=== PATIENT | male | born 1960 ===

== ENCOUNTER 2017-07-12 08:58 | Day surgery (SDC) | payer OTHER ==
[2017-07-03 09:20] VITALS: BMI 31.3
[2017-07-12] MEDS ORDERED: Bupivacaine 0.25% Inj(30mL) ONE (09:34)
[2017-07-12] MEDS ORDERED: Lidocaine/Epinephrine 1% 1:100000 10 ML IJ ONE (09:35)
[2017-07-12] MEDS ORDERED: Midazolam 2 MG/2 ML VIAL ONE (10:05)
[2017-07-12] MEDS ORDERED: Propofol 10 mg/ml Inj (20 ML) ONE (10:05)
[2017-07-12] MEDS ORDERED: Neostigmine Methylsulfate 3mg/3ml Syringe IV ONE (10:09)
[2017-07-12] MEDS ORDERED: ceFAZolin IV 1 gm in Dextrose 2 GM/100 ML BAG IVPB ONE (10:58)
--- NOTE | 2017-07-12 12:19 | PCM.SURG1 ---
Surgeon's Initial Post Op Note - Surgeon's Notes Surgeon: Dr. Bautista Duplicating Machine Operator: Dr. Weiss, PGY-3 Type of Anesthesia: General LMA Anesthesia Administered By: Dr. Clifton Pre-Operative Diagnosis: Left shoulder & Left leg/mirza masses Operative Findings: See operative report Post-Operative Diagnosis: Same Operation Performed: 1) Excision of left shoulder mass. 2) Excision of left mirza mass Specimen/Specimens Removed: L shoulder & L leg masses Estimated Blood Loss: EBL {In ML}: 5 Blood Products Given: N/A Drains Used: No Drains Post-Op Condition: Good Date of Surgery/Procedure: 07/12/17 Time of Surgery/Procedure: 12:19
[2017-07-12] MEDS ORDERED: HYDROmorphone 0.5 mg/0.5 ml ISec IVP PRN (12:20)
[2017-07-12] MEDS ORDERED: Lactated Ringer's 1,000 ML IV ONE ×2 (12:54)
[2017-07-12 14:13] VITALS: RESP 16
[2017-07-12 14:15] VITALS: BP 105/61; PULSE 56; TEMP 97.7; O2SAT 97
--- NOTE | 2017-07-13 01:41 | OP ---
PROCEDURE DATE: 07/12/2017. PREOPERATIVE DIAGNOSES: 1. Left shoulder lipoma, possible sebaceous cyst 8 x 6 cm size. 2. Left leg lipoma, possibly 3 x 2 cm size. POSTOPERATIVE DIAGNOSES: 1. Left shoulder sebaceous cyst, 8 x 6 cm size. 2. Left leg lesion, 3 x 2 cm size. PROCEDURES: 1. Excision of the left shoulder sebaceous cyst, 8 x 6 cm size. 2. Layered closure of the wound, 8 x 3 cm size. 3. Excision of the left leg lesion, 3 x 2 cm size. 4. Layered closure of the wound of left leg, 3 x 2 cm size. ANESTHESIA: General anesthesia via LMA. ESTIMATED BLOOD LOSS: Around 30 mL all together. COMPLICATIONS: None. INTRAOPERATIVE FINDINGS: Th patient had a large sebaceous cyst of the left shoulder and the patient had brown color lesion of left leg. Initially, in both places was diagnosed as lipoma preoperatively. PATHOLOGY: The left shoulder sebaceous cyst and left leg lesion was sent to the pathology. SURGEON: Dr. Bautista. DIRECTOR OF STUDENT FINANCIAL SERVICES: Malu Weiss, PGY-2 resident and Anastasiia Wang FRONT LINE SUPERVISOR. DESCRIPTION OF PROCEDURE: On the intraoperative step, this 57-year-old male, who was diagnosed with left shoulder and the left leg lipoma and the patient was considered for excision of the left shoulder and the left leg lipoma, brought to the OR, placed supine on the operating table after induction of the anesthesia. After the induction of the anesthesia, the left shoulder and left leg was prepped and draped in the usual sterile fashion and the elliptical incision was made after incising skin, subcutaneous tissue, and the cyst was identified and now the upper and lower flap dissection was done medial and lateral dissection was done. The cyst was completely excised and it was sent off the table for pathology. The wound was closed in a multiple layer. The underlying fascia of the deltoid muscle was sutured with 0 Vicryl interrupted suture to cover the muscles, then another deep layer of subcutaneous with 2-0 Vicryl, superficial layer of subcutaneous with 2-0 Vicryl, and the skin with 4-0 Monocryl and dry sterile dressing was applied. The patient tolerated the procedure well. Now the left leg incision made after incising skin and subcutaneous tissue. The brown colored lesion was completely excised and it was sent off the table for pathology. Wound was irrigated and wound was closed in multiple layer with deep subcutaneous with 2-0 Vicryl. The superficial subcutaneous with 2-0 Vicryl and the skin with the 4-0 Monocryl and dry sterile dressings was applied. The patient tolerated the procedure well. Count of the instrument and gauze was correct. There was no apparent complication. Frank Bautista MD [facility]
== END 2017-07-12 14:19 | disposition home or self-care (01) ==
LOC: C.SDS 08:58 → MERGE 11:30 → C.SDS 14:19
PROVIDERS: ATTEND Surgery Surgical Critical Care
DX: L72.0 Epidermal cyst (principal); D18.01 Hemangioma of skin and subcutaneous tissue; E11.9 Type 2 diabetes mellitus without complications; I10 Essential (primary) hypertension
CPT/HCPCS: 11406; 12034; 82948; 88305; J0690; J1100; J2250; J2405; J2704; J2710; J2765; J3010; J7120

== ENCOUNTER 2017-08-09 07:16 | Day surgery (SDC) | payer OTHER ==
[2017-08-08 12:49] VITALS: BMI 32.8
[2017-08-09] MEDS ORDERED: Lactated Ringer's 500 ML IV ONE (09:05)
[2017-08-09] MEDS ORDERED: Propofol 10 mg/ml Inj (20 ML) ONE ×2 (09:15→09:17)
[2017-08-09 09:46] VITALS: RESP 16
[2017-08-09 09:52] VITALS: O2SAT 95
[2017-08-09 10:13] VITALS: TEMP 96.8
[2017-08-09 10:27] VITALS: BP 128/70; PULSE 53
== END 2017-08-09 10:50 | disposition home or self-care (01) ==
LOC: C.ENDO 07:16
PROVIDERS: ATTEND Internal Medicine Gastroenterology
DX: Z12.11 Encounter for screening for malignant neoplasm of colon (principal); D12.3 Benign neoplasm of transverse colon; D12.8 Benign neoplasm of rectum; K64.1 Second degree hemorrhoids
CPT/HCPCS: 45380; 82948; 88305; J2001; J2704; J7120

== ENCOUNTER 2017-10-21 17:54 | Inpatient (IN) | payer OTHER ==
[2017-10-21 17:54] VITALS: BMI 32.8
--- NOTE | 2017-10-21 18:52 | C.PDOC ---
History Of Present Illness 57 year old male with PMHx of HTN, HLD, and DM presents to the ED for evaluation of left lower leg erythema he noticed 3 days ago. Patient is taking antibiotics at home for 1 day. Patient has a lipoma recently removed from his left lower leg. Patient denies fever, chills, weakness, numbness. Time Seen by Provider: 10/21/17 18:49 Chief Complaint (Nursing): Abnormal Skin Integrity History Per: Patient History/Exam Limitations: no limitations Onset/Duration Of Symptoms: Days (3) Current Symptoms Are (Timing): Still Present Location Of Injury: Right: Leg Quality Of Symptoms: Painful, Swollen Recent travel outside of the [place]: No Additional History Per: Patient Past Medical History Reviewed: Historical Data, Nursing Documentation, Vital Signs Vital Signs: Last Vital Signs Temp 99.5 F 10/22/17 15:00 Pulse 71 10/22/17 15:00 Resp 20 10/22/17 15:00 BP 143/79 10/22/17 15:00 Pulse Ox 97 10/22/17 15:00 - Medical History PMH: Arthritis, HTN, Hypercholesterolemia Denies: Chronic Kidney Disease Surgical History: No Surg Hx Family History: States: Unknown Family Hx - Social History Hx Alcohol Use: Yes Hx Substance Use: No - Immunization History Hx Tetanus Toxoid Vaccination: No Review Of Systems Except As Marked, All Systems Reviewed And Found Negative. Musculoskeletal: Positive for: Leg Pain Skin: Positive for: Other (erythema) Physical Exam - Physical Exam Appears: Non-toxic, No Acute Distress Skin: Normal Color, Warm, Dry Head: Atraumatic, Normacephalic Eye(s): bilateral: Normal Inspection Oral Mucosa: Moist Neck: Normal ROM, Supple Chest: Symmetrical Cardiovascular: Rhythm Regular Respiratory: Normal Breath Sounds, No Rales, No Rhonchi, No Wheezing Gastrointestinal/Abdominal: Soft, No Tenderness, No Guarding, No Rebound Extremity: Normal ROM, No Tenderness, Capillary Refill (< 2 seconds), Other (4- 5 cm erythema area left lower leg) Pulses: Left Dorsalis Pedis: Normal, Right Dorsalis Pedis: Normal Neurological/Psych: Oriented x3, Normal Speech Gait: Steady ED Course And Treatment - Laboratory Results Result Diagrams: 10/22/17 08:01 10/22/17 08:01 O2 Sat by Pulse Oximetry: 99 (ON RA) Pulse Ox Interpretation: Normal - CT Scan/US Left lower leg Other Rad Studies (CT/US): U/S Performed By Me CT/US Interpretation: Bedside US shows no drainable collection Medical Decision Making Medical Decision Making: Impression: left lower leg erythema Plan: * Labs * Rocephin IVPB * IV fluids * Tylenol 975 mg PO * Vancomycin IVPN * Blood culture Disposition - Disposition Disposition: HOSPITALIZED Disposition Time: 03:00 Condition: STABLE - Clinical Impression Clinical Impression: Cellulitis - Scribe Statement The provider has reviewed the documentation as recorded by the Scribe Bernardo Waldrop All medical record entries made by the Scribe were at my direction and personally dictated by me. I have reviewed the chart and agree that the record accurately reflects my personal performance of the history, physical exam, medical decision making, and the department course for this patient. I have also personally directed, reviewed, and agree with the discharge instructions and disposition. Decision To Admit - Pt Status Changed To: Hospital Disposition Of: Inpatient - Admit Certification Admit to Inpatient:: After my assessment, the patient will require hospitalization for at least two midnights. This is because of the severity of symptoms shown, intensity of services needed, and/or the medical risk in this patient being treated as an outpatient. - InPatient: Physician Admission Certification: I certify that this patient requires 2 or more midnights of care for the following reason:: needs iv antibiotics - . Bed Request Type: Telemetry Admitting Physician: Naga Spear Patient Diagnosis: Cellulitis
[2017-10-21] MEDS ORDERED: Vancomycin 1 GM in Sodium Chloride 0.9% 200 ML IVPB STA (18:58)
[2017-10-21 19:44] LABS: BASO # 0.1 K/uL (0.0-0.2); BASO % 0.3 % (0.0-2.0); EOS % 0.1 % (0.0-4.0); LYMPH # 1.9 K/uL (1.0-4.3); LYMPH % 9.7 % (20.0-40.0); MEAN CELL VOLUME 87.8 fL (80.0-94.0); MEAN CORPUSCULAR HEMOGLOBIN 29.7 pg (27.0-31.0); MEAN CORPUSCULAR HGB CONC 33.8 g/dL (33.0-37.0); MEAN PLATELET VOLUME 8.2 fL (7.2-11.7); MONO # 1.5 K/uL (0.0-0.8); MONO % 7.8 % (0.0-10.0); NEUT % 82.1 % (50.0-75.0); PLATELET COUNT 330 K/uL (130-400); RBC 4.39 Mil/uL (4.40-5.90); RED CELL DISTRIBUTION WIDTH 13.6 % (11.5-14.5)
[2017-10-21 19:55] LABS: WHITE BLOOD COUNT 19.5 K/uL (4.8-10.8)
[2017-10-21 19:56] LABS: INR 1.2; PROTHROMBIN TIME 12.6 SECONDS (9.7-12.2)
[2017-10-21 19:59] LABS: ALB/GLOB RATIO 1.3 (1.0-2.1); ALBUMIN 4.3 g/dL (3.5-5.0); ALT/SGPT 29 U/L (21-72); AST/SGOT 25 U/L (17-59); BLOOD UREA NITROGEN 11 mg/dL (9-20); CALCIUM 8.9 mg/dl (8.6-10.4); GFR AFRICAN-AMERICAN > 60; GFR NON-AFRICAN AMERICAN > 60
[2017-10-21] MEDS ORDERED: Sodium Chloride 0.9% 1,000 ML IV ONE (20:05)
[2017-10-21 20:32] LABS: LARGE PLATELETS PRESENT; LYMPHOCYTE 11 % (20-40); MONOCYTE 8 % (0-10); NEUTROPHIL 81 % (50-75); OVALOCYTES SLIGHT; PLATELET ESTIMATE NORMAL (NORMAL); POIKILOCYTOSIS SLIGHT; TOTAL CELLS COUNTED 100
--- NOTE | 2017-10-21 22:28 | CP.PCM.HP ---
<Yelena Singh P - Last Filed: 10/22/17 02:51> History of Present Illness - History of Present Illness History of Present Illness: Medicine note for Hospitalist Service HPI: Patient is a 57 yo M with a PMHx of DM, HTN, Hypercholesterolemia who presents to ED for worsening L mirza redness, pain, and fevers that began 3 days prior to arrival. Patient states he has not been able to walk due to 9/10 L leg pain. Treatment with ibuprofen was not effective for the pain and helped to reduce fever only temporarily. Associated symptoms include chills, headache, lightheadedness on standing, mild shortness of breath, and nausea. Patient denies chest pain, palpitations, generalized weakness, cough, vomiting, diarrhea , dysuria, hematuria, urinary frequency, recent illness. Patient states he had a lipoma removed from his left mirza at [facility] by Dr. Bautista on 07/12 and notes that the redness is located at the incision site. Patient denies any complications at the time of surgery. Patient saw his PMD, Dr. Tavarez, yesterday who prescribed cephalexin 500 PO QID, and instructed the patient to come to ED if there was no improvement of symptoms. PMHx: DM, HTN, Hypercholesterolemia PSHx: Lipoma excision of L mirza and Left shoulder 07/12/17, Endoscopy 08/09/17, diagnostic catheterization ~2002 Allergies: NKDA Meds: Metformin 100mg BID, Pravastatin 50mg qHS, Glimeperide 4mg BID, Losartan 50mg daily Family Hx: Father: - HTN, DM. Mother: - HTN, DM. Social Hx: Drinks alcohol socially, denies tobacco, denies illicit drug use. PMD: Dr. Tavarez Present on Admission - Present on Admission Any Indicators Present on Admission: No Past Patient History - Past Medical History & Family History Past Medical History?: Yes - Past Social History Smoking Status: Never Smoked - CARDIAC Hx Hypercholesterolemia: Yes Hx Hypertension: Yes - PULMONARY Hx Respiratory Disorders: No - NEUROLOGICAL Hx Neurological Disorder: No - HEENT Hx HEENT Problems: No - RENAL Hx Chronic Kidney Disease: No - ENDOCRINE/METABOLIC Hx Endocrine Disorders: Yes Hx Diabetes Mellitus Type 2: Yes - HEMATOLOGICAL/ONCOLOGICAL Hx Blood Disorders: No - INTEGUMENTARY Hx Dermatological Problems: Yes - MUSCULOSKELETAL/RHEUMATOLOGICAL Hx Arthritis: Yes - GASTROINTESTINAL Hx Gastrointestinal Disorders: No - GENITOURINARY/GYNECOLOGICAL Hx Genitourinary Disorders: No - PSYCHIATRIC Hx Substance Use: No - SURGICAL HISTORY Hx Surgeries: Yes Hx Cardiac Catheterization: Yes - ANESTHESIA Hx Anesthesia: Yes Hx Anesthesia Reactions: No Hx Malignant Hyperthermia: No Meds Allergies/Adverse Reactions: Allergies Allergy/AdvReac Type Severity Reaction Status Date / Time No Known Allergies Allergy Verified 07/03/17 09:19 Physical Exam - Constitutional Appears: No Acute Distress - Head Exam Head Exam: ATRAUMATIC, NORMOCEPHALIC - Eye Exam Eye Exam: EOMI Pupil Exam: PERRL - ENT Exam ENT Exam: Mucous Membranes Moist - Neck Exam Neck exam: Positive for: Full Rom - Respiratory Exam Respiratory Exam: Clear to Auscultation Bilateral. absent: Rales, Rhonchi, Wheezes - Cardiovascular Exam Cardiovascular Exam: REGULAR RHYTHM, +S1, +S2. absent: Systolic Murmur - GI/Abdominal Exam GI & Abdominal Exam: Normal Bowel Sounds, Soft. absent: Tenderness - Extremities Exam Additional comments: L lower extremity: L anterior mirza with 7 cm area of erythema, swelling, and warmth with 1.5cm linear hyperpigmentation at center. Area is not well demarcated. There is no active drainage, no open wound. Area is tender to palpation. Full ROM with pain. R Lower extremity: Full ROM, non-tender to palpation, no edema or erythema. - Neurological Exam Neurological exam: Alert, CN II-XII Intact, Oriented x3 - Psychiatric Exam Psychiatric exam: Normal Affect, Normal Mood - Skin Additional comments: Other than stated above, warm dry and intact. Results - Vital Signs Recent Vital Signs: Last Vital Signs Temp 100.3 F H 10/21/17 22:13 Pulse 87 10/21/17 21:14 Resp 18 10/21/17 21:14 BP 104/66 10/21/17 21:14 Pulse Ox 96 10/21/17 21:14 - Labs Result Diagrams: 10/21/17 19:37 10/21/17 19:37 Labs: Laboratory Results - last 24 hr 10/21/17 10/21/17 10/21/17 19:37 19:37 19:37 WBC 19.5 H D RBC 4.39 L Hgb 13.0 Hct 38.5 MCV 87.8 MCH 29.7 MCHC 33.8 RDW 13.6 Plt Count 330 MPV 8.2 Neut % (Auto) 82.1 H Lymph % (Auto) 9.7 L [place] % (Auto) 7.8 Eos % (Auto) 0.1 Baso % (Auto) 0.3 Neut # (Auto) 16.0 H Lymph # (Auto) 1.9 [place] # (Auto) 1.5 H Eos # (Auto) 0.0 Baso # (Auto) 0.1 Neutrophils % (Manual) 81 H Lymphocytes % (Manual) 11 L Monocytes % (Manual) 8 Platelet Estimate Normal Large Platelets Present Poikilocytosis (manual Slight Ovalocytes Slight PT 12.6 H INR 1.2 APTT 35 H Sodium 136 Potassium 4.5 Chloride 98 Carbon Dioxide 26 Anion Gap 17 BUN 11 Creatinine 0.9 Est GFR ( Amer) > 60 Est GFR (Non-Af Amer) > 60 Random Glucose 260 H Lactic Acid Calcium 8.9 Total Bilirubin 1.0 AST 25 ALT 29 Alkaline Phosphatase 76 Total Protein 7.6 Albumin 4.3 Globulin 3.3 Albumin/Globulin Ratio 1.3 10/21/17 22:12 WBC RBC Hgb Hct MCV MCH MCHC RDW Plt Count MPV Neut % (Auto) Lymph % (Auto) [place] % (Auto) Eos % (Auto) Baso % (Auto) Neut # (Auto) Lymph # (Auto) [place] # (Auto) Eos # (Auto) Baso # (Auto) Neutrophils % (Manual) Lymphocytes % (Manual) Monocytes % (Manual) Platelet Estimate Large Platelets Poikilocytosis (manual Ovalocytes PT INR APTT Sodium Potassium Chloride Carbon Dioxide Anion Gap BUN Creatinine Est GFR ( Amer) Est GFR (Non-Af Amer) Random Glucose Lactic Acid 1.1 Calcium Total Bilirubin AST ALT Alkaline Phosphatase Total Protein Albumin Globulin Albumin/Globulin Ratio Assessment & Plan - Assessment and Plan (Free Text) Plan: 57 yo M with PMHx of DM, HTN, and hypercholesterolemia admitted for L leg cellulitis vs. abscess. 1. Sepsis secondary to Cellulitis vs. Abscess -On admission: WBC 19.5, temp: 103.1, pulse:105 -Lactate: 1.1 -Vancomycin 1g IVBP Q24H -Zosyn 3.375 IVBP Q8H -Tylenol 650mg PO Q6H PRN pain, fever -IVF -L leg US: F/u -CXR: F/u -blood cx: F/u -Procalcitonin F/u -VBG F/u -UA F/u -urine cx: F/u 2. Diabetes Mellitus -Regular ISS -Accucheck ACHS -Hbg A1c 3.HTN -Losartan 50mg PO daily 4. Hypercholesterolemia - 5. Prophylatic Measures -Florastor 250mg PO BID -Pepcid 20mg PO BID -Heparin 5000u SC Q12H -SCD contraindicated - Date & Time Date: 10/21/17 Time: 20:30 Decision To Admit - Pt Status Changed To: Hospital Disposition Of: Inpatient - Admit Certification Admit to Inpatient:: After my assessment, the patient will require hospitalization for at least two midnights. This is because of the severity of symptoms shown, intensity of services needed, and/or the medical risk in this patient being treated as an outpatient. - . Bed Request Type: Regular <Naga Spear - Last Filed: 10/22/17 06:43> Results - Vital Signs Recent Vital Signs: Last Vital Signs Temp 99.1 F 10/22/17 00:00 Pulse 66 10/22/17 01:00 Resp 20 10/22/17 00:00 BP 132/70 10/22/17 00:00 Pulse Ox 96 10/22/17 00:00 - Labs Result Diagrams: 10/21/17 19:37 10/21/17 19:37 Labs: Laboratory Results - last 24 hr 10/21/17 10/21/17 10/21/17 19:37 19:37 19:37 WBC 19.5 H D RBC 4.39 L Hgb 13.0 Hct 38.5 MCV 87.8 MCH 29.7 MCHC 33.8 RDW 13.6 Plt Count 330 MPV 8.2 Neut % (Auto) 82.1 H Lymph % (Auto) 9.7 L [place] % (Auto) 7.8 Eos % (Auto) 0.1 Baso % (Auto) 0.3 Neut # (Auto) 16.0 H Lymph # (Auto) 1.9 [place] # (Auto) 1.5 H Eos # (Auto) 0.0 Baso # (Auto) 0.1 Neutrophils % (Manual) 81 H Lymphocytes % (Manual) 11 L Monocytes % (Manual) 8 Platelet Estimate Normal Large Platelets Present Poikilocytosis (manual Slight Ovalocytes Slight PT 12.6 H INR 1.2 APTT 35 H pO2 VBG pH VBG pCO2 VBG HCO3 VBG Total CO2 VBG O2 Sat (Calc) VBG Base Excess VBG Potassium Glucose Lactate Crit Value Called To Crit Value Called By Crit Value Read Back Blood Gas Notified Time Sodium 136 Potassium 4.5 Chloride 98 Carbon Dioxide 26 Anion Gap 17 BUN 11 Creatinine 0.9 Est GFR ( Amer) > 60 Est GFR (Non-Af Amer) > 60 Random Glucose 260 H Lactic Acid Calcium 8.9 Total Bilirubin 1.0 AST 25 ALT 29 Alkaline Phosphatase 76 Total Protein 7.6 Albumin 4.3 Globulin 3.3 Albumin/Globulin Ratio 1.3 Venous Blood Potassium Urine Color Urine Clarity Urine pH Ur Specific [place] Urine Protein Urine Glucose (UA) Urine Ketones Urine Blood Urine Nitrate Urine Bilirubin Urine Urobilinogen Ur Leukocyte Esterase Urine WBC (Auto) Urine RBC (Auto) Urine Opiates Screen Urine Methadone Screen Ur Barbiturates Screen Ur Phencyclidine Scrn Ur Amphetamines Screen U Benzodiazepines Scrn U Oth Cocaine Metabols U Cannabinoids Screen 10/21/17 10/22/17 10/22/17 22:12 02:04 02:11 WBC RBC Hgb Hct MCV MCH MCHC RDW Plt Count MPV Neut % (Auto) Lymph % (Auto) [place] % (Auto) Eos % (Auto) Baso % (Auto) Neut # (Auto) Lymph # (Auto) [place] # (Auto) Eos # (Auto) Baso # (Auto) Neutrophils % (Manual) Lymphocytes % (Manual) Monocytes % (Manual) Platelet Estimate Large Platelets Poikilocytosis (manual Ovalocytes PT INR APTT pO2 39 VBG pH 7.36 VBG pCO2 46 VBG HCO3 24.3 VBG Total CO2 27.4 VBG O2 Sat (Calc) 77.8 H VBG Base Excess 0.1 VBG Potassium 3.4 L Glucose 202 H Lactate 1.1 Crit Value Called To Zeferino Blancot rn Crit Value Called By Heather trujillo rt Crit Value Read Back Y Blood Gas Notified Time 226 Sodium 139.0 Potassium Chloride 107.0 Carbon Dioxide Anion Gap BUN Creatinine Est GFR ( Amer) Est GFR (Non-Af Amer) Random Glucose Lactic Acid 1.1 Calcium Total Bilirubin AST ALT Alkaline Phosphatase Total Protein Albumin Globulin Albumin/Globulin Ratio Venous Blood Potassium 3.4 L Urine Color Yellow Urine Clarity Clear Urine pH 6.0 Ur Specific [place] 1.006 Urine Protein Negative Urine Glucose (UA) Normal Urine Ketones Negative Urine Blood 2+ H Urine Nitrate Negative Urine Bilirubin Negative Urine Urobilinogen Normal Ur Leukocyte Esterase Neg Urine WBC (Auto) 1 Urine RBC (Auto) < 1 Urine Opiates Screen Urine Methadone Screen Ur Barbiturates Screen Ur Phencyclidine Scrn Ur Amphetamines Screen U Benzodiazepines Scrn U Oth Cocaine Metabols U Cannabinoids Screen 10/22/17 02:11 WBC RBC Hgb Hct MCV MCH MCHC RDW Plt Count MPV Neut % (Auto) Lymph % (Auto) [place] % (Auto) Eos % (Auto) Baso % (Auto) Neut # (Auto) Lymph # (Auto) [place] # (Auto) Eos # (Auto) Baso # (Auto) Neutrophils % (Manual) Lymphocytes % (Manual) Monocytes % (Manual) Platelet Estimate Large Platelets Poikilocytosis (manual Ovalocytes PT INR APTT pO2 VBG pH VBG pCO2 VBG HCO3 VBG Total CO2 VBG O2 Sat (Calc) VBG Base Excess VBG Potassium Glucose Lactate Crit Value Called To Crit Value Called By Crit Value Read Back Blood Gas Notified Time Sodium Potassium Chloride Carbon Dioxide Anion Gap BUN Creatinine Est GFR ( Amer) Est GFR (Non-Af Amer) Random Glucose Lactic Acid Calcium Total Bilirubin AST ALT Alkaline Phosphatase Total Protein Albumin Globulin Albumin/Globulin Ratio Venous Blood Potassium Urine Color Urine Clarity Urine pH Ur Specific [place] Urine Protein Urine Glucose (UA) Urine Ketones Urine Blood Urine Nitrate Urine Bilirubin Urine Urobilinogen Ur Leukocyte Esterase Urine WBC (Auto) Urine RBC (Auto) Urine Opiates Screen Negative Urine Methadone Screen Negative Ur Barbiturates Screen Negative Ur Phencyclidine Scrn Negative Ur Amphetamines Screen Negative U Benzodiazepines Scrn Negative U Oth Cocaine Metabols Negative U Cannabinoids Screen Negative Assessment & Plan - Date & Time Date: 10/22/17 (I have seen and examined the patient. I agree with the findings and plan of care as documented by Dr. Singh. Patient with lower extremity cellulitis. Ultrasound of wound to check for abscess. Consult surgery if necessary. Vanco and Zosyn for now. History of diabetes. NISS and accuchecks. Optimize glucose control to improve wound healing. Monitor for acute changes.) Time: 06:41 Attending/Attestation - Attestation I have personally seen and examined this patient.: Yes I have fully participated in the care of the patient.: Yes I have reviewed all pertinent clinical information: Yes
[2017-10-21] MEDS ORDERED: Glucagon Recombinant 1 mg Inj IM PRN (22:51)
[2017-10-21] MEDS ORDERED: Dextrose 50% SYRINGE Inj (50 ml) IV PRN (22:51)
[2017-10-22] MEDS: Sodium Chloride 0.9% 1,000 ML IV SCH ×3 (00:25→18:49)
[2017-10-22] MEDS: Piperacillin/Tazobact 3.375 GM in Sodium Chloride 100 ML IVPB SCH ×3 (01:00→17:00)
[2017-10-22 02:24] LABS: VENOUS BLOOD GAS BASE EXCESS 0.1 mmol/L (0.0-2.0); VENOUS BLOOD GAS PCO2 46 mmHg (40-60); VENOUS BLOOD GAS PO2 39 mm/Hg (30-55); VENOUS BLOOD PH 7.36 (7.32-7.43)
[2017-10-22 02:32] LABS: BARBITURATES, UR NEGATIVE (NEGATIVE); BENZODIAZEPINES, UR NEGATIVE (NEGATIVE); OPIATES, UR NEGATIVE (NEGATIVE); PHENCYCLIDINE, UR NEGATIVE (NEGATIVE)
[2017-10-22 02:37] LABS: URINE BILIRUBIN NEGATIVE (NEGATIVE); URINE BLOOD 2+ (NEGATIVE); URINE CLARITY Clear (Clear); URINE COLOR Yellow (YELLOW); URINE GLUCOSE (UA) NORMAL (Normal); URINE LEUKOCYTE ESTERASE NEG Leu/uL (Negative); URINE PROTEIN NEGATIVE (NEGATIVE); URINE UROBILINOGEN NORMAL mg/dL (0.2-1.0)
[2017-10-22] MEDS: (Novolog) Insulin Aspart, Recombinant 100 u/ml 10 ml vial SC SCH ×4 (08:06→22:15)
[2017-10-22 08:17] LABS: BASO % 0.3 % (0.0-2.0); EOS % 0.3 % (0.0-4.0); HEMOGLOBIN 11.9 g/dL (12.0-18.0); LYMPH # 1.8 K/uL (1.0-4.3); LYMPH % 12.7 % (20.0-40.0); MEAN CELL VOLUME 87.5 fL (80.0-94.0); MEAN CORPUSCULAR HEMOGLOBIN 30.7 pg (27.0-31.0); MEAN PLATELET VOLUME 7.9 fL (7.2-11.7); MONO # 1.1 K/uL (0.0-0.8); MONO % 7.8 % (0.0-10.0); NEUT # 11.4 K/uL (1.8-7.0); NEUT % 78.9 % (50.0-75.0); RBC 3.89 Mil/uL (4.40-5.90); RED CELL DISTRIBUTION WIDTH 13.4 % (11.5-14.5); WHITE BLOOD COUNT 14.4 K/uL (4.8-10.8)
[2017-10-22 08:33] LABS: ALB/GLOB RATIO 1.3 (1.0-2.1); ALBUMIN 3.9 g/dL (3.5-5.0); ALT/SGPT 27 U/L (21-72); AST/SGOT 22 U/L (17-59); BLOOD UREA NITROGEN 8 mg/dL (9-20); CALCIUM 8.4 mg/dl (8.6-10.4); GFR AFRICAN-AMERICAN > 60; GFR NON-AFRICAN AMERICAN > 60
--- NOTE | 2017-10-22 08:34 | RAD ---
PROCEDURE: CHEST RADIOGRAPH, 1 VIEW HISTORY: leukocytosis COMPARISON: None available. FINDINGS: LUNGS: Clear. PLEURA: No pneumothorax or pleural fluid seen. CARDIOVASCULAR: Normal. OSSEOUS STRUCTURES: No significant abnormalities. VISUALIZED UPPER ABDOMEN: Normal. OTHER FINDINGS: None. IMPRESSION: No active disease.
[2017-10-22] MEDS: Saccharomyces Boulardi 250 mg Cap PO SCH ×2 (09:30→18:14)
--- NOTE | 2017-10-22 11:07 | CP.PCM.PN ---
<Sybil Du V - Last Filed: 10/22/17 14:23> Objective - Vital Signs/Intake and Output Vital Signs (last 24 hours): Temp Pulse Resp BP Pulse Ox 100.9 F H 80 20 137/78 96 10/22/17 08:00 10/22/17 08:00 10/22/17 08:00 10/22/17 08:00 10/22/17 08:00 Intake and Output: 10/22/17 10/22/17 06:59 18:59 Intake Total 800 Output Total 1200 Balance -400 - Medications Medications: Current Medications Acetaminophen (Tylenol 325mg Tab) 650 mg PO Q6 PRN PRN Reason: Fever >100.4 F Last Admin: 10/22/17 11:22 Dose: 650 mg Dextrose (Dextrose 50% Inj) 0 ml IV STAT PRN; Protocol PRN Reason: Hypoglycemia Protocol Dextrose (Glutose 15) 0 gm PO ONCE PRN; Protocol PRN Reason: Hypoglycemia Protocol Famotidine (Pepcid) 20 mg PO BID [facility] Last Admin: 10/22/17 09:30 Dose: 20 mg Glimepiride (Amaryl) 4 mg PO DAILY [facility] Glucagon (Glucagen Diagnostic Kit) 0 mg IM STAT PRN; Protocol PRN Reason: Hypoglycemia Protocol Heparin Sodium (Porcine) (Heparin) 5,000 units SC Q12 [facility] Last Admin: 10/22/17 11:23 Dose: 5,000 units Home Med (Pravastatin Sodium [Pravachol]) 1 tab PO HS [facility] Dextrose (Dextrose 5% In Water 1000 Ml) 1,000 mls @ 0 mls/hr IV .Q0M PRN; Protocol; Per Protocol PRN Reason: Hypoglycemia Protocol Piperacillin Sod/Tazobactam (Sod 3.375 gm/ Sodium Chloride) 100 mls @ 200 mls/ hr IVPB Q8H [facility] PRN Reason: Protocol Last Admin: 10/22/17 07:59 Dose: 200 mls/hr Sodium Chloride (Sodium Chloride 0.9%) 1,000 mls @ 100 mls/hr IV .Q10H [facility] Last Admin: 10/22/17 12:16 Dose: 100 mls/hr Vancomycin HCl 1 gm/ Sodium (Chloride) 200 mls @ 166.7 mls/hr IVPB Q24H [facility] PRN Reason: Protocol Insulin Aspart (Novolog) 0 unit SC ACHS [facility] PRN Reason: Protocol Last Admin: 10/22/17 12:13 Dose: 3 u Losartan Potassium (Cozaar) 50 mg PO DAILY [facility] Last Admin: 10/22/17 09:30 Dose: 50 mg Rosuvastatin Calcium (Crestor) 5 mg PO HS [facility] Saccharomyces Boulardii (Florastor) 250 mg PO BID [facility] Last Admin: 10/22/17 09:30 Dose: 250 mg - Labs Labs: 10/22/17 08:01 10/22/17 08:01 PT 12.6 SECONDS (9.7-12.2) H 10/21/17 19:37 INR 1.2 10/21/17 19:37 APTT 35 SECONDS (21-34) H 10/21/17 19:37 Attending/Attestation - Attestation I have personally seen and examined this patient.: Yes I have fully participated in the care of the patient.: Yes I have reviewed all pertinent clinical information, including history, physical exam and plan: Yes Notes (Text): Patient seen, examined, case discussed with medical billing assistant. Patient seen this morning accompanied by his at bedside. Patient has completed non-ultrasound earlier today. Patient had a fever this morning of 100.9 Fahrenheit discussed with his nurse. White count downtrending from 19-14. Patient has seeks cellulitis over the left lower ankle with some small pus draining. On my physical exam there is some fluctuance and does feel that it can easily open up. We will consult general surgery for consideration of abscess. Patient's surgeon , Dr. Bautista in the past for removal of lipoma. Adjusted IV antibiotics; f/u cultures Wound culture for fluid draining from wound. Patient's wound outlined by myself over the lower posterior mirza. 1. Sepsis secondary to Cellulitis vs. Abscess Assessment/plan * On admission: WBC 19.5, temp: 103.1, pulse:105 * Lactate: 1.1-->code sepsis not called since lactate <2.0 * General surgery (Dr. Bautista) on consult-->help appreciated * Antibiotics: * Vancomycin 1g IVBP Q24H-->changed to vancomycin 1 g IV IVPB every 12hours ( active since 10/22/17) * Vancomycin trough to be drawn at 1:30PM on MondayOctober 23 * Continue Zosyn 3.375 IVBP Q6H (active since 10/21/17) * Continue Tylenol 650mg PO Q6H PRN pain, fever * Follow-up extremity ultrasound * Procalcitonin elevated: 1.80 * blood cultures from 10/21/2017: follow-up * Urine culture from 10/21/2017: follow-up * Florastor 250mg PO BID * NS 100cc/hr * Chest xray (10/21/17): no active disease 2. Diabetes Mellitus, uncontrolled Assessment/plan * A1c 9.3 * Lipid Panel in AM * Held metformin/kombiglyze on admisison * Restart Amaryl 4mg PO daily * Start Lantus 10 units subqHS * Regular insulin sliding scale subq * Accucheck ACHS 3. Hypertension Assessment/plan * Losartan 50mg PO daily 4. Hypercholesterolemia Assessment/plan * Pravastatin not available in hospital formulary switched to Crestor 5mg POqHS 5. Prophylactic Measure * Florastor 250mg PO BID * Pepcid 20mg PO BID * Heparin 5000u SC Q12H * SCD contraindicated <Julia Bhatia - Last Filed: 10/22/17 23:07> Subjective - Date & Time of Evaluation Date of Evaluation: 10/22/17 Time of Evaluation: 11:07 - Subjective Subjective: Progress note for Hospitalist service Patient seen and examined at bedside. He states that his left mirza began to drain this morning. States that it was initially yellow, then became clear. States his pain has improved. States he was febrile this morning. Denies headache, dizziness, chest pain, shortness of breath, abdominal pain, nausea, vomiting. Objective - Vital Signs/Intake and Output Vital Signs (last 24 hours): Temp Pulse Resp BP Pulse Ox 100.9 F H 80 20 137/78 96 10/22/17 08:00 10/22/17 08:00 10/22/17 08:00 10/22/17 08:00 10/22/17 08:00 Intake and Output: 10/22/17 10/22/17 06:59 18:59 Intake Total 800 Output Total 1200 Balance -400 - Medications Medications: Current Medications Acetaminophen (Tylenol 325mg Tab) 650 mg PO Q6 PRN PRN Reason: Fever >100.4 F Dextrose (Dextrose 50% Inj) 0 ml IV STAT PRN; Protocol PRN Reason: Hypoglycemia Protocol Dextrose (Glutose 15) 0 gm PO ONCE PRN; Protocol PRN Reason: Hypoglycemia Protocol Famotidine (Pepcid) 20 mg PO BID [facility] Last Admin: 10/22/17 09:30 Dose: 20 mg Glucagon (Glucagen Diagnostic Kit) 0 mg IM STAT PRN; Protocol PRN Reason: Hypoglycemia Protocol Heparin Sodium (Porcine) (Heparin) 5,000 units SC Q12 [facility] Dextrose (Dextrose 5% In Water 1000 Ml) 1,000 mls @ 0 mls/hr IV .Q0M PRN; Protocol; Per Protocol PRN Reason: Hypoglycemia Protocol Piperacillin Sod/Tazobactam (Sod 3.375 gm/ Sodium Chloride) 100 mls @ 200 mls/ hr IVPB Q8H [facility] PRN Reason: Protocol Last Admin: 10/22/17 07:59 Dose: 200 mls/hr Sodium Chloride (Sodium Chloride 0.9%) 1,000 mls @ 100 mls/hr IV .Q10H [facility] Last Admin: 10/22/17 00:25 Dose: 100 mls/hr Vancomycin HCl 1 gm/ Sodium (Chloride) 200 mls @ 166.7 mls/hr IVPB Q24H [facility] PRN Reason: Protocol Insulin Aspart (Novolog) 0 unit SC ACHS [facility] PRN Reason: Protocol Last Admin: 10/22/17 08:06 Dose: 2 u Losartan Potassium (Cozaar) 50 mg PO DAILY [facility] Last Admin: 10/22/17 09:30 Dose: 50 mg Rosuvastatin Calcium (Crestor) 5 mg PO [facility] Saccharomyces Boulardii (Florastor) 250 mg PO BID [facility] Last Admin: 10/22/17 09:30 Dose: 250 mg - Labs Labs: 10/22/17 08:01 10/22/17 08:01 PT 12.6 SECONDS (9.7-12.2) H 10/21/17 19:37 INR 1.2 10/21/17 19:37 APTT 35 SECONDS (21-34) H 10/21/17 19:37 - Constitutional Appears: Well, No Acute Distress - Head Exam Head Exam: ATRAUMATIC, NORMOCEPHALIC - Eye Exam Eye Exam: EOMI - ENT Exam ENT Exam: Mucous Membranes Moist - Neck Exam Neck Exam: Full ROM - Respiratory Exam Respiratory Exam: Clear to Ausculation Bilateral, NORMAL BREATHING PATTERN. absent: Rales, Rhonchi, Wheezes - Cardiovascular Exam Cardiovascular Exam: REGULAR RHYTHM, +S1, +S2 - GI/Abdominal Exam GI & Abdominal Exam: Soft, Normal Bowel Sounds. absent: Tenderness - Extremities Exam Extremities Exam: Tenderness. absent: Pedal Edema Additional comments: left lower extremity: L anterior mirza with erythema, swelling and tenderness with active serous drainage from center. good distal pulses. Right lower extremity WNL - Neurological Exam Neurological Exam: Alert, Awake, Oriented x3 - Skin Skin Exam: Dry, Intact, Warm Assessment and Plan - Assessment and Plan (Free Text) Assessment: 57 year old male with hx of DM, HTN, HLD who was admitted for evaluation of cellulitis vs. abscess of left lower mirza s/p lipoma removal Plan: Assessment/plan 1. Sepsis secondary to Cellulitis vs. Abscess -On admission: WBC 19.5, temp: 103.1, pulse:105 -Lactate: 1.1 -Vancomycin 1g IVBP Q24H -Zosyn 3.375 IVBP Q8H -Tylenol 650mg PO Q6H PRN pain, fever -IVF @ 100cc/hr -L leg US: Subcutaneous mass anterior aspect left lower extremity. This is likely an acute infectious/ inflammatory phlegmonous process. No discrete drainable collection identified. -CXR: NAD -blood cx: F/u -Procalcitonin 1.80 -VBG pH 7.36 pCO2 46 HCO3 24.3 pO2 39 -UA 2+ blood no nitrates, or leuk esterase - UDS negative -urine cx: F/u Surgery consulted, help appreciated. - f/u Vanc trough 2. Diabetes Mellitus -Regular ISS -Accucheck ACHS -Hbg A1c 9.3 -Lipid panel f/u -Amaryl 4mg PO daily 3.HTN -Losartan 50mg PO daily 4. Hypercholesterolemia - Crestor 5mg QHS 5. Prophylatic Measures -Florastor 250mg PO BID -Pepcid 20mg PO BID -Heparin 5000u SC Q12H -SCD contraindicated Julia Bhatia, PGY! Case discussed with Dr. Du
[2017-10-22] MEDS ORDERED: Bisacodyl 5mg EC Tab PO ONE (11:13)
[2017-10-22] MEDS: Vancomycin 1 GM in Sodium Chloride 0.9% 200 ML IVPB SCH (14:22)
--- NOTE | 2017-10-22 16:01 | US ---
PROCEDURE: Extremity nonvascular ultrasound. HISTORY: Left lower extremity abscess suspected COMPARISON: None TECHNIQUE: Standard protocol for this study/examination. FINDINGS: Subcutaneous mass corresponding to the area of interest anterior aspect left lower extremity. Cutaneous and subcutaneous edema identified. The periphery of the mass is hypervascular, the central areas avascular. Mass is moderately well-circumscribed with central areas of necrosis measuring 1.3 x 5.3 x 6.2 cm. IMPRESSION: Subcutaneous mass anterior aspect left lower extremity. This is likely an acute infectious/ inflammatory phlegmonous process. No discrete drainable collection identified.
--- NOTE | 2017-10-22 16:30 | CP.PCM.CON ---
<Andrea Gutierrez - Last Filed: 10/22/17 17:36> History of Present Illness - History of Present Illness History of Present Illness: Surgery: Dr. Bautista CC: LLE abscess/cellulitis HPI: 57M w. PMH of HTN, hypercholesterolemia, and DM, underwent removal of lipoma on L mirza back in June 2017. Pt states that starting this past monday he began to experience pain and redness at the surgical site. He states that the pain is constant with no alleviating/aggravating factors, starting yesterday the site began to drain clear serous fluid. The pt states that he has had F/C. He reports nausea, but no vomiting/diarrhea. PMH: See above PSH: lipoma removal Meds: MAR reviewed NKDA Social: No ETOH/tobacco/drugs Fhx: Non-contributory Review of Systems - Review of Systems All systems: reviewed and no additional remarkable complaints except (HPI) Past Patient History - Past Medical History & Family History Past Medical History?: Yes - Past Social History Smoking Status: Never Smoked - CARDIAC Hx Hypercholesterolemia: Yes Hx Hypertension: Yes - PULMONARY Hx Respiratory Disorders: No - NEUROLOGICAL Hx Neurological Disorder: No - HEENT Hx HEENT Problems: No - RENAL Hx Chronic Kidney Disease: No - ENDOCRINE/METABOLIC Hx Endocrine Disorders: Yes Hx Diabetes Mellitus Type 2: Yes - HEMATOLOGICAL/ONCOLOGICAL Hx Blood Disorders: No - INTEGUMENTARY Hx Dermatological Problems: Yes - MUSCULOSKELETAL/RHEUMATOLOGICAL Hx Arthritis: Yes - GASTROINTESTINAL Hx Gastrointestinal Disorders: No - GENITOURINARY/GYNECOLOGICAL Hx Genitourinary Disorders: No - PSYCHIATRIC Hx Substance Use: No - SURGICAL HISTORY Hx Surgeries: Yes Hx Cardiac Catheterization: Yes - ANESTHESIA Hx Anesthesia: Yes Hx Anesthesia Reactions: No Hx Malignant Hyperthermia: No Meds Allergies/Adverse Reactions: Allergies Allergy/AdvReac Type Severity Reaction Status Date / Time No Known Allergies Allergy Verified 07/03/17 09:19 - Medications Medications: Current Medications Acetaminophen (Tylenol 325mg Tab) 650 mg PO Q6 PRN PRN Reason: Fever >100.4 F Last Admin: 10/22/17 11:22 Dose: 650 mg Dextrose (Dextrose 50% Inj) 0 ml IV STAT PRN; Protocol PRN Reason: Hypoglycemia Protocol Dextrose (Glutose 15) 0 gm PO ONCE PRN; Protocol PRN Reason: Hypoglycemia Protocol Famotidine (Pepcid) 20 mg PO BID [facility] Last Admin: 10/22/17 09:30 Dose: 20 mg Glimepiride (Amaryl) 4 mg PO DAILY [facility] Glucagon (Glucagen Diagnostic Kit) 0 mg IM STAT PRN; Protocol PRN Reason: Hypoglycemia Protocol Heparin Sodium (Porcine) (Heparin) 5,000 units SC Q12 [facility] Last Admin: 10/22/17 11:23 Dose: 5,000 units Dextrose (Dextrose 5% In Water 1000 Ml) 1,000 mls @ 0 mls/hr IV .Q0M PRN; Protocol; Per Protocol PRN Reason: Hypoglycemia Protocol Piperacillin Sod/Tazobactam (Sod 3.375 gm/ Sodium Chloride) 100 mls @ 200 mls/ hr IVPB Q8H [facility] PRN Reason: Protocol Last Admin: 10/22/17 07:59 Dose: 200 mls/hr Sodium Chloride (Sodium Chloride 0.9%) 1,000 mls @ 100 mls/hr IV .Q10H [facility] Last Admin: 10/22/17 12:16 Dose: 100 mls/hr Vancomycin HCl 1 gm/ Sodium (Chloride) 200 mls @ 133.333 mls/hr IVPB Q12H [facility] PRN Reason: Protocol Last Admin: 10/22/17 14:22 Dose: 133.333 mls/hr Insulin Aspart (Novolog) 0 unit SC ACHS [facility] PRN Reason: Protocol Last Admin: 10/22/17 12:13 Dose: 3 u Losartan Potassium (Cozaar) 50 mg PO DAILY [facility] Last Admin: 10/22/17 09:30 Dose: 50 mg Rosuvastatin Calcium (Crestor) 5 mg PO [facility] Saccharomyces Boulardii (Florastor) 250 mg PO BID [facility] Last Admin: 10/22/17 09:30 Dose: 250 mg Physical Exam - Constitutional Appears: Non-toxic, No Acute Distress - Head Exam Head Exam: ATRAUMATIC, NORMOCEPHALIC - Eye Exam Eye Exam: EOMI - ENT Exam ENT Exam: Mucous Membranes Moist - Respiratory Exam Respiratory Exam: NORMAL BREATHING PATTERN. absent: Accessory Muscle Use, Respiratory Distress - GI/Abdominal Exam GI & Abdominal Exam: Soft. absent: Distended, Firm, Guarding, Rigid, Tenderness - Extremities Exam Additional comments: L anterior leg, +erythema, warm to touch, tender, serous drainage expressed on palpation, no odor, no crepitus, +induration, questionable fluctuance, sensation and motor fxn intact - Neurological Exam Neurological exam: Alert, Oriented x3 Results - Vital Signs Recent Vital Signs: Last Vital Signs Temp 99.5 F 10/22/17 15:00 Pulse 71 10/22/17 15:00 Resp 20 10/22/17 15:00 BP 143/79 10/22/17 15:00 Pulse Ox 97 10/22/17 15:00 - Labs Result Diagrams: 10/22/17 08:01 10/22/17 08:01 Labs: Laboratory Results - last 24 hr 10/21/17 10/21/17 10/21/17 19:37 19:37 19:37 WBC 19.5 H D RBC 4.39 L Hgb 13.0 Hct 38.5 MCV 87.8 MCH 29.7 MCHC 33.8 RDW 13.6 Plt Count 330 MPV 8.2 Neut % (Auto) 82.1 H Lymph % (Auto) 9.7 L [place] % (Auto) 7.8 Eos % (Auto) 0.1 Baso % (Auto) 0.3 Neut # (Auto) 16.0 H Lymph # (Auto) 1.9 [place] # (Auto) 1.5 H Eos # (Auto) 0.0 Baso # (Auto) 0.1 Neutrophils % (Manual) 81 H Lymphocytes % (Manual) 11 L Monocytes % (Manual) 8 Platelet Estimate Normal Large Platelets Present Poikilocytosis (manual Slight Ovalocytes Slight PT 12.6 H INR 1.2 APTT 35 H pO2 VBG pH VBG pCO2 VBG HCO3 VBG Total CO2 VBG O2 Sat (Calc) VBG Base Excess VBG Potassium Glucose Lactate Crit Value Called To Crit Value Called By Crit Value Read Back Blood Gas Notified Time Sodium 136 Potassium 4.5 Chloride 98 Carbon Dioxide 26 Anion Gap 17 BUN 11 Creatinine 0.9 Est GFR ( Amer) > 60 Est GFR (Non-Af Amer) > 60 POC Glucose (mg/dL) Random Glucose 260 H Hemoglobin A1c Lactic Acid Calcium 8.9 Phosphorus Magnesium Total Bilirubin 1.0 AST 25 ALT 29 Alkaline Phosphatase 76 Total Protein 7.6 Albumin 4.3 Globulin 3.3 Albumin/Globulin Ratio 1.3 Procalcitonin Venous Blood Potassium Urine Color Urine Clarity Urine pH Ur Specific [place] Urine Protein Urine Glucose (UA) Urine Ketones Urine Blood Urine Nitrate Urine Bilirubin Urine Urobilinogen Ur Leukocyte Esterase Urine WBC (Auto) Urine RBC (Auto) Urine Opiates Screen Urine Methadone Screen Ur Barbiturates Screen Ur Phencyclidine Scrn Ur Amphetamines Screen U Benzodiazepines Scrn U Oth Cocaine Metabols U Cannabinoids Screen 10/21/17 10/22/17 10/22/17 22:12 02:04 02:11 WBC RBC Hgb Hct MCV MCH MCHC RDW Plt Count MPV Neut % (Auto) Lymph % (Auto) [place] % (Auto) Eos % (Auto) Baso % (Auto) Neut # (Auto) Lymph # (Auto) [place] # (Auto) Eos # (Auto) Baso # (Auto) Neutrophils % (Manual) Lymphocytes % (Manual) Monocytes % (Manual) Platelet Estimate Large Platelets Poikilocytosis (manual Ovalocytes PT INR APTT pO2 39 VBG pH 7.36 VBG pCO2 46 VBG HCO3 24.3 VBG Total CO2 27.4 VBG O2 Sat (Calc) 77.8 H VBG Base Excess 0.1 VBG Potassium 3.4 L Glucose 202 H Lactate 1.1 Crit Value Called To Zeferino aranda 6t rn Crit Value Called By Heather trujillo rt Crit Value Read Back Y Blood Gas Notified Time 226 Sodium 139.0 Potassium Chloride 107.0 Carbon Dioxide Anion Gap BUN Creatinine Est GFR ( Amer) Est GFR (Non-Af Amer) POC Glucose (mg/dL) Random Glucose Hemoglobin A1c Lactic Acid 1.1 Calcium Phosphorus Magnesium Total Bilirubin AST ALT Alkaline Phosphatase Total Protein Albumin Globulin Albumin/Globulin Ratio Procalcitonin 1.80 H Venous Blood Potassium 3.4 L Urine Color Urine Clarity Urine pH Ur Specific [place] Urine Protein Urine Glucose (UA) Urine Ketones Urine Blood Urine Nitrate Urine Bilirubin Urine Urobilinogen Ur Leukocyte Esterase Urine WBC (Auto) Urine RBC (Auto) Urine Opiates Screen Urine Methadone Screen Ur Barbiturates Screen Ur Phencyclidine Scrn Ur Amphetamines Screen U Benzodiazepines Scrn U Oth Cocaine Metabols U Cannabinoids Screen 10/22/17 10/22/17 10/22/17 02:11 02:11 02:11 WBC RBC Hgb Hct MCV MCH MCHC RDW Plt Count MPV Neut % (Auto) Lymph % (Auto) [place] % (Auto) Eos % (Auto) Baso % (Auto) Neut # (Auto) Lymph # (Auto) [place] # (Auto) Eos # (Auto) Baso # (Auto) Neutrophils % (Manual) Lymphocytes % (Manual) Monocytes % (Manual) Platelet Estimate Large Platelets Poikilocytosis (manual Ovalocytes PT INR APTT pO2 VBG pH VBG pCO2 VBG HCO3 VBG Total CO2 VBG O2 Sat (Calc) VBG Base Excess VBG Potassium Glucose Lactate Crit Value Called To Crit Value Called By Crit Value Read Back Blood Gas Notified Time Sodium Potassium Chloride Carbon Dioxide Anion Gap BUN Creatinine Est GFR ( Amer) Est GFR (Non-Af Amer) POC Glucose (mg/dL) Random Glucose Hemoglobin A1c 9.3 H Lactic Acid Calcium Phosphorus Magnesium Total Bilirubin AST ALT Alkaline Phosphatase Total Protein Albumin Globulin Albumin/Globulin Ratio Procalcitonin Venous Blood Potassium Urine Color Yellow Urine Clarity Clear Urine pH 6.0 Ur Specific [place] 1.006 Urine Protein Negative Urine Glucose (UA) Normal Urine Ketones Negative Urine Blood 2+ H Urine Nitrate Negative Urine Bilirubin Negative Urine Urobilinogen Normal Ur Leukocyte Esterase Neg Urine WBC (Auto) 1 Urine RBC (Auto) < 1 Urine Opiates Screen Negative Urine Methadone Screen Negative Ur Barbiturates Screen Negative Ur Phencyclidine Scrn Negative Ur Amphetamines Screen Negative U Benzodiazepines Scrn Negative U Oth Cocaine Metabols Negative U Cannabinoids Screen Negative 10/22/17 10/22/17 10/22/17 06:47 08:01 08:01 WBC 14.4 H RBC 3.89 L Hgb 11.9 L Hct 34.0 L MCV 87.5 MCH 30.7 MCHC 35.0 RDW 13.4 Plt Count 300 MPV 7.9 Neut % (Auto) 78.9 H Lymph % (Auto) 12.7 L [place] % (Auto) 7.8 Eos % (Auto) 0.3 Baso % (Auto) 0.3 Neut # (Auto) 11.4 H Lymph # (Auto) 1.8 [place] # (Auto) 1.1 H Eos # (Auto) 0.0 Baso # (Auto) 0.0 Neutrophils % (Manual) Lymphocytes % (Manual) Monocytes % (Manual) Platelet Estimate Large Platelets Poikilocytosis (manual Ovalocytes PT INR APTT pO2 VBG pH VBG pCO2 VBG HCO3 VBG Total CO2 VBG O2 Sat (Calc) VBG Base Excess VBG Potassium Glucose Lactate Crit Value Called To Crit Value Called By Crit Value Read Back Blood Gas Notified Time Sodium 140 Potassium 3.9 Chloride 105 Carbon Dioxide 25 Anion Gap 14 BUN 8 L Creatinine 0.7 L Est GFR ( Amer) > 60 Est GFR (Non-Af Amer) > 60 POC Glucose (mg/dL) 198 H Random Glucose 203 H Hemoglobin A1c Lactic Acid Calcium 8.4 L Phosphorus 2.0 L Magnesium 2.0 Total Bilirubin 1.2 AST 22 ALT 27 Alkaline Phosphatase 74 Total Protein 6.9 Albumin 3.9 Globulin 3.0 Albumin/Globulin Ratio 1.3 Procalcitonin Venous Blood Potassium Urine Color Urine Clarity Urine pH Ur Specific [place] Urine Protein Urine Glucose (UA) Urine Ketones Urine Blood Urine Nitrate Urine Bilirubin Urine Urobilinogen Ur Leukocyte Esterase Urine WBC (Auto) Urine RBC (Auto) Urine Opiates Screen Urine Methadone Screen Ur Barbiturates Screen Ur Phencyclidine Scrn Ur Amphetamines Screen U Benzodiazepines Scrn U Oth Cocaine Metabols U Cannabinoids Screen 10/22/17 11:53 WBC RBC Hgb Hct MCV MCH MCHC RDW Plt Count MPV Neut % (Auto) Lymph % (Auto) [place] % (Auto) Eos % (Auto) Baso % (Auto) Neut # (Auto) Lymph # (Auto) [place] # (Auto) Eos # (Auto) Baso # (Auto) Neutrophils % (Manual) Lymphocytes % (Manual) Monocytes % (Manual) Platelet Estimate Large Platelets Poikilocytosis (manual Ovalocytes PT INR APTT pO2 VBG pH VBG pCO2 VBG HCO3 VBG Total CO2 VBG O2 Sat (Calc) VBG Base Excess VBG Potassium Glucose Lactate Crit Value Called To Crit Value Called By Crit Value Read Back Blood Gas Notified Time Sodium Potassium Chloride Carbon Dioxide Anion Gap BUN Creatinine Est GFR ( Amer) Est GFR (Non-Af Amer) POC Glucose (mg/dL) 223 H Random Glucose Hemoglobin A1c Lactic Acid Calcium Phosphorus Magnesium Total Bilirubin AST ALT Alkaline Phosphatase Total Protein Albumin Globulin Albumin/Globulin Ratio Procalcitonin Venous Blood Potassium Urine Color Urine Clarity Urine pH Ur Specific [place] Urine Protein Urine Glucose (UA) Urine Ketones Urine Blood Urine Nitrate Urine Bilirubin Urine Urobilinogen Ur Leukocyte Esterase Urine WBC (Auto) Urine RBC (Auto) Urine Opiates Screen Urine Methadone Screen Ur Barbiturates Screen Ur Phencyclidine Scrn Ur Amphetamines Screen U Benzodiazepines Scrn U Oth Cocaine Metabols U Cannabinoids Screen Assessment & Plan - Assessment and Plan (Free Text) Assessment: 57M w. LLE abscess/cellulitis -Abx -pain meds -warm compress 20min TID to affected area -will follow closely, may need I&D in upcoming days -d/w attending Nicoleitis PGY3 <Frank Bautista - Last Filed: 10/28/17 22:12> Meds - Medications Medications: Current Medications Acetaminophen (Tylenol 325mg Tab) 650 mg PO Q6H PRN PRN Reason: Pain, Mild (1-3) Last Admin: 10/23/17 02:02 Dose: 650 mg Dextrose (Dextrose 50% Inj) 0 ml IV STAT PRN; Protocol PRN Reason: Hypoglycemia Protocol Dextrose (Glutose 15) 0 gm PO ONCE PRN; Protocol PRN Reason: Hypoglycemia Protocol Famotidine (Pepcid) 20 mg PO BID [facility] Last Admin: 10/28/17 17:29 Dose: 20 mg Glucagon (Glucagen Diagnostic Kit) 0 mg IM STAT PRN; Protocol PRN Reason: Hypoglycemia Protocol Heparin Sodium (Porcine) (Heparin) 5,000 units SC Q8 [facility] Last Admin: 10/28/17 21:16 Dose: 5,000 units Vancomycin HCl 1,500 mg/ (Sodium Chloride) 500 mls @ 100 mls/hr IVPB Q8H [facility] PRN Reason: Protocol Last Admin: 10/28/17 20:33 Dose: 100 mls/hr Insulin Aspart (Novolog) 0 unit SC ACHS [facility] PRN Reason: Protocol Last Admin: 10/28/17 21:20 Dose: Not Given Insulin Glargine (Lantus) 22 unit SC HS [facility] Last Admin: 10/28/17 21:15 Dose: Not Given Insulin Human Regular (Novolin R) 4 unit SC AC [facility] Last Admin: 10/28/17 17:30 Dose: 4 unit Losartan Potassium (Cozaar) 50 mg PO DAILY [facility] Last Admin: 10/28/17 09:58 Dose: 50 mg Oxycodone/Acetaminophen (Percocet 5/325 Mg Tab) 1 tab PO Q6H PRN PRN Reason: Pain, moderate (4-7) Stop: 10/30/17 14:49 Last Admin: 10/27/17 18:36 Dose: 1 tab Rosuvastatin Calcium (Crestor) 5 mg PO HS [facility] Last Admin: 10/28/17 21:16 Dose: 5 mg Saccharomyces Boulardii (Florastor) 250 mg PO BID [facility] Last Admin: 10/28/17 17:29 Dose: 250 mg Results - Vital Signs Recent Vital Signs: Last Vital Signs Temp 99.0 F 10/28/17 15:00 Pulse 72 10/28/17 15:00 Resp 20 10/28/17 15:00 BP 132/76 10/28/17 15:00 Pulse Ox 96 10/28/17 15:00 - Labs Result Diagrams: 10/28/17 06:14 10/28/17 06:14 Labs: Laboratory Results - last 24 hr 10/28/17 10/28/17 10/28/17 04:04 06:03 06:14 WBC 8.8 RBC 3.74 L Hgb 11.3 L Hct 32.6 L MCV 87.0 MCH 30.3 MCHC 34.8 RDW 13.3 Plt Count 650 H MPV 7.5 Neut % (Auto) 56.3 Lymph % (Auto) 31.2 [place] % (Auto) 9.3 Eos % (Auto) 2.5 Baso % (Auto) 0.7 Neut # (Auto) 5.0 Lymph # (Auto) 2.8 [place] # (Auto) 0.8 Eos # (Auto) 0.2 Baso # (Auto) 0.1 Sodium Potassium Chloride Carbon Dioxide Anion Gap BUN Creatinine Est GFR ( Amer) Est GFR (Non-Af Amer) POC Glucose (mg/dL) 185 H Random Glucose Calcium Phosphorus Magnesium Total Bilirubin AST ALT Alkaline Phosphatase Total Protein Albumin Globulin Albumin/Globulin Ratio Vancomycin Trough 12.8 H 10/28/17 10/28/17 10/28/17 06:14 11:38 16:02 WBC RBC Hgb Hct MCV MCH MCHC RDW Plt Count MPV Neut % (Auto) Lymph % (Auto) [place] % (Auto) Eos % (Auto) Baso % (Auto) Neut # (Auto) Lymph # (Auto) [place] # (Auto) Eos # (Auto) Baso # (Auto) Sodium 140 Potassium 4.1 Chloride 101 Carbon Dioxide 28 Anion Gap 14 BUN 9 Creatinine 0.8 Est GFR ( Amer) > 60 Est GFR (Non-Af Amer) > 60 POC Glucose (mg/dL) 203 H 165 H Random Glucose 188 H Calcium 8.8 Phosphorus 4.2 Magnesium 2.2 Total Bilirubin 0.4 AST 22 ALT 31 Alkaline Phosphatase 76 Total Protein 7.2 Albumin 3.7 Globulin 3.5 Albumin/Globulin Ratio 1.0 Vancomycin Trough 10/28/17 20:51 WBC RBC Hgb Hct MCV MCH MCHC RDW Plt Count MPV Neut % (Auto) Lymph % (Auto) [place] % (Auto) Eos % (Auto) Baso % (Auto) Neut # (Auto) Lymph # (Auto) [place] # (Auto) Eos # (Auto) Baso # (Auto) Sodium Potassium Chloride Carbon Dioxide Anion Gap BUN Creatinine Est GFR ( Amer) Est GFR (Non-Af Amer) POC Glucose (mg/dL) 131 H Random Glucose Calcium Phosphorus Magnesium Total Bilirubin AST ALT Alkaline Phosphatase Total Protein Albumin Globulin Albumin/Globulin Ratio Vancomycin Trough Attending/Attestation - Attestation I have personally seen and examined this patient.: Yes I have fully participated in the care of the patient.: Yes I have reviewed all pertinent clinical information: Yes Notes (Text): Pt was seen and examined at bedside Agree with above note and assessment Pt with left leg cellulitis and abscess Labs and radiology reviewed I & D at bedside Consent IV antibiotics ID consult Plan d.w pt in detail. Risk and benefit explained in detail.
[2017-10-22] MEDS ORDERED: Vancomycin 1 GM in Sodium Chloride 0.9% 200 ML IVPB SCH (19:00)
[2017-10-22] MEDS ORDERED: Lidocaine 1% Inj (20ml) INFIL ONE (20:50)
--- NOTE | 2017-10-22 21:42 | PCM.SURG1 ---
Surgeon's Initial Post Op Note - Surgeon's Notes Surgeon: Michele Freight Forwarder: Matt PGY4 Type of Anesthesia: Local Pre-Operative Diagnosis: LLE abscess Operative Findings: ~5cc of pus and 0.5x0.5cm phlegmon expressed Post-Operative Diagnosis: same Operation Performed: I&D Specimen/Specimens Removed: n/a Estimated Blood Loss: EBL {In ML}: 5 Blood Products Given: N/A Drains Used: No Drains Post-Op Condition: Good Date of Surgery/Procedure: 10/22/17 Time of Surgery/Procedure: 21:41
[2017-10-22] MEDS ORDERED: PRAVASTATIN SODIUM PO SCH (22:00)
[2017-10-23] MEDS: Piperacillin/Tazobact 3.375 GM in Sodium Chloride 100 ML IVPB SCH ×3 (00:24→16:10)
[2017-10-23] MEDS: Vancomycin 1 GM in Sodium Chloride 0.9% 200 ML IVPB SCH ×2 (01:11→14:38)
[2017-10-23] MEDS: Sodium Chloride 0.9% 1,000 ML IV SCH ×3 (05:00→21:06)
[2017-10-23 07:31] LABS: BASO # 0.1 K/uL (0.0-0.2); BASO % 0.6 % (0.0-2.0); EOS # 0.1 K/uL (0.0-0.7); EOS % 0.5 % (0.0-4.0); HEMOGLOBIN 11.2 g/dL (12.0-18.0); LYMPH # 2.8 K/uL (1.0-4.3); LYMPH % 21.8 % (20.0-40.0); MEAN CELL VOLUME 87.5 fL (80.0-94.0); MEAN CORPUSCULAR HEMOGLOBIN 30.4 pg (27.0-31.0); MEAN CORPUSCULAR HGB CONC 34.7 g/dL (33.0-37.0); MEAN PLATELET VOLUME 8.1 fL (7.2-11.7); MONO # 1.2 K/uL (0.0-0.8); MONO % 9.1 % (0.0-10.0); NEUT # 8.8 K/uL (1.8-7.0); RBC 3.7 Mil/uL (4.40-5.90); RED CELL DISTRIBUTION WIDTH 13.7 % (11.5-14.5); WHITE BLOOD COUNT 12.9 K/uL (4.8-10.8)
[2017-10-23 07:44] LABS: LDL CHOLESTEROL 75 mg/dL (0-129)
[2017-10-23] MEDS: (Novolog) Insulin Aspart, Recombinant 100 u/ml 10 ml vial SC SCH ×4 (08:02→22:00)
[2017-10-23 08:17] LABS: ALB/GLOB RATIO 1.3 (1.0-2.1); ALBUMIN 3.8 g/dL (3.5-5.0); ALT/SGPT 31 U/L (21-72); AST/SGOT 18 U/L (17-59); BLOOD UREA NITROGEN 6 mg/dL (9-20); CALCIUM 8.3 mg/dl (8.6-10.4); GFR AFRICAN-AMERICAN > 60; GFR NON-AFRICAN AMERICAN > 60; HDL CHOLESTEROL 27 mg/dL (30-70)
--- NOTE | 2017-10-23 09:25 | CP.PCM.PN ---
Subjective - Date & Time of Evaluation Date of Evaluation: 10/23/17 Time of Evaluation: 13:00 - Subjective Subjective: PGY1 Resident Note for Dr. Jaden Clifton. Pt seen and examined at bedside. Pt lying in bed, no acute distress. Pt states he has discharge from left leg absces. Pt denies chest pain, difficulty breathing, trouble voiding, constipation, diarrhea. Objective - Vital Signs/Intake and Output Vital Signs (last 24 hours): Temp Pulse Resp BP Pulse Ox 98.9 F 67 20 121/67 96 10/23/17 04:35 10/23/17 04:35 10/23/17 04:35 10/23/17 04:35 10/23/17 04:35 Intake and Output: 10/23/17 10/23/17 06:59 18:59 Intake Total 1780 Balance 1780 - Medications Medications: Current Medications Acetaminophen (Tylenol 325mg Tab) 650 mg PO Q6H PRN PRN Reason: Pain, Mild (1-3) Last Admin: 10/23/17 02:02 Dose: 650 mg Dextrose (Dextrose 50% Inj) 0 ml IV STAT PRN; Protocol PRN Reason: Hypoglycemia Protocol Dextrose (Glutose 15) 0 gm PO ONCE PRN; Protocol PRN Reason: Hypoglycemia Protocol Famotidine (Pepcid) 20 mg PO BID [facility] Last Admin: 10/22/17 18:19 Dose: 20 mg Glimepiride (Amaryl) 4 mg PO DAILY [facility] Glucagon (Glucagen Diagnostic Kit) 0 mg IM STAT PRN; Protocol PRN Reason: Hypoglycemia Protocol Heparin Sodium (Porcine) (Heparin) 5,000 units SC Q12 [facility] Last Admin: 10/22/17 22:17 Dose: 5,000 units Dextrose (Dextrose 5% In Water 1000 Ml) 1,000 mls @ 0 mls/hr IV .Q0M PRN; Protocol; Per Protocol PRN Reason: Hypoglycemia Protocol Piperacillin Sod/Tazobactam (Sod 3.375 gm/ Sodium Chloride) 100 mls @ 200 mls/ hr IVPB Q8H [facility] PRN Reason: Protocol Last Admin: 10/23/17 08:02 Dose: 200 mls/hr Sodium Chloride (Sodium Chloride 0.9%) 1,000 mls @ 100 mls/hr IV .Q10H [facility] Last Admin: 10/23/17 05:00 Dose: 100 mls/hr Vancomycin HCl 1 gm/ Sodium (Chloride) 200 mls @ 133.333 mls/hr IVPB Q12H [facility] PRN Reason: Protocol Last Admin: 10/23/17 01:11 Dose: 133.333 mls/hr Insulin Aspart (Novolog) 0 unit SC ACHS [facility] PRN Reason: Protocol Last Admin: 10/23/17 08:02 Dose: 3 u Losartan Potassium (Cozaar) 50 mg PO DAILY [facility] Last Admin: 10/22/17 09:30 Dose: 50 mg Rosuvastatin Calcium (Crestor) 5 mg PO HS [facility] Last Admin: 10/22/17 22:17 Dose: 5 mg Saccharomyces Boulardii (Florastor) 250 mg PO BID [facility] Last Admin: 10/22/17 18:14 Dose: 250 mg - Labs Labs: 10/23/17 07:00 10/23/17 07:00 PT 12.6 SECONDS (9.7-12.2) H 10/21/17 19:37 INR 1.2 10/21/17 19:37 APTT 35 SECONDS (21-34) H 10/21/17 19:37 - Constitutional Appears: Well, Non-toxic, No Acute Distress - Head Exam Head Exam: NORMAL INSPECTION - Eye Exam Eye Exam: EOMI, Normal appearance - ENT Exam ENT Exam: Mucous Membranes Moist - Respiratory Exam Respiratory Exam: Clear to Ausculation Bilateral, NORMAL BREATHING PATTERN. absent: Rales, Rhonchi, Wheezes - Cardiovascular Exam Cardiovascular Exam: +S1 - GI/Abdominal Exam GI & Abdominal Exam: Soft, Normal Bowel Sounds. absent: Guarding, Tenderness - Extremities Exam Additional comments: Pt has abscess on LLE that is covered in dressing that has perlent discharge. Pt tibial surface around discharge site has erythema and is painful on palpation. - Neurological Exam Neurological Exam: Alert, Awake, Oriented x3 - Psychiatric Exam Psychiatric exam: Normal Affect, Normal Mood - Skin Skin Exam: Dry, Normal Color, Warm Assessment and Plan - Assessment and Plan (Free Text) Assessment: 57 year old male with hx of DM, HTN, HLD who was admitted for evaluation of cellulitis vs. abscess of left lower mirza s/p lipoma removal, post op LLE abscess drainage: Plan: Assessment/plan 1. Sepsis secondary to Cellulitis vs. Abscess 10/23: - Febrile, Tmax 101.5 @ 2AM on 10/23 - WBC downtrending 19.5 -> 14.4 -> 12.9, continue to monitor - Continue flagyl 3.375gm Q8 & vanco 1gm Q12 - F/u troph 10/25 - give tylenol 650 mg Q6 PRN for fevers - Blood cultures X 48 hrs neg, Urine cultures X 24 hrs neg, Abscess culture X 24 hrs gram positive cocci - closed gap, 14, pt saturating @ 96 on RA - f/u ID recs - F/u surgery recs On admission: WBC 19.5, temp: 103.1, pulse:105 -Lactate: 1.1 -Vancomycin 1g IVBP Q24H -Zosyn 3.375 IVBP Q8H -Tylenol 650mg PO Q6H PRN pain, fever -IVF @ 100cc/hr -L leg US: Subcutaneous mass anterior aspect left lower extremity. This is likely an acute infectious/ inflammatory phlegmonous process. No discrete drainable collection identified. -CXR: NAD -blood cx: F/u -Procalcitonin 1.80 -VBG pH 7.36 pCO2 46 HCO3 24.3 pO2 39 -UA 2+ blood no nitrates, or leuk esterase - UDS negative -urine cx: F/u Surgery consulted, help appreciated. - f/u Vanc trough 2. Diabetes Mellitus -Regular ISS -Accucheck ACHS -Hbg A1c 9.3 -Lipid panel TG 215, LDL 75, HDL 27 -Amaryl 4mg PO daily 3.HTN -Losartan 50mg PO daily 4. Hypercholesterolemia - Crestor 5mg QHS 5. Prophylatic Measures -Florastor 250mg PO BID -Pepcid 20mg PO BID -Heparin 5000u SC Q12H -SCD contraindicated
[2017-10-23] MEDS: Saccharomyces Boulardi 250 mg Cap PO SCH ×2 (10:52→17:30)
--- NOTE | 2017-10-23 12:51 | CP.PCM.PN ---
<Davy Lopez - Last Filed: 10/23/17 12:55> Subjective - Date & Time of Evaluation Date of Evaluation: 10/23/17 Time of Evaluation: 06:15 - Subjective Subjective: Patient see and examined. Tmax of 101.5F. Reports left lower extremity is feeling better s/p drainage. Denies chest pain, SOB, n/v/d. Packing removed this AM. base of wound is clean and dry. Sterile gauze and kerlix applied. Objective - Vital Signs/Intake and Output Vital Signs (last 24 hours): Temp Pulse Resp BP Pulse Ox 99.5 F 68 20 140/70 98 10/23/17 07:25 10/23/17 07:25 10/23/17 07:25 10/23/17 07:25 10/23/17 07:25 Intake and Output: 10/23/17 10/23/17 06:59 18:59 Intake Total 1780 Balance 1780 - Medications Medications: Current Medications Acetaminophen (Tylenol 325mg Tab) 650 mg PO Q6H PRN PRN Reason: Pain, Mild (1-3) Last Admin: 10/23/17 02:02 Dose: 650 mg Dextrose (Dextrose 50% Inj) 0 ml IV STAT PRN; Protocol PRN Reason: Hypoglycemia Protocol Dextrose (Glutose 15) 0 gm PO ONCE PRN; Protocol PRN Reason: Hypoglycemia Protocol Famotidine (Pepcid) 20 mg PO BID [facility] Last Admin: 10/23/17 10:52 Dose: 20 mg Glimepiride (Amaryl) 4 mg PO DAILY [facility] Last Admin: 10/23/17 10:52 Dose: 4 mg Glucagon (Glucagen Diagnostic Kit) 0 mg IM STAT PRN; Protocol PRN Reason: Hypoglycemia Protocol Heparin Sodium (Porcine) (Heparin) 5,000 units SC Q12 [facility] Last Admin: 10/23/17 10:53 Dose: 5,000 units Dextrose (Dextrose 5% In Water 1000 Ml) 1,000 mls @ 0 mls/hr IV .Q0M PRN; Protocol; Per Protocol PRN Reason: Hypoglycemia Protocol Piperacillin Sod/Tazobactam (Sod 3.375 gm/ Sodium Chloride) 100 mls @ 200 mls/ hr IVPB Q8H [facility] PRN Reason: Protocol Last Admin: 10/23/17 08:02 Dose: 200 mls/hr Sodium Chloride (Sodium Chloride 0.9%) 1,000 mls @ 100 mls/hr IV .Q10H [facility] Last Admin: 10/23/17 05:00 Dose: 100 mls/hr Vancomycin HCl 1 gm/ Sodium (Chloride) 200 mls @ 133.333 mls/hr IVPB Q12H [facility] PRN Reason: Protocol Last Admin: 10/23/17 01:11 Dose: 133.333 mls/hr Insulin Aspart (Novolog) 0 unit SC ACHS [facility] PRN Reason: Protocol Last Admin: 10/23/17 12:21 Dose: 4 u Losartan Potassium (Cozaar) 50 mg PO DAILY [facility] Last Admin: 10/23/17 10:53 Dose: 50 mg Rosuvastatin Calcium (Crestor) 5 mg PO HS [facility] Last Admin: 10/22/17 22:17 Dose: 5 mg Saccharomyces Boulardii (Florastor) 250 mg PO BID [facility] Last Admin: 10/23/17 10:52 Dose: 250 mg - Labs Labs: 10/23/17 07:00 10/23/17 07:00 PT 12.6 SECONDS (9.7-12.2) H 10/21/17 19:37 INR 1.2 10/21/17 19:37 APTT 35 SECONDS (21-34) H 10/21/17 19:37 - Constitutional Appears: No Acute Distress - Head Exam Head Exam: NORMOCEPHALIC - Eye Exam Eye Exam: EOMI, Normal appearance - Respiratory Exam Respiratory Exam: NORMAL BREATHING PATTERN - Cardiovascular Exam Cardiovascular Exam: +S1, +S2 - GI/Abdominal Exam GI & Abdominal Exam: Soft - Extremities Exam Extremities Exam: absent: Calf Tenderness Additional comments: +cellulitis in LLE anteriorly - Psychiatric Exam Psychiatric exam: Normal Mood - Skin Skin Exam: Dry, Erythema, Warm Assessment and Plan - Assessment and Plan (Free Text) Assessment: 57M w. LLE abscess/cellulitis Plan: -C/w IV ABx -Packing removed -analgesics prn -F/u AM labs D/w Dr. Michele Sears PGY3 <Frank Bautista - Last Filed: 10/28/17 22:15> Objective - Vital Signs/Intake and Output Vital Signs (last 24 hours): Temp Pulse Resp BP Pulse Ox 99.0 F 72 20 132/76 96 10/28/17 15:00 10/28/17 15:00 10/28/17 15:00 10/28/17 15:00 10/28/17 15:00 Intake and Output: 10/28/17 10/29/17 18:59 06:59 Intake Total 900 Output Total 500 Balance 900 -500 - Medications Medications: Current Medications Acetaminophen (Tylenol 325mg Tab) 650 mg PO Q6H PRN PRN Reason: Pain, Mild (1-3) Last Admin: 10/23/17 02:02 Dose: 650 mg Dextrose (Dextrose 50% Inj) 0 ml IV STAT PRN; Protocol PRN Reason: Hypoglycemia Protocol Dextrose (Glutose 15) 0 gm PO ONCE PRN; Protocol PRN Reason: Hypoglycemia Protocol Famotidine (Pepcid) 20 mg PO BID [facility] Last Admin: 10/28/17 17:29 Dose: 20 mg Glucagon (Glucagen Diagnostic Kit) 0 mg IM STAT PRN; Protocol PRN Reason: Hypoglycemia Protocol Heparin Sodium (Porcine) (Heparin) 5,000 units SC Q8 [facility] Last Admin: 10/28/17 21:16 Dose: 5,000 units Vancomycin HCl 1,500 mg/ (Sodium Chloride) 500 mls @ 100 mls/hr IVPB Q8H [facility] PRN Reason: Protocol Last Admin: 10/28/17 20:33 Dose: 100 mls/hr Insulin Aspart (Novolog) 0 unit SC ACHS [facility] PRN Reason: Protocol Last Admin: 10/28/17 21:20 Dose: Not Given Insulin Glargine (Lantus) 22 unit SC HS [facility] Last Admin: 10/28/17 21:15 Dose: Not Given Insulin Human Regular (Novolin R) 4 unit SC AC [facility] Last Admin: 10/28/17 17:30 Dose: 4 unit Losartan Potassium (Cozaar) 50 mg PO DAILY [facility] Last Admin: 10/28/17 09:58 Dose: 50 mg Oxycodone/Acetaminophen (Percocet 5/325 Mg Tab) 1 tab PO Q6H PRN PRN Reason: Pain, moderate (4-7) Stop: 10/30/17 14:49 Last Admin: 10/27/17 18:36 Dose: 1 tab Rosuvastatin Calcium (Crestor) 5 mg PO HS [facility] Last Admin: 10/28/17 21:16 Dose: 5 mg Saccharomyces Boulardii (Florastor) 250 mg PO BID [facility] Last Admin: 10/28/17 17:29 Dose: 250 mg - Labs Labs: 10/28/17 06:14 10/28/17 06:14 PT 12.0 SECONDS (9.7-12.2) 10/27/17 07:50 INR 1.1 10/27/17 07:50 APTT 30 SECONDS (21-34) 10/27/17 07:50 Attending/Attestation - Attestation I have personally seen and examined this patient.: Yes I have fully participated in the care of the patient.: Yes I have reviewed all pertinent clinical information, including history, physical exam and plan: Yes Notes (Text): Pt was seen and examined at bedside Agree with above note and assessment Pt is doing wel IV antibiotics C.w current mx Leg elevation ID consult Plan d.w pt in detail. Risk and benefit explained in detail.
[2017-10-24] MEDS: Piperacillin/Tazobact 3.375 GM in Sodium Chloride 100 ML IVPB SCH ×3 (00:32→16:45)
[2017-10-24] MEDS: Vancomycin 1 GM in Sodium Chloride 0.9% 200 ML IVPB SCH ×2 (02:15→13:36)
--- NOTE | 2017-10-24 06:09 | CP.PCM.PN ---
Subjective - Date & Time of Evaluation Date of Evaluation: 10/24/17 Time of Evaluation: 09:35 - Subjective Subjective: PGY1 Resident note for Dr. Jaden Clifton Pt seen and examined at bedside. No acute events overnight. Pt sitting in chair comfortably. Pt denies chest pain, difficulty breathing, abdominal pain, trouble voiding. Objective - Vital Signs/Intake and Output Vital Signs (last 24 hours): Temp Pulse Resp BP Pulse Ox 98 F 67 20 143/78 97 10/24/17 04:50 10/24/17 04:50 10/24/17 04:50 10/24/17 04:50 10/24/17 04:50 Intake and Output: 10/23/17 10/24/17 18:59 06:59 Intake Total 1600 Output Total 400 Balance 1200 - Medications Medications: Current Medications Acetaminophen (Tylenol 325mg Tab) 650 mg PO Q6H PRN PRN Reason: Pain, Mild (1-3) Last Admin: 10/23/17 02:02 Dose: 650 mg Dextrose (Dextrose 50% Inj) 0 ml IV STAT PRN; Protocol PRN Reason: Hypoglycemia Protocol Dextrose (Glutose 15) 0 gm PO ONCE PRN; Protocol PRN Reason: Hypoglycemia Protocol Famotidine (Pepcid) 20 mg PO BID [facility] Last Admin: 10/23/17 17:31 Dose: 20 mg Glimepiride (Amaryl) 4 mg PO DAILY [facility] Last Admin: 10/23/17 10:52 Dose: 4 mg Glucagon (Glucagen Diagnostic Kit) 0 mg IM STAT PRN; Protocol PRN Reason: Hypoglycemia Protocol Heparin Sodium (Porcine) (Heparin) 5,000 units SC Q12 [facility] Last Admin: 10/23/17 22:21 Dose: 5,000 units Dextrose (Dextrose 5% In Water 1000 Ml) 1,000 mls @ 0 mls/hr IV .Q0M PRN; Protocol; Per Protocol PRN Reason: Hypoglycemia Protocol Piperacillin Sod/Tazobactam (Sod 3.375 gm/ Sodium Chloride) 100 mls @ 200 mls/ hr IVPB Q8H [facility] PRN Reason: Protocol Last Admin: 10/24/17 00:32 Dose: 200 mls/hr Sodium Chloride (Sodium Chloride 0.9%) 1,000 mls @ 100 mls/hr IV .Q10H [facility] Last Admin: 10/23/17 21:06 Dose: 100 mls/hr Vancomycin HCl 1 gm/ Sodium (Chloride) 200 mls @ 133.333 mls/hr IVPB Q12H [facility] PRN Reason: Protocol Last Admin: 10/24/17 02:15 Dose: 133.333 mls/hr Insulin Aspart (Novolog) 0 unit SC ACHS [facility] PRN Reason: Protocol Last Admin: 10/23/17 22:00 Dose: Not Given Losartan Potassium (Cozaar) 50 mg PO DAILY [facility] Last Admin: 10/23/17 10:53 Dose: 50 mg Rosuvastatin Calcium (Crestor) 5 mg PO HS [facility] Last Admin: 10/23/17 22:20 Dose: 5 mg Saccharomyces Boulardii (Florastor) 250 mg PO BID [facility] Last Admin: 10/23/17 17:30 Dose: 250 mg - Labs Labs: 10/23/17 07:00 10/23/17 07:00 PT 12.6 SECONDS (9.7-12.2) H 10/21/17 19:37 INR 1.2 10/21/17 19:37 APTT 35 SECONDS (21-34) H 10/21/17 19:37 - Constitutional Appears: Well, Non-toxic, No Acute Distress - Head Exam Head Exam: ATRAUMATIC, NORMAL INSPECTION - Eye Exam Eye Exam: Normal appearance - ENT Exam ENT Exam: Mucous Membranes Moist - Respiratory Exam Respiratory Exam: Clear to Ausculation Bilateral, NORMAL BREATHING PATTERN. absent: Rales, Rhonchi, Wheezes - Cardiovascular Exam Cardiovascular Exam: +S1, +S2. absent: Irregular Rhythm, Murmur - GI/Abdominal Exam GI & Abdominal Exam: Soft, Normal Bowel Sounds. absent: Firm, Guarding, Rigid - Extremities Exam Extremities Exam: Full ROM. absent: Calf Tenderness Additional comments: LLE has erythema at site of infection. Pt states it is painful on palpation. Site is covered in dressing w/ serous fluid dried on dressing. Erythema increasing in size. Roughly 8 inches by 4 inches - Neurological Exam Neurological Exam: Alert, Awake, Oriented x3 - Psychiatric Exam Psychiatric exam: Normal Affect, Normal Mood - Skin Skin Exam: Dry, Intact, Normal Color, Warm. absent: Abrasion, Cyanosis, Diaphoretic Assessment and Plan - Assessment and Plan (Free Text) Assessment: 57 year old male with hx of DM, HTN, HLD who was admitted for evaluation of cellulitis vs. abscess of left lower mirza s/p lipoma removal, post op LLE abscess drainage: Plan: Assessment/plan 1 Cellulitis vs. Abscess 10/24: - afebrile for 24 hrs - WBC downtrending 19.5 -> 14.4 -> 12.9 -> 11.6, continue to monitor - Continue flagyl 3.375gm Q8 & vanco 1gm Q12 - F/u troph 10/25 - give tylenol 650 mg Q6 PRN for fevers - Blood cultures X 72 hrs neg, Urine cultures X 48 hrs neg, Abscess culture X 24 hrs gram positive cocci - methicillin resistant S. aureus - contact precuations placed - Ice pack Q4 hours on L left - F/u echo to R/o vegetations - f/u ID recs ( Dr. Esquivel - thanks) - F/u surgery recs - D/C tele, pt stable, no longer needed On admission: WBC 19.5, temp: 103.1, pulse:105 -Lactate: 1.1 -Vancomycin 1g IVBP Q24H -Zosyn 3.375 IVBP Q8H -Tylenol 650mg PO Q6H PRN pain, fever -IVF @ 100cc/hr -L leg US: Subcutaneous mass anterior aspect left lower extremity. This is likely an acute infectious/ inflammatory phlegmonous process. No discrete drainable collection identified. -CXR: NAD -blood cx: F/u -Procalcitonin 1.80 -VBG pH 7.36 pCO2 46 HCO3 24.3 pO2 39 -UA 2+ blood no nitrates, or leuk esterase - UDS negative -urine cx: F/u Surgery consulted, help appreciated. - f/u Vanc trough 2. Diabetes Mellitus -Regular ISS -Accucheck ACHS -Hbg A1c 9.3 -Lipid panel TG 215, LDL 75, HDL 27 -Amaryl 4mg PO daily 3.HTN -Losartan 50mg PO daily 4. Hypercholesterolemia - Crestor 5mg QHS 5. Prophylatic Measures -Florastor 250mg PO BID -Pepcid 20mg PO BID -Heparin 5000u SC Q12H -SCD contraindicated
[2017-10-24 07:39] LABS: BASO # 0.1 K/uL (0.0-0.2); BASO % 0.6 % (0.0-2.0); EOS # 0.1 K/uL (0.0-0.7); EOS % 0.8 % (0.0-4.0); HEMOGLOBIN 11.6 g/dL (12.0-18.0); LYMPH % 28.8 % (20.0-40.0); MEAN CELL VOLUME 87.8 fL (80.0-94.0); MEAN CORPUSCULAR HEMOGLOBIN 31.1 pg (27.0-31.0); MEAN CORPUSCULAR HGB CONC 35.4 g/dL (33.0-37.0); MONO # 1.2 K/uL (0.0-0.8); MONO % 11.5 % (0.0-10.0); NEUT % 58.3 % (50.0-75.0); RBC 3.72 Mil/uL (4.40-5.90); RED CELL DISTRIBUTION WIDTH 13.6 % (11.5-14.5); WHITE BLOOD COUNT 10.4 K/uL (4.8-10.8)
[2017-10-24 07:48] LABS: ALB/GLOB RATIO 1.2 (1.0-2.1); ALBUMIN 3.9 g/dL (3.5-5.0); ALT/SGPT 19 U/L (21-72); AST/SGOT 22 U/L (17-59); BLOOD UREA NITROGEN 6 mg/dL (9-20); CALCIUM 8.7 mg/dl (8.6-10.4); GFR AFRICAN-AMERICAN > 60; GFR NON-AFRICAN AMERICAN > 60
[2017-10-24] MEDS: (Novolog) Insulin Aspart, Recombinant 100 u/ml 10 ml vial SC SCH ×4 (08:16→22:14)
[2017-10-24] MEDS: Saccharomyces Boulardi 250 mg Cap PO SCH ×2 (09:26→17:45)
--- NOTE | 2017-10-24 10:24 | CP.PCM.PN ---
<JosephaustenAndrea muñiz - Last Filed: 10/24/17 10:21> Subjective - Date & Time of Evaluation Date of Evaluation: 10/24/17 Time of Evaluation: 10:21 - Subjective Subjective: Surgery: Dr. Bautista Pt seen and examined. No acute events overnight. Pain controlled. No F/C. Objective - Vital Signs/Intake and Output Vital Signs (last 24 hours): Temp Pulse Resp BP Pulse Ox 99.2 F 68 20 132/77 97 10/24/17 07:15 10/24/17 07:15 10/24/17 07:15 10/24/17 07:15 10/24/17 07:15 Intake and Output: 10/24/17 10/24/17 06:59 18:59 Intake Total 2100 Output Total 403 Balance 1697 - Medications Medications: Current Medications Acetaminophen (Tylenol 325mg Tab) 650 mg PO Q6H PRN PRN Reason: Pain, Mild (1-3) Last Admin: 10/23/17 02:02 Dose: 650 mg Dextrose (Dextrose 50% Inj) 0 ml IV STAT PRN; Protocol PRN Reason: Hypoglycemia Protocol Dextrose (Glutose 15) 0 gm PO ONCE PRN; Protocol PRN Reason: Hypoglycemia Protocol Famotidine (Pepcid) 20 mg PO BID [facility] Last Admin: 10/24/17 09:27 Dose: 20 mg Glimepiride (Amaryl) 4 mg PO DAILY [facility] Last Admin: 10/24/17 09:26 Dose: 4 mg Glucagon (Glucagen Diagnostic Kit) 0 mg IM STAT PRN; Protocol PRN Reason: Hypoglycemia Protocol Heparin Sodium (Porcine) (Heparin) 5,000 units SC Q12 [facility] Last Admin: 10/24/17 09:26 Dose: 5,000 units Dextrose (Dextrose 5% In Water 1000 Ml) 1,000 mls @ 0 mls/hr IV .Q0M PRN; Protocol; Per Protocol PRN Reason: Hypoglycemia Protocol Piperacillin Sod/Tazobactam (Sod 3.375 gm/ Sodium Chloride) 100 mls @ 200 mls/ hr IVPB Q8H [facility] PRN Reason: Protocol Last Admin: 10/24/17 08:16 Dose: 200 mls/hr Sodium Chloride (Sodium Chloride 0.9%) 1,000 mls @ 100 mls/hr IV .Q10H [facility] Last Admin: 10/23/17 21:06 Dose: 100 mls/hr Vancomycin HCl 1 gm/ Sodium (Chloride) 200 mls @ 133.333 mls/hr IVPB Q12H [facility] PRN Reason: Protocol Last Admin: 10/24/17 02:15 Dose: 133.333 mls/hr Insulin Aspart (Novolog) 0 unit SC ACHS [facility] PRN Reason: Protocol Last Admin: 10/24/17 08:16 Dose: 2 u Losartan Potassium (Cozaar) 50 mg PO DAILY [facility] Last Admin: 10/24/17 09:26 Dose: 50 mg Rosuvastatin Calcium (Crestor) 5 mg PO HS [facility] Last Admin: 10/23/17 22:20 Dose: 5 mg Saccharomyces Boulardii (Florastor) 250 mg PO BID [facility] Last Admin: 10/24/17 09:26 Dose: 250 mg - Labs Labs: 10/24/17 07:10 10/24/17 07:10 PT 12.6 SECONDS (9.7-12.2) H 10/21/17 19:37 INR 1.2 10/21/17 19:37 APTT 35 SECONDS (21-34) H 10/21/17 19:37 - Constitutional Appears: Non-toxic, No Acute Distress - Head Exam Head Exam: ATRAUMATIC, NORMOCEPHALIC - Eye Exam Eye Exam: EOMI - ENT Exam ENT Exam: Mucous Membranes Moist - Neck Exam Neck Exam: Full ROM - Respiratory Exam Respiratory Exam: NORMAL BREATHING PATTERN. absent: Accessory Muscle Use, Respiratory Distress - Cardiovascular Exam Cardiovascular Exam: REGULAR RHYTHM - GI/Abdominal Exam GI & Abdominal Exam: Soft. absent: Tenderness - Extremities Exam Additional comments: LLE, s/p I&D, scant serous drainage expressed on palpation, no odor, + induration of surrounding tissue, mild erythema - Neurological Exam Neurological Exam: Alert, Awake, Oriented x3 - Psychiatric Exam Psychiatric exam: Normal Affect, Normal Mood - Skin Skin Exam: Normal Color, Warm Assessment and Plan - Assessment and Plan (Free Text) Assessment: 57M w. LLE abscess/cellulitis, s/p I&D, POD#2 -Wound Cx: +MRSA -c/w abx -local wound care -d/w attending Matt PGY4 <Frank Bautista - Last Filed: 10/28/17 22:25> Objective - Vital Signs/Intake and Output Vital Signs (last 24 hours): Temp Pulse Resp BP Pulse Ox 99.0 F 72 20 132/76 96 10/28/17 15:00 10/28/17 15:00 10/28/17 15:00 10/28/17 15:00 10/28/17 15:00 Intake and Output: 10/28/17 10/29/17 18:59 06:59 Intake Total 900 950 Output Total 500 Balance 900 450 - Medications Medications: Current Medications Acetaminophen (Tylenol 325mg Tab) 650 mg PO Q6H PRN PRN Reason: Pain, Mild (1-3) Last Admin: 10/23/17 02:02 Dose: 650 mg Dextrose (Dextrose 50% Inj) 0 ml IV STAT PRN; Protocol PRN Reason: Hypoglycemia Protocol Dextrose (Glutose 15) 0 gm PO ONCE PRN; Protocol PRN Reason: Hypoglycemia Protocol Famotidine (Pepcid) 20 mg PO BID [facility] Last Admin: 10/28/17 17:29 Dose: 20 mg Glucagon (Glucagen Diagnostic Kit) 0 mg IM STAT PRN; Protocol PRN Reason: Hypoglycemia Protocol Heparin Sodium (Porcine) (Heparin) 5,000 units SC Q8 [facility] Last Admin: 10/28/17 21:16 Dose: 5,000 units Vancomycin HCl 1,500 mg/ (Sodium Chloride) 500 mls @ 100 mls/hr IVPB Q8H [facility] PRN Reason: Protocol Last Admin: 10/28/17 20:33 Dose: 100 mls/hr Insulin Aspart (Novolog) 0 unit SC ACHS [facility] PRN Reason: Protocol Last Admin: 10/28/17 21:20 Dose: Not Given Insulin Glargine (Lantus) 22 unit SC HS [facility] Last Admin: 10/28/17 21:15 Dose: Not Given Insulin Human Regular (Novolin R) 4 unit SC AC [facility] Last Admin: 10/28/17 17:30 Dose: 4 unit Losartan Potassium (Cozaar) 50 mg PO DAILY [facility] Last Admin: 10/28/17 09:58 Dose: 50 mg Oxycodone/Acetaminophen (Percocet 5/325 Mg Tab) 1 tab PO Q6H PRN PRN Reason: Pain, moderate (4-7) Stop: 10/30/17 14:49 Last Admin: 10/27/17 18:36 Dose: 1 tab Rosuvastatin Calcium (Crestor) 5 mg PO HS [facility] Last Admin: 10/28/17 21:16 Dose: 5 mg Saccharomyces Boulardii (Florastor) 250 mg PO BID [facility] Last Admin: 10/28/17 17:29 Dose: 250 mg - Labs Labs: 10/28/17 06:14 10/28/17 06:14 PT 12.0 SECONDS (9.7-12.2) 10/27/17 07:50 INR 1.1 10/27/17 07:50 APTT 30 SECONDS (21-34) 10/27/17 07:50 Attending/Attestation - Attestation I have personally seen and examined this patient.: Yes I have fully participated in the care of the patient.: Yes I have reviewed all pertinent clinical information, including history, physical exam and plan: Yes Notes (Text): Pt was seen and examined at bedside Agree with above note and assessment Pt has some improvement Cellulitis is improving Minimal Pus discharge Leg elevation. Plan d.w pt in detail.
[2017-10-25] MEDS: Piperacillin/Tazobact 3.375 GM in Sodium Chloride 100 ML IVPB SCH ×2 (00:25→10:08)
[2017-10-25] MEDS: Sodium Chloride 0.9% 1,000 ML IV SCH (01:38)
[2017-10-25] MEDS: Vancomycin 1 GM in Sodium Chloride 0.9% 200 ML IVPB SCH ×2 (01:38→15:00)
--- NOTE | 2017-10-25 06:51 | CP.PCM.PN ---
Subjective - Date & Time of Evaluation Date of Evaluation: 10/25/17 Time of Evaluation: 20:00 - Subjective Subjective: PGY1 Resident note for Dr. Jaden Clifton. Pt seen and examined at bedside. Pt is currently on contact precautions 2/2 wound culture indicated positive for MRSA. Pt lying comfortably sleeping in bed , no acute distress. No overnight events. Pt states he is feeling okay, only 3/ 10 pain on absces/ cellulitic area. Pt denies chest pain, difficulty breathing, back pain, headaches, trouble voiding, and constipation. Objective - Vital Signs/Intake and Output Vital Signs (last 24 hours): Temp Pulse Resp BP Pulse Ox 99.8 F H 64 20 147/76 97 10/24/17 23:20 10/24/17 23:20 10/24/17 23:20 10/24/17 23:20 10/24/17 23:20 - Medications Medications: Current Medications Acetaminophen (Tylenol 325mg Tab) 650 mg PO Q6H PRN PRN Reason: Pain, Mild (1-3) Last Admin: 10/23/17 02:02 Dose: 650 mg Dextrose (Dextrose 50% Inj) 0 ml IV STAT PRN; Protocol PRN Reason: Hypoglycemia Protocol Dextrose (Glutose 15) 0 gm PO ONCE PRN; Protocol PRN Reason: Hypoglycemia Protocol Famotidine (Pepcid) 20 mg PO BID [facility] Last Admin: 10/24/17 17:45 Dose: 20 mg Glimepiride (Amaryl) 4 mg PO DAILY [facility] Last Admin: 10/24/17 09:26 Dose: 4 mg Glucagon (Glucagen Diagnostic Kit) 0 mg IM STAT PRN; Protocol PRN Reason: Hypoglycemia Protocol Heparin Sodium (Porcine) (Heparin) 5,000 units SC Q12 [facility] Last Admin: 10/24/17 21:41 Dose: 5,000 units Piperacillin Sod/Tazobactam (Sod 3.375 gm/ Sodium Chloride) 100 mls @ 200 mls/ hr IVPB Q8H [facility] PRN Reason: Protocol Last Admin: 10/25/17 00:25 Dose: 200 mls/hr Vancomycin HCl 1 gm/ Sodium (Chloride) 200 mls @ 133.333 mls/hr IVPB Q12H [facility] PRN Reason: Protocol Last Admin: 10/25/17 01:38 Dose: 133.333 mls/hr Insulin Aspart (Novolog) 0 unit SC ACHS [facility] PRN Reason: Protocol Last Admin: 10/24/17 22:14 Dose: Not Given Losartan Potassium (Cozaar) 50 mg PO DAILY [facility] Last Admin: 10/24/17 09:26 Dose: 50 mg Rosuvastatin Calcium (Crestor) 5 mg PO HS [facility] Last Admin: 10/24/17 21:41 Dose: 5 mg Saccharomyces Boulardii (Florastor) 250 mg PO BID [facility] Last Admin: 10/24/17 17:45 Dose: 250 mg - Labs Labs: 10/24/17 07:10 10/24/17 07:10 PT 12.6 SECONDS (9.7-12.2) H 10/21/17 19:37 INR 1.2 10/21/17 19:37 APTT 35 SECONDS (21-34) H 10/21/17 19:37 - Constitutional Appears: Well, No Acute Distress - Head Exam Head Exam: ATRAUMATIC, NORMAL INSPECTION - Eye Exam Eye Exam: EOMI, Normal appearance - ENT Exam ENT Exam: Mucous Membranes Moist - Respiratory Exam Respiratory Exam: Clear to Ausculation Bilateral, NORMAL BREATHING PATTERN. absent: Rales, Rhonchi, Wheezes - Cardiovascular Exam Cardiovascular Exam: +S1, +S2. absent: Irregular Rhythm, Murmur - GI/Abdominal Exam GI & Abdominal Exam: Soft, Normal Bowel Sounds. absent: Firm, Guarding, Rigid - Extremities Exam Additional comments: Pt has dressing on left leg. Erythema present w/ pain of 3 on palpation. Erythema margins slight improvement from 10/25; however, still increased from admission. Pt denies calf tenderness B/L & has + pulses on B/L LE - Neurological Exam Neurological Exam: Alert, Awake, Oriented x3 - Psychiatric Exam Psychiatric exam: Normal Affect, Normal Mood - Skin Skin Exam: Dry, Intact, Normal Color, Warm. absent: Pallor, Pallor Assessment and Plan - Assessment and Plan (Free Text) Assessment: 57 year old male with hx of DM, HTN, HLD who was admitted for evaluation of cellulitis vs. abscess of left lower mirza s/p lipoma removal, post op LLE abscess drainage: Plan: Assessment/plan 1 Cellulitis vs. Abscess 10/25: - afebrile for 48 hours - WBC downtrending 19.5 -> 14.4 -> 12.9 -> 11.6 - > 10.9, continue to monitor - Continue flagyl 3.375gm Q8 - vanc troph < 5, vanco increased to 1gm Q8 - F/u troph 10/26 2:30 pm - spoke w/ surgery resident, dressing changed daily, today purulent drainage expressed - continue contact precautions - F/u MRI to R/O OM 10/24: - afebrile for 24 hrs - WBC downtrending 19.5 -> 14.4 -> 12.9 -> 11.6, continue to monitor - Continue flagyl 3.375gm Q8 & vanco 1gm Q12 - F/u troph 10/25 - give tylenol 650 mg Q6 PRN for fevers - Blood cultures X 72 hrs neg, Urine cultures X 48 hrs neg, Abscess culture X 24 hrs gram positive cocci - methicillin resistant S. aureus - contact precuations placed - Ice pack Q4 hours on L left - F/u echo to R/o vegetations - f/u ID recs ( Dr. Esquivel - thanks) - F/u surgery recs - D/C tele, pt stable, no longer needed On admission: WBC 19.5, temp: 103.1, pulse:105 -Lactate: 1.1 -Vancomycin 1g IVBP Q24H -Zosyn 3.375 IVBP Q8H -Tylenol 650mg PO Q6H PRN pain, fever -IVF @ 100cc/hr -L leg US: Subcutaneous mass anterior aspect left lower extremity. This is likely an acute infectious/ inflammatory phlegmonous process. No discrete drainable collection identified. -CXR: NAD -blood cx: F/u -Procalcitonin 1.80 -VBG pH 7.36 pCO2 46 HCO3 24.3 pO2 39 -UA 2+ blood no nitrates, or leuk esterase - UDS negative -urine cx: F/u Surgery consulted, help appreciated. - f/u Vanc trough 2. Diabetes Mellitus 10/25: - Regular ISS change to lantus 10 units HS - will monitor glucose -Accucheck ACHS -Hbg A1c 9.3 -Lipid panel TG 215, LDL 75, HDL 27 3.HTN -Losartan 50mg PO daily 4. Hypercholesterolemia - Crestor 5mg QHS 5. Prophylatic Measures -Florastor 250mg PO BID -Pepcid 20mg PO BID -Heparin 5000u SC Q12H -SCD contraindicated
[2017-10-25 08:53] LABS: BASO # 0.1 K/uL (0.0-0.2); BASO % 0.8 % (0.0-2.0); EOS # 0.2 K/uL (0.0-0.7); EOS % 1.5 % (0.0-4.0); HEMOGLOBIN 12.3 g/dL (12.0-18.0); LYMPH # 3.5 K/uL (1.0-4.3); LYMPH % 31.7 % (20.0-40.0); MEAN CELL VOLUME 87.4 fL (80.0-94.0); MEAN CORPUSCULAR HEMOGLOBIN 30.9 pg (27.0-31.0); MEAN CORPUSCULAR HGB CONC 35.3 g/dL (33.0-37.0); MEAN PLATELET VOLUME 7.9 fL (7.2-11.7); MONO # 1.1 K/uL (0.0-0.8); MONO % 10.3 % (0.0-10.0); NEUT # 6.1 K/uL (1.8-7.0); NEUT % 55.7 % (50.0-75.0); NRBC % 0.1 % (0.0-2.0); RBC 3.99 Mil/uL (4.40-5.90); RED CELL DISTRIBUTION WIDTH 13.6 % (11.5-14.5); WHITE BLOOD COUNT 10.9 K/uL (4.8-10.8)
[2017-10-25 09:23] LABS: ALB/GLOB RATIO 1.1 (1.0-2.1); ALT/SGPT 39 U/L (21-72); AST/SGOT 29 U/L (17-59); BLOOD UREA NITROGEN 8 mg/dL (9-20); CALCIUM 8.7 mg/dl (8.6-10.4); GFR AFRICAN-AMERICAN > 60; GFR NON-AFRICAN AMERICAN > 60
[2017-10-25] MEDS: Saccharomyces Boulardi 250 mg Cap PO SCH ×2 (10:09→18:47)
[2017-10-25] MEDS: (Novolog) Insulin Aspart, Recombinant 100 u/ml 10 ml vial SC SCH ×4 (10:24→21:38)
--- NOTE | 2017-10-25 11:39 | CP.PCM.PN ---
<Inocente Wyatt - Last Filed: 10/25/17 11:41> Subjective - Date & Time of Evaluation Date of Evaluation: 10/25/17 Time of Evaluation: 11:38 - Subjective Subjective: General Surgery Progress Note for Dr. Bautista This 57M was seen and examined this AM at bedside. No a cute events overnight per Pt and per nursing. Cellulitic area not showing improvemnt this AM. Dressing was changed and particulates and pus were expressed from the wound. No new complaints at this time. PT is tolerating diet, passing gas, denies chest pain and sob. Objective - Vital Signs/Intake and Output Vital Signs (last 24 hours): Temp Pulse Resp BP Pulse Ox 98.6 F 63 20 151/93 H 96 10/25/17 07:00 10/25/17 07:00 10/25/17 07:00 10/25/17 07:00 10/25/17 07:00 Intake and Output: 10/25/17 10/25/17 06:59 18:59 Intake Total 970 Output Total 650 Balance 320 - Medications Medications: Current Medications Acetaminophen (Tylenol 325mg Tab) 650 mg PO Q6H PRN PRN Reason: Pain, Mild (1-3) Last Admin: 10/23/17 02:02 Dose: 650 mg Dextrose (Dextrose 50% Inj) 0 ml IV STAT PRN; Protocol PRN Reason: Hypoglycemia Protocol Dextrose (Glutose 15) 0 gm PO ONCE PRN; Protocol PRN Reason: Hypoglycemia Protocol Famotidine (Pepcid) 20 mg PO BID [facility] Last Admin: 10/25/17 10:09 Dose: 20 mg Glimepiride (Amaryl) 4 mg PO DAILY [facility] Last Admin: 10/25/17 10:09 Dose: 4 mg Glucagon (Glucagen Diagnostic Kit) 0 mg IM STAT PRN; Protocol PRN Reason: Hypoglycemia Protocol Piperacillin Sod/Tazobactam (Sod 3.375 gm/ Sodium Chloride) 100 mls @ 200 mls/ hr IVPB Q8H [facility] PRN Reason: Protocol Last Admin: 10/25/17 10:08 Dose: 200 mls/hr Vancomycin HCl 1 gm/ Sodium (Chloride) 200 mls @ 133.333 mls/hr IVPB Q12H [facility] PRN Reason: Protocol Last Admin: 10/25/17 01:38 Dose: 133.333 mls/hr Insulin Aspart (Novolog) 0 unit SC ACHS [facility] PRN Reason: Protocol Last Admin: 10/25/17 10:24 Dose: 3 u Losartan Potassium (Cozaar) 50 mg PO DAILY [facility] Last Admin: 10/25/17 10:09 Dose: 50 mg Rosuvastatin Calcium (Crestor) 5 mg PO HS [facility] Last Admin: 10/24/17 21:41 Dose: 5 mg Saccharomyces Boulardii (Florastor) 250 mg PO BID [facility] Last Admin: 10/25/17 10:09 Dose: 250 mg - Labs Labs: 10/25/17 08:35 10/25/17 08:35 PT 12.6 SECONDS (9.7-12.2) H 10/21/17 19:37 INR 1.2 10/21/17 19:37 APTT 35 SECONDS (21-34) H 10/21/17 19:37 - Constitutional Appears: Non-toxic, No Acute Distress - Head Exam Head Exam: ATRAUMATIC, NORMOCEPHALIC - Eye Exam Eye Exam: EOMI, Normal appearance - ENT Exam ENT Exam: Mucous Membranes Moist - Respiratory Exam Respiratory Exam: NORMAL BREATHING PATTERN - Cardiovascular Exam Cardiovascular Exam: REGULAR RHYTHM - GI/Abdominal Exam GI & Abdominal Exam: Soft. absent: Firm, Guarding, Rigid, Tenderness - Neurological Exam Neurological Exam: Alert, Awake - Psychiatric Exam Psychiatric exam: Normal Affect, Normal Mood - Skin Skin Exam: Dry, Intact Assessment and Plan - Assessment and Plan (Free Text) Assessment: 57M w. LLE abscess/cellulitis, s/p I&D, POD#3 Wound Cx: +MRSA Vital signs stable WBC 10.9 Plan: Continue antibiotic Continue local wound care will follow up on echo Further recs per Dr. Michele Wyatt PGY3 <Frank Bautista - Last Filed: 10/28/17 22:41> Objective - Vital Signs/Intake and Output Vital Signs (last 24 hours): Temp Pulse Resp BP Pulse Ox 99.0 F 72 20 132/76 96 10/28/17 15:00 10/28/17 15:00 10/28/17 15:00 10/28/17 15:00 10/28/17 15:00 Intake and Output: 10/28/17 10/29/17 18:59 06:59 Intake Total 900 950 Output Total 500 Balance 900 450 - Medications Medications: Current Medications Acetaminophen (Tylenol 325mg Tab) 650 mg PO Q6H PRN PRN Reason: Pain, Mild (1-3) Last Admin: 10/23/17 02:02 Dose: 650 mg Dextrose (Dextrose 50% Inj) 0 ml IV STAT PRN; Protocol PRN Reason: Hypoglycemia Protocol Dextrose (Glutose 15) 0 gm PO ONCE PRN; Protocol PRN Reason: Hypoglycemia Protocol Famotidine (Pepcid) 20 mg PO BID [facility] Last Admin: 10/28/17 17:29 Dose: 20 mg Glucagon (Glucagen Diagnostic Kit) 0 mg IM STAT PRN; Protocol PRN Reason: Hypoglycemia Protocol Heparin Sodium (Porcine) (Heparin) 5,000 units SC Q8 [facility] Last Admin: 10/28/17 21:16 Dose: 5,000 units Vancomycin HCl 1,500 mg/ (Sodium Chloride) 500 mls @ 100 mls/hr IVPB Q8H [facility] PRN Reason: Protocol Last Admin: 10/28/17 20:33 Dose: 100 mls/hr Insulin Aspart (Novolog) 0 unit SC ACHS [facility] PRN Reason: Protocol Last Admin: 10/28/17 21:20 Dose: Not Given Insulin Glargine (Lantus) 22 unit SC HS [facility] Last Admin: 10/28/17 21:15 Dose: Not Given Insulin Human Regular (Novolin R) 4 unit SC AC [facility] Last Admin: 10/28/17 17:30 Dose: 4 unit Losartan Potassium (Cozaar) 50 mg PO DAILY [facility] Last Admin: 10/28/17 09:58 Dose: 50 mg Oxycodone/Acetaminophen (Percocet 5/325 Mg Tab) 1 tab PO Q6H PRN PRN Reason: Pain, moderate (4-7) Stop: 10/30/17 14:49 Last Admin: 10/27/17 18:36 Dose: 1 tab Rosuvastatin Calcium (Crestor) 5 mg PO [facility] Last Admin: 10/28/17 21:16 Dose: 5 mg Saccharomyces Boulardii (Florastor) 250 mg PO BID [facility] Last Admin: 10/28/17 17:29 Dose: 250 mg - Labs Labs: 10/28/17 06:14 10/28/17 06:14 PT 12.0 SECONDS (9.7-12.2) 10/27/17 07:50 INR 1.1 10/27/17 07:50 APTT 30 SECONDS (21-34) 10/27/17 07:50 Attending/Attestation - Attestation I have personally seen and examined this patient.: Yes I have fully participated in the care of the patient.: Yes I have reviewed all pertinent clinical information, including history, physical exam and plan: Yes Notes (Text): Pt was seen and examined at bedside Agree with above note and assessment Cellulitis is increasing ID consult appreciated If no improvement, Pt would need re debridement C/w IV antibiotics Plan d.w pt in detail. Risk and benefit explained in detail.
--- NOTE | 2017-10-25 12:51 | CP.PCM.CON ---
Past Patient History - Past Medical History & Family History Past Medical History?: Yes - Past Social History Smoking Status: Never Smoked - CARDIAC Hx Hypercholesterolemia: Yes Hx Hypertension: Yes - PULMONARY Hx Respiratory Disorders: No - NEUROLOGICAL Hx Neurological Disorder: No - HEENT Hx HEENT Problems: No - RENAL Hx Chronic Kidney Disease: No - ENDOCRINE/METABOLIC Hx Endocrine Disorders: Yes Hx Diabetes Mellitus Type 2: Yes - HEMATOLOGICAL/ONCOLOGICAL Hx Blood Disorders: No - INTEGUMENTARY Hx Dermatological Problems: Yes - MUSCULOSKELETAL/RHEUMATOLOGICAL Hx Arthritis: Yes - GASTROINTESTINAL Hx Gastrointestinal Disorders: No - GENITOURINARY/GYNECOLOGICAL Hx Genitourinary Disorders: No - PSYCHIATRIC Hx Substance Use: No - SURGICAL HISTORY Hx Surgeries: Yes Hx Cardiac Catheterization: Yes - ANESTHESIA Hx Anesthesia: Yes Hx Anesthesia Reactions: No Hx Malignant Hyperthermia: No Meds Allergies/Adverse Reactions: Allergies Allergy/AdvReac Type Severity Reaction Status Date / Time No Known Allergies Allergy Verified 07/03/17 09:19 - Medications Medications: Current Medications Acetaminophen (Tylenol 325mg Tab) 650 mg PO Q6H PRN PRN Reason: Pain, Mild (1-3) Last Admin: 10/23/17 02:02 Dose: 650 mg Dextrose (Dextrose 50% Inj) 0 ml IV STAT PRN; Protocol PRN Reason: Hypoglycemia Protocol Dextrose (Glutose 15) 0 gm PO ONCE PRN; Protocol PRN Reason: Hypoglycemia Protocol Famotidine (Pepcid) 20 mg PO BID [facility] Last Admin: 10/25/17 10:09 Dose: 20 mg Glucagon (Glucagen Diagnostic Kit) 0 mg IM STAT PRN; Protocol PRN Reason: Hypoglycemia Protocol Piperacillin Sod/Tazobactam (Sod 3.375 gm/ Sodium Chloride) 100 mls @ 200 mls/ hr IVPB Q8H [facility] PRN Reason: Protocol Last Admin: 10/25/17 10:08 Dose: 200 mls/hr Vancomycin HCl 1 gm/ Sodium (Chloride) 200 mls @ 133.333 mls/hr IVPB Q12H [facility] PRN Reason: Protocol Last Admin: 10/25/17 01:38 Dose: 133.333 mls/hr Insulin Aspart (Novolog) 0 unit SC ACHS [facility] PRN Reason: Protocol Last Admin: 10/25/17 10:24 Dose: 3 u Insulin Glargine (Lantus) 10 unit SC HS [facility] Losartan Potassium (Cozaar) 50 mg PO DAILY [facility] Last Admin: 10/25/17 10:09 Dose: 50 mg Rosuvastatin Calcium (Crestor) 5 mg PO HS [facility] Last Admin: 10/24/17 21:41 Dose: 5 mg Saccharomyces Boulardii (Florastor) 250 mg PO BID [facility] Last Admin: 10/25/17 10:09 Dose: 250 mg Results - Vital Signs Recent Vital Signs: Last Vital Signs Temp 98.6 F 10/25/17 07:00 Pulse 63 10/25/17 07:00 Resp 20 10/25/17 07:00 BP 151/93 H 10/25/17 07:00 Pulse Ox 96 10/25/17 07:00 - Labs Result Diagrams: 10/25/17 08:35 10/25/17 08:35 Labs: Laboratory Results - last 24 hr 10/24/17 10/24/17 10/25/17 17:18 21:58 06:24 WBC RBC Hgb Hct MCV MCH MCHC RDW Plt Count MPV Neut % (Auto) Lymph % (Auto) [place] % (Auto) Eos % (Auto) Baso % (Auto) Neut # (Auto) Lymph # (Auto) [place] # (Auto) Eos # (Auto) Baso # (Auto) Sodium Potassium Chloride Carbon Dioxide Anion Gap BUN Creatinine Est GFR ( Amer) Est GFR (Non-Af Amer) POC Glucose (mg/dL) 174 H 223 H 234 H Random Glucose Calcium Total Bilirubin AST ALT Alkaline Phosphatase Total Protein Albumin Globulin Albumin/Globulin Ratio 10/25/17 10/25/17 10/25/17 08:35 08:35 12:09 WBC 10.9 H RBC 3.99 L Hgb 12.3 Hct 34.8 L MCV 87.4 MCH 30.9 MCHC 35.3 RDW 13.6 Plt Count 503 H D MPV 7.9 Neut % (Auto) 55.7 Lymph % (Auto) 31.7 [place] % (Auto) 10.3 H Eos % (Auto) 1.5 Baso % (Auto) 0.8 Neut # (Auto) 6.1 Lymph # (Auto) 3.5 [place] # (Auto) 1.1 H Eos # (Auto) 0.2 Baso # (Auto) 0.1 Sodium 140 Potassium 4.2 Chloride 101 Carbon Dioxide 27 Anion Gap 16 BUN 8 L Creatinine 0.7 L Est GFR ( Amer) > 60 Est GFR (Non-Af Amer) > 60 POC Glucose (mg/dL) 208 H Random Glucose 223 H Calcium 8.7 Total Bilirubin 0.7 AST 29 ALT 39 Alkaline Phosphatase 100 Total Protein 7.8 Albumin 4.0 Globulin 3.7 Albumin/Globulin Ratio 1.1
--- NOTE | 2017-10-25 14:18 | CARD ---
APPROVED REPORT Date of service: 10/25/2017 EXAM: Two-dimensional and M-mode echocardiogram with Doppler and color Doppler. INDICATION R/O Vegetations RISK FACTORS Hypertension Hyperlipidemia Diabetes 2D DIMENSIONS IVSd0.9 (0.7-1.1cm)LVDd5.7 (3.9-5.9cm) PWd1.1 (0.7-1.1cm)LVDs3.7 (2.5-4.0cm) FS (%) 34.2 %LVEF (%)62.6 (>50%) M-Mode DIMENSIONS RVDd1.88 (2.1-3.2cm)Left Atrium (MM)4.92 (2.5-4.0cm) IVSd1.16 (0.7-1.1cm)Aortic Root3.39 (2.2-3.7cm) LVDd6.48 (4.0-5.6cm)Aortic Cusp Exc.2.37 (1.5-2.0cm) PWd1.08 (0.7-1.1cm)FS (%) 34 % LVDs4.27 (2.0-3.8cm)LVEF (%)62 (>50%) Mitral Valve MV E Lgkbvcif93.6cm/sMV A Smyhoasz70.8cm/sE/A ratio1.2 TDI E/Lateral E'0.0E/Medial E'0.0 LEFT VENTRICLE The left ventricle is normal size. There is normal left ventricular wall thickness. The left ventricular function is normal. The left ventricular ejection fraction is within the normal range. No regional wall motion abnormalities noted. The left ventricular diastolic function is normal. No left ventricle thrombus noted on this study. There is no ventricular septal defect visualized. There is no left ventricular aneurysm. There is no mass noted in the left ventricle. RIGHT VENTRICLE The right ventricle is normal size. There is normal right ventricular wall thickness. The right ventricular systolic function is normal. ATRIA The left atrium size is normal. The right atrium size is normal. The interatrial septum is intact with no evidence for an atrial septal defect. AORTIC VALVE The aortic valve is normal in structure and function. No aortic regurgitation is present. There is no aortic valvular stenosis. There is no aortic valvular vegetation. MITRAL VALVE The mitral valve is normal in structure and function. There is no evidence of mitral valve prolapse. There is no mitral valve stenosis. There is no mitral valve regurgitation noted. TRICUSPID VALVE The tricuspid valve is normal in structure and function. There is no tricuspid valve regurgitation noted. There is no tricuspid valve prolapse or vegetation. There is no tricuspid valve stenosis. PULMONIC VALVE The pulmonary valve is normal in structure and function. There is no pulmonic valvular regurgitation. There is no pulmonic valvular stenosis. GREAT VESSELS The aortic root is normal in size. The ascending aorta is normal in size. The pulmonary artery is normal. The IVC is normal in size and collapses >50% with inspiration. PERICARDIAL EFFUSION The pericardium appears normal. There is no pleural effusion.
--- NOTE | 2017-10-25 15:27 | CP.PCM.CON ---
History of Present Illness - History of Present Illness History of Present Illness: 57 yo M presents to ED for worsening L mirza redness, pain, and fevers that began 3 days prior to arrival. Patient states he has not been able to walk due to leg pain. Associated symptoms include chills, headache, lightheadedness on standing, Patient states he had a lipoma removed from his left mirza at [facility] [place] by Dr. Bautista on 07/12/17 and notes that the redness is located at the incision site. Patient denies any complications at the time of surgery. Patient saw his PMD, Dr. Tavarez, yesterday who prescribed cephalexin 500 PO QID, and instructed the patient to come to ED if there was no improvement of symptoms. PATIENT IS S/P I AND D LEFT LEG IN OR STILL C/O PAIN PMHx: DM, HTN, Hypercholesterolemia PSHx: Lipoma excision of L mirza and Left shoulder 07/12/17, Endoscopy 08/09/17, diagnostic catheterization ~2002 Allergies: NKDA Meds: Metformin 100mg BID, Pravastatin 50mg qHS, Glimeperide 4mg BID, Losartan 50mg daily Family Hx: Father: - HTN, DM. Mother: - HTN, DM. Social Hx: Drinks alcohol socially, denies tobacco, denies illicit drug use. PMD: Dr. Tavarez Review of Systems - Review of Systems All systems: reviewed and no additional remarkable complaints except - Constitutional Constitutional: As Per HPI - EENT Eyes: absent: As Per HPI, Blind Spots, Blurred Vision, Change in Vision, Decreased Night Vision, Diplopia, Discharge, Dry Eye, Exophthalmos, Floaters, Irritation, Itchy Eyes, Loss of Peripheral Vision, Pain, Photophobia, Requires Corrective Lenses, Sees Flashes, Spots in Vision, Tunnel Vision, Other Visual Disturbances, Loss of Vision, Other Ears: absent: As Per HPI, Decreased Hearing, Ear Discharge, Ear Pain, Tinnitus, Abnormal Hearing, Disequilibrium, Dizziness, Other Nose/Mouth/Throat: absent: As Per HPI, Epistaxis, Nasal Congestion, Nasal Discharge, Nasal Obstruction, Nasal Trauma, Nose Pain, Post Nasal Drip, Sinus Pain, Sinus Pressure, Bleeding Gums, Change in Voice, Dental Pain, Dry Mouth, Dysphagia, Halitosis, Hoarsness, Lip Swelling, Mouth Lesions, Mouth Pain, Odynophagia, Sore Throat, Throat Swelling, Tongue Swelling, Facial Pain, Neck Pain, Neck Mass, Other - Cardiovascular Cardiovascular: absent: As Per HPI, Acrocyanosis, Chest Pain, Chest Pain at Rest , Chest Pain with Activity, Claudication, Diaphoresis, Dyspnea, Dyspnea on Exertion, Edema, Irregular Heart Rhythm, Pain Radiating to Arm/Neck/Jaw, Leg Edema, Leg Ulcers, Lightheadedness, Orthopnea, Palpitations, Paroxysmal Nocturnal Dyspnea, Pedal Edema, Radiating Pain, Rapid Heart Rate, Slow Heart Rate, Syncope, Other - Respiratory Respiratory: absent: As Per HPI, Cough, Dyspnea, Hemoptysis, Dyspnea on Exertion , Wheezing, Snoring, Stridor, Pain on Inspiration, Chest Congestion, Excessive Mucous Production, Change in Mucous Color, Pain with Coughing, Other - Gastrointestinal Gastrointestinal: absent: As Per HPI, Abdominal Pain, Belching, Bloating, Change in Bowel Habits, Change in Stool Character, Coffee Ground Emesis, Constipation, Cramping, Diarrhea, Dyspepsia, Dysphagia, Early Satiety, Excessive Flatus, Fecal Incontinence, Heartburn, Hematemesis, Hematochezia, Loose Stools, Melena, Nausea, Odynophagia, Temesmus, Vomiting, Other - Genitourinary Genitourinary: absent: As Per HPI, Change in Urinary Stream, Difficulty Urinating, Dysuria, Flank Pain, Hematuria, Pyuria, Nocturia, Urinary Incontinence, Urinary Frequency, Urinary Hesitance, Urinary Urgency, Voiding Freq/Small Amts, Freq UTI, Hx Renal/Bladder Calculi, Hx /Renal Surgery, Bladder Distension, Other - Musculoskeletal Musculoskeletal: As Per HPI - Integumentary Integumentary: As Per HPI - Neurological Neurological: absent: As Per HPI, Abnormal Gait, Abnormal Hearing, Abnormal Movements, Abnormal Speech, Behavioral Changes, Burning Sensations, Confusion, Convulsions, Disequilibrium, Dizziness, Numbness, Focal Weakness, Frequent Falls , Headaches, Lack of Coordination, Loss of Vision, Memory Loss, Paresthesias, Radicular Pain, Restless Legs, Sensory Deficit, Syncope, Tingling, Tremor, Vertigo, Weakness, Other Visual Disturbances, Other - Psychiatric Psychiatric: absent: As Per HPI, Abnormal Sleep Pattern, Anhedonia, Anxiety, Auditory Hallucinations, Behavioral Changes, Change in Appetite, Change in Libido, Confusion, Depression, Difficulty Concentrating, Hallucinations, Homicidal Ideation, Hopelessness, Irritability, Memory Loss, Mood Swings, Panic Attacks, Paranoia, Suicidal Ideation, Visual Hallucinations, Tactile Hallucinations, Other - Endocrine Endocrine: absent: As Per HPI, Change in Body Appearance, Change in Libido, Cold Intolorance, Deepening of Voice, Excessive Sweating, Fatigue, Flushing, Heat Intolorance, Increase in Ring/Shoe/Hat Size, Palpitations, Polydipsia, Polyphagia, Polyuria, Other - Hematologic/Lymphatic Hematologic: absent: As Per HPI, Easy Bleeding, Easy Bruising, Lymphadenopathy, Other Past Patient History - Past Medical History & Family History Past Medical History?: Yes - Past Social History Smoking Status: Never Smoked - CARDIAC Hx Hypercholesterolemia: Yes Hx Hypertension: Yes - PULMONARY Hx Respiratory Disorders: No - NEUROLOGICAL Hx Neurological Disorder: No - HEENT Hx HEENT Problems: No - RENAL Hx Chronic Kidney Disease: No - ENDOCRINE/METABOLIC Hx Endocrine Disorders: Yes Hx Diabetes Mellitus Type 2: Yes - HEMATOLOGICAL/ONCOLOGICAL Hx Blood Disorders: No - INTEGUMENTARY Hx Dermatological Problems: Yes - MUSCULOSKELETAL/RHEUMATOLOGICAL Hx Arthritis: Yes - GASTROINTESTINAL Hx Gastrointestinal Disorders: No - GENITOURINARY/GYNECOLOGICAL Hx Genitourinary Disorders: No - PSYCHIATRIC Hx Substance Use: No - SURGICAL HISTORY Hx Surgeries: Yes Hx Cardiac Catheterization: Yes - ANESTHESIA Hx Anesthesia: Yes Hx Anesthesia Reactions: No Hx Malignant Hyperthermia: No Meds Allergies/Adverse Reactions: Allergies Allergy/AdvReac Type Severity Reaction Status Date / Time No Known Allergies Allergy Verified 07/03/17 09:19 - Medications Medications: Current Medications Acetaminophen (Tylenol 325mg Tab) 650 mg PO Q6H PRN PRN Reason: Pain, Mild (1-3) Last Admin: 10/23/17 02:02 Dose: 650 mg Dextrose (Dextrose 50% Inj) 0 ml IV STAT PRN; Protocol PRN Reason: Hypoglycemia Protocol Dextrose (Glutose 15) 0 gm PO ONCE PRN; Protocol PRN Reason: Hypoglycemia Protocol Famotidine (Pepcid) 20 mg PO BID [facility] Last Admin: 10/25/17 10:09 Dose: 20 mg Glucagon (Glucagen Diagnostic Kit) 0 mg IM STAT PRN; Protocol PRN Reason: Hypoglycemia Protocol Piperacillin Sod/Tazobactam (Sod 3.375 gm/ Sodium Chloride) 100 mls @ 200 mls/ hr IVPB Q8H [facility] PRN Reason: Protocol Last Admin: 10/25/17 10:08 Dose: 200 mls/hr Vancomycin HCl 1 gm/ Sodium (Chloride) 200 mls @ 133.333 mls/hr IVPB Q12H [facility] PRN Reason: Protocol Last Admin: 10/25/17 15:00 Dose: 133.333 mls/hr Insulin Aspart (Novolog) 0 unit SC ACHS [facility] PRN Reason: Protocol Last Admin: 10/25/17 13:04 Dose: 3 u Insulin Glargine (Lantus) 10 unit SC [facility] Losartan Potassium (Cozaar) 50 mg PO DAILY [facility] Last Admin: 10/25/17 10:09 Dose: 50 mg Rosuvastatin Calcium (Crestor) 5 mg PO HS [facility] Last Admin: 10/24/17 21:41 Dose: 5 mg Saccharomyces Boulardii (Florastor) 250 mg PO BID [facility] Last Admin: 10/25/17 10:09 Dose: 250 mg Physical Exam - Constitutional Appears: Non-toxic, Chronically Ill - Head Exam Head Exam: NORMOCEPHALIC - Eye Exam Eye Exam: absent: Scleral icterus Pupil Exam: NORMAL ACCOMODATION - ENT Exam ENT Exam: Mucous Membranes Dry, Normal External Ear Exam - Neck Exam Neck exam: Negative for: Lymphadenopathy, Thyromegaly - Respiratory Exam Respiratory Exam: Decreased Breath Sounds, Clear to Auscultation Bilateral - Cardiovascular Exam Cardiovascular Exam: REGULAR RHYTHM, +S1, +S2 - GI/Abdominal Exam GI & Abdominal Exam: Diminished Bowel Sounds, Soft. absent: Tenderness - Rectal Exam Rectal Exam: Deferred - Exam Exam: NORMAL INSPECTION - Extremities Exam Extremities exam: Positive for: tenderness. Negative for: calf tenderness, pedal edema, pedal pulses present Additional comments: SWELLING LEFT LEG WITH REDNESS AROUND SITE OF RECENT I AND D NO MAURICE PUS - Back Exam Back exam: absent: CVA tenderness (L), CVA tenderness (R) - Neurological Exam Neurological exam: Alert, CN II-XII Intact, Oriented x3, Reflexes Normal - Psychiatric Exam Psychiatric exam: Normal Mood - Skin Skin Exam: Dry, Erythema Results - Vital Signs Recent Vital Signs: Last Vital Signs Temp 98.6 F 10/25/17 07:00 Pulse 63 10/25/17 07:00 Resp 20 10/25/17 07:00 BP 151/93 H 10/25/17 07:00 Pulse Ox 96 10/25/17 07:00 - Labs Result Diagrams: 10/25/17 08:35 10/25/17 08:35 Labs: Laboratory Results - last 24 hr 10/24/17 10/24/17 10/25/17 17:18 21:58 06:24 WBC RBC Hgb Hct MCV MCH MCHC RDW Plt Count MPV Neut % (Auto) Lymph % (Auto) [place] % (Auto) Eos % (Auto) Baso % (Auto) Neut # (Auto) Lymph # (Auto) [place] # (Auto) Eos # (Auto) Baso # (Auto) Sodium Potassium Chloride Carbon Dioxide Anion Gap BUN Creatinine Est GFR ( Amer) Est GFR (Non-Af Amer) POC Glucose (mg/dL) 174 H 223 H 234 H Random Glucose Calcium Total Bilirubin AST ALT Alkaline Phosphatase Total Protein Albumin Globulin Albumin/Globulin Ratio Vancomycin Trough 10/25/17 10/25/17 10/25/17 08:35 08:35 12:09 WBC 10.9 H RBC 3.99 L Hgb 12.3 Hct 34.8 L MCV 87.4 MCH 30.9 MCHC 35.3 RDW 13.6 Plt Count 503 H D MPV 7.9 Neut % (Auto) 55.7 Lymph % (Auto) 31.7 [place] % (Auto) 10.3 H Eos % (Auto) 1.5 Baso % (Auto) 0.8 Neut # (Auto) 6.1 Lymph # (Auto) 3.5 [place] # (Auto) 1.1 H Eos # (Auto) 0.2 Baso # (Auto) 0.1 Sodium 140 Potassium 4.2 Chloride 101 Carbon Dioxide 27 Anion Gap 16 BUN 8 L Creatinine 0.7 L Est GFR ( Amer) > 60 Est GFR (Non-Af Amer) > 60 POC Glucose (mg/dL) 208 H Random Glucose 223 H Calcium 8.7 Total Bilirubin 0.7 AST 29 ALT 39 Alkaline Phosphatase 100 Total Protein 7.8 Albumin 4.0 Globulin 3.7 Albumin/Globulin Ratio 1.1 Vancomycin Trough 10/25/17 13:54 WBC RBC Hgb Hct MCV MCH MCHC RDW Plt Count MPV Neut % (Auto) Lymph % (Auto) [place] % (Auto) Eos % (Auto) Baso % (Auto) Neut # (Auto) Lymph # (Auto) [place] # (Auto) Eos # (Auto) Baso # (Auto) Sodium Potassium Chloride Carbon Dioxide Anion Gap BUN Creatinine Est GFR ( Amer) Est GFR (Non-Af Amer) POC Glucose (mg/dL) Random Glucose Calcium Total Bilirubin AST ALT Alkaline Phosphatase Total Protein Albumin Globulin Albumin/Globulin Ratio Vancomycin Trough < 5.0 L Assessment & Plan (1) Cellulitis Status: Acute - Assessment and Plan (Free Text) Assessment: SEVERE CELLULITIS DOUBT OM CONSIDER MRI LEFT LEG AWAIT CULTURES CONT IV ANTIBIOTICS WITH PO OPTION WHEN CULTURES KNOWN AND IMPROVEMENT OCCURS
[2017-10-25] MEDS ORDERED: Gadodiamide 287 mg/ml 20 ml IV ONE (18:07)
[2017-10-25] MEDS: Vancomycin 1 gm/NS 200 ml 1 GM/200 ML BAG IVPB SCH (18:48)
[2017-10-25] MEDS: (Lantus) Insulin Glargine, Recombinant SC SCH (21:32)
[2017-10-26] MEDS: Vancomycin 1 gm/NS 200 ml 1 GM/200 ML BAG IVPB SCH ×3 (00:43→18:11)
--- NOTE | 2017-10-26 06:17 | CP.PCM.PN ---
<Ulices Perez M - Last Filed: 10/26/17 17:52> Subjective - Date & Time of Evaluation Date of Evaluation: 10/26/17 Time of Evaluation: 07:30 - Subjective Subjective: PGY1 Resident Note for Dr. Jaden Clifton. Pt seen and examined at bedside. Pt had no overnight events. Pt lying comfortably in no acute distress. Pt currently on contact precautions due to wound cultures indicating MRSA +, Vancomycin sensitive. Pt had MRI yesterday that had no evidence of gross Osteomylitis. Pt additonally had nares swap that was negative for MRSA as well. Pt lying in bed, no acute distress. Pt denies chest pain, difficulty breathing, abdominal pain, trouble voiding, constipation. Objective - Vital Signs/Intake and Output Vital Signs (last 24 hours): Temp Pulse Resp BP Pulse Ox 68 F L 68 20 134/79 95 10/25/17 23:30 10/25/17 23:30 10/25/17 23:30 10/25/17 23:30 10/25/17 23:30 Intake and Output: 10/25/17 10/26/17 18:59 06:59 Intake Total 350 Balance 350 - Medications Medications: Current Medications Acetaminophen (Tylenol 325mg Tab) 650 mg PO Q6H PRN PRN Reason: Pain, Mild (1-3) Last Admin: 10/23/17 02:02 Dose: 650 mg Dextrose (Dextrose 50% Inj) 0 ml IV STAT PRN; Protocol PRN Reason: Hypoglycemia Protocol Dextrose (Glutose 15) 0 gm PO ONCE PRN; Protocol PRN Reason: Hypoglycemia Protocol Famotidine (Pepcid) 20 mg PO BID [facility] Last Admin: 10/25/17 18:47 Dose: 20 mg Glucagon (Glucagen Diagnostic Kit) 0 mg IM STAT PRN; Protocol PRN Reason: Hypoglycemia Protocol Vancomycin/Sodium Chloride (Vancomycin 1 Gm/Ns 200 Ml) 1 gm in 200 mls @ 133.333 mls/hr IVPB Q8H [facility] PRN Reason: Protocol Stop: 10/30/17 16:01 Last Admin: 10/26/17 00:43 Dose: 133.333 mls/hr Insulin Aspart (Novolog) 0 unit SC ACHS [facility] PRN Reason: Protocol Last Admin: 10/25/17 21:38 Dose: Not Given Insulin Glargine (Lantus) 10 unit SC HS [facility] Last Admin: 10/25/17 21:32 Dose: 10 units Losartan Potassium (Cozaar) 50 mg PO DAILY [facility] Last Admin: 10/25/17 10:09 Dose: 50 mg Rosuvastatin Calcium (Crestor) 5 mg PO HS [facility] Last Admin: 10/25/17 21:32 Dose: 5 mg Saccharomyces Boulardii (Florastor) 250 mg PO BID [facility] Last Admin: 10/25/17 18:47 Dose: 250 mg - Labs Labs: 10/25/17 08:35 10/25/17 08:35 PT 12.6 SECONDS (9.7-12.2) H 10/21/17 19:37 INR 1.2 10/21/17 19:37 APTT 35 SECONDS (21-34) H 10/21/17 19:37 - Constitutional Appears: Well, Non-toxic, No Acute Distress - Head Exam Head Exam: ATRAUMATIC, NORMAL INSPECTION - Eye Exam Eye Exam: EOMI, Normal appearance Pupil Exam: NORMAL ACCOMODATION - ENT Exam ENT Exam: Mucous Membranes Moist - Neck Exam Neck Exam: Normal Inspection - Respiratory Exam Respiratory Exam: Clear to Ausculation Bilateral, NORMAL BREATHING PATTERN. absent: Rales, Rhonchi, Wheezes - Cardiovascular Exam Cardiovascular Exam: RRR, +S1, +S2. absent: Irregular Rhythm - GI/Abdominal Exam GI & Abdominal Exam: Soft, Normal Bowel Sounds. absent: Distended, Firm, Guarding - Extremities Exam Additional comments: Pt LLE has infected area currently in dressing. Margins of erythema are improved from 10/26. Pt has pulses B/L LE intact and denies calf tenderness. - Neurological Exam Neurological Exam: Alert, Awake, Oriented x3 - Psychiatric Exam Psychiatric exam: Normal Affect, Normal Mood - Skin Skin Exam: Dry, Intact, Normal Color, Warm Assessment and Plan - Assessment and Plan (Free Text) Assessment: 57 year old male with hx of DM, HTN, HLD who was admitted for evaluation of cellulitis vs. abscess of left lower mirza s/p lipoma removal, post op LLE abscess drainage: Plan: Assessment/plan 1 Cellulitis vs. Abscess 10/26: - pt continues to be afebrile X 3 days - normal WBC 10/26 - 10/25 vanc troph <6, ID increased vanco 1gm Q8 - D/C flagyl 3.375gm Q8 - MRI indicates no gross Osteomylitis - Echo normal, no vegetations 10/25: - afebrile for 48 hours - WBC downtrending 19.5 -> 14.4 -> 12.9 -> 11.6 - > 10.9, continue to monitor - Continue flagyl 3.375gm Q8 - vanc troph < 5, vanco increased to 1gm Q8 - F/u troph 10/26 2:30 pm - spoke w/ surgery resident, dressing changed daily, today purulent drainage expressed - continue contact precautions - F/u MRI to R/O OM 10/24: - afebrile for 24 hrs - WBC downtrending 19.5 -> 14.4 -> 12.9 -> 11.6, continue to monitor - Continue flagyl 3.375gm Q8 & vanco 1gm Q12 - F/u troph 10/25 - give tylenol 650 mg Q6 PRN for fevers - Blood cultures X 72 hrs neg, Urine cultures X 48 hrs neg, Abscess culture X 24 hrs gram positive cocci - methicillin resistant S. aureus - contact precuations placed - Ice pack Q4 hours on L left - F/u echo to R/o vegetations - f/u ID recs ( Dr. Esquivel - thanks) - F/u surgery recs - D/C tele, pt stable, no longer needed On admission: WBC 19.5, temp: 103.1, pulse:105 -Lactate: 1.1 -Vancomycin 1g IVBP Q24H -Zosyn 3.375 IVBP Q8H -Tylenol 650mg PO Q6H PRN pain, fever -IVF @ 100cc/hr -L leg US: Subcutaneous mass anterior aspect left lower extremity. This is likely an acute infectious/ inflammatory phlegmonous process. No discrete drainable collection identified. -CXR: NAD -blood cx: F/u -Procalcitonin 1.80 -VBG pH 7.36 pCO2 46 HCO3 24.3 pO2 39 -UA 2+ blood no nitrates, or leuk esterase - UDS negative -urine cx: F/u Surgery consulted, help appreciated. - f/u Vanc trough 2. Diabetes Mellitus 10/25: - Regular ISS change to lantus 10 units HS - will monitor glucose -Accucheck ACHS -Hbg A1c 9.3 -Lipid panel TG 215, LDL 75, HDL 27 3.HTN -Losartan 50mg PO daily 4. Hypercholesterolemia - Crestor 5mg QHS 5. Prophylatic Measures -Florastor 250mg PO BID -Pepcid 20mg PO BID -Heparin 5000u SC Q12H -SCD contraindicated <Jaden Clifton - Last Filed: 10/26/17 20:20> Objective - Vital Signs/Intake and Output Vital Signs (last 24 hours): Temp Pulse Resp BP Pulse Ox 68.5 F L 61 20 130/81 98 10/26/17 15:00 10/26/17 15:00 10/26/17 15:00 10/26/17 15:00 10/26/17 15:00 Intake and Output: 10/26/17 10/27/17 18:59 06:59 Intake Total 600 Balance 600 - Medications Medications: Current Medications Acetaminophen (Tylenol 325mg Tab) 650 mg PO Q6H PRN PRN Reason: Pain, Mild (1-3) Last Admin: 10/23/17 02:02 Dose: 650 mg Dextrose (Dextrose 50% Inj) 0 ml IV STAT PRN; Protocol PRN Reason: Hypoglycemia Protocol Dextrose (Glutose 15) 0 gm PO ONCE PRN; Protocol PRN Reason: Hypoglycemia Protocol Famotidine (Pepcid) 20 mg PO BID [facility] Last Admin: 10/26/17 18:10 Dose: 20 mg Glucagon (Glucagen Diagnostic Kit) 0 mg IM STAT PRN; Protocol PRN Reason: Hypoglycemia Protocol Vancomycin HCl 1.25 gm/ Sodium (Chloride) 250 mls @ 166.7 mls/hr IVPB Q8H [facility] PRN Reason: Protocol Insulin Aspart (Novolog) 0 unit SC [facility] PRN Reason: Protocol Last Admin: 10/26/17 18:10 Dose: 4 units Insulin Glargine (Lantus) 10 unit SC [facility] Last Admin: 10/25/17 21:32 Dose: 10 units Losartan Potassium (Cozaar) 50 mg PO DAILY [facility] Last Admin: 10/26/17 09:39 Dose: 50 mg Rosuvastatin Calcium (Crestor) 5 mg PO HS [facility] Last Admin: 10/25/17 21:32 Dose: 5 mg Saccharomyces Boulardii (Florastor) 250 mg PO BID [facility] Last Admin: 10/26/17 18:10 Dose: 250 mg - Labs Labs: 10/26/17 08:32 10/26/17 08:32 PT 12.6 SECONDS (9.7-12.2) H 10/21/17 19:37 INR 1.2 10/21/17 19:37 APTT 35 SECONDS (21-34) H 10/21/17 19:37 Attending/Attestation - Attestation I have personally seen and examined this patient.: Yes I have fully participated in the care of the patient.: Yes I have reviewed all pertinent clinical information, including history, physical exam and plan: Yes Notes (Text): 10/26/17 20:06 Patient was seen and examined at 1:30 PM Exam, assessment and plan were gone over with the resident. Upon FULL ROS there were NO complaints Also on Exam: Left Leg erythema has reduced from the area of demarcation with black ink with lest edema and tenderness to palpation Echochardiogram was normal Blood culture is negative to date Intraoperative Wound culture MRSA being treated with Vancomycin 1.25 gm IV Q8H ( this was increased by ID Dr. Esquivel as Vanco Trough currently not at the desired level of 15 to 20). Continue to monitor Vanco Trough with next due on Monday10/28/17 at 4:30 PM. HTN: controlled on Cozaar HLD: Crestor DM 2: Lantus 10 units was started night of 10/25/17. However it appears that the blood glucose is still not under control today. Therefore will adjust the Lantus and will add premeal insulin after morning accucheck 10/27/17. Jaden Clifton D.O.
[2017-10-26] MEDS: (Novolog) Insulin Aspart, Recombinant 100 u/ml 10 ml vial SC SCH ×4 (08:44→21:39)
[2017-10-26 08:55] LABS: BASO # 0.1 K/uL (0.0-0.2); BASO % 0.7 % (0.0-2.0); EOS # 0.2 K/uL (0.0-0.7); EOS % 2.1 % (0.0-4.0); HEMOGLOBIN 12.2 g/dL (12.0-18.0); LYMPH # 2.7 K/uL (1.0-4.3); LYMPH % 27.6 % (20.0-40.0); MEAN CELL VOLUME 87.1 fL (80.0-94.0); MEAN CORPUSCULAR HEMOGLOBIN 30.5 pg (27.0-31.0); MEAN PLATELET VOLUME 7.8 fL (7.2-11.7); MONO # 1.2 K/uL (0.0-0.8); MONO % 12.5 % (0.0-10.0); NEUT # 5.6 K/uL (1.8-7.0); NEUT % 57.1 % (50.0-75.0); NRBC % 0.1 % (0.0-2.0); RBC 3.99 Mil/uL (4.40-5.90); RED CELL DISTRIBUTION WIDTH 13.1 % (11.5-14.5); WHITE BLOOD COUNT 9.7 K/uL (4.8-10.8)
[2017-10-26 09:08] LABS: ALB/GLOB RATIO 1.1 (1.0-2.1); ALBUMIN 3.9 g/dL (3.5-5.0); ALT/SGPT 41 U/L (21-72); AST/SGOT 31 U/L (17-59); BLOOD UREA NITROGEN 9 mg/dL (9-20); GFR AFRICAN-AMERICAN > 60; GFR NON-AFRICAN AMERICAN > 60
[2017-10-26] MEDS: Saccharomyces Boulardi 250 mg Cap PO SCH ×2 (09:39→18:10)
--- NOTE | 2017-10-26 12:33 | MRI ---
MRI left tibia and fibula History: Ulceration. Evaluate for osteomyelitis. Comparison: None available. Technique: Multi-echo multiplanar sequences were performed through the left tibia and fibula without and with the use of intravenous contrast. Findings: Open skin defect in the anterior mid mirza containing a small amount of fluid. No evidence of signal abnormality within the visualized osseous structures to suggest an acute osteomyelitis. Reticulation and edema within the circumferential subcutaneous soft tissues suggestive for a cellulitis. Impression: No evidence of gross osteomyelitis. Open skin defect in the anterior mid mirza containing a small amount fluid. These findings were preliminarily reported at 7:09 p.m. on 10/25/[address] Simona Garcia from [facility].
--- NOTE | 2017-10-26 14:47 | CP.PCM.PN ---
<JosephAndrea gandhi - Last Filed: 10/26/17 14:53> Subjective - Date & Time of Evaluation Date of Evaluation: 10/26/17 Time of Evaluation: 14:44 - Subjective Subjective: Surgery: Dr. Bautista Pt seen and examined. Resting comfortably in bed. Pain improved. However cellulitis appears to be worsening. Objective - Vital Signs/Intake and Output Vital Signs (last 24 hours): Temp Pulse Resp BP Pulse Ox 98.5 F 63 18 131/73 98 10/26/17 07:30 10/26/17 07:30 10/26/17 07:30 10/26/17 07:30 10/26/17 07:30 Intake and Output: 10/26/17 10/26/17 06:59 18:59 Intake Total 350 600 Balance 350 600 - Medications Medications: Current Medications Acetaminophen (Tylenol 325mg Tab) 650 mg PO Q6H PRN PRN Reason: Pain, Mild (1-3) Last Admin: 10/23/17 02:02 Dose: 650 mg Dextrose (Dextrose 50% Inj) 0 ml IV STAT PRN; Protocol PRN Reason: Hypoglycemia Protocol Dextrose (Glutose 15) 0 gm PO ONCE PRN; Protocol PRN Reason: Hypoglycemia Protocol Famotidine (Pepcid) 20 mg PO BID [facility] Last Admin: 10/26/17 09:40 Dose: 20 mg Glucagon (Glucagen Diagnostic Kit) 0 mg IM STAT PRN; Protocol PRN Reason: Hypoglycemia Protocol Vancomycin/Sodium Chloride (Vancomycin 1 Gm/Ns 200 Ml) 1 gm in 200 mls @ 133.333 mls/hr IVPB Q8H [facility] PRN Reason: Protocol Stop: 10/30/17 16:01 Last Admin: 10/26/17 08:44 Dose: 133.333 mls/hr Insulin Aspart (Novolog) 0 unit SC ACHS [facility] PRN Reason: Protocol Last Admin: 10/26/17 12:54 Dose: 6 units Insulin Glargine (Lantus) 10 unit SC HS [facility] Last Admin: 10/25/17 21:32 Dose: 10 units Losartan Potassium (Cozaar) 50 mg PO DAILY [facility] Last Admin: 10/26/17 09:39 Dose: 50 mg Rosuvastatin Calcium (Crestor) 5 mg PO HS [facility] Last Admin: 10/25/17 21:32 Dose: 5 mg Saccharomyces Boulardii (Florastor) 250 mg PO BID [facility] Last Admin: 10/26/17 09:39 Dose: 250 mg - Labs Labs: 10/26/17 08:32 10/26/17 08:32 PT 12.6 SECONDS (9.7-12.2) H 10/21/17 19:37 INR 1.2 10/21/17 19:37 APTT 35 SECONDS (21-34) H 10/21/17 19:37 - Constitutional Appears: Non-toxic, No Acute Distress - Head Exam Head Exam: ATRAUMATIC, NORMOCEPHALIC - Eye Exam Eye Exam: EOMI - ENT Exam ENT Exam: Mucous Membranes Moist - Neck Exam Neck Exam: Full ROM - Respiratory Exam Respiratory Exam: NORMAL BREATHING PATTERN. absent: Accessory Muscle Use, Respiratory Distress - GI/Abdominal Exam GI & Abdominal Exam: Normal Bowel Sounds. absent: Soft, Tenderness - Extremities Exam Additional comments: LLE worsening cellulitis extending from distal knee to ankle, warm to touch, indurated, no expressable pus - Neurological Exam Neurological Exam: Alert, Awake Assessment and Plan - Assessment and Plan (Free Text) Assessment: 57M w. LLE abscess/cellulitis s/p I&D POD#4 -MRI: no osteomyelitis -recommend broadening abx -continue w. daily dressing changes -will follow closely -d/w attending Nicoleitis PGY4 <Frank Bautista - Last Filed: 10/28/17 22:56> Objective - Vital Signs/Intake and Output Vital Signs (last 24 hours): Temp Pulse Resp BP Pulse Ox 99.0 F 72 20 132/76 96 10/28/17 15:00 10/28/17 15:00 10/28/17 15:00 10/28/17 15:00 10/28/17 15:00 Intake and Output: 10/28/17 10/29/17 18:59 06:59 Intake Total 900 950 Output Total 500 Balance 900 450 - Medications Medications: Current Medications Acetaminophen (Tylenol 325mg Tab) 650 mg PO Q6H PRN PRN Reason: Pain, Mild (1-3) Last Admin: 10/23/17 02:02 Dose: 650 mg Dextrose (Dextrose 50% Inj) 0 ml IV STAT PRN; Protocol PRN Reason: Hypoglycemia Protocol Dextrose (Glutose 15) 0 gm PO ONCE PRN; Protocol PRN Reason: Hypoglycemia Protocol Famotidine (Pepcid) 20 mg PO BID [facility] Last Admin: 10/28/17 17:29 Dose: 20 mg Glucagon (Glucagen Diagnostic Kit) 0 mg IM STAT PRN; Protocol PRN Reason: Hypoglycemia Protocol Heparin Sodium (Porcine) (Heparin) 5,000 units SC Q8 [facility] Last Admin: 10/28/17 21:16 Dose: 5,000 units Vancomycin HCl 1,500 mg/ (Sodium Chloride) 500 mls @ 100 mls/hr IVPB Q8H [facility] PRN Reason: Protocol Last Admin: 10/28/17 20:33 Dose: 100 mls/hr Insulin Aspart (Novolog) 0 unit SC ACHS [facility] PRN Reason: Protocol Last Admin: 10/28/17 21:20 Dose: Not Given Insulin Glargine (Lantus) 22 unit SC HS [facility] Last Admin: 10/28/17 21:15 Dose: Not Given Insulin Human Regular (Novolin R) 4 unit SC AC [facility] Last Admin: 10/28/17 17:30 Dose: 4 unit Losartan Potassium (Cozaar) 50 mg PO DAILY [facility] Last Admin: 10/28/17 09:58 Dose: 50 mg Oxycodone/Acetaminophen (Percocet 5/325 Mg Tab) 1 tab PO Q6H PRN PRN Reason: Pain, moderate (4-7) Stop: 10/30/17 14:49 Last Admin: 10/27/17 18:36 Dose: 1 tab Rosuvastatin Calcium (Crestor) 5 mg PO [facility] Last Admin: 10/28/17 21:16 Dose: 5 mg Saccharomyces Boulardii (Florastor) 250 mg PO BID [facility] Last Admin: 10/28/17 17:29 Dose: 250 mg - Labs Labs: 10/28/17 06:14 10/28/17 06:14 PT 12.0 SECONDS (9.7-12.2) 10/27/17 07:50 INR 1.1 10/27/17 07:50 APTT 30 SECONDS (21-34) 10/27/17 07:50 Attending/Attestation - Attestation I have personally seen and examined this patient.: Yes I have fully participated in the care of the patient.: Yes I have reviewed all pertinent clinical information, including history, physical exam and plan: Yes Notes (Text): Pt was seen and examined at bedside Agree with above note and assessment Pt is not improving. Cellulitis is getting worse OR tomorrow for Redebridement and Drainage Consent EKG, CXR NPO, IVF IV Antibiotics Plan d.w pt in detail. Risk and benefit explained in detail.
--- NOTE | 2017-10-26 14:49 | CP.PCM.PN ---
Subjective - Date & Time of Evaluation Date of Evaluation: 10/26/17 Time of Evaluation: 14:43 - Subjective Subjective: Progres note for Dr. lala's Service Objective - Vital Signs/Intake and Output Vital Signs (last 24 hours): Temp Pulse Resp BP Pulse Ox 98.5 F 63 18 131/73 98 10/26/17 07:30 10/26/17 07:30 10/26/17 07:30 10/26/17 07:30 10/26/17 07:30 Intake and Output: 10/26/17 10/26/17 06:59 18:59 Intake Total 350 600 Balance 350 600 - Medications Medications: Current Medications Acetaminophen (Tylenol 325mg Tab) 650 mg PO Q6H PRN PRN Reason: Pain, Mild (1-3) Last Admin: 10/23/17 02:02 Dose: 650 mg Dextrose (Dextrose 50% Inj) 0 ml IV STAT PRN; Protocol PRN Reason: Hypoglycemia Protocol Dextrose (Glutose 15) 0 gm PO ONCE PRN; Protocol PRN Reason: Hypoglycemia Protocol Famotidine (Pepcid) 20 mg PO BID [facility] Last Admin: 10/26/17 09:40 Dose: 20 mg Glucagon (Glucagen Diagnostic Kit) 0 mg IM STAT PRN; Protocol PRN Reason: Hypoglycemia Protocol Vancomycin/Sodium Chloride (Vancomycin 1 Gm/Ns 200 Ml) 1 gm in 200 mls @ 133.333 mls/hr IVPB Q8H [facility] PRN Reason: Protocol Stop: 10/30/17 16:01 Last Admin: 10/26/17 08:44 Dose: 133.333 mls/hr Insulin Aspart (Novolog) 0 unit SC ACHS [facility] PRN Reason: Protocol Last Admin: 10/26/17 12:54 Dose: 6 units Insulin Glargine (Lantus) 10 unit SC HS [facility] Last Admin: 10/25/17 21:32 Dose: 10 units Losartan Potassium (Cozaar) 50 mg PO DAILY [facility] Last Admin: 10/26/17 09:39 Dose: 50 mg Rosuvastatin Calcium (Crestor) 5 mg PO HS [facility] Last Admin: 10/25/17 21:32 Dose: 5 mg Saccharomyces Boulardii (Florastor) 250 mg PO BID [facility] Last Admin: 10/26/17 09:39 Dose: 250 mg - Labs Labs: 07/12/18 08:32 10/26/17 08:32 PT 12.6 SECONDS (9.7-12.2) H 10/21/17 19:37 INR 1.2 10/21/17 19:37 APTT 35 SECONDS (21-34) H 10/21/17 19:37 - Constitutional Appears: No Acute Distress - Eye Exam Eye Exam: absent: EOMI, Normal appearance, PERRL Pupil Exam: NORMAL ACCOMODATION
--- NOTE | 2017-10-26 14:52 | CP.PCM.HP ---
Present on Admission - Present on Admission Any Indicators Present on Admission: No Review of Systems - Constitutional Constitutional: Weight Loss - EENT Eyes: Loss of Peripheral Vision Nose/Mouth/Throat: Nasal Congestion. absent: Nose Pain, Bleeding Gums, Mouth Pain Past Patient History - Infectious Disease Hx of Infectious Diseases: None - Past Medical History & Family History Past Medical History?: Yes - Past Social History Smoking Status: Never Smoked - CARDIAC Hx Hypercholesterolemia: Yes Hx Hypertension: Yes - PULMONARY Hx Respiratory Disorders: No - NEUROLOGICAL Hx Neurological Disorder: No - HEENT Hx HEENT Problems: No - RENAL Hx Chronic Kidney Disease: No - ENDOCRINE/METABOLIC Hx Endocrine Disorders: Yes Hx Diabetes Mellitus Type 2: Yes - HEMATOLOGICAL/ONCOLOGICAL Hx Blood Disorders: No - INTEGUMENTARY Hx Dermatological Problems: Yes - MUSCULOSKELETAL/RHEUMATOLOGICAL Hx Arthritis: Yes - GASTROINTESTINAL Hx Gastrointestinal Disorders: No - GENITOURINARY/GYNECOLOGICAL Hx Genitourinary Disorders: No - PSYCHIATRIC Hx Substance Use: No - SURGICAL HISTORY Hx Surgeries: Yes Hx Cardiac Catheterization: Yes - ANESTHESIA Hx Anesthesia: Yes Hx Anesthesia Reactions: No Hx Malignant Hyperthermia: No Meds Allergies/Adverse Reactions: Allergies Allergy/AdvReac Type Severity Reaction Status Date / Time No Known Allergies Allergy Verified 07/03/17 09:19 Physical Exam - Head Exam Head Exam: ATRAUMATIC - Eye Exam Eye Exam: EOMI. absent: Nystagmus - ENT Exam ENT Exam: Mucous Membranes Moist (blood in oral) Results - Vital Signs Recent Vital Signs: Last Vital Signs Temp 98.5 F 10/26/17 07:30 Pulse 63 10/26/17 07:30 Resp 18 10/26/17 07:30 BP 131/73 10/26/17 07:30 Pulse Ox 98 10/26/17 07:30 - Labs Result Diagrams: 10/26/17 08:32 10/26/17 08:32 Labs: Laboratory Results - last 24 hr 10/25/17 10/25/17 10/26/17 18:36 21:30 00:56 WBC RBC Hgb Hct MCV MCH MCHC RDW Plt Count MPV Neut % (Auto) Lymph % (Auto) [place] % (Auto) Eos % (Auto) Baso % (Auto) Neut # (Auto) Lymph # (Auto) [place] # (Auto) Eos # (Auto) Baso # (Auto) Sodium Potassium Chloride Carbon Dioxide Anion Gap BUN Creatinine Est GFR ( Amer) Est GFR (Non-Af Amer) POC Glucose (mg/dL) 196 H 227 H Random Glucose Calcium Total Bilirubin AST ALT Alkaline Phosphatase Total Protein Albumin Globulin Albumin/Globulin Ratio Vancomycin Trough 7.9 10/26/17 10/26/17 10/26/17 06:12 08:32 08:32 WBC 9.7 RBC 3.99 L Hgb 12.2 Hct 34.8 L MCV 87.1 MCH 30.5 MCHC 35.0 RDW 13.1 Plt Count 566 H MPV 7.8 Neut % (Auto) 57.1 Lymph % (Auto) 27.6 [place] % (Auto) 12.5 H Eos % (Auto) 2.1 Baso % (Auto) 0.7 Neut # (Auto) 5.6 Lymph # (Auto) 2.7 [place] # (Auto) 1.2 H Eos # (Auto) 0.2 Baso # (Auto) 0.1 Sodium 138 Potassium 4.4 Chloride 100 Carbon Dioxide 27 Anion Gap 16 BUN 9 Creatinine 0.8 Est GFR ( Amer) > 60 Est GFR (Non-Af Amer) > 60 POC Glucose (mg/dL) 233 H Random Glucose 222 H Calcium 9.0 Total Bilirubin 0.6 AST 31 ALT 41 Alkaline Phosphatase 94 Total Protein 7.4 Albumin 3.9 Globulin 3.6 Albumin/Globulin Ratio 1.1 Vancomycin Trough 10/26/17 11:18 WBC RBC Hgb Hct MCV MCH MCHC RDW Plt Count MPV Neut % (Auto) Lymph % (Auto) [place] % (Auto) Eos % (Auto) Baso % (Auto) Neut # (Auto) Lymph # (Auto) [place] # (Auto) Eos # (Auto) Baso # (Auto) Sodium Potassium Chloride Carbon Dioxide Anion Gap BUN Creatinine Est GFR ( Amer) Est GFR (Non-Af Amer) POC Glucose (mg/dL) 330 H Random Glucose Calcium Total Bilirubin AST ALT Alkaline Phosphatase Total Protein Albumin Globulin Albumin/Globulin Ratio Vancomycin Trough Assessment & Plan - Assessment and Plan (Free Text) Assessment: [email or web address]
--- NOTE | 2017-10-26 17:59 | CP.PCM.PN ---
Subjective - Date & Time of Evaluation Date of Evaluation: 10/26/17 Time of Evaluation: 08:00 - Subjective Subjective: less leg swelling no fever Objective - Vital Signs/Intake and Output Vital Signs (last 24 hours): Temp Pulse Resp BP Pulse Ox 68.5 F L 61 20 130/81 98 10/26/17 15:00 10/26/17 15:00 10/26/17 15:00 10/26/17 15:00 10/26/17 15:00 Intake and Output: 10/26/17 10/26/17 06:59 18:59 Intake Total 350 600 Balance 350 600 - Medications Medications: Current Medications Acetaminophen (Tylenol 325mg Tab) 650 mg PO Q6H PRN PRN Reason: Pain, Mild (1-3) Last Admin: 10/23/17 02:02 Dose: 650 mg Dextrose (Dextrose 50% Inj) 0 ml IV STAT PRN; Protocol PRN Reason: Hypoglycemia Protocol Dextrose (Glutose 15) 0 gm PO ONCE PRN; Protocol PRN Reason: Hypoglycemia Protocol Famotidine (Pepcid) 20 mg PO BID [facility] Last Admin: 10/26/17 09:40 Dose: 20 mg Glucagon (Glucagen Diagnostic Kit) 0 mg IM STAT PRN; Protocol PRN Reason: Hypoglycemia Protocol Insulin Aspart (Novolog) 0 unit SC [facility] PRN Reason: Protocol Last Admin: 10/26/17 12:54 Dose: 6 units Insulin Glargine (Lantus) 10 unit SC [facility] Last Admin: 10/25/17 21:32 Dose: 10 units Losartan Potassium (Cozaar) 50 mg PO DAILY [facility] Last Admin: 10/26/17 09:39 Dose: 50 mg Rosuvastatin Calcium (Crestor) 5 mg PO [facility] Last Admin: 10/25/17 21:32 Dose: 5 mg Saccharomyces Boulardii (Florastor) 250 mg PO BID [facility] Last Admin: 10/26/17 09:39 Dose: 250 mg - Labs Labs: 10/26/17 08:32 10/26/17 08:32 PT 12.6 SECONDS (9.7-12.2) H 10/21/17 19:37 INR 1.2 10/21/17 19:37 APTT 35 SECONDS (21-34) H 10/21/17 19:37 - Constitutional Appears: Non-toxic, Chronically Ill - Head Exam Head Exam: NORMOCEPHALIC - Eye Exam Eye Exam: absent: Scleral icterus - ENT Exam ENT Exam: Normal External Ear Exam - Neck Exam Neck Exam: absent: Lymphadenopathy - Respiratory Exam Respiratory Exam: Decreased Breath Sounds - Cardiovascular Exam Cardiovascular Exam: REGULAR RHYTHM - GI/Abdominal Exam GI & Abdominal Exam: Distended - Rectal Exam Rectal Exam: Deferred - Exam Exam: NORMAL INSPECTION - Extremities Exam Extremities Exam: Calf Tenderness, Tenderness. absent: Pedal Edema Additional comments: cellulitis + abscess with less induration and less drainage - Back Exam Back Exam: absent: CVA tenderness (L), CVA tenderness (R) - Neurological Exam Neurological Exam: Alert, Awake, Oriented x3 - Psychiatric Exam Psychiatric exam: Normal Mood Assessment and Plan (1) MRSA (methicillin resistant staph aureus) culture positive Status: Acute (2) MRSA (methicillin resistant Staphylococcus aureus) infection Status: Acute (3) Cellulitis Status: Acute - Assessment and Plan (Free Text) Assessment: cont iv rx for now possible po conversion to clinda upon discharge will increase vanco to 1.25 g iv q8h
[2017-10-26] MEDS: (Lantus) Insulin Glargine, Recombinant SC SCH (21:01)
--- NOTE | 2017-10-27 06:17 | CP.PCM.PN ---
<Ulices Perez M - Last Filed: 10/27/17 06:17> Objective - Vital Signs/Intake and Output Vital Signs (last 24 hours): Temp Pulse Resp BP Pulse Ox 99.1 F 65 20 118/72 97 10/27/17 04:00 10/27/17 04:00 10/27/17 04:00 10/27/17 04:00 10/27/17 04:00 Intake and Output: 10/26/17 10/27/17 18:59 06:59 Intake Total 600 750 Balance 600 750 - Medications Medications: Current Medications Acetaminophen (Tylenol 325mg Tab) 650 mg PO Q6H PRN PRN Reason: Pain, Mild (1-3) Last Admin: 10/23/17 02:02 Dose: 650 mg Dextrose (Dextrose 50% Inj) 0 ml IV STAT PRN; Protocol PRN Reason: Hypoglycemia Protocol Dextrose (Glutose 15) 0 gm PO ONCE PRN; Protocol PRN Reason: Hypoglycemia Protocol Famotidine (Pepcid) 20 mg PO BID [facility] Last Admin: 10/26/17 18:10 Dose: 20 mg Glucagon (Glucagen Diagnostic Kit) 0 mg IM STAT PRN; Protocol PRN Reason: Hypoglycemia Protocol Vancomycin HCl 1.25 gm/ Sodium (Chloride) 250 mls @ 166.7 mls/hr IVPB Q8H [facility] PRN Reason: Protocol Last Admin: 10/27/17 04:27 Dose: 166.7 mls/hr Insulin Aspart (Novolog) 0 unit SC ACHS [facility] PRN Reason: Protocol Last Admin: 10/26/17 21:39 Dose: Not Given Insulin Glargine (Lantus) 10 unit SC HS [facility] Last Admin: 10/26/17 21:01 Dose: 10 units Losartan Potassium (Cozaar) 50 mg PO DAILY [facility] Last Admin: 10/26/17 09:39 Dose: 50 mg Rosuvastatin Calcium (Crestor) 5 mg PO HS [facility] Last Admin: 10/26/17 21:01 Dose: 5 mg Saccharomyces Boulardii (Florastor) 250 mg PO BID [facility] Last Admin: 10/26/17 18:10 Dose: 250 mg - Labs Labs: 10/26/17 08:32 10/26/17 08:32 PT 12.6 SECONDS (9.7-12.2) H 10/21/17 19:37 INR 1.2 10/21/17 19:37 APTT 35 SECONDS (21-34) H 10/21/17 19:37 <Jaden Clifton - Last Filed: 10/27/17 11:54> Subjective - Date & Time of Evaluation Date of Evaluation: 10/27/17 Time of Evaluation: 11:30 - Subjective Subjective: Hospitalist Progress Note Patient was seen and examined at 11:30 AM 655 Currently upon FULL ROS: NO chest pain NO SOB/Cough NO abdominal pain NO n/v/d/c: normal bowel movement this morning NO burning pain with urination NO dysphagia/odynophagia NO lightheadedenss/dizziness NO paresthesias NO new changes in visioin NO new changes in hearing NO headache Exam: General: AAOX3, NAD HEENT: NCA, EOMI, PERRLA, NO cervical/supraclavicular/submandibular lymphadenopathy, NO pharyngeal erythema/exudate, Nasal Turbinates are nonerythematous/nonedematous, Oral Mucosa is moist Cardio: NS1 and NS2, NO M/R?G Resp: CTA B/L, NO R/R/W GI: BSx4, Soft, NT, NO HSM, NO guarding/rebound tenderness Ext: Pulses are strong and equal in bilateral UE and LE, NO edema noted, capillary refills is 2 seconds on all toes, erythema and warmth that was demarcated with black ink on the left lower leg has receded significantly from the black ink and there is less tenderness to palpation, there is a roughly 1 cm irregularly shaped ulceration 1/3 up from the left ankle on the anterior surface of the left lower leg and there is some yellow green material at the center (the wound edge has some blood) Neuro: CN II through XII are grossly intact Assessments: 1). Left Leg Cellulitis/Abscess S/P I&D on 10/22/17 Wound Culture10/22/17 shows MRSA and patient is on contact precautions Echocardiogram was normal (please see full report) Vancomycin currently at 1.25 gm IV Q8H at 4:30 AM, 12:30 PM, and 8:30 PM Vancomycin trough 10/26/17 is 7.9 and goal is 15 to 20. Follow up next Vancomycin Trough at 4 AM 10/28/17 (30 minutes before next 4th dose) Spoke with Nurse Charge Rn and patient is planned for I&D again later today and this was explained to patient 2). DM 2 Patient is on Glimepiride but this was held and placed on insulin to get the blood glucose under control to help treat the Left Leg Cellulitis Lantus increased to 22 units SC HS starting 10/27/17 22:00 Regular Insulin 4 units SC AC Meals to start mornin 10/28/17 Next adjustment of Lantus and Regular Insulin, if needed, should be done on morning 10/29/17 He is on a Statin and ARB 3). HTN Cozaar 50 mg PO 1x/day 4). HLD Crestor 5 mg PO HS 5). Prophylaxis Pepcid 20 mg PO BID Tylenol 650 mg PO Q6H PRN Pain Florastor 250 mg PO BID HOLD Heparin for planned I&D today and restart afterwards Jaden Clifton D.O. Objective - Vital Signs/Intake and Output Vital Signs (last 24 hours): Temp Pulse Resp BP Pulse Ox 98.5 F 60 18 139/80 99 10/27/17 07:00 10/27/17 07:00 10/27/17 07:00 10/27/17 07:00 10/27/17 07:00 Intake and Output: 10/27/17 10/27/17 06:59 18:59 Intake Total 750 Balance 750 - Medications Medications: Current Medications Acetaminophen (Tylenol 325mg Tab) 650 mg PO Q6H PRN PRN Reason: Pain, Mild (1-3) Last Admin: 10/23/17 02:02 Dose: 650 mg Dextrose (Dextrose 50% Inj) 0 ml IV STAT PRN; Protocol PRN Reason: Hypoglycemia Protocol Dextrose (Glutose 15) 0 gm PO ONCE PRN; Protocol PRN Reason: Hypoglycemia Protocol Famotidine (Pepcid) 20 mg PO BID [facility] Last Admin: 10/27/17 09:34 Dose: 20 mg Glucagon (Glucagen Diagnostic Kit) 0 mg IM STAT PRN; Protocol PRN Reason: Hypoglycemia Protocol Vancomycin HCl 1.25 gm/ Sodium (Chloride) 250 mls @ 166.7 mls/hr IVPB Q8H [facility] PRN Reason: Protocol Last Admin: 10/27/17 04:27 Dose: 166.7 mls/hr Insulin Aspart (Novolog) 0 unit SC ACHS [facility] PRN Reason: Protocol Last Admin: 10/27/17 08:19 Dose: Not Given Insulin Glargine (Lantus) 22 unit SC [facility] Losartan Potassium (Cozaar) 50 mg PO DAILY [facility] Last Admin: 10/27/17 09:34 Dose: 50 mg Rosuvastatin Calcium (Crestor) 5 mg PO HS [facility] Last Admin: 10/26/17 21:01 Dose: 5 mg Saccharomyces Boulardii (Florastor) 250 mg PO BID [facility] Last Admin: 10/27/17 09:34 Dose: 250 mg - Labs Labs: 10/27/17 11:05 10/27/17 11:05 PT 12.0 SECONDS (9.7-12.2) 10/27/17 07:50 INR 1.1 10/27/17 07:50 APTT 30 SECONDS (21-34) 10/27/17 07:50
[2017-10-27 08:04] LABS: INR 1.1
[2017-10-27] MEDS: (Novolog) Insulin Aspart, Recombinant 100 u/ml 10 ml vial SC SCH ×4 (08:19→22:25)
[2017-10-27] MEDS: Saccharomyces Boulardi 250 mg Cap PO SCH ×2 (09:34→18:33)
[2017-10-27 11:12] LABS: BASO # 0.1 K/uL (0.0-0.2); BASO % 0.5 % (0.0-2.0); EOS # 0.2 K/uL (0.0-0.7); EOS % 1.6 % (0.0-4.0); HEMOGLOBIN 12.4 g/dL (12.0-18.0); LYMPH # 2.6 K/uL (1.0-4.3); LYMPH % 25.3 % (20.0-40.0); MEAN CELL VOLUME 87.2 fL (80.0-94.0); MEAN CORPUSCULAR HEMOGLOBIN 30.7 pg (27.0-31.0); MEAN CORPUSCULAR HGB CONC 35.2 g/dL (33.0-37.0); MEAN PLATELET VOLUME 7.5 fL (7.2-11.7); MONO % 9.5 % (0.0-10.0); NEUT # 6.5 K/uL (1.8-7.0); NEUT % 63.1 % (50.0-75.0); RBC 4.03 Mil/uL (4.40-5.90); RED CELL DISTRIBUTION WIDTH 13.4 % (11.5-14.5); WHITE BLOOD COUNT 10.3 K/uL (4.8-10.8)
[2017-10-27 11:32] LABS: ALB/GLOB RATIO 1.1 (1.0-2.1); ALT/SGPT 44 U/L (21-72); AST/SGOT 24 U/L (17-59); BLOOD UREA NITROGEN 11 mg/dL (9-20); GFR AFRICAN-AMERICAN > 60; GFR NON-AFRICAN AMERICAN > 60
[2017-10-27] MEDS ORDERED: HYDROmorphone 0.5 mg/0.5 ml ISec IVP PRN (13:41)
[2017-10-27] MEDS ORDERED: Propofol 10 mg/ml Inj (20 ML) ONE ×2 (13:46→14:30)
[2017-10-27] MEDS ORDERED: Midazolam 2 MG/2 ML VIAL ONE ×2 (13:49→14:18)
[2017-10-27] MEDS ORDERED: Bupivacaine 0.25% 20 ML INJ IJ ONE (14:26)
[2017-10-27] MEDS ORDERED: Lidocaine/Epinephrine 1% 1:100000 10 ML IJ ONE (14:26)
--- NOTE | 2017-10-27 14:46 | PCM.SURG1 ---
Surgeon's Initial Post Op Note - Surgeon's Notes Surgeon: Dr. Bautista Dog Breeder: Stef Lazo PGY1 Type of Anesthesia: IV Sedation, Local Pre-Operative Diagnosis: LLE cellulitis Operative Findings: see dictation note Post-Operative Diagnosis: same Operation Performed: surgical debridement of left lower extremity Specimen/Specimens Removed: debrided tissue Estimated Blood Loss: EBL {In ML}: 10 Blood Products Given: N/A Drains Used: No Drains Post-Op Condition: Good Date of Surgery/Procedure: 10/27/17 Time of Surgery/Procedure: 14:46
[2017-10-27] MEDS ORDERED: Oxycodone/Acetaminophen 5/325 mg Tab PO PRN (14:48)
--- NOTE | 2017-10-27 16:04 | CP.PCM.PN ---
Subjective - Date & Time of Evaluation Date of Evaluation: 10/27/17 Time of Evaluation: 08:00 - Subjective Subjective: s/p debridement MRSA + IV rx in progress Objective - Vital Signs/Intake and Output Vital Signs (last 24 hours): Temp Pulse Resp BP Pulse Ox 98.5 F 60 18 139/80 99 10/27/17 07:00 10/27/17 07:00 10/27/17 07:00 10/27/17 07:00 10/27/17 07:00 Intake and Output: 10/27/17 10/27/17 06:59 18:59 Intake Total 750 300 Balance 750 300 - Medications Medications: Current Medications Acetaminophen (Tylenol 325mg Tab) 650 mg PO Q6H PRN PRN Reason: Pain, Mild (1-3) Last Admin: 10/23/17 02:02 Dose: 650 mg Dextrose (Dextrose 50% Inj) 0 ml IV STAT PRN; Protocol PRN Reason: Hypoglycemia Protocol Dextrose (Glutose 15) 0 gm PO ONCE PRN; Protocol PRN Reason: Hypoglycemia Protocol Famotidine (Pepcid) 20 mg PO BID [facility] Last Admin: 10/27/17 09:34 Dose: 20 mg Glucagon (Glucagen Diagnostic Kit) 0 mg IM STAT PRN; Protocol PRN Reason: Hypoglycemia Protocol Vancomycin HCl 1.25 gm/ Sodium (Chloride) 250 mls @ 166.7 mls/hr IVPB Q8H [facility] PRN Reason: Protocol Last Admin: 10/27/17 12:39 Dose: 166.7 mls/hr Insulin Aspart (Novolog) 0 unit SC ACHS [facility] PRN Reason: Protocol Last Admin: 10/27/17 11:58 Dose: Not Given Insulin Glargine (Lantus) 22 unit SC HS [facility] Insulin Human Regular (Novolin R) 4 unit SC AC [facility] Losartan Potassium (Cozaar) 50 mg PO DAILY [facility] Last Admin: 10/27/17 09:34 Dose: 50 mg Oxycodone/Acetaminophen (Percocet 5/325 Mg Tab) 1 tab PO Q6H PRN PRN Reason: Pain, moderate (4-7) Stop: 10/30/17 14:49 Rosuvastatin Calcium (Crestor) 5 mg PO HS [facility] Last Admin: 10/26/17 21:01 Dose: 5 mg Saccharomyces Boulardii (Florastor) 250 mg PO BID [facility] Last Admin: 10/27/17 09:34 Dose: 250 mg - Labs Labs: 10/27/17 11:05 10/27/17 11:05 PT 12.0 SECONDS (9.7-12.2) 10/27/17 07:50 INR 1.1 10/27/17 07:50 APTT 30 SECONDS (21-34) 10/27/17 07:50 - Constitutional Appears: Non-toxic - Head Exam Head Exam: NORMOCEPHALIC - Eye Exam Eye Exam: PERRL - ENT Exam ENT Exam: Mucous Membranes Dry - Neck Exam Neck Exam: absent: Lymphadenopathy - Respiratory Exam Respiratory Exam: Decreased Breath Sounds - Cardiovascular Exam Cardiovascular Exam: REGULAR RHYTHM - GI/Abdominal Exam GI & Abdominal Exam: Distended Assessment and Plan (1) MRSA (methicillin resistant staph aureus) culture positive Status: Acute (2) MRSA (methicillin resistant Staphylococcus aureus) infection Status: Acute (3) Cellulitis Status: Acute
[2017-10-27] MEDS: (Lantus) Insulin Glargine, Recombinant SC SCH (22:20)
[2017-10-28 06:31] LABS: BASO # 0.1 K/uL (0.0-0.2); BASO % 0.7 % (0.0-2.0); EOS # 0.2 K/uL (0.0-0.7); EOS % 2.5 % (0.0-4.0); HEMOGLOBIN 11.3 g/dL (12.0-18.0); LYMPH # 2.8 K/uL (1.0-4.3); LYMPH % 31.2 % (20.0-40.0); MEAN CORPUSCULAR HEMOGLOBIN 30.3 pg (27.0-31.0); MEAN CORPUSCULAR HGB CONC 34.8 g/dL (33.0-37.0); MEAN PLATELET VOLUME 7.5 fL (7.2-11.7); MONO # 0.8 K/uL (0.0-0.8); MONO % 9.3 % (0.0-10.0); NEUT % 56.3 % (50.0-75.0); NRBC % 0.1 % (0.0-2.0); RBC 3.74 Mil/uL (4.40-5.90); RED CELL DISTRIBUTION WIDTH 13.3 % (11.5-14.5); WHITE BLOOD COUNT 8.8 K/uL (4.8-10.8)
[2017-10-28 06:45] LABS: ALBUMIN 3.7 g/dL (3.5-5.0); ALT/SGPT 31 U/L (21-72); AST/SGOT 22 U/L (17-59); BLOOD UREA NITROGEN 9 mg/dL (9-20); CALCIUM 8.8 mg/dl (8.6-10.4); GFR AFRICAN-AMERICAN > 60; GFR NON-AFRICAN AMERICAN > 60
--- NOTE | 2017-10-28 07:35 | CP.PCM.PN ---
<Inocente Wyatt - Last Filed: 10/28/17 07:32> Subjective - Date & Time of Evaluation Date of Evaluation: 10/28/17 Time of Evaluation: 07:32 - Subjective Subjective: General Surgery progress Note for Dr. Bautista This 57M was seen and evaluated this Am at bedside he reports that his lower extremity pain is improved. He is ambulating tolerating diet and passing gas. He has no new complaints at this time. He denies any chest pain or SOB. His dressing is intact with erythema receding. Objective - Vital Signs/Intake and Output Vital Signs (last 24 hours): Temp Pulse Resp BP Pulse Ox 99 F 62 20 120/70 95 10/28/17 04:10 10/28/17 04:10 10/28/17 04:10 10/28/17 04:10 10/28/17 04:10 Intake and Output: 10/28/17 10/28/17 06:59 18:59 Output Total 500 Balance -500 - Medications Medications: Current Medications Acetaminophen (Tylenol 325mg Tab) 650 mg PO Q6H PRN PRN Reason: Pain, Mild (1-3) Last Admin: 10/23/17 02:02 Dose: 650 mg Dextrose (Dextrose 50% Inj) 0 ml IV STAT PRN; Protocol PRN Reason: Hypoglycemia Protocol Dextrose (Glutose 15) 0 gm PO ONCE PRN; Protocol PRN Reason: Hypoglycemia Protocol Famotidine (Pepcid) 20 mg PO BID [facility] Last Admin: 10/27/17 18:33 Dose: 20 mg Glucagon (Glucagen Diagnostic Kit) 0 mg IM STAT PRN; Protocol PRN Reason: Hypoglycemia Protocol Vancomycin HCl 1.25 gm/ Sodium (Chloride) 250 mls @ 166.7 mls/hr IVPB Q8H [facility] PRN Reason: Protocol Last Admin: 10/28/17 04:34 Dose: 166.7 mls/hr Insulin Aspart (Novolog) 0 unit SC ACHS [facility] PRN Reason: Protocol Last Admin: 10/27/17 22:25 Dose: Not Given Insulin Glargine (Lantus) 22 unit SC HS [facility] Last Admin: 10/27/17 22:20 Dose: 22 units Insulin Human Regular (Novolin R) 4 unit SC AC [facility] Losartan Potassium (Cozaar) 50 mg PO DAILY [facility] Last Admin: 07/13/18 09:34 Dose: 50 mg Oxycodone/Acetaminophen (Percocet 5/325 Mg Tab) 1 tab PO Q6H PRN PRN Reason: Pain, moderate (4-7) Stop: 10/30/17 14:49 Last Admin: 10/27/17 18:36 Dose: 1 tab Rosuvastatin Calcium (Crestor) 5 mg PO HS [facility] Last Admin: 10/27/17 22:20 Dose: 5 mg Saccharomyces Boulardii (Florastor) 250 mg PO BID [facility] Last Admin: 10/27/17 18:33 Dose: 250 mg - Labs Labs: 10/28/17 06:14 10/28/17 06:14 PT 12.0 SECONDS (9.7-12.2) 10/27/17 07:50 INR 1.1 10/27/17 07:50 APTT 30 SECONDS (21-34) 10/27/17 07:50 - Constitutional Appears: Non-toxic, No Acute Distress - Head Exam Head Exam: ATRAUMATIC, NORMOCEPHALIC - Eye Exam Eye Exam: EOMI, Normal appearance - ENT Exam ENT Exam: Mucous Membranes Moist - Respiratory Exam Respiratory Exam: NORMAL BREATHING PATTERN - Cardiovascular Exam Cardiovascular Exam: +S1, +S2 - GI/Abdominal Exam GI & Abdominal Exam: Soft. absent: Distended, Firm, Guarding, Rigid, Tenderness - Neurological Exam Neurological Exam: Alert, Awake - Psychiatric Exam Psychiatric exam: Normal Affect, Normal Mood - Skin Skin Exam: Dry, Intact Assessment and Plan - Assessment and Plan (Free Text) Assessment: 57M w. LLE abscess/cellulitis s/p I&D POD#6 at bedside POD#1 s/p OR debridment Plan: Local wound care continue antibiotics regular diet ambulate elevate extremity further recs per Dr. Michele Wyatt PGY3 <Frank Bautista - Last Filed: 10/28/17 23:12> Objective - Vital Signs/Intake and Output Vital Signs (last 24 hours): Temp Pulse Resp BP Pulse Ox 99.0 F 72 20 132/76 96 10/28/17 15:00 10/28/17 15:00 10/28/17 15:00 10/28/17 15:00 10/28/17 15:00 Intake and Output: 10/28/17 10/29/17 18:59 06:59 Intake Total 900 950 Output Total 500 Balance 900 450 - Medications Medications: Current Medications Acetaminophen (Tylenol 325mg Tab) 650 mg PO Q6H PRN PRN Reason: Pain, Mild (1-3) Last Admin: 10/23/17 02:02 Dose: 650 mg Dextrose (Dextrose 50% Inj) 0 ml IV STAT PRN; Protocol PRN Reason: Hypoglycemia Protocol Dextrose (Glutose 15) 0 gm PO ONCE PRN; Protocol PRN Reason: Hypoglycemia Protocol Famotidine (Pepcid) 20 mg PO BID [facility] Last Admin: 10/28/17 17:29 Dose: 20 mg Glucagon (Glucagen Diagnostic Kit) 0 mg IM STAT PRN; Protocol PRN Reason: Hypoglycemia Protocol Heparin Sodium (Porcine) (Heparin) 5,000 units SC Q8 [facility] Last Admin: 10/28/17 21:16 Dose: 5,000 units Vancomycin HCl 1,500 mg/ (Sodium Chloride) 500 mls @ 100 mls/hr IVPB Q8H [facility] PRN Reason: Protocol Last Admin: 10/28/17 20:33 Dose: 100 mls/hr Insulin Aspart (Novolog) 0 unit SC ACHS [facility] PRN Reason: Protocol Last Admin: 10/28/17 21:20 Dose: Not Given Insulin Glargine (Lantus) 22 unit SC HS [facility] Last Admin: 10/28/17 21:15 Dose: Not Given Insulin Human Regular (Novolin R) 4 unit SC AC [facility] Last Admin: 10/28/17 17:30 Dose: 4 unit Losartan Potassium (Cozaar) 50 mg PO DAILY [facility] Last Admin: 10/28/17 09:58 Dose: 50 mg Oxycodone/Acetaminophen (Percocet 5/325 Mg Tab) 1 tab PO Q6H PRN PRN Reason: Pain, moderate (4-7) Stop: 10/30/17 14:49 Last Admin: 10/27/17 18:36 Dose: 1 tab Rosuvastatin Calcium (Crestor) 5 mg PO [facility] Last Admin: 10/28/17 21:16 Dose: 5 mg Saccharomyces Boulardii (Florastor) 250 mg PO BID [facility] Last Admin: 10/28/17 17:29 Dose: 250 mg - Labs Labs: 10/28/17 06:14 10/28/17 06:14 PT 12.0 SECONDS (9.7-12.2) 10/27/17 07:50 INR 1.1 10/27/17 07:50 APTT 30 SECONDS (21-34) 10/27/17 07:50 Attending/Attestation - Attestation I have personally seen and examined this patient.: Yes I have fully participated in the care of the patient.: Yes I have reviewed all pertinent clinical information, including history, physical exam and plan: Yes Notes (Text): Pt was seen and examined at bedside Agree with above note and assessment Cellulitis is improved significantly after re debridement Leg elevation IV Antibiotics Plan d.w pt in detail.
[2017-10-28] MEDS: (Novolin R) Insulin Human Regular 100 units/ml vial SC SCH ×3 (07:37→17:30)
[2017-10-28] MEDS: (Novolog) Insulin Aspart, Recombinant 100 u/ml 10 ml vial SC SCH ×4 (07:37→21:20)
--- NOTE | 2017-10-28 08:37 | CP.PCM.PN ---
<Ulices Perez M - Last Filed: 10/28/17 08:37> Objective - Vital Signs/Intake and Output Vital Signs (last 24 hours): Temp Pulse Resp BP Pulse Ox 99 F 62 20 120/70 95 10/28/17 04:10 10/28/17 04:10 10/28/17 04:10 10/28/17 04:10 10/28/17 04:10 Intake and Output: 10/28/17 10/28/17 06:59 18:59 Output Total 900 Balance -900 - Medications Medications: Current Medications Acetaminophen (Tylenol 325mg Tab) 650 mg PO Q6H PRN PRN Reason: Pain, Mild (1-3) Last Admin: 10/23/17 02:02 Dose: 650 mg Dextrose (Dextrose 50% Inj) 0 ml IV STAT PRN; Protocol PRN Reason: Hypoglycemia Protocol Dextrose (Glutose 15) 0 gm PO ONCE PRN; Protocol PRN Reason: Hypoglycemia Protocol Famotidine (Pepcid) 20 mg PO BID [facility] Last Admin: 10/27/17 18:33 Dose: 20 mg Glucagon (Glucagen Diagnostic Kit) 0 mg IM STAT PRN; Protocol PRN Reason: Hypoglycemia Protocol Vancomycin HCl 1.25 gm/ Sodium (Chloride) 250 mls @ 166.7 mls/hr IVPB Q8H [facility] PRN Reason: Protocol Last Admin: 10/28/17 04:34 Dose: 166.7 mls/hr Insulin Aspart (Novolog) 0 unit SC ACHS [facility] PRN Reason: Protocol Last Admin: 10/28/17 07:37 Dose: 2 units Insulin Glargine (Lantus) 22 unit SC HS [facility] Last Admin: 10/27/17 22:20 Dose: 22 units Insulin Human Regular (Novolin R) 4 unit SC AC [facility] Last Admin: 10/28/17 07:37 Dose: 4 unit Losartan Potassium (Cozaar) 50 mg PO DAILY [facility] Last Admin: 10/27/17 09:34 Dose: 50 mg Oxycodone/Acetaminophen (Percocet 5/325 Mg Tab) 1 tab PO Q6H PRN PRN Reason: Pain, moderate (4-7) Stop: 10/30/17 14:49 Last Admin: 10/27/17 18:36 Dose: 1 tab Rosuvastatin Calcium (Crestor) 5 mg PO HS [facility] Last Admin: 10/27/17 22:20 Dose: 5 mg Saccharomyces Boulardii (Florastor) 250 mg PO BID [facility] Last Admin: 10/27/17 18:33 Dose: 250 mg - Labs Labs: 10/28/17 06:14 10/28/17 06:14 PT 12.0 SECONDS (9.7-12.2) 10/27/17 07:50 INR 1.1 10/27/17 07:50 APTT 30 SECONDS (21-34) 10/27/17 07:50 <Jaden Clifton - Last Filed: 10/28/17 09:04> Subjective - Date & Time of Evaluation Date of Evaluation: 10/28/17 Time of Evaluation: 08:30 - Subjective Subjective: Hospitalist Progress Note Patient was seen and examined at 8:30 AM 655 Currently upon FULL ROS: NO chest pain NO SOB/Cough NO abdominal pain NO n/v/d/c: normal bowel movement this morning NO burning pain with urination NO dysphagia/odynophagia NO lightheadedenss/dizziness NO paresthesias NO new changes in visioin NO new changes in hearing NO headache Exam: General: AAOX3, NAD HEENT: NCA, EOMI, PERRLA, NO cervical/supraclavicular/submandibular lymphadenopathy, NO pharyngeal erythema/exudate, Nasal Turbinates are nonerythematous/nonedematous, Oral Mucosa is moist Cardio: NS1 and NS2, (+) Systolic Ejection Murmur Bilateral 2nd Intercostal Space Resp: CTA B/L, NO R/R/W GI: BSx4, Soft, NT, NO HSM, NO guarding/rebound tenderness Ext: Pulses are strong and equal in bilateral UE and LE, NO edema noted, capillary refills is 2 seconds on all toes, erythema and warmth that was demarcated with black ink on the left lower leg has receded significantly from the black ink and there is less tenderness to palpation, there is a roughly 1 cm irregularly shaped ulceration 1/3 up from the left ankle on the anterior surface of the left lower leg and there is some yellow green material at the center with Neuro: CN II through XII are grossly intact Assessments: 1). Left Leg Cellulitis/Abscess S/P I&D on 10/22/17 and then again on 10/27/17 Wound Culture 10/22/17 shows MRSA and patient is on contact precautions Echocardiogram was normal (please see full report) Vancomycin adjusted to 1.5 gm IV Q8H at starting at 12:30 PM today because of Vanco Trough at 12.8 (goal is 15 to 20): doses to be given at 12:30 PM, 8:30 PM and 4:30 AM Vancomycin trough 10/29/17 is sceduled for 12 PM (30 minutes before next 4th dose) 2). DM 2 Patient is on Glimepiride but this was held and placed on insulin to get the blood glucose under control to help treat the Left Leg Cellulitis Lantus increased to 22 units SC HS starting 10/27/17 22:00 Regular Insulin 4 units SC AC Meals to start morning 10/28/17 Next adjustment of Lantus and Regular Insulin, if needed, should be done on morning 10/29/17 He is on a Statin and ARB 3). HTN Cozaar 50 mg PO 1x/day 4). HLD Crestor 5 mg PO HS 5). Prophylaxis Pepcid 20 mg PO BID Tylenol 650 mg PO Q6H PRN Pain Percocet 5/325 mg PO Q6H PRN Severe Pain Florastor 250 mg PO BID Heparin 5,000 Units SC Q8H Jaden Clifton D.O. Objective - Vital Signs/Intake and Output Vital Signs (last 24 hours): Temp Pulse Resp BP Pulse Ox 99 F 62 20 120/70 95 10/28/17 04:10 10/28/17 04:10 10/28/17 04:10 10/28/17 04:10 10/28/17 04:10 Intake and Output: 10/28/17 10/28/17 06:59 18:59 Output Total 900 Balance -900 - Medications Medications: Current Medications Acetaminophen (Tylenol 325mg Tab) 650 mg PO Q6H PRN PRN Reason: Pain, Mild (1-3) Last Admin: 10/23/17 02:02 Dose: 650 mg Dextrose (Dextrose 50% Inj) 0 ml IV STAT PRN; Protocol PRN Reason: Hypoglycemia Protocol Dextrose (Glutose 15) 0 gm PO ONCE PRN; Protocol PRN Reason: Hypoglycemia Protocol Famotidine (Pepcid) 20 mg PO BID [facility] Last Admin: 10/27/17 18:33 Dose: 20 mg Glucagon (Glucagen Diagnostic Kit) 0 mg IM STAT PRN; Protocol PRN Reason: Hypoglycemia Protocol Vancomycin HCl 1.25 gm/ Sodium (Chloride) 250 mls @ 166.7 mls/hr IVPB Q8H [facility] PRN Reason: Protocol Last Admin: 10/28/17 04:34 Dose: 166.7 mls/hr Insulin Aspart (Novolog) 0 unit SC ACHS [facility] PRN Reason: Protocol Last Admin: 10/28/17 07:37 Dose: 2 units Insulin Glargine (Lantus) 22 unit SC HS [facility] Last Admin: 10/27/17 22:20 Dose: 22 units Insulin Human Regular (Novolin R) 4 unit SC AC [facility] Last Admin: 10/28/17 07:37 Dose: 4 unit Losartan Potassium (Cozaar) 50 mg PO DAILY [facility] Last Admin: 10/27/17 09:34 Dose: 50 mg Oxycodone/Acetaminophen (Percocet 5/325 Mg Tab) 1 tab PO Q6H PRN PRN Reason: Pain, moderate (4-7) Stop: 10/30/17 14:49 Last Admin: 10/27/17 18:36 Dose: 1 tab Rosuvastatin Calcium (Crestor) 5 mg PO HS [facility] Last Admin: 10/27/17 22:20 Dose: 5 mg Saccharomyces Boulardii (Florastor) 250 mg PO BID [facility] Last Admin: 10/27/17 18:33 Dose: 250 mg - Labs Labs: 10/28/17 06:14 10/28/17 06:14 PT 12.0 SECONDS (9.7-12.2) 10/27/17 07:50 INR 1.1 10/27/17 07:50 APTT 30 SECONDS (21-34) 10/27/17 07:50
[2017-10-28] MEDS: Saccharomyces Boulardi 250 mg Cap PO SCH ×2 (09:58→17:29)
[2017-10-28] MEDS: (Lantus) Insulin Glargine, Recombinant SC SCH (21:15)
--- NOTE | 2017-10-28 23:43 | OP ---
PROCEDURE DATE: 10/27/2017 PREOPERATIVE DIAGNOSIS: Left lower leg cellulitis and abscess, status post initial drainage at the bedside. POSTOPERATIVE DIAGNOSIS: Left lower leg cellulitis and abscess, status post initial drainage at the bedside. PROCEDURES DONE: 1. Incision and drainage of remaining left lower extremity abscess. 2. Excisional debridement of left lower extremity wound. It was approximately 4 x 2 x 2 cm size. TYPE OF ANESTHESIA: Local anesthesia plus sedation. ESTIMATED BLOOD LOSS: Around 10 mL. DRAINS: None. PATHOLOGY: 1. The pus was sent for the culture and sensitivity. 2. Debrided tissue was also sent for the permanent pathology. COMPLICATIONS: None. INTRAOPERATIVE FINDINGS: The patient had a left lower extremity wound that was not healing after initial I and D at the bedside, and the patient had the remaining cellulitis. DESCRIPTION OF PROCEDURE: The patient was consented for the incision and drainage as well as debridement of the left lower extremity cellulitis and abscess, brought to the OR, placed supine on the operating table. After induction of the sedation, the left lower leg was prepped and draped. Local anesthesia was injected. The left leg abscess cavity was entered and pus was sent for culture and sensitivity. The abscess cavity was drained. Now the abscess cavity wall was debrided. The surrounding infected skin was also excised. Approximately wound size was 4 x 2 x 2 cm size, and the scissors was used as well as the blunt dissection was done for the debridement; and the wound was irrigated, packed with iodoform packing and dry sterile dressing was applied. The patient tolerated the procedure well. Count of the instrument and gauze was correct. There was no apparent complication. The patient was sent to the postanesthesia care unit in stable condition. Frank Bautista MD [facility]
[2017-10-29 07:25] LABS: BASO # 0.1 K/uL (0.0-0.2); BASO % 0.7 % (0.0-2.0); EOS # 0.2 K/uL (0.0-0.7); EOS % 2.1 % (0.0-4.0); HEMOGLOBIN 11.5 g/dL (12.0-18.0); LYMPH # 2.9 K/uL (1.0-4.3); LYMPH % 30.7 % (20.0-40.0); MEAN CELL VOLUME 86.5 fL (80.0-94.0); MEAN CORPUSCULAR HEMOGLOBIN 30.4 pg (27.0-31.0); MEAN CORPUSCULAR HGB CONC 35.1 g/dL (33.0-37.0); MEAN PLATELET VOLUME 7.4 fL (7.2-11.7); MONO # 0.9 K/uL (0.0-0.8); MONO % 9.2 % (0.0-10.0); NEUT # 5.3 K/uL (1.8-7.0); NEUT % 57.3 % (50.0-75.0); RBC 3.78 Mil/uL (4.40-5.90); RED CELL DISTRIBUTION WIDTH 13.2 % (11.5-14.5); WHITE BLOOD COUNT 9.3 K/uL (4.8-10.8)
--- NOTE | 2017-10-29 07:38 | CP.PCM.PN ---
Objective - Vital Signs/Intake and Output Vital Signs (last 24 hours): Temp Pulse Resp BP Pulse Ox 99.0 F 63 20 114/67 96 10/29/17 04:44 10/29/17 04:44 10/29/17 04:44 10/29/17 04:44 10/29/17 04:44 Intake and Output: 10/29/17 10/29/17 06:59 18:59 Intake Total 1450 Output Total 1000 Balance 450 - Medications Medications: Current Medications Acetaminophen (Tylenol 325mg Tab) 650 mg PO Q6H PRN PRN Reason: Pain, Mild (1-3) Last Admin: 10/23/17 02:02 Dose: 650 mg Dextrose (Dextrose 50% Inj) 0 ml IV STAT PRN; Protocol PRN Reason: Hypoglycemia Protocol Dextrose (Glutose 15) 0 gm PO ONCE PRN; Protocol PRN Reason: Hypoglycemia Protocol Famotidine (Pepcid) 20 mg PO BID [facility] Last Admin: 10/28/17 17:29 Dose: 20 mg Glucagon (Glucagen Diagnostic Kit) 0 mg IM STAT PRN; Protocol PRN Reason: Hypoglycemia Protocol Heparin Sodium (Porcine) (Heparin) 5,000 units SC Q8 [facility] Last Admin: 10/29/17 05:37 Dose: 5,000 units Vancomycin HCl 1,500 mg/ (Sodium Chloride) 500 mls @ 100 mls/hr IVPB Q8H [facility] PRN Reason: Protocol Last Admin: 10/29/17 03:30 Dose: 100 mls/hr Insulin Aspart (Novolog) 0 unit SC ACHS [facility] PRN Reason: Protocol Last Admin: 10/28/17 21:20 Dose: Not Given Insulin Glargine (Lantus) 22 unit SC HS [facility] Last Admin: 10/28/17 21:15 Dose: Not Given Insulin Human Regular (Novolin R) 4 unit SC AC [facility] Last Admin: 10/28/17 17:30 Dose: 4 unit Losartan Potassium (Cozaar) 50 mg PO DAILY [facility] Last Admin: 10/28/17 09:58 Dose: 50 mg Oxycodone/Acetaminophen (Percocet 5/325 Mg Tab) 1 tab PO Q6H PRN PRN Reason: Pain, moderate (4-7) Stop: 10/30/17 14:49 Last Admin: 10/27/17 18:36 Dose: 1 tab Rosuvastatin Calcium (Crestor) 5 mg PO HS [facility] Last Admin: 10/28/17 21:16 Dose: 5 mg Saccharomyces Boulardii (Florastor) 250 mg PO BID [facility] Last Admin: 10/28/17 17:29 Dose: 250 mg - Labs Labs: 10/29/17 07:15 10/28/17 06:14 PT 12.0 SECONDS (9.7-12.2) 10/27/17 07:50 INR 1.1 10/27/17 07:50 APTT 30 SECONDS (21-34) 10/27/17 07:50
[2017-10-29] MEDS: (Novolin R) Insulin Human Regular 100 units/ml vial SC SCH ×3 (07:53→17:30)
[2017-10-29] MEDS: (Novolog) Insulin Aspart, Recombinant 100 u/ml 10 ml vial SC SCH ×4 (07:53→21:43)
[2017-10-29 07:54] LABS: ALB/GLOB RATIO 1.1 (1.0-2.1); ALBUMIN 3.8 g/dL (3.5-5.0); ALT/SGPT 33 U/L (21-72); AST/SGOT 24 U/L (17-59); BLOOD UREA NITROGEN 10 mg/dL (9-20); CALCIUM 8.7 mg/dl (8.6-10.4); GFR AFRICAN-AMERICAN > 60; GFR NON-AFRICAN AMERICAN > 60
--- NOTE | 2017-10-29 09:35 | CP.PCM.PN ---
Subjective - Date & Time of Evaluation Date of Evaluation: 10/29/17 Time of Evaluation: 09:32 - Subjective Subjective: General Surgery progress Note for Dr. Bautista 57M was seen and evaluated this Am at bedside. He reports that his lower extremity pain is improved. He is ambulating, tolerating diet, having BM, and passing gas. No acute events overnight. He denies any chest pain or SOB. His dressing is intact with erythema receding. Objective - Vital Signs/Intake and Output Vital Signs (last 24 hours): Temp Pulse Resp BP Pulse Ox 98.1 F 57 L 20 124/65 96 10/29/17 07:45 10/29/17 07:45 10/29/17 07:45 10/29/17 07:45 10/29/17 07:45 Intake and Output: 10/29/17 10/29/17 06:59 18:59 Intake Total 1450 Output Total 1000 Balance 450 - Medications Medications: Current Medications Acetaminophen (Tylenol 325mg Tab) 650 mg PO Q6H PRN PRN Reason: Pain, Mild (1-3) Last Admin: 10/23/17 02:02 Dose: 650 mg Dextrose (Dextrose 50% Inj) 0 ml IV STAT PRN; Protocol PRN Reason: Hypoglycemia Protocol Dextrose (Glutose 15) 0 gm PO ONCE PRN; Protocol PRN Reason: Hypoglycemia Protocol Famotidine (Pepcid) 20 mg PO BID [facility] Last Admin: 10/28/17 17:29 Dose: 20 mg Glucagon (Glucagen Diagnostic Kit) 0 mg IM STAT PRN; Protocol PRN Reason: Hypoglycemia Protocol Heparin Sodium (Porcine) (Heparin) 5,000 units SC Q8 [facility] Last Admin: 10/29/17 05:37 Dose: 5,000 units Vancomycin HCl 1,500 mg/ (Sodium Chloride) 500 mls @ 100 mls/hr IVPB Q8H [facility] PRN Reason: Protocol Last Admin: 10/29/17 03:30 Dose: 100 mls/hr Insulin Aspart (Novolog) 0 unit SC ACHS [facility] PRN Reason: Protocol Last Admin: 10/29/17 07:53 Dose: 3 units Insulin Glargine (Lantus) 22 unit SC HS [facility] Last Admin: 10/28/17 21:15 Dose: Not Given Insulin Human Regular (Novolin R) 4 unit SC AC [facility] Last Admin: 10/29/17 07:53 Dose: 4 unit Losartan Potassium (Cozaar) 50 mg PO DAILY [facility] Last Admin: 10/28/17 09:58 Dose: 50 mg Oxycodone/Acetaminophen (Percocet 5/325 Mg Tab) 1 tab PO Q6H PRN PRN Reason: Pain, moderate (4-7) Stop: 10/30/17 14:49 Last Admin: 10/27/17 18:36 Dose: 1 tab Rosuvastatin Calcium (Crestor) 5 mg PO HS [facility] Last Admin: 10/28/17 21:16 Dose: 5 mg Saccharomyces Boulardii (Florastor) 250 mg PO BID [facility] Last Admin: 10/28/17 17:29 Dose: 250 mg - Labs Labs: 10/29/17 07:15 10/29/17 07:15 PT 12.0 SECONDS (9.7-12.2) 10/27/17 07:50 INR 1.1 10/27/17 07:50 APTT 30 SECONDS (21-34) 10/27/17 07:50 - Constitutional Appears: Well, Non-toxic, No Acute Distress - Head Exam Head Exam: ATRAUMATIC, NORMAL INSPECTION, NORMOCEPHALIC - Eye Exam Eye Exam: EOMI, Normal appearance - Respiratory Exam Respiratory Exam: Clear to Ausculation Bilateral, NORMAL BREATHING PATTERN - Cardiovascular Exam Cardiovascular Exam: REGULAR RHYTHM, +S1, +S2. absent: Murmur - GI/Abdominal Exam GI & Abdominal Exam: Soft, Normal Bowel Sounds. absent: Tenderness - Neurological Exam Neurological Exam: Alert, Awake, Oriented x3 - Psychiatric Exam Psychiatric exam: Normal Affect, Normal Mood - Skin Skin Exam: Dry, Erythema, Intact, Warm Additional comments: dressings changed and c/d/i Erythema receding Assessment and Plan - Assessment and Plan (Free Text) Assessment: 57M w/ LLE cellulitis s/p debridement POD2 Plan: c/w IV Abx continue with leg elevation continue to monitor wound dressings changed today further recs per Dr. Michele Lazo PGY1
--- NOTE | 2017-10-29 09:37 | CARD ---
APPROVED REPORT Date of service: 10/21/2017 EKG Measurement Heart [id number] <Conclusion> Normal sinus rhythm Normal ECG
--- NOTE | 2017-10-29 09:42 | CP.PCM.PN ---
Subjective - Date & Time of Evaluation Date of Evaluation: 10/29/17 Time of Evaluation: 09:30 - Subjective Subjective: Hospitalist Progress Note Patient was seen and examined at 9:30 AM 655 Currently upon FULL ROS: NO chest pain NO SOB/Cough NO abdominal pain NO n/v/d/c: normal bowel movement this morning NO burning pain with urination NO dysphagia/odynophagia NO lightheadedenss/dizziness NO paresthesias NO new changes in visioin NO new changes in hearing NO headache Exam: General: AAOX3, NAD HEENT: NCA, EOMI, PERRLA, NO cervical/supraclavicular/submandibular lymphadenopathy, NO pharyngeal erythema/exudate, Nasal Turbinates are nonerythematous/nonedematous, Oral Mucosa is moist Cardio: NS1 and NS2, (+) Systolic Ejection Murmur Bilateral 2nd Intercostal Space Resp: CTA B/L, NO R/R/W GI: BSx4, Soft, NT, NO HSM, NO guarding/rebound tenderness Ext: Pulses are strong and equal in bilateral UE and LE, NO edema noted, capillary refills is 2 seconds on all toes, erythema and warmth that was demarcated with black ink on the left lower leg has receded significantly from the black ink and there is less tenderness to palpation, there is a roughly 3 x 1 cm elliptical shaped surgical incision 1/3 up from the left ankle on the anterior surface of the left lower leg and there is some yellow green material at the center Neuro: CN II through XII are grossly intact Assessments: 1). Left Leg Cellulitis/Abscess S/P I&D on 10/22/17 and then again on 10/27/17 Wound Culture 10/22/17 shows MRSA and patient is on contact precautions Wound Culture 10/27/17 preliminary report is negative for growth Echocardiogram was normal (please see full report) Vancomycin adjusted to 1.5 gm IV Q8H at starting at 12:30 PM 10/28/17 because of Vanco Trough at 12.8 (goal is 15 to 20): doses to be given at 12:30 PM, 8:30 PM and 4:30 AM Vancomycin trough 10/29/17 is scheduled for 12 PM (30 minutes before next 4th dose) 2). DM 2 Patient is on Glimepiride but this was held and placed on insulin to get the blood glucose under control to help treat the Left Leg Cellulitis Lantus increased to 28 units SC HS starting 10/29/17 22:00 Regular Insulin 6 units SC AC Meals to start with lunch time 10/29/17 Next adjustment of Lantus and Regular Insulin, if needed, should be done on morning 10/31/17 He is on a Statin and ARB 3). HTN Cozaar 50 mg PO 1x/day 4). HLD Crestor 5 mg PO HS 5). Prophylaxis Pepcid 20 mg PO BID Tylenol 650 mg PO Q6H PRN Pain Percocet 5/325 mg PO Q6H PRN Severe Pain Florastor 250 mg PO BID Heparin 5,000 Units SC Q8H Jaden Clifton D.O. Objective - Vital Signs/Intake and Output Vital Signs (last 24 hours): Temp Pulse Resp BP Pulse Ox 98.1 F 57 L 20 124/65 96 10/29/17 07:45 10/29/17 07:45 10/29/17 07:45 10/29/17 07:45 10/29/17 07:45 Intake and Output: 10/29/17 10/29/17 06:59 18:59 Intake Total 1450 Output Total 1000 Balance 450 - Medications Medications: Current Medications Acetaminophen (Tylenol 325mg Tab) 650 mg PO Q6H PRN PRN Reason: Pain, Mild (1-3) Last Admin: 10/23/17 02:02 Dose: 650 mg Dextrose (Dextrose 50% Inj) 0 ml IV STAT PRN; Protocol PRN Reason: Hypoglycemia Protocol Dextrose (Glutose 15) 0 gm PO ONCE PRN; Protocol PRN Reason: Hypoglycemia Protocol Famotidine (Pepcid) 20 mg PO BID [facility] Last Admin: 10/28/17 17:29 Dose: 20 mg Glucagon (Glucagen Diagnostic Kit) 0 mg IM STAT PRN; Protocol PRN Reason: Hypoglycemia Protocol Heparin Sodium (Porcine) (Heparin) 5,000 units SC Q8 [facility] Last Admin: 10/29/17 05:37 Dose: 5,000 units Vancomycin HCl 1,500 mg/ (Sodium Chloride) 500 mls @ 100 mls/hr IVPB Q8H [facility] PRN Reason: Protocol Last Admin: 10/29/17 03:30 Dose: 100 mls/hr Insulin Aspart (Novolog) 0 unit SC ACHS [facility] PRN Reason: Protocol Last Admin: 10/29/17 07:53 Dose: 3 units Insulin Glargine (Lantus) 22 unit SC HS [facility] Last Admin: 10/28/17 21:15 Dose: Not Given Insulin Human Regular (Novolin R) 4 unit SC AC [facility] Last Admin: 10/29/17 07:53 Dose: 4 unit Losartan Potassium (Cozaar) 50 mg PO DAILY [facility] Last Admin: 10/28/17 09:58 Dose: 50 mg Oxycodone/Acetaminophen (Percocet 5/325 Mg Tab) 1 tab PO Q6H PRN PRN Reason: Pain, moderate (4-7) Stop: 10/30/17 14:49 Last Admin: 10/27/17 18:36 Dose: 1 tab Rosuvastatin Calcium (Crestor) 5 mg PO [facility] Last Admin: 10/28/17 21:16 Dose: 5 mg Saccharomyces Boulardii (Florastor) 250 mg PO BID [facility] Last Admin: 10/28/17 17:29 Dose: 250 mg - Labs Labs: 10/29/17 07:15 10/29/17 07:15 PT 12.0 SECONDS (9.7-12.2) 10/27/17 07:50 INR 1.1 10/27/17 07:50 APTT 30 SECONDS (21-34) 10/27/17 07:50
[2017-10-29] MEDS: Saccharomyces Boulardi 250 mg Cap PO SCH ×2 (10:00→18:34)
--- NOTE | 2017-10-29 14:56 | CP.PCM.PN ---
Subjective - Date & Time of Evaluation Date of Evaluation: 10/29/17 Time of Evaluation: 09:00 - Subjective Subjective: patient denies fever chest pain or SOB left leg pain is less but redness persists currently on Vancomycin- tolerating well Objective - Vital Signs/Intake and Output Vital Signs (last 24 hours): Temp Pulse Resp BP Pulse Ox 98.1 F 57 L 20 124/65 96 10/29/17 07:45 10/29/17 07:45 10/29/17 07:45 10/29/17 07:45 10/29/17 07:45 Intake and Output: 10/29/17 10/29/17 06:59 18:59 Intake Total 1450 Output Total 1000 Balance 450 - Medications Medications: Current Medications Acetaminophen (Tylenol 325mg Tab) 650 mg PO Q6H PRN PRN Reason: Pain, Mild (1-3) Last Admin: 10/23/17 02:02 Dose: 650 mg Dextrose (Dextrose 50% Inj) 0 ml IV STAT PRN; Protocol PRN Reason: Hypoglycemia Protocol Dextrose (Glutose 15) 0 gm PO ONCE PRN; Protocol PRN Reason: Hypoglycemia Protocol Famotidine (Pepcid) 20 mg PO BID [facility] Last Admin: 10/29/17 10:00 Dose: 20 mg Glucagon (Glucagen Diagnostic Kit) 0 mg IM STAT PRN; Protocol PRN Reason: Hypoglycemia Protocol Heparin Sodium (Porcine) (Heparin) 5,000 units SC Q8 [facility] Last Admin: 10/29/17 05:37 Dose: 5,000 units Vancomycin HCl 1,500 mg/ (Sodium Chloride) 500 mls @ 100 mls/hr IVPB Q8H [facility] PRN Reason: Protocol Last Admin: 10/29/17 11:30 Dose: 100 mls/hr Insulin Aspart (Novolog) 0 unit SC ACHS [facility] PRN Reason: Protocol Last Admin: 10/29/17 12:00 Dose: 4 units Insulin Glargine (Lantus) 28 unit SC HS [facility] Insulin Human Regular (Novolin R) 6 unit SC AC [facility] Last Admin: 10/29/17 12:00 Dose: 6 units Losartan Potassium (Cozaar) 50 mg PO DAILY [facility] Last Admin: 10/29/17 10:00 Dose: 50 mg Oxycodone/Acetaminophen (Percocet 5/325 Mg Tab) 1 tab PO Q6H PRN PRN Reason: Pain, moderate (4-7) Stop: 10/30/17 14:49 Last Admin: 10/27/17 18:36 Dose: 1 tab Rosuvastatin Calcium (Crestor) 5 mg PO HS [facility] Last Admin: 10/28/17 21:16 Dose: 5 mg Saccharomyces Boulardii (Florastor) 250 mg PO BID [facility] Last Admin: 10/29/17 10:00 Dose: 250 mg - Labs Labs: 10/29/17 07:15 10/29/17 07:15 PT 12.0 SECONDS (9.7-12.2) 10/27/17 07:50 INR 1.1 10/27/17 07:50 APTT 30 SECONDS (21-34) 10/27/17 07:50 - Constitutional Appears: Non-toxic, Chronically Ill - Head Exam Head Exam: NORMOCEPHALIC - Eye Exam Eye Exam: PERRL - ENT Exam ENT Exam: Mucous Membranes Dry - Neck Exam Neck Exam: absent: Lymphadenopathy - Respiratory Exam Respiratory Exam: Decreased Breath Sounds - Cardiovascular Exam Cardiovascular Exam: REGULAR RHYTHM - GI/Abdominal Exam GI & Abdominal Exam: Distended - Rectal Exam Rectal Exam: Deferred - Exam Exam: NORMAL INSPECTION - Extremities Exam Extremities Exam: Pedal Edema. absent: Calf Tenderness, Tenderness Additional comments: left leg cellulitis ++ s/p I and D abscess x2 still some drainage present - Back Exam Back Exam: absent: CVA tenderness (L), CVA tenderness (R) - Neurological Exam Neurological Exam: Alert, Awake, Oriented x3 Neuro motor strength exam: Left Upper Extremity: 3, Right Upper Extremity: 3, Left Lower Extremity: 3, Right Lower Extremity: 3 - Psychiatric Exam Psychiatric exam: Normal Mood - Skin Skin Exam: Dry Assessment and Plan (1) MRSA (methicillin resistant staph aureus) culture positive Status: Acute (2) MRSA (methicillin resistant Staphylococcus aureus) infection Status: Acute (3) Cellulitis Status: Acute - Assessment and Plan (Free Text) Assessment: severe cellulits left leg cultures so far only show MRSA on IV Vanco with modest improvement - may need to consider switch and or addition of additional agents
[2017-10-29] MEDS: Piperacillin/Tazobact 3.375 GM in Sodium Chloride 100 ML IVPB SCH ×2 (17:00→21:38)
[2017-10-29] MEDS: (Lantus) Insulin Glargine, Recombinant SC SCH ×2 (21:42→21:58)
[2017-10-30] MEDS: Piperacillin/Tazobact 3.375 GM in Sodium Chloride 100 ML IVPB SCH ×4 (03:31→20:00)
[2017-10-30 06:58] LABS: BASO # 0.1 K/uL (0.0-0.2); BASO % 0.8 % (0.0-2.0); EOS # 0.2 K/uL (0.0-0.7); EOS % 2.1 % (0.0-4.0); HEMOGLOBIN 12.2 g/dL (12.0-18.0); LYMPH # 2.9 K/uL (1.0-4.3); LYMPH % 35.3 % (20.0-40.0); MEAN CELL VOLUME 87.1 fL (80.0-94.0); MEAN CORPUSCULAR HEMOGLOBIN 29.9 pg (27.0-31.0); MEAN CORPUSCULAR HGB CONC 34.3 g/dL (33.0-37.0); MEAN PLATELET VOLUME 7.2 fL (7.2-11.7); MONO # 0.7 K/uL (0.0-0.8); MONO % 8.8 % (0.0-10.0); NEUT # 4.4 K/uL (1.8-7.0); NRBC % 0.1 % (0.0-2.0); RBC 4.08 Mil/uL (4.40-5.90); RED CELL DISTRIBUTION WIDTH 13.5 % (11.5-14.5); WHITE BLOOD COUNT 8.2 K/uL (4.8-10.8)
--- NOTE | 2017-10-30 07:34 | CP.PCM.PN ---
<Sybil Du V - Last Filed: 10/30/17 15:04> Objective - Vital Signs/Intake and Output Vital Signs (last 24 hours): Temp Pulse Resp BP Pulse Ox 98.3 F 65 20 153/74 H 96 10/30/17 07:40 10/30/17 09:19 10/30/17 07:40 10/30/17 09:19 10/30/17 07:40 Intake and Output: 10/30/17 10/30/17 06:59 18:59 Intake Total 200 Output Total 800 Balance -600 - Medications Medications: Current Medications Acetaminophen (Tylenol 325mg Tab) 650 mg PO Q6H PRN PRN Reason: Pain, Mild (1-3) Last Admin: 10/23/17 02:02 Dose: 650 mg Dextrose (Dextrose 50% Inj) 0 ml IV STAT PRN; Protocol PRN Reason: Hypoglycemia Protocol Dextrose (Glutose 15) 0 gm PO ONCE PRN; Protocol PRN Reason: Hypoglycemia Protocol Famotidine (Pepcid) 20 mg PO BID [facility] Last Admin: 10/30/17 09:20 Dose: 20 mg Glucagon (Glucagen Diagnostic Kit) 0 mg IM STAT PRN; Protocol PRN Reason: Hypoglycemia Protocol Heparin Sodium (Porcine) (Heparin) 5,000 units SC Q8 [facility] Last Admin: 10/30/17 14:23 Dose: 5,000 units Vancomycin HCl 1,500 mg/ (Sodium Chloride) 500 mls @ 100 mls/hr IVPB Q8H [facility] PRN Reason: Protocol Last Admin: 10/30/17 11:38 Dose: 100 mls/hr Piperacillin Sod/Tazobactam (Sod 3.375 gm/ Sodium Chloride) 100 mls @ 200 mls/ hr IVPB Q6H [facility] PRN Reason: Protocol Last Admin: 10/30/17 09:21 Dose: 200 mls/hr Insulin Aspart (Novolog) 0 unit SC ACHS [facility] PRN Reason: Protocol Last Admin: 10/30/17 12:24 Dose: 3 units Insulin Glargine (Lantus) 28 unit SC HS [facility] Last Admin: 10/29/17 21:58 Dose: 28 units Insulin Human Regular (Novolin R) 6 unit SC AC [facility] Last Admin: 10/30/17 12:25 Dose: 6 units Losartan Potassium (Cozaar) 50 mg PO DAILY [facility] Last Admin: 10/30/17 09:20 Dose: 50 mg Rosuvastatin Calcium (Crestor) 5 mg PO HS [facility] Last Admin: 10/29/17 21:39 Dose: 5 mg Saccharomyces Boulardii (Florastor) 250 mg PO BID [facility] Last Admin: 10/30/17 09:21 Dose: 250 mg - Labs Labs: 10/30/17 06:43 10/30/17 06:43 PT 12.0 SECONDS (9.7-12.2) 10/27/17 07:50 INR 1.1 10/27/17 07:50 APTT 30 SECONDS (21-34) 10/27/17 07:50 Attending/Attestation - Attestation I have personally seen and examined this patient.: Yes I have fully participated in the care of the patient.: Yes I have reviewed all pertinent clinical information, including history, physical exam and plan: Yes Notes (Text): Patient seen, examined, and case discussed with back office medical assistant. Patient seen during afternoon around about 1:45 PM. Patient is accompanied by his brother at bedside. Patient finished used using the bathroom prior to her exam. Patient reports he is doing much better. Denies fever, denies chills, denies chest pain, denies abdominal pain, denies nausea, denies vomiting and reports the wound over his leg is improving. Patient last seen by surgeon yesterday awaiting surgical rounds. Patient was seen by infectious disease recommended for either Zyvox or clindamycin upon discharge. Our resident will check with his insurance to see with Zyvox is covered. Patient is afebrile, normalized white count, and sugars are moderately controlled. 1). Left Leg Cellulitis/Abscess Assessment/plan * General surgery on board help appreciated * Infectious disease on board help appreciated * S/P I&D on 10/22/17 and then again on 10/27/17 * Wound Culture 10/22/17 shows MRSA and patient is on contact precautions * Wound Culture 10/27/17 final report is negative for growth * Echocardiogram was normal (please see full report) * Vancomycin adjusted to 1.5 gm IV Q8H at starting at 12:30 PM 10/28/17 because of Vanco Trough at 12.8 (goal is 15 to 20): doses to be given at 12:30 PM, 8:30 PM and 4:30 AM * Vancomycin trough 7/16/18 is scheduled for 8 PM (30 minutes before next 4th dose) * Per, ID d/c on zyvox or clinda for 5-7 days with follow up * Florastor 250mg by mouth bid 2). DM 2 Assessment/plan * Patient is on Glimepiride but this was held and placed on insulin to get the blood glucose under control to help treat the Left Leg Cellulitis * Lantus increased to 28 units SC HS starting 10/29/17 22:00 * Regular Insulin 6 units SC AC Meals to start with lunch time 10/29/17 * NovoLog sliding scale * Next adjustment of Lantus and Regular Insulin, if needed, should be done on morning 10/31/17 * Crestor 5 mg by mouth daily at bedtime * Cozaar 50 by mouth once a day * hypoglycemic protocol 3). Hypertension Assessment/plan * Cozaar 50 mg PO 1x/day 4). Lipid Disorder Assessment/plan * Crestor 5 mg PO HS 5). Prophylaxis * Pepcid 20 mg PO BID * Tylenol 650 mg PO Q6H PRN Pain * Florastor 250 mg PO BID * Heparin 5,000 Units SC Q8H disposition: we will need to follow-up with surgery for discharge planning. Infectious disease has made recommendations for either Zyvox or clindamycin upon discharge <Yelena Singh P - Last Filed: 10/30/17 17:44> Subjective - Date & Time of Evaluation Date of Evaluation: 10/30/17 Time of Evaluation: 07:34 - Subjective Subjective: PGY-[address] Du. Patient seen and evaluated at bedside. Patient POD #3. Sitting in chair with leg elevated, in no acute distress. States he feels much better. L leg pain has resolved. Denies fever, chills, abdominal pain, nausea, vomiting, change in vision, chest pain and shortness of breath. Objective - Vital Signs/Intake and Output Vital Signs (last 24 hours): Temp Pulse Resp BP Pulse Ox 98.4 F 60 20 139/72 97 10/29/17 23:20 10/29/17 23:20 10/29/17 23:20 10/29/17 23:20 10/29/17 23:20 Intake and Output: 10/30/17 10/30/17 06:59 18:59 Intake Total 200 Output Total 800 Balance -600 - Medications Medications: Current Medications Acetaminophen (Tylenol 325mg Tab) 650 mg PO Q6H PRN PRN Reason: Pain, Mild (1-3) Last Admin: 10/23/17 02:02 Dose: 650 mg Dextrose (Dextrose 50% Inj) 0 ml IV STAT PRN; Protocol PRN Reason: Hypoglycemia Protocol Dextrose (Glutose 15) 0 gm PO ONCE PRN; Protocol PRN Reason: Hypoglycemia Protocol Famotidine (Pepcid) 20 mg PO BID [facility] Last Admin: 10/29/17 18:34 Dose: 20 mg Glucagon (Glucagen Diagnostic Kit) 0 mg IM STAT PRN; Protocol PRN Reason: Hypoglycemia Protocol Heparin Sodium (Porcine) (Heparin) 5,000 units SC Q8 [facility] Last Admin: 10/30/17 05:55 Dose: 5,000 units Vancomycin HCl 1,500 mg/ (Sodium Chloride) 500 mls @ 100 mls/hr IVPB Q8H [facility] PRN Reason: Protocol Last Admin: 10/30/17 03:31 Dose: 100 mls/hr Piperacillin Sod/Tazobactam (Sod 3.375 gm/ Sodium Chloride) 100 mls @ 200 mls/ hr IVPB Q6H [facility] PRN Reason: Protocol Last Admin: 10/30/17 03:31 Dose: 200 mls/hr Insulin Aspart (Novolog) 0 unit SC ACHS [facility] PRN Reason: Protocol Last Admin: 10/29/17 21:43 Dose: Not Given Insulin Glargine (Lantus) 28 unit SC HS [facility] Last Admin: 10/29/17 21:58 Dose: 28 units Insulin Human Regular (Novolin R) 6 unit SC AC [facility] Last Admin: 10/29/17 17:30 Dose: 6 units Losartan Potassium (Cozaar) 50 mg PO DAILY [facility] Last Admin: 10/29/17 10:00 Dose: 50 mg Oxycodone/Acetaminophen (Percocet 5/325 Mg Tab) 1 tab PO Q6H PRN PRN Reason: Pain, moderate (4-7) Stop: 10/30/17 14:49 Last Admin: 10/27/17 18:36 Dose: 1 tab Rosuvastatin Calcium (Crestor) 5 mg PO HS [facility] Last Admin: 10/29/17 21:39 Dose: 5 mg Saccharomyces Boulardii (Florastor) 250 mg PO BID [facility] Last Admin: 10/29/17 18:34 Dose: 250 mg - Labs Labs: 10/30/17 06:43 10/29/17 07:15 PT 12.0 SECONDS (9.7-12.2) 10/27/17 07:50 INR 1.1 10/27/17 07:50 APTT 30 SECONDS (21-34) 10/27/17 07:50 - Constitutional Appears: Non-toxic, No Acute Distress - Head Exam Head Exam: ATRAUMATIC, NORMOCEPHALIC - Eye Exam Eye Exam: EOMI, Normal appearance - ENT Exam ENT Exam: Mucous Membranes Moist - Respiratory Exam Respiratory Exam: Clear to Ausculation Bilateral. absent: Rales, Rhonchi, Wheezes - Cardiovascular Exam Cardiovascular Exam: REGULAR RHYTHM, +S1, +S2 - GI/Abdominal Exam GI & Abdominal Exam: Soft, Normal Bowel Sounds. absent: Tenderness - Extremities Exam Extremities Exam: absent: Tenderness - Back Exam Additional comments: L lower extremity erythema decreased from previously demarcated line. Minimal warmth to area. No tenderness. Trace non-pitting edema to L lateral ankle. Eliptical shaped surgical scar to anterior L lower leg, packed with medihoney and with intact dressing. - Neurological Exam Neurological Exam: Alert, Awake, Oriented x3 - Psychiatric Exam Psychiatric exam: Normal Mood - Skin Skin Exam: Dry, Intact, Normal Color Additional comments: Other than listed in Extremities exam, normal. Assessment and Plan - Assessment and Plan (Free Text) Plan: 57 year old male admitted for L leg cellulitis and abscess. Left Leg Cellulitis/Abscess S/P I&D on 10/22/17 and then again on 10/27/17 Wound Culture 10/22/17 shows MRSA and patient is on contact precautions Echocardiogram was normal (please see full report) Vancomycin trough 10/29/17 =15.7 Next Vancomycin Trough at 8 PM 10/30/17 As per surgery, possible dc 10/31/17 Dr. Esquivel, ID, consulted. Help appreciated. -As per Dr. Esquivel, pt may be dc'ed on zyvox or clindamycin PO. Wound Culture 10/27/17 Final report is negative for growth DM 2 Patient is on Glimepiride but this was held and placed on insulin to get the blood glucose under control to help treat the Left Leg Cellulitis Lantus increased to 28 units SC HS starting 10/29/17 22:00 Regular Insulin 6 units SC AC Meals to start with lunch time 10/29/17 Next adjustment of Lantus and Regular Insulin, if needed, should be done on morning 10/31/17 He is on a Statin and ARB HTN Cozaar 50 mg PO 1x/day HLD Crestor 5 mg PO HS Prophylaxis Pepcid 20 mg PO BID Tylenol 650 mg PO Q6H PRN Pain Percocet 5/325 mg PO Q6H PRN Severe Pain Florastor 250 mg PO BID Heparin 5,000 Units SC Q8H Dispo: Possible DC 10/31/17- follow up with surgery recs. As per ID, pt may be dc 'ed on zyvox or clindamycin PO.
[2017-10-30 07:39] LABS: ALB/GLOB RATIO 1.1 (1.0-2.1); ALBUMIN 3.9 g/dL (3.5-5.0); ALT/SGPT 29 U/L (21-72); AST/SGOT 31 U/L (17-59); BLOOD UREA NITROGEN 10 mg/dL (9-20); CALCIUM 8.8 mg/dl (8.6-10.4); GFR AFRICAN-AMERICAN > 60; GFR NON-AFRICAN AMERICAN > 60
--- NOTE | 2017-10-30 07:51 | CP.PCM.PN ---
Subjective - Date & Time of Evaluation Date of Evaluation: 10/30/17 Time of Evaluation: 06:10 - Subjective Subjective: General Surgery Note for Dr. Bautista Patient seen and examined at bedside. No acute event overnight. He is s/p debridement of LLE abscess POD#3. He reports that his pain is controlled. He is ambulating. Patient also tolerating diet, having BM, and passing flatus. He has no complaints today. Objective - Vital Signs/Intake and Output Vital Signs (last 24 hours): Temp Pulse Resp BP Pulse Ox 98.4 F 60 20 139/72 97 10/29/17 23:20 10/29/17 23:20 10/29/17 23:20 10/29/17 23:20 10/29/17 23:20 Intake and Output: 10/30/17 10/30/17 06:59 18:59 Intake Total 200 Output Total 800 Balance -600 - Medications Medications: Current Medications Acetaminophen (Tylenol 325mg Tab) 650 mg PO Q6H PRN PRN Reason: Pain, Mild (1-3) Last Admin: 10/23/17 02:02 Dose: 650 mg Dextrose (Dextrose 50% Inj) 0 ml IV STAT PRN; Protocol PRN Reason: Hypoglycemia Protocol Dextrose (Glutose 15) 0 gm PO ONCE PRN; Protocol PRN Reason: Hypoglycemia Protocol Famotidine (Pepcid) 20 mg PO BID [facility] Last Admin: 10/29/17 18:34 Dose: 20 mg Glucagon (Glucagen Diagnostic Kit) 0 mg IM STAT PRN; Protocol PRN Reason: Hypoglycemia Protocol Heparin Sodium (Porcine) (Heparin) 5,000 units SC Q8 [facility] Last Admin: 10/30/17 05:55 Dose: 5,000 units Vancomycin HCl 1,500 mg/ (Sodium Chloride) 500 mls @ 100 mls/hr IVPB Q8H [facility] PRN Reason: Protocol Last Admin: 10/30/17 03:31 Dose: 100 mls/hr Piperacillin Sod/Tazobactam (Sod 3.375 gm/ Sodium Chloride) 100 mls @ 200 mls/ hr IVPB Q6H [facility] PRN Reason: Protocol Last Admin: 10/30/17 03:31 Dose: 200 mls/hr Insulin Aspart (Novolog) 0 unit SC ACHS [facility] PRN Reason: Protocol Last Admin: 10/29/17 21:43 Dose: Not Given Insulin Glargine (Lantus) 28 unit SC [facility] Last Admin: 10/29/17 21:58 Dose: 28 units Insulin Human Regular (Novolin R) 6 unit SC AC [facility] Last Admin: 10/29/17 17:30 Dose: 6 units Losartan Potassium (Cozaar) 50 mg PO DAILY [facility] Last Admin: 10/29/17 10:00 Dose: 50 mg Oxycodone/Acetaminophen (Percocet 5/325 Mg Tab) 1 tab PO Q6H PRN PRN Reason: Pain, moderate (4-7) Stop: 10/30/17 14:49 Last Admin: 10/27/17 18:36 Dose: 1 tab Rosuvastatin Calcium (Crestor) 5 mg PO [facility] Last Admin: 10/29/17 21:39 Dose: 5 mg Saccharomyces Boulardii (Florastor) 250 mg PO BID [facility] Last Admin: 10/29/17 18:34 Dose: 250 mg - Labs Labs: 10/30/17 06:43 10/30/17 06:43 PT 12.0 SECONDS (9.7-12.2) 10/27/17 07:50 INR 1.1 10/27/17 07:50 APTT 30 SECONDS (21-34) 10/27/17 07:50 - Additional Findings Additional findings: - Constitutional Appears: Well, Non-toxic, No Acute Distress - Head Exam Head Exam: ATRAUMATIC, NORMAL INSPECTION, NORMOCEPHALIC - Eye Exam Eye Exam: EOMI, Normal appearance - Respiratory Exam Respiratory Exam: Clear to Ausculation Bilateral, NORMAL BREATHING PATTERN - Cardiovascular Exam Cardiovascular Exam: REGULAR RHYTHM, +S1, +S2. absent: Murmur - GI/Abdominal Exam GI & Abdominal Exam: Soft, Normal Bowel Sounds. absent: Tenderness - Neurological Exam Neurological Exam: Alert, Awake, Oriented x3 - Psychiatric Exam Psychiatric exam: Normal Affect, Normal Mood - Skin Skin Exam: Dry, Erythema, Warm Additional comments: Dressing clean, dry and intact erythema is improving on LLE Assessment and Plan - Assessment and Plan (Free Text) Assessment: 57M with LLE abscess & cellulitis s/p debridement POD#3 Plan: Continue IV Abx Elevate lower extremity Medihoney for wound dressings changes daily discharge planning - possible DC 10/31 further recommendations as per Dr. Michele Sewell PGY2
[2017-10-30] MEDS: (Novolog) Insulin Aspart, Recombinant 100 u/ml 10 ml vial SC SCH ×4 (08:02→22:17)
[2017-10-30] MEDS: (Novolin R) Insulin Human Regular 100 units/ml vial SC SCH ×3 (08:03→17:00)
[2017-10-30] MEDS: Saccharomyces Boulardi 250 mg Cap PO SCH ×2 (09:21→17:46)
--- NOTE | 2017-10-30 12:08 | CP.PCM.PN ---
Subjective - Date & Time of Evaluation Date of Evaluation: 10/30/17 Time of Evaluation: 08:00 - Subjective Subjective: redness much less pain is gone swelling less large eliptical incision with min serosang drainage improving cellultis MRSA left leg d/c on zyvox or clinda for 5-7 days with follow up Objective - Vital Signs/Intake and Output Vital Signs (last 24 hours): Temp Pulse Resp BP Pulse Ox 98.3 F 65 20 153/74 H 96 10/30/17 07:40 10/30/17 09:19 10/30/17 07:40 10/30/17 09:19 10/30/17 07:40 Intake and Output: 10/30/17 10/30/17 06:59 18:59 Intake Total 200 Output Total 800 Balance -600 - Medications Medications: Current Medications Acetaminophen (Tylenol 325mg Tab) 650 mg PO Q6H PRN PRN Reason: Pain, Mild (1-3) Last Admin: 10/23/17 02:02 Dose: 650 mg Dextrose (Dextrose 50% Inj) 0 ml IV STAT PRN; Protocol PRN Reason: Hypoglycemia Protocol Dextrose (Glutose 15) 0 gm PO ONCE PRN; Protocol PRN Reason: Hypoglycemia Protocol Famotidine (Pepcid) 20 mg PO BID [facility] Last Admin: 10/30/17 09:20 Dose: 20 mg Glucagon (Glucagen Diagnostic Kit) 0 mg IM STAT PRN; Protocol PRN Reason: Hypoglycemia Protocol Heparin Sodium (Porcine) (Heparin) 5,000 units SC Q8 [facility] Last Admin: 10/30/17 05:55 Dose: 5,000 units Vancomycin HCl 1,500 mg/ (Sodium Chloride) 500 mls @ 100 mls/hr IVPB Q8H [facility] PRN Reason: Protocol Last Admin: 10/30/17 11:38 Dose: 100 mls/hr Piperacillin Sod/Tazobactam (Sod 3.375 gm/ Sodium Chloride) 100 mls @ 200 mls/ hr IVPB Q6H [facility] PRN Reason: Protocol Last Admin: 10/30/17 09:21 Dose: 200 mls/hr Insulin Aspart (Novolog) 0 unit SC ACHS [facility] PRN Reason: Protocol Last Admin: 10/30/17 08:02 Dose: 2 units Insulin Glargine (Lantus) 28 unit SC HS [facility] Last Admin: 10/29/17 21:58 Dose: 28 units Insulin Human Regular (Novolin R) 6 unit SC AC [facility] Last Admin: 10/30/17 08:03 Dose: 6 units Losartan Potassium (Cozaar) 50 mg PO DAILY [facility] Last Admin: 10/30/17 09:20 Dose: 50 mg Oxycodone/Acetaminophen (Percocet 5/325 Mg Tab) 1 tab PO Q6H PRN PRN Reason: Pain, moderate (4-7) Stop: 10/30/17 14:49 Last Admin: 10/27/17 18:36 Dose: 1 tab Rosuvastatin Calcium (Crestor) 5 mg PO HS [facility] Last Admin: 10/29/17 21:39 Dose: 5 mg Saccharomyces Boulardii (Florastor) 250 mg PO BID [facility] Last Admin: 10/30/17 09:21 Dose: 250 mg - Labs Labs: 10/30/17 06:43 10/30/17 06:43 PT 12.0 SECONDS (9.7-12.2) 10/27/17 07:50 INR 1.1 10/27/17 07:50 APTT 30 SECONDS (21-34) 10/27/17 07:50 - Constitutional Appears: Non-toxic, Chronically Ill - Head Exam Head Exam: NORMOCEPHALIC - Eye Exam Eye Exam: PERRL - ENT Exam ENT Exam: Mucous Membranes Dry - Neck Exam Neck Exam: absent: Lymphadenopathy - Respiratory Exam Respiratory Exam: Decreased Breath Sounds - Cardiovascular Exam Cardiovascular Exam: REGULAR RHYTHM - GI/Abdominal Exam GI & Abdominal Exam: Distended Assessment and Plan (1) MRSA (methicillin resistant staph aureus) culture positive Status: Acute (2) MRSA (methicillin resistant Staphylococcus aureus) infection Status: Acute (3) Cellulitis Status: Acute - Assessment and Plan (Free Text) Assessment: redness much less pain is gone swelling less large eliptical incision with min serosang drainage improving cellultis MRSA left leg d/c on zyvox or clinda for 5-7 days with follow up
[2017-10-30] MEDS: (Lantus) Insulin Glargine, Recombinant SC SCH (22:26)
[2017-10-31] MEDS: Piperacillin/Tazobact 3.375 GM in Sodium Chloride 100 ML IVPB SCH ×2 (03:45→09:24)
--- NOTE | 2017-10-31 06:53 | CP.PCM.PN ---
Objective - Vital Signs/Intake and Output Vital Signs (last 24 hours): Temp Pulse Resp BP Pulse Ox 98.0 F 59 L 20 143/72 95 10/30/17 23:25 10/30/17 23:25 10/30/17 23:25 10/30/17 23:25 10/30/17 23:25 Intake and Output: 10/30/17 10/31/17 18:59 06:59 Intake Total 900 1500 Output Total 375 Balance 900 1125 - Medications Medications: Current Medications Acetaminophen (Tylenol 325mg Tab) 650 mg PO Q6H PRN PRN Reason: Pain, Mild (1-3) Last Admin: 10/23/17 02:02 Dose: 650 mg Dextrose (Dextrose 50% Inj) 0 ml IV STAT PRN; Protocol PRN Reason: Hypoglycemia Protocol Dextrose (Glutose 15) 0 gm PO ONCE PRN; Protocol PRN Reason: Hypoglycemia Protocol Famotidine (Pepcid) 20 mg PO BID [facility] Last Admin: 10/30/17 17:46 Dose: 20 mg Glucagon (Glucagen Diagnostic Kit) 0 mg IM STAT PRN; Protocol PRN Reason: Hypoglycemia Protocol Heparin Sodium (Porcine) (Heparin) 5,000 units SC Q8 [facility] Last Admin: 10/31/17 05:29 Dose: 5,000 units Piperacillin Sod/Tazobactam (Sod 3.375 gm/ Sodium Chloride) 100 mls @ 200 mls/ hr IVPB Q6H [facility] PRN Reason: Protocol Last Admin: 10/31/17 03:45 Dose: 200 mls/hr Vancomycin HCl 1,500 mg/ (Sodium Chloride) 500 mls @ 100 mls/hr IVPB Q12H [facility] PRN Reason: Protocol Last Admin: 10/30/17 22:53 Dose: Not Given Insulin Aspart (Novolog) 0 unit SC ACHS [facility] PRN Reason: Protocol Last Admin: 10/30/17 22:17 Dose: Not Given Insulin Glargine (Lantus) 28 unit SC HS [facility] Last Admin: 10/30/17 22:26 Dose: 28 units Insulin Human Regular (Novolin R) 6 unit SC AC [facility] Last Admin: 10/30/17 17:00 Dose: 6 units Losartan Potassium (Cozaar) 50 mg PO DAILY [facility] Last Admin: 10/30/17 09:20 Dose: 50 mg Rosuvastatin Calcium (Crestor) 5 mg PO HS [facility] Last Admin: 10/30/17 21:09 Dose: 5 mg Saccharomyces Boulardii (Florastor) 250 mg PO BID [facility] Last Admin: 10/30/17 17:46 Dose: 250 mg - Labs Labs: 10/30/17 06:43 10/30/17 06:43 PT 12.0 SECONDS (9.7-12.2) 10/27/17 07:50 INR 1.1 10/27/17 07:50 APTT 30 SECONDS (21-34) 10/27/17 07:50
--- NOTE | 2017-10-31 07:03 | CP.PCM.PN ---
Subjective - Date & Time of Evaluation Date of Evaluation: 10/31/17 Time of Evaluation: 07:01 - Subjective Subjective: Surgery: Dr. Bautista Pt seen and examined. Resting comfortably in bed. Pain improved. No complaints. Objective - Vital Signs/Intake and Output Vital Signs (last 24 hours): Temp Pulse Resp BP Pulse Ox 98.0 F 59 L 20 143/72 95 10/30/17 23:25 10/30/17 23:25 10/30/17 23:25 10/30/17 23:25 10/30/17 23:25 Intake and Output: 10/31/17 10/31/17 06:59 18:59 Intake Total 1500 Output Total 375 Balance 1125 - Medications Medications: Current Medications Acetaminophen (Tylenol 325mg Tab) 650 mg PO Q6H PRN PRN Reason: Pain, Mild (1-3) Last Admin: 10/23/17 02:02 Dose: 650 mg Dextrose (Dextrose 50% Inj) 0 ml IV STAT PRN; Protocol PRN Reason: Hypoglycemia Protocol Dextrose (Glutose 15) 0 gm PO ONCE PRN; Protocol PRN Reason: Hypoglycemia Protocol Famotidine (Pepcid) 20 mg PO BID [facility] Last Admin: 10/30/17 17:46 Dose: 20 mg Glucagon (Glucagen Diagnostic Kit) 0 mg IM STAT PRN; Protocol PRN Reason: Hypoglycemia Protocol Heparin Sodium (Porcine) (Heparin) 5,000 units SC Q8 [facility] Last Admin: 10/31/17 05:29 Dose: 5,000 units Piperacillin Sod/Tazobactam (Sod 3.375 gm/ Sodium Chloride) 100 mls @ 200 mls/ hr IVPB Q6H [facility] PRN Reason: Protocol Last Admin: 10/31/17 03:45 Dose: 200 mls/hr Vancomycin HCl 1,500 mg/ (Sodium Chloride) 500 mls @ 100 mls/hr IVPB Q12H [facility] PRN Reason: Protocol Last Admin: 10/30/17 22:53 Dose: Not Given Insulin Aspart (Novolog) 0 unit SC ACHS [facility] PRN Reason: Protocol Last Admin: 10/30/17 22:17 Dose: Not Given Insulin Glargine (Lantus) 28 unit SC HS [facility] Last Admin: 10/30/17 22:26 Dose: 28 units Insulin Human Regular (Novolin R) 6 unit SC AC [facility] Last Admin: 10/30/17 17:00 Dose: 6 units Losartan Potassium (Cozaar) 50 mg PO DAILY [facility] Last Admin: 10/30/17 09:20 Dose: 50 mg Rosuvastatin Calcium (Crestor) 5 mg PO HS [facility] Last Admin: 10/30/17 21:09 Dose: 5 mg Saccharomyces Boulardii (Florastor) 250 mg PO BID [facility] Last Admin: 10/30/17 17:46 Dose: 250 mg - Labs Labs: 10/30/17 06:43 10/30/17 06:43 PT 12.0 SECONDS (9.7-12.2) 10/27/17 07:50 INR 1.1 10/27/17 07:50 APTT 30 SECONDS (21-34) 10/27/17 07:50 - Constitutional Appears: Non-toxic, No Acute Distress - Head Exam Head Exam: ATRAUMATIC, NORMOCEPHALIC - Eye Exam Eye Exam: Normal appearance - ENT Exam ENT Exam: Mucous Membranes Moist - Neck Exam Neck Exam: Full ROM, Normal Inspection - GI/Abdominal Exam GI & Abdominal Exam: Soft. absent: Tenderness - Extremities Exam Additional comments: LLE, improved cellulitis, s/p I&D, no pus, mildly tender - Neurological Exam Neurological Exam: Alert, Awake Assessment and Plan - Assessment and Plan (Free Text) Assessment: 57M w. LLE abscess/cellulitis, s/p I&D -clear for D/C from surgical stand point -abx per ID -Local wound care, medihopoint baker daily -f/u in office 1-2 weeks -d/w attending Zeaustenitis PGY4
[2017-10-31 07:47] LABS: BASO # 0.1 K/uL (0.0-0.2); BASO % 0.7 % (0.0-2.0); EOS # 0.2 K/uL (0.0-0.7); EOS % 2.3 % (0.0-4.0); HEMOGLOBIN 11.8 g/dL (12.0-18.0); LYMPH % 37.7 % (20.0-40.0); MEAN CELL VOLUME 86.7 fL (80.0-94.0); MEAN CORPUSCULAR HEMOGLOBIN 30.8 pg (27.0-31.0); MEAN CORPUSCULAR HGB CONC 35.6 g/dL (33.0-37.0); MEAN PLATELET VOLUME 7.4 fL (7.2-11.7); MONO # 0.7 K/uL (0.0-0.8); MONO % 8.6 % (0.0-10.0); NEUT % 50.7 % (50.0-75.0); NRBC % 0.1 % (0.0-2.0); RBC 3.82 Mil/uL (4.40-5.90); RED CELL DISTRIBUTION WIDTH 13.2 % (11.5-14.5); WHITE BLOOD COUNT 7.9 K/uL (4.8-10.8)
[2017-10-31] MEDS: (Novolin R) Insulin Human Regular 100 units/ml vial SC SCH ×2 (07:48→12:13)
[2017-10-31] MEDS: (Novolog) Insulin Aspart, Recombinant 100 u/ml 10 ml vial SC SCH ×2 (07:48→12:13)
[2017-10-31 08:43] VITALS: RESP 18; TEMP 98.3; O2SAT 96
[2017-10-31 08:53] LABS: ALBUMIN 3.8 g/dL (3.5-5.0); ALT/SGPT 27 U/L (21-72); AST/SGOT 22 U/L (17-59); BLOOD UREA NITROGEN 10 mg/dL (9-20); CALCIUM 9.2 mg/dl (8.6-10.4); GFR AFRICAN-AMERICAN > 60; GFR NON-AFRICAN AMERICAN > 60
[2017-10-31 09:23] VITALS: BP 120/76; PULSE 64
[2017-10-31] MEDS: Saccharomyces Boulardi 250 mg Cap PO SCH (09:23)
--- NOTE | 2017-10-31 11:39 | CP.PCM.DIS ---
<ChrisKyleighs M - Last Filed: 10/31/17 19:11> Provider - Provider Date of Admission: 10/21/17 20:17 Attending physician: Sybil Du DO Primary care physician: Dr. Tavarez Consults: Dr. Bautista, Dr. Esquivel, Time Spent in preparation of Discharge (in minutes): 40 Diagnosis - Discharge Diagnosis (1) MRSA (methicillin resistant Staphylococcus aureus) infection Status: Acute Comment: Cellulits, s/p I&D, Abx inpation treatment and outpatient treatment. (2) Diabetes mellitus Status: Acute Comment: Chronic, managed via insulin during inpatient stay, converted back to PO medications per home meds. (3) Hypertension Status: Acute Comment: Chronic, maintained inpatient with cozaar 50mg PO QD (4) Lipid disorder Status: Acute Comment: Chronic, managed with crestor 5mg PO HS. Hospital Course - Lab Results Lab Results: Micro Results 10/27/17 Unknown Abscess - Leg-Left Gram Stain - Final 10/27/17 Unknown Abscess - Leg-Left Wound Culture - Final No growth. 10/21/17 20:00 Blood Blood Culture - Final NO GROWTH AFTER 5 DAYS 10/21/17 20:00 Blood Gram Stain - Final TEST NOT PERFORMED 10/21/17 19:30 Blood Blood Culture - Final NO GROWTH AFTER 5 DAYS 10/21/17 19:30 Blood Gram Stain - Final TEST NOT PERFORMED 10/24/17 22:23 Naris MRSA Culture (Admit) - Final MRSA NOT DETECTED 10/22/17 18:33 Abscess - Leg-Left Gram Stain - Final 10/22/17 18:33 Abscess - Leg-Left Wound Culture - Final Methicillin Resistant S Aureus 10/22/17 06:00 Urine Urine Culture - Final No Growth (<1,000 CFU/ML) Most Recent Lab Values WBC 7.9 K/uL (4.8-10.8) 10/31/17 07:33 RBC 3.82 Mil/uL (4.40-5.90) L 10/31/17 07:33 Hgb 11.8 g/dL (12.0-18.0) L 10/31/17 07:33 Hct 33.1 % (35.0-51.0) L 10/31/17 07:33 MCV 86.7 fL (80.0-94.0) 10/31/17 07:33 MCH 30.8 pg (27.0-31.0) 10/31/17 07:33 MCHC 35.6 g/dL (33.0-37.0) 10/31/17 07:33 RDW 13.2 % (11.5-14.5) 10/31/17 07:33 Plt Count 738 K/uL (130-400) H 10/31/17 07:33 MPV 7.4 fL (7.2-11.7) 10/31/17 07:33 Neut % (Auto) 50.7 % (50.0-75.0) 10/31/17 07:33 Lymph % (Auto) 37.7 % (20.0-40.0) 10/31/17 07:33 [place] % (Auto) 8.6 % (0.0-10.0) 10/31/17 07:33 Eos % (Auto) 2.3 % (0.0-4.0) 10/31/17 07:33 Baso % (Auto) 0.7 % (0.0-2.0) 10/31/17 07:33 Neut # (Auto) 4.0 K/uL (1.8-7.0) 10/31/17 07:33 Lymph # (Auto) 3.0 K/uL (1.0-4.3) 10/31/17 07:33 [place] # (Auto) 0.7 K/uL (0.0-0.8) 10/31/17 07:33 Eos # (Auto) 0.2 K/uL (0.0-0.7) 10/31/17 07:33 Baso # (Auto) 0.1 K/uL (0.0-0.2) 10/31/17 07:33 Neutrophils % (Manual) 81 % (50-75) H 10/21/17 19:37 Lymphocytes % (Manual) 11 % (20-40) L 10/21/17 19:37 Monocytes % (Manual) 8 % (0-10) 10/21/17 19:37 Platelet Estimate Normal (NORMAL) 10/21/17 19:37 Large Platelets Present 10/21/17 19:37 Poikilocytosis (manual Slight 10/21/17 19:37 Ovalocytes Slight 10/21/17 19:37 PT 12.0 SECONDS (9.7-12.2) 10/27/17 07:50 INR 1.1 10/27/17 07:50 APTT 30 SECONDS (21-34) 10/27/17 07:50 pO2 39 mm/Hg (30-55) 10/22/17 02:04 VBG pH 7.36 (7.32-7.43) 10/22/17 02:04 VBG pCO2 46 mmHg (40-60) 10/22/17 02:04 VBG HCO3 24.3 mmol/L 10/22/17 02:04 VBG Total CO2 27.4 mmol/L (22-28) 10/22/17 02:04 VBG O2 Sat (Calc) 77.8 % (40-65) H 10/22/17 02:04 VBG Base Excess 0.1 mmol/L (0.0-2.0) 10/22/17 02:04 VBG Potassium 3.4 mmol/L (3.6-5.2) L 10/22/17 02:04 Sodium 139.0 mmol/l (132-148) 10/22/17 02:04 Chloride 107.0 mmol/L (98-107) 10/22/17 02:04 Glucose 202 mg/dl (75-110) H 10/22/17 02:04 Lactate 1.1 mmol/L (0.7-2.1) 10/22/17 02:04 Crit Value Called To Zeferino sauer rn 10/22/17 02:04 Crit Value Called By Heather trujillo rt 10/22/17 02:04 Crit Value Read Back Y 10/22/17 02:04 Blood Gas Notified Time 226 10/22/17 02:04 Sodium 140 mmol/L (132-148) 10/31/17 07:33 Potassium 4.2 mmol/L (3.6-5.2) 10/31/17 07:33 Chloride 102 mmol/L (98-107) 10/31/17 07:33 Carbon Dioxide 26 mmol/L (22-30) 10/31/17 07:33 Anion Gap 16 (10-20) 10/31/17 07:33 BUN 10 mg/dL (9-20) 10/31/17 07:33 Creatinine 0.9 mg/dL (0.8-1.5) 10/31/17 07:33 Est GFR ( Amer) > 60 10/31/17 07:33 Est GFR (Non-Af Amer) > 60 10/31/17 07:33 POC Glucose (mg/dL) 184 mg/dL (65-110) H 10/31/17 06:17 Random Glucose 182 mg/dL (75-110) H 10/31/17 07:33 Hemoglobin A1c 9.3 % (4.2-6.5) H 10/23/17 07:00 Lactic Acid 1.1 mmol/L (0.7-2.1) 10/21/17 22:12 Calcium 9.2 mg/dl (8.6-10.4) 10/31/17 07:33 Phosphorus 5.0 mg/dL (2.5-4.5) H 10/31/17 07:33 Magnesium 2.1 mg/dL (1.6-2.3) 10/31/17 07:33 Total Bilirubin 0.4 mg/dL (0.2-1.3) 10/31/17 07:33 AST 22 U/L (17-59) 10/31/17 07:33 ALT 27 U/L (21-72) 10/31/17 07:33 Alkaline Phosphatase 79 U/L (38-126) 10/31/17 07:33 Total Protein 7.5 g/dL (6.3-8.3) 10/31/17 07:33 Albumin 3.8 g/dL (3.5-5.0) 10/31/17 07:33 Globulin 3.7 gm/dL (2.2-3.9) 10/31/17 07:33 Albumin/Globulin Ratio 1.0 (1.0-2.1) 10/31/17 07:33 Triglycerides 215 mg/dL (0-149) H 10/23/17 07:00 Cholesterol 162 mg/dL (0-199) 10/23/17 07:00 LDL Cholesterol Direct 75 mg/dL (0-129) 10/23/17 07:00 HDL Cholesterol 27 mg/dL (30-70) L 10/23/17 07:00 Procalcitonin 1.80 NG/ML (0.19-0.49) H 10/22/17 02:11 Venous Blood Potassium 3.4 mmol/L (3.6-5.2) L 10/22/17 02:04 Urine Color Yellow (YELLOW) 10/22/17 02:11 Urine Clarity Clear (Clear) 10/22/17 02:11 Urine pH 6.0 (5.0-8.0) 10/22/17 02:11 Ur Specific [place] 1.006 (1.003-1.030) 10/22/17 02:11 Urine Protein Negative mg/dL (NEGATIVE) 10/22/17 02:11 Urine Glucose (UA) Normal mg/dL (Normal) 10/22/17 02:11 Urine Ketones Negative mg/dL (NEGATIVE) 10/22/17 02:11 Urine Blood 2+ (NEGATIVE) H 10/22/17 02:11 Urine Nitrate Negative (NEGATIVE) 10/22/17 02:11 Urine Bilirubin Negative (NEGATIVE) 10/22/17 02:11 Urine Urobilinogen Normal mg/dL (0.2-1.0) 10/22/17 02:11 Ur Leukocyte Esterase Neg Yu/uL (Negative) 10/22/17 02:11 Urine WBC (Auto) 1 /hpf (0-5) 10/22/17 02:11 Urine RBC (Auto) < 1 /hpf (0-3) 10/22/17 02:11 Vancomycin Trough 17.8 ug/mL (5.0-10.0) H 10/30/17 19:48 Urine Opiates Screen Negative (NEGATIVE) 10/22/17 02:11 Urine Methadone Screen Negative (NEGATIVE) 10/22/17 02:11 Ur Barbiturates Screen Negative (NEGATIVE) 10/22/17 02:11 Ur Phencyclidine Scrn Negative (NEGATIVE) 10/22/17 02:11 Ur Amphetamines Screen Negative (NEGATIVE) 10/22/17 02:11 U Benzodiazepines Scrn Negative (NEGATIVE) 10/22/17 02:11 U Oth Cocaine Metabols Negative (NEGATIVE) 10/22/17 02:11 U Cannabinoids Screen Negative (NEGATIVE) 10/22/17 02:11 - Hospital Course Hospital Course: HPI: Patient is a 57 yo M with a PMHx of DM, HTN, Hypercholesterolemia who presents to ED for worsening L mirza redness, pain, and fevers that began 3 days prior to arrival. Patient states he has not been able to walk due to 9/10 L leg pain. Treatment with ibuprofen was not effective for the pain and helped to reduce fever only temporarily. Associated symptoms include chills, headache, lightheadedness on standing, mild shortness of breath, and nausea. Patient denies chest pain, palpitations, generalized weakness, cough, vomiting, diarrhea , dysuria, hematuria, urinary frequency, recent illness. Patient states he had a lipoma removed from his left mirza at [facility] by Dr. Bautista on 07/12 and notes that the redness is located at the incision site. Patient denies any complications at the time of surgery. Patient saw his PMD, Dr. Tavarez, yesterday who prescribed cephalexin 500 PO QID, and instructed the patient to come to ED if there was no improvement of symptoms. During course of stay, patient had two incision and drainage for abscess vs cellulites (10/22 & 10/27). Initial I &D produced MRSA + bacteria and placed on contact precautions and was continued on vancomyocin 1g Q12, with vanc troph goal of 15-20. Patient required several dosing changes to achieve goal of van troph. Patient second culture revealed no growth. Patient additionally had an echocardiogram did not reveal any vegetations suggestive of endocarditis. ( please see full reports for detailed report). During course, patient had daily dressing changes performed by the surgery team. Patient also had infectious disease following for optimization of medications. Venous duplex & MRI were performed suggesting no DVT and no osteomyelitis. WBC trended down and patient was on insulin inpatient for optimization of patient diabetes. This is only a summary of patient stay at the hospital, for further details please refer to full EMR documentation. Please see below for discharge instructions provided to the patient. Patient is stable for Discharge home, per Dr. Du on 10/31/17. Patient should resume his home medications: Glimepiride 4mg (Amaryl once daily, 8:00 AM) Losartan 50 mg once daily at night Pravastain Sodium (Pravachol 40mg once daily at bedtime) Saxagliptin HCL/ Metformin HCl (Kimbidglyze Xr 5- 500mg once a day) Additionally, the patient should start the following medication: Zyvox 400 mg, twice a day for seven (7) days Florastor 250mg twice a day for thirty (30) days Patient given prescription for all of the above medications upon discharge. If patient cannot afford florastor, patient can take probiotic yogurt twice a day in between taking the antibiotic (zyvox). Patient should follow up with his primary doctor, Dr. Tavarez within one (1) month. Additionally patient should follow up with General Surgeon, Dr. Nascimento in one (1) to two (2) weeks. Patient should follow up with infectious disease Dr. Eleazar Esquivel in three (3) days. Patient provided a prescription for a quad cane for stability while walking per physical therapy recommendations. Additionally, patient should keep the lower extremity elevated and should continue to use medihoney for wound care and change dressing daily. If patient has any symptoms that arise again or worsen that arrive, please return to the nearest emergency medical facility. Thank you and take care! Discharge Exam - Head Exam Head Exam: ATRAUMATIC, NORMAL INSPECTION, NORMOCEPHALIC - Eye Exam Eye Exam: EOMI, Normal appearance, PERRL Pupil Exam: NORMAL ACCOMODATION - ENT Exam ENT Exam: Mucous Membranes Moist - Neck Exam Neck exam: Full Rom - Respiratory Exam Respiratory Exam: Clear to PA & Lateral, NORMAL BREATHING PATTERN. absent: Rales, Rhonchi, Wheezes, Respiratory Distress - Cardiovascular Exam Cardiovascular Exam: REGULAR RHYTHM, +S1, +S2. absent: Systolic Murmur - GI/Abdominal Exam GI & Abdominal Exam: Normal Bowel Sounds, Soft, Unremarkable. absent: Distended , Firm, Guarding, Tenderness - Extremities Exam Additional comments: Left lower extremity, 2/3 distal tibal surface has approximately 1 cm X 3 cm oval incision s/p I/D that is no longer producing serosanguineous fluid. Dressing clean, dry, intact. No calf tenderness, no pedal edema, peripheral pulses in all extremities present - Back Exam Back exam: NORMAL INSPECTION. absent: CVA tenderness (L), CVA tenderness (R) - Neurological Exam Neurological exam: Alert, CN II-XII Intact, Oriented x3 - Psychiatric Exam Psychiatric exam: Normal Affect, Normal Mood - Skin Skin Exam: Dry, Intact, Normal Color, Warm Discharge Plan - Discharge Medications Prescriptions: Glimepiride [amaRYL] 4 mg PO DAILY #30 tab Linezolid [Zyvox] 600 mg PO BID 7 Days #14 tab Pravastatin Sodium [Pravachol] 1 tab PO HS #30 tab Saccharomyces Boulardi [Florastor] 250 mg PO BID #30 cap Saxagliptin HCl/Metformin HCl [Kombiglyze Xr 5-500 mg Tablet] 1 tab PO ACD #30 tbmp.24hr - Follow Up Plan Condition: STABLE Disposition: HOME/ ROUTINE Instructions: Heart Healthy Diet, Carbohydrate Counting Diet, Diabetes Diet , Sepsis, Adult (DC), Cellulitis (Skin Infection), Adult (DC), MRSA (Methicillin Resistant Staphylococcus Aureus) (GEN), Cellulitis (GEN) Additional Instructions: Patient is stable for Discharge home, per Dr. Du. Patient should resume his home medications: Glimepiride 4mg (Amaryl once daily, 8:00 AM) Losartan 50 mg once daily at night Pravastain Sodium (Pravachol 40mg once daily at bedtime) Saxagliptin HCL/ Metformin HCl (Kimbidglyze Xr 5- 500mg once a day) Additionally, the patient should start the following medication: Zyvox 400 mg, twice a day for seven (7) days Florastor 250mg twice a day for thirty (30) days Patient given prescription for all of the above medications upon discharge. If patient cannot afford florastor, patient can take probiotic yogurt twice a day in between taking the antibiotic (zyvox). Patient should follow up with his primary doctor, Dr. Tavarez within one (1) month. Additionally patient should follow up with General Surgeon, Dr. Nascimento in one (1) to two (2) weeks. Patient should follow up with infectious disease Dr. Eleazar Esquivel in three (3) days. Patient provided a prescription for a quad cane for stability while walking per physical therapy recommendations. Additionally, patient should keep the lower extremity elevated and should continue to use medihoney for wound care and change dressing daily. If patient has any symptoms that arise again or worsen that arrive, please return to the nearest emergency medical facility. Thank you and take care! Referrals: Eleazar Esquivel MD [Staff Provider] - Frank Bautista MD [Staff Provider] - <Sybil Du V - Last Filed: 11/01/17 05:13> Provider - Provider Date of Admission: 10/21/17 20:17 Attending physician: Sybil Du, Hospital Course - Lab Results Lab Results: Micro Results 10/27/17 Unknown Abscess - Leg-Left Gram Stain - Final 10/27/17 Unknown Abscess - Leg-Left Wound Culture - Final No growth. 10/21/17 20:00 Blood Blood Culture - Final NO GROWTH AFTER 5 DAYS 10/21/17 20:00 Blood Gram Stain - Final TEST NOT PERFORMED 10/21/17 19:30 Blood Blood Culture - Final NO GROWTH AFTER 5 DAYS 10/21/17 19:30 Blood Gram Stain - Final TEST NOT PERFORMED 10/24/17 22:23 Naris MRSA Culture (Admit) - Final MRSA NOT DETECTED 10/22/17 18:33 Abscess - Leg-Left Gram Stain - Final 10/22/17 18:33 Abscess - Leg-Left Wound Culture - Final Methicillin Resistant S Aureus 10/22/17 06:00 Urine Urine Culture - Final No Growth (<1,000 CFU/ML) Most Recent Lab Values WBC 7.9 K/uL (4.8-10.8) 10/31/17 07:33 RBC 3.82 Mil/uL (4.40-5.90) L 10/31/17 07:33 Hgb 11.8 g/dL (12.0-18.0) L 10/31/17 07:33 Hct 33.1 % (35.0-51.0) L 10/31/17 07:33 MCV 86.7 fL (80.0-94.0) 10/31/17 07:33 MCH 30.8 pg (27.0-31.0) 10/31/17 07:33 MCHC 35.6 g/dL (33.0-37.0) 10/31/17 07:33 RDW 13.2 % (11.5-14.5) 10/31/17 07:33 Plt Count 738 K/uL (130-400) H 10/31/17 07:33 MPV 7.4 fL (7.2-11.7) 10/31/17 07:33 Neut % (Auto) 50.7 % (50.0-75.0) 10/31/17 07:33 Lymph % (Auto) 37.7 % (20.0-40.0) 10/31/17 07:33 [place] % (Auto) 8.6 % (0.0-10.0) 10/31/17 07:33 Eos % (Auto) 2.3 % (0.0-4.0) 10/31/17 07:33 Baso % (Auto) 0.7 % (0.0-2.0) 10/31/17 07:33 Neut # (Auto) 4.0 K/uL (1.8-7.0) 10/31/17 07:33 Lymph # (Auto) 3.0 K/uL (1.0-4.3) 10/31/17 07:33 [place] # (Auto) 0.7 K/uL (0.0-0.8) 10/31/17 07:33 Eos # (Auto) 0.2 K/uL (0.0-0.7) 10/31/17 07:33 Baso # (Auto) 0.1 K/uL (0.0-0.2) 10/31/17 07:33 Neutrophils % (Manual) 81 % (50-75) H 10/21/17 19:37 Lymphocytes % (Manual) 11 % (20-40) L 10/21/17 19:37 Monocytes % (Manual) 8 % (0-10) 10/21/17 19:37 Platelet Estimate Normal (NORMAL) 10/21/17 19:37 Large Platelets Present 10/21/17 19:37 Poikilocytosis (manual Slight 10/21/17 19:37 Ovalocytes Slight 10/21/17 19:37 PT 12.0 SECONDS (9.7-12.2) 10/27/17 07:50 INR 1.1 10/27/17 07:50 APTT 30 SECONDS (21-34) 10/27/17 07:50 pO2 39 mm/Hg (30-55) 10/22/17 02:04 VBG pH 7.36 (7.32-7.43) 10/22/17 02:04 VBG pCO2 46 mmHg (40-60) 10/22/17 02:04 VBG HCO3 24.3 mmol/L 10/22/17 02:04 VBG Total CO2 27.4 mmol/L (22-28) 10/22/17 02:04 VBG O2 Sat (Calc) 77.8 % (40-65) H 10/22/17 02:04 VBG Base Excess 0.1 mmol/L (0.0-2.0) 10/22/17 02:04 VBG Potassium 3.4 mmol/L (3.6-5.2) L 10/22/17 02:04 Sodium 139.0 mmol/l (132-148) 10/22/17 02:04 Chloride 107.0 mmol/L (98-107) 10/22/17 02:04 Glucose 202 mg/dl (75-110) H 10/22/17 02:04 Lactate 1.1 mmol/L (0.7-2.1) 10/22/17 02:04 Crit Value Called To Zeferino sauer rn 10/22/17 02:04 Crit Value Called By Heather trujillo rt 10/22/17 02:04 Crit Value Read Back Y 10/22/17 02:04 Blood Gas Notified Time 226 10/22/17 02:04 Sodium 140 mmol/L (132-148) 10/31/17 07:33 Potassium 4.2 mmol/L (3.6-5.2) 10/31/17 07:33 Chloride 102 mmol/L (98-107) 10/31/17 07:33 Carbon Dioxide 26 mmol/L (22-30) 10/31/17 07:33 Anion Gap 16 (10-20) 10/31/17 07:33 BUN 10 mg/dL (9-20) 10/31/17 07:33 Creatinine 0.9 mg/dL (0.8-1.5) 10/31/17 07:33 Est GFR ( Amer) > 60 10/31/17 07:33 Est GFR (Non-Af Amer) > 60 10/31/17 07:33 POC Glucose (mg/dL) 326 mg/dL (65-110) H 10/31/17 11:36 Random Glucose 182 mg/dL (75-110) H 10/31/17 07:33 Hemoglobin A1c 9.3 % (4.2-6.5) H 10/23/17 07:00 Lactic Acid 1.1 mmol/L (0.7-2.1) 10/21/17 22:12 Calcium 9.2 mg/dl (8.6-10.4) 10/31/17 07:33 Phosphorus 5.0 mg/dL (2.5-4.5) H 10/31/17 07:33 Magnesium 2.1 mg/dL (1.6-2.3) 10/31/17 07:33 Total Bilirubin 0.4 mg/dL (0.2-1.3) 10/31/17 07:33 AST 22 U/L (17-59) 10/31/17 07:33 ALT 27 U/L (21-72) 10/31/17 07:33 Alkaline Phosphatase 79 U/L (38-126) 10/31/17 07:33 Total Protein 7.5 g/dL (6.3-8.3) 10/31/17 07:33 Albumin 3.8 g/dL (3.5-5.0) 10/31/17 07:33 Globulin 3.7 gm/dL (2.2-3.9) 10/31/17 07:33 Albumin/Globulin Ratio 1.0 (1.0-2.1) 10/31/17 07:33 Triglycerides 215 mg/dL (0-149) H 10/23/17 07:00 Cholesterol 162 mg/dL (0-199) 10/23/17 07:00 LDL Cholesterol Direct 75 mg/dL (0-129) 10/23/17 07:00 HDL Cholesterol 27 mg/dL (30-70) L 10/23/17 07:00 Procalcitonin 1.80 NG/ML (0.19-0.49) H 10/22/17 02:11 Venous Blood Potassium 3.4 mmol/L (3.6-5.2) L 10/22/17 02:04 Urine Color Yellow (YELLOW) 10/22/17 02:11 Urine Clarity Clear (Clear) 10/22/17 02:11 Urine pH 6.0 (5.0-8.0) 10/22/17 02:11 Ur Specific [place] 1.006 (1.003-1.030) 10/22/17 02:11 Urine Protein Negative mg/dL (NEGATIVE) 10/22/17 02:11 Urine Glucose (UA) Normal mg/dL (Normal) 10/22/17 02:11 Urine Ketones Negative mg/dL (NEGATIVE) 10/22/17 02:11 Urine Blood 2+ (NEGATIVE) H 10/22/17 02:11 Urine Nitrate Negative (NEGATIVE) 10/22/17 02:11 Urine Bilirubin Negative (NEGATIVE) 10/22/17 02:11 Urine Urobilinogen Normal mg/dL (0.2-1.0) 10/22/17 02:11 Ur Leukocyte Esterase Neg Yu/uL (Negative) 10/22/17 02:11 Urine WBC (Auto) 1 /hpf (0-5) 10/22/17 02:11 Urine RBC (Auto) < 1 /hpf (0-3) 10/22/17 02:11 Vancomycin Trough 17.8 ug/mL (5.0-10.0) H 10/30/17 19:48 Urine Opiates Screen Negative (NEGATIVE) 10/22/17 02:11 Urine Methadone Screen Negative (NEGATIVE) 10/22/17 02:11 Ur Barbiturates Screen Negative (NEGATIVE) 10/22/17 02:11 Ur Phencyclidine Scrn Negative (NEGATIVE) 10/22/17 02:11 Ur Amphetamines Screen Negative (NEGATIVE) 10/22/17 02:11 U Benzodiazepines Scrn Negative (NEGATIVE) 10/22/17 02:11 U Oth Cocaine Metabols Negative (NEGATIVE) 10/22/17 02:11 U Cannabinoids Screen Negative (NEGATIVE) 10/22/17 02:11 Attending/Attestation - Attestation I have personally seen and examined this patient.: Yes I have fully participated in the care of the patient.: Yes I have reviewed all pertinent clinical information, including history, physical exam and plan: Yes Notes (Text): This is late computer entry for 10/31/17. Patient seen, examined, and case discussed with medical office representative. Patient seen this morning. Denies fever, denies chills, denies chest pain, denies abdominal pain, denies nausea, denies vomiting and reports the wound over his leg is improving. Patient was seen by surgery team and deemed stable for discharge. Recommended for local wound care and f/u in the office in 1-2 weeks. Resident has checked with insurance who covers Zyvox 600mg PO BID (not 400mg; which I had clarified with ID). Patient to follow-up with surgeon in 1-2 weeks. Patient to follow-up with ID in 3 days. Patient to f/u with PMD after following up with specialists. Patient to resume home regiment for diabetes, hypertension. New prescriptions upon discharge: 1) Zyvox 600mg PO BID (10 days) 2) Florastor 250mg PO BID (60 tabs) 3) Quad cane per physical therapy recommendation This is a summary of patient's hospitalization. Please see EMR for further detail of record. Discharge Diagnoses: 1). Left Leg Cellulitis/Abscess-->Stable Assessment/plan * General surgery on board help appreciated * Infectious disease on board help appreciated * S/P I&D on 10/22/17 and then again on 10/27/17 * Wound Culture 10/22/17 shows MRSA and patient is on contact precautions * Wound Culture 10/27/17 final report is negative for growth * Echocardiogram was normal (please see full report) * Florastor 250mg by mouth bid * Upon discharge, * 1) Zyvox 600mg PO BID (10 days) * 2) Florastor 250mg PO BID (60 tabs) * Patient to follow-up with surgeon in 1-2 weeks. Patient to follow-up with ID in 3 days. 2). DM 2-->Chronic Assessment/plan * Patient is on Glimepiride but this was held and placed on insulin to get the blood glucose under control to help treat the Left Leg Cellulitis * Lantus increased to 28 units SC HS starting 10/29/17 22:00 * Regular Insulin 6 units SC AC Meals to start with lunch time 10/29/17 * NovoLog sliding scale * Next adjustment of Lantus and Regular Insulin, if needed, should be done on morning 10/31/17 * Crestor 5 mg by mouth daily at bedtime * Cozaar 50 by mouth once a day * hypoglycemic protocol * Patient to resume home regimen on discharge. 3). Hypertension-->Chronic Assessment/plan * Cozaar 50 mg PO 1x/day * Patient to resume home regimen on discharge. 4). Lipid Disorder-->Chronic Assessment/plan * Crestor 5 mg PO HS * Patient to resume home regimen on discharge. 5). Prophylaxis * Pepcid 20 mg PO BID * Tylenol 650 mg PO Q6H PRN Pain * Florastor 250 mg PO BID * Heparin 5,000 Units SC Q8H
--- NOTE | 2017-10-31 12:41 | CP.PCM.PN ---
Subjective - Date & Time of Evaluation Date of Evaluation: 10/31/17 Time of Evaluation: 10:00 - Subjective Subjective: no new + cultures s/p I and D x 2 for d/c on pO rx follow up in 3 days Objective - Vital Signs/Intake and Output Vital Signs (last 24 hours): Temp Pulse Resp BP Pulse Ox 98.3 F 64 18 120/76 96 10/31/17 07:30 10/31/17 09:22 10/31/17 07:30 10/31/17 09:22 10/31/17 07:30 Intake and Output: 10/31/17 10/31/17 06:59 18:59 Intake Total 1500 Output Total 375 Balance 1125 - Medications Medications: Current Medications Acetaminophen (Tylenol 325mg Tab) 650 mg PO Q6H PRN PRN Reason: Pain, Mild (1-3) Last Admin: 10/23/17 02:02 Dose: 650 mg Dextrose (Dextrose 50% Inj) 0 ml IV STAT PRN; Protocol PRN Reason: Hypoglycemia Protocol Dextrose (Glutose 15) 0 gm PO ONCE PRN; Protocol PRN Reason: Hypoglycemia Protocol Famotidine (Pepcid) 20 mg PO BID [facility] Last Admin: 10/31/17 09:23 Dose: 20 mg Glucagon (Glucagen Diagnostic Kit) 0 mg IM STAT PRN; Protocol PRN Reason: Hypoglycemia Protocol Heparin Sodium (Porcine) (Heparin) 5,000 units SC Q8 [facility] Last Admin: 10/31/17 05:29 Dose: 5,000 units Piperacillin Sod/Tazobactam (Sod 3.375 gm/ Sodium Chloride) 100 mls @ 200 mls/ hr IVPB Q6H [facility] PRN Reason: Protocol Last Admin: 10/31/17 09:24 Dose: 200 mls/hr Vancomycin HCl 1,500 mg/ (Sodium Chloride) 500 mls @ 100 mls/hr IVPB Q12H [facility] PRN Reason: Protocol Last Admin: 10/31/17 10:57 Dose: 100 mls/hr Insulin Aspart (Novolog) 0 unit SC ACHS [facility] PRN Reason: Protocol Last Admin: 10/31/17 12:13 Dose: 6 units Insulin Glargine (Lantus) 28 unit SC HS [facility] Last Admin: 10/30/17 22:26 Dose: 28 units Insulin Human Regular (Novolin R) 6 unit SC AC [facility] Last Admin: 10/31/17 12:13 Dose: 6 units Losartan Potassium (Cozaar) 50 mg PO DAILY [facility] Last Admin: 10/31/17 09:24 Dose: 50 mg Rosuvastatin Calcium (Crestor) 5 mg PO HS [facility] Last Admin: 10/30/17 21:09 Dose: 5 mg Saccharomyces Boulardii (Florastor) 250 mg PO BID [facility] Last Admin: 10/31/17 09:23 Dose: 250 mg - Labs Labs: 10/31/17 07:33 10/31/17 07:33 PT 12.0 SECONDS (9.7-12.2) 10/27/17 07:50 INR 1.1 10/27/17 07:50 APTT 30 SECONDS (21-34) 10/27/17 07:50 - Constitutional Appears: Non-toxic, Chronically Ill - Head Exam Head Exam: NORMOCEPHALIC - Eye Exam Eye Exam: PERRL - ENT Exam ENT Exam: Mucous Membranes Dry - Neck Exam Neck Exam: absent: Lymphadenopathy - Respiratory Exam Respiratory Exam: Decreased Breath Sounds - Cardiovascular Exam Cardiovascular Exam: REGULAR RHYTHM - GI/Abdominal Exam GI & Abdominal Exam: Distended, Soft - Rectal Exam Rectal Exam: Deferred - Exam Exam: NORMAL INSPECTION - Extremities Exam Extremities Exam: absent: Calf Tenderness, Pedal Edema, Tenderness Additional comments: decreased swelling / redness wound healing - Back Exam Back Exam: absent: CVA tenderness (L), CVA tenderness (R) Assessment and Plan (1) MRSA (methicillin resistant staph aureus) culture positive Status: Acute (2) MRSA (methicillin resistant Staphylococcus aureus) infection Status: Acute (3) Cellulitis Status: Acute
== END 2017-10-31 15:31 | disposition home or self-care (01) | DRG 603 ==
LOC: C.ER 17:54 → C.9E 20:17 → C.6T 21:15
PROVIDERS: ADMIT Hospitalist; ATTEND Hospitalist
PROC: 0H9LXZX Drainage of Left Lower Leg Skin, External Approach, Diagnostic (ICD-10-PCS; 2017-10-22)
PROC: 0H9LXZX Drainage of Left Lower Leg Skin, External Approach, Diagnostic (ICD-10-PCS; 2017-10-27)
PROC: 0HBLXZZ Excision of Left Lower Leg Skin, External Approach (ICD-10-PCS; principal; 2017-10-27 14:30)
DX: L03.116 Cellulitis of left lower limb (principal); E11.65 Type 2 diabetes mellitus with hyperglycemia; E78.00 Pure hypercholesterolemia, unspecified; I10 Essential (primary) hypertension; Z79.4 Long term (current) use of insulin; B95.62 Methicillin resistant Staphylococcus aureus infection as the cause of diseases classified elsewhere

== ENCOUNTER 2017-11-28 11:51 | Inpatient (IN) | payer OTHER ==
[2017-11-28] MEDS ORDERED: Sodium Chloride 0.9% 3,000 ML IV ONE (12:54)
--- NOTE | 2017-11-28 12:57 | C.PDOC ---
History Of Present Illness 57 year old male presents to the ED with new onset of near syncope episode [employer]. As per patient, he woke up feeling normal and drove to another location without any symptoms. Patient felt lightheaded after climbing stairs. Denies any fall or trauma. No associated headache, chest pain, nausea, vomiting, or any other symptoms. Patient was discharged on 10/21/17 for cellulitis and abscess. He reports he was doing well until today. Time Seen by Provider: 11/28/17 12:45 Chief Complaint (Nursing): Syncope History Per: Patient History/Exam Limitations: no limitations Onset/Duration Of Symptoms: Hrs Current Symptoms Are (Timing): Still Present Past Medical History Reviewed: Historical Data, Nursing Documentation, Vital Signs Vital Signs: Last Vital Signs Temp 97.5 F L 11/28/17 12:08 Pulse 94 H 11/28/17 15:51 Resp 16 11/28/17 15:51 BP 133/81 11/28/17 15:51 Pulse Ox 95 11/28/17 16:03 - Medical History PMH: Arthritis, HTN, Hypercholesterolemia Denies: Chronic Kidney Disease Other Surgeries: Hx of surgeries - [employer] Procedures DRAINAGE OF LEFT LOWER LEG SKIN, EXTERNAL APPROACH, DIAGN (10/21/17) EXCISION OF LEFT LOWER LEG SKIN, EXTERNAL APPROACH (10/21/17) Family History: States: No Known Family Hx - Social History Hx Alcohol Use: Yes Hx Substance Use: No - Immunization History Hx Tetanus Toxoid Vaccination: No Review Of Systems Except As Marked, All Systems Reviewed And Found Negative. Cardiovascular: Negative for: Chest Pain Gastrointestinal: Negative for: Nausea, Vomiting Neurological: Positive for: Other (Near syncope episode ). Negative for: Headache Physical Exam - Physical Exam Appears: Other (Mild toxic) Skin: Diaphoretic, Pale, Other (Cool, clammy ) Head: Normacephalic Eye(s): bilateral: Normal Inspection Nose: Normal Oral Mucosa: Moist Neck: Supple Chest: Symmetrical Cardiovascular: No Edema, Other (90 systolic on exam ) Gastrointestinal/Abdominal: Soft, No Tenderness Neurological/Psych: Oriented x3, Normal Speech ED Course And Treatment - Laboratory Results Result Diagrams: 11/28/17 13:11 11/28/17 13:11 ECG: Interpreted By Me, Viewed By Me ECG Rhythm: Sinus Rhythm ECG Interpretation: No Changes From Prior Rate From EC O2 Sat by Pulse Oximetry: 95 (RA) Pulse Ox Interpretation: Normal Progress - Re-Evaluation Re-evaluation Note: 11/28/17 15:16 HYPOTENSION, STILL CO MILD NEAR SYNCOPE. CO NEW ONSET EPIG PAIN X 1 HR, PAIN NOT PRESENT DURING INITIAL EVAL. EXAM +EPIG TEND SOFT NO R/G NONDIST 11/28/17 15:[address], +PE PER [employer]. PS HAD TRANSIENT EPIG PAIN SEV DAYS AGO BUT SPONT RESOLVED. DENIES PRIOR SOB/MORRISON , LEG PAIN/SWELLING, CP. S/P 3L, 130/70. PENDING ICU EVAL 11/28/17 16:30 DR AGUAYO ACCEPTS FOR ICU. TPA 100 MG IV OVER 2 HRS. HOLD LOVENOX - Data Reviewed Data Reviewed: Lab, Diagnostic imaging, EKG, Old records - Critical Care Citical Care: Excluding Proc Time Critical Care Time: 120 minutes - Continuity of Care Discussed patient case with:: Patient, Family-HIPPA compliant Medical Decision Making Medical Decision Making: Old records reviewed. Echocardiogram from 10/24. Disposition Counseled Patient/Family Regarding: Studies Performed, Diagnosis - Disposition Disposition: HOSPITALIZED Disposition Time: 16:00 Condition: SERIOUS Forms: [facility] (Belarusian) - POA Present On Arrival: Poor Glycemic Control - Clinical Impression Clinical Impression: Syncope, Pulmonary emboli - Scribe Statement The provider has reviewed the documentation as recorded by the Scribe Juliane Nina All medical record entries made by the Scribe were at my direction and personally dictated by me. I have reviewed the chart and agree that the record accurately reflects my personal performance of the history, physical exam, medical decision making, and the department course for this patient. I have also personally directed, reviewed, and agree with the discharge instructions and disposition. Decision To Admit - Pt Status Changed To: Hospital Disposition Of: Inpatient - Admit Certification Admit to Inpatient:: After my assessment, the patient will require hospitalization for at least two midnights. This is because of the severity of symptoms shown, intensity of services needed, and/or the medical risk in this patient being treated as an outpatient. - InPatient: Physician Admission Certification: I certify that this patient requires 2 or more midnights of care for the following reason:: SEE NOTE - . Bed Request Type: ICU Admitting Physician: Sybil Du Patient Diagnosis: Syncope, Pulmonary emboli
[2017-11-28 13:12] LABS: VENOUS BLOOD GAS BASE EXCESS -4.2 mmol/L (0.0-2.0); VENOUS BLOOD GAS PCO2 47 mmHg (40-60); VENOUS BLOOD GAS PO2 32 mm/Hg (30-55); VENOUS BLOOD PH 7.29 (7.32-7.43)
[2017-11-28] MEDS ORDERED: Sodium Chloride 0.9% 1,000 ML ONE ×2 (13:13→14:43)
[2017-11-28 13:14] LABS: BASO % 0.4 % (0.0-2.0); EOS # 0.1 K/uL (0.0-0.7); LYMPH # 4.5 K/uL (1.0-4.3); LYMPH % 36.9 % (20.0-40.0); MEAN CELL VOLUME 88.5 fL (80.0-94.0); MEAN CORPUSCULAR HEMOGLOBIN 29.1 pg (27.0-31.0); MEAN CORPUSCULAR HGB CONC 32.9 g/dL (33.0-37.0); MEAN PLATELET VOLUME 7.8 fL (7.2-11.7); MONO # 0.7 K/uL (0.0-0.8); MONO % 5.9 % (0.0-10.0); NEUT # 6.9 K/uL (1.8-7.0); NEUT % 55.8 % (50.0-75.0); NRBC % 0.3 % (0.0-2.0); RBC 4.78 Mil/uL (4.40-5.90); RED CELL DISTRIBUTION WIDTH 13.2 % (11.5-14.5)
[2017-11-28 13:18] LABS: HEMOGLOBIN 13.9 g/dL (12.0-18.0); WHITE BLOOD COUNT 12.3 K/uL (4.8-10.8)
[2017-11-28 13:28] LABS: ALB/GLOB RATIO 1.1 (1.0-2.1); ALBUMIN 4.5 g/dL (3.5-5.0); ALT/SGPT 35 U/L (21-72); AST/SGOT 30 U/L (17-59); BLOOD UREA NITROGEN 8 mg/dL (9-20); CALCIUM 9.6 mg/dl (8.6-10.4); GFR AFRICAN-AMERICAN > 60; GFR NON-AFRICAN AMERICAN > 60; PROTHROMBIN TIME 10.9 SECONDS (9.7-12.2)
--- NOTE | 2017-11-28 14:01 | RAD ---
Date of service: 11/28/2017 HISTORY: Sepsis Patient COMPARISON: No prior. FINDINGS: LUNGS: No active pulmonary disease. PLEURA: No significant pleural effusion identified, no pneumothorax apparent. CARDIOVASCULAR: No radiographic findings to suggest acute or significant cardiovascular disease. OSSEOUS STRUCTURES: No significant abnormalities. VISUALIZED UPPER ABDOMEN: Normal. OTHER FINDINGS: None. IMPRESSION: No active disease. Concordant results with the preliminary interpretation rendered by the emergency department physician
[2017-11-28 14:40] LABS: SQUAMOUS EPITHIAL < 1 /hpf (0-5); URINE BILIRUBIN NEGATIVE (NEGATIVE); URINE BLOOD NEGATIVE (NEGATIVE); URINE CLARITY Hazy (Clear); URINE COLOR Yellow (YELLOW); URINE GLUCOSE (UA) 3+ mg/dL (Normal); URINE LEUKOCYTE ESTERASE NEG Leu/uL (Negative); URINE PROTEIN 3+ mg/dL (NEGATIVE); URINE UROBILINOGEN NORMAL mg/dL (0.2-1.0)
[2017-11-28] MEDS ORDERED: Sodium Chloride 0.9% 2,000 ML ONE (15:13)
[2017-11-28] MEDS ORDERED: Sodium Chloride 0.9% 1,000 ML IV ONE ×2 (15:25→15:26)
[2017-11-28] MEDS ORDERED: Iohexol 350mg/ml 100 ML ONE (15:29)
[2017-11-28] MEDS ORDERED: Enoxaparin 80 mg Syringe SC STA (16:00)
--- NOTE | 2017-11-28 16:01 | CT ---
Date of service: 11/28/2017 PROCEDURE: HISTORY: ABD PAIN, HYPOTENSION COMPARISON: None TECHNIQUE: 100 mL Omnipaque [address] exam was performed using one or more of the following dose reduction techniques: Automated exposure control, adjustment of the mA and/or kV according to patient size, and/or use of iterative reconstruction technique. FINDINGS: A large central saddle pulmonary arterial embolus 8.0 x 0.9 cm in size at the bifurcation of the pulmonary artery is present. Sensitive emboli extend into the right and left segmental and subsegmental pulmonary arterial branches. No thoracic aortic aneurysm or dissection appreciated. No suspect mediastinal or hilar lymphadenopathy. No pneumothorax or significant appearing pleural effusion. A significant appearing consolidation. Mild cardiomegaly. No pericardial fusion. A renal hypodense masses more numerous on the left kidney possibly renal cysts. Recommend elective follow-up ultrasound IMPRESSION: Large extensive saddle type pulmonary embolism main pulmonary artery at bifurcation with extensive embolus extensions as detailed above. Prior to this dictation these findings were directly discussed with the ER physician Dr. Squires
--- NOTE | 2017-11-28 16:06 | CT ---
Date of service: 11/28/2017 PROCEDURE: CT HEAD WITHOUT CONTRAST. HISTORY: DIZZY COMPARISON: None available. TECHNIQUE: Axial computed tomography images were obtained through the head/brain without intravenous contrast. Radiation dose: Total exam DLP = 875.77 mGy-cm. This CT exam was performed using one or more of the following dose reduction techniques: Automated exposure control, adjustment of the mA and/or kV according to patient size, and/or use of iterative reconstruction technique. FINDINGS: HEMORRHAGE: No intracranial hemorrhage. BRAIN: No mass effect or edema. No atrophy or chronic microvascular ischemic changes. VENTRICLES: Unremarkable. No hydrocephalus. CALVARIUM: Unremarkable. PARANASAL SINUSES: Unremarkable as visualized. No significant inflammatory changes. MASTOID AIR CELLS: Unremarkable as visualized. No inflammatory changes. OTHER FINDINGS: None. IMPRESSION: No evidence of acute intracranial hemorrhage intracranial collection mass effect or midline shift.
[2017-11-28] MEDS ORDERED: Enoxaparin 100 mg Syringe ONE (16:26)
[2017-11-28 16:39] VITALS: BMI 34.2
[2017-11-28 16:43] LABS: VENOUS BLOOD GAS BASE EXCESS -8.6 mmol/L (0.0-2.0); VENOUS BLOOD GAS PCO2 54 mmHg (40-60); VENOUS BLOOD GAS PO2 21 mm/Hg (30-55); VENOUS BLOOD PH 7.18 (7.32-7.43)
--- NOTE | 2017-11-28 17:46 | CP.PCM.HP ---
<Sybil Du V - Last Filed: 11/28/17 17:55> Meds Allergies/Adverse Reactions: Allergies Allergy/AdvReac Type Severity Reaction Status Date / Time No Known Allergies Allergy Verified 07/03/17 09:19 Results - Vital Signs Recent Vital Signs: Last Vital Signs Temp 97.5 F L 11/28/17 12:08 Pulse 94 H 11/28/17 17:23 Resp 24 11/28/17 17:23 BP 115/82 11/28/17 17:23 Pulse Ox 98 11/28/17 17:23 - Labs Result Diagrams: 11/28/17 13:11 11/28/17 13:11 Labs: Laboratory Results - last 24 hr 11/28/17 11/28/17 11/28/17 12:02 13:08 13:11 WBC 12.3 H D RBC 4.78 Hgb 13.9 D Hct 42.3 MCV 88.5 MCH 29.1 MCHC 32.9 L RDW 13.2 Plt Count 386 D MPV 7.8 Neut % (Auto) 55.8 Lymph % (Auto) 36.9 [place] % (Auto) 5.9 Eos % (Auto) 1.0 Baso % (Auto) 0.4 Neut # (Auto) 6.9 Lymph # (Auto) 4.5 H [place] # (Auto) 0.7 Eos # (Auto) 0.1 Baso # (Auto) 0.0 PT INR APTT pO2 32 VBG pH 7.29 L VBG pCO2 47 VBG HCO3 20.4 VBG Total CO2 24.0 VBG O2 Sat (Calc) 61.3 VBG Base Excess -4.2 L VBG Potassium 3.9 Sodium 141.0 Chloride 102.0 Glucose 315 H Lactate 3.7 H Crit Value Called To Crit Value Called By Crit Value Read Back Blood Gas Notified Time Potassium Carbon Dioxide Anion Gap BUN Creatinine Est GFR ( Amer) Est GFR (Non-Af Amer) POC Glucose (mg/dL) 330 H Random Glucose Calcium Phosphorus Magnesium Total Bilirubin AST ALT Alkaline Phosphatase Troponin I Total Protein Albumin Globulin Albumin/Globulin Ratio Venous Blood Potassium 3.9 Urine Color Urine Clarity Urine pH Ur Specific [place] Urine Protein Urine Glucose (UA) Urine Ketones Urine Blood Urine Nitrate Urine Bilirubin Urine Urobilinogen Ur Leukocyte Esterase Urine WBC (Auto) Urine RBC (Auto) Ur Squamous Epith Cells Salicylates Blood Type 11/28/17 11/28/17 11/28/17 13:11 13:11 14:25 WBC RBC Hgb Hct MCV MCH MCHC RDW Plt Count MPV Neut % (Auto) Lymph % (Auto) [place] % (Auto) Eos % (Auto) Baso % (Auto) Neut # (Auto) Lymph # (Auto) [place] # (Auto) Eos # (Auto) Baso # (Auto) PT 10.9 INR 1.0 APTT 28 pO2 VBG pH VBG pCO2 VBG HCO3 VBG Total CO2 VBG O2 Sat (Calc) VBG Base Excess VBG Potassium Sodium 141 Chloride 102 Glucose Lactate Crit Value Called To Crit Value Called By Crit Value Read Back Blood Gas Notified Time Potassium 4.0 Carbon Dioxide 20 L Anion Gap 24 H BUN 8 L Creatinine 0.8 Est GFR ( Amer) > 60 Est GFR (Non-Af Amer) > 60 POC Glucose (mg/dL) Random Glucose 306 H Calcium 9.6 Phosphorus 5.2 H Magnesium 1.9 Total Bilirubin 0.5 AST 30 ALT 35 Alkaline Phosphatase 94 Troponin I 0.0640 Total Protein 8.7 H Albumin 4.5 Globulin 4.2 H Albumin/Globulin Ratio 1.1 Venous Blood Potassium Urine Color Urine Clarity Urine pH Ur Specific [place] Urine Protein Urine Glucose (UA) Urine Ketones Urine Blood Urine Nitrate Urine Bilirubin Urine Urobilinogen Ur Leukocyte Esterase Urine WBC (Auto) Urine RBC (Auto) Ur Squamous Epith Cells Salicylates < 1.0 Blood Type 11/28/17 11/28/17 11/28/17 14:28 16:22 16:40 WBC RBC Hgb Hct MCV MCH MCHC RDW Plt Count MPV Neut % (Auto) Lymph % (Auto) [place] % (Auto) Eos % (Auto) Baso % (Auto) Neut # (Auto) Lymph # (Auto) [place] # (Auto) Eos # (Auto) Baso # (Auto) PT INR APTT pO2 21 L VBG pH 7.18 L* VBG pCO2 54 VBG HCO3 16.2 VBG Total CO2 21.9 L VBG O2 Sat (Calc) 31.8 L VBG Base Excess -8.6 L VBG Potassium 4.5 Sodium 138.0 Chloride 104.0 Glucose 300 H Lactate 5.0 H* Crit Value Called To Dr ryder Crit Value Called By Armando bullock Crit Value Read Back Y Blood Gas Notified Time 1643 Potassium Carbon Dioxide Anion Gap BUN Creatinine Est GFR ( Amer) Est GFR (Non-Af Amer) POC Glucose (mg/dL) Random Glucose Calcium Phosphorus Magnesium Total Bilirubin AST ALT Alkaline Phosphatase Troponin I Total Protein Albumin Globulin Albumin/Globulin Ratio Venous Blood Potassium 4.5 Urine Color Yellow Urine Clarity Hazy Urine pH 5.0 Ur Specific [place] 1.027 Urine Protein 3+ H Urine Glucose (UA) 3+ H Urine Ketones Trace Urine Blood Negative Urine Nitrate Negative Urine Bilirubin Negative Urine Urobilinogen Normal Ur Leukocyte Esterase Neg Urine WBC (Auto) 4 Urine RBC (Auto) 2 Ur Squamous Epith Cells < 1 Salicylates Blood Type A POSITIVE Assessment & Plan (1) Saddle pulmonary embolus Status: Acute (2) Prophylactic measure Status: Acute (3) Cellulitis Status: Acute (4) Diabetes mellitus Status: Acute (5) Hypertension Status: Acute (6) Lipid disorder Status: Acute Attending/Attestation - Attestation I have personally seen and examined this patient.: Yes I have fully participated in the care of the patient.: Yes I have reviewed all pertinent clinical information: Yes Notes (Text): patient seen, examined, and case discussed with ICU. Patient seen at bedside with his sister, son, and partner of multiple years. Patient had a witnessed syncopal episode today by his sister while walking up about 50 steps from the ground floor to the second floor. Per patient's sister, patient appeared very exhausted, lethargic, and he passed out, she caught him, patient did lose consciousness and took few minutes before regain consciousness. Per patient for the past week and half, he has been feeling exhausted and tired. patient at baseline, walks with cane, normally very ambulatory. Patient does not smoke, there is no recent travel, no recent long airplane rides, no bus rides etc. Since last hospitalization, patient completed Zyvox and his abscess over the left lower extremity has improved significant. patient has small dressing over it. Patient noted to have saddle embolus. I did discuss risk of bleeding with family with assistance of his bilingual son at bedside, since he is recommending for thrombolytic, and understands there is a significant bleeding risk and allows for thrombolytic therapy. patient has had prior endoscopy in 2017 no ulcers noted no gi complaints. He does not have bleeding problems he is aware of. Patient is awake, alert, no acute distress, pale, lethargic, but also notes he is FULL CODE and defers to his common law partner to make medical decision. patient is officially from son's mother. ROS: denies headache, reports lethargic, denies blurry vision, denies cough, reports shortness of breathe, reports cough, reports abdominal pain X1, denies nausea, denies vomitting, denies urinary, denies change in bowel movements. patient reports last medications was yesterday and he only took aspirin this morning. Assessment/Plan 1) Saddle Pulmonary Embolus Syncopal episode secondary to PE Assessment/Plan * admitted to ICU * CT head (11/28/17): negative for acute findings official report available * CT dissection (11/28/17): large extensive saddle type pulmonary embolism main pulmonary artery at bifurcation with extensive embolus extensions as detail above * Eligible for thrombolytic therapy * Order for hypercoaguable workup * venous dupler lower extremity r/o dvt * Prior echo (10/24/17): normal; will repeat in light of acute PE to check for right heart strain * initial troponin: negative, ANAMARIA X2, 6 hours ordered 2) Renal Masses Assessment/Plan * Noted on CT dissection study: a renal hyodense masses more numerous on the left kidney possibly renal cysts. * Will order renal US to further characterize * UA and urine * Patient may need further urologic evaluation when more stable 3). DM 2-->Chronic Assessment/plan * Patient is on Glimepiride and metformin; last took medications yesterday evening. * During hospitalization, Crestor 5 mg by mouth daily at bedtime * Cozaar 50 by mouth once a day * hypoglycemic protocol * Hgba1c: 9.3 4). Hypertension-->Chronic Assessment/plan * Cozaar 50 mg PO 1x/day-->last took yesterday * Monitor vital signs 5). Lipid Disorder-->Chronic Assessment/plan * Crestor 5 mg PO HS * Check lipid panel in AM 5). Prophylaxis * Patient is eligible for thrombolytic therapy. * patient is FULL code * Will hold SCDS until DVT is ruled out. <Abe Kendall - Last Filed: 11/28/17 19:38> History of Present Illness - History of Present Illness History of Present Illness: Abe Kendall DO PGY-1, H&P for Dr. Du Pt chart and record was reviewed prior to evaluation. This is a 57 yo M with a PMHx of DM, HTN, Hypercholesterolemia who was BIBA to the ED with complaints of worsening fatigue, sob, and recent syncopal episode. Patient seen at bedside with his sister, son, and partner of multiple years. Patient had a witnessed syncopal episode today by his sister while walking up about 50 steps from the ground floor to the second floor. Pt regained consciousness after 1-2 minutes. Per patient's sister, patient appeared very exhausted, lethargic, and he passed out, she caught him, patient did lose consciousness and took few minutes before regain consciousness. Per patient for the past week and half, he has been feeling exhausted and tired. Patient at baseline, walks with cane for the past 2 weeks, normally very ambulatory. Patient does not smoke, there is no recent travel, no recent long airplane rides , no bus rides etc. Since last hospitalization, patient completed Zyvox and his abscess over the left lower extremity has improved significant. Patient has small dressing over it. Pt had a Chest CTA in the ED which showed saddle embolus, without thoracic aortic aneurysm or dissection. Head CT shows no evidence of intracranial hemorrhage. BP on presentation was 90/56. We discussed the risks of bleeding with family with assistance of his bilingual son at bedside, as pt will need thrombolytic treatment for pulmonary embolus. Pt understands there is a significant bleeding risk and allows for thrombolytic therapy. Patient has had prior endoscopy in 07/2017 no ulcers noted no GI complaints. He does not have bleeding problems that he is aware of. Pt has no absolute contraindications to tPA treatment. Patient is awake, alert, no acute distress, somewhat pale, lethargic, but also notes he is FULL CODE and defers to his common law partner to make medical decision. patient is officially from son's mother. Pt denies headache, reports lethargic, denies blurry vision, denies cough, reports shortness of breathe, reports cough, reports abdominal pain in the epigastrium for the past 1 day, denies nausea, denies vomiting, denies urinary, denies change in bowel movements. Patient reports last medications were taken yesterday and he only took aspirin this morning. PMHx: DM, HTN, Hypercholesterolemia PSHx: abscess ID in [id number], Lipoma excision of L mizra and Left shoulder , Endoscopy 08/09/17, diagnostic catheterization ~2002 Allergies: NKDA Family Hx: Father: - HTN, DM. Mother: - HTN, DM. Social Hx: Drinks alcohol socially, denies tobacco, denies illicit drug use. PMD: Dr. Tavarez Present on Admission - Present on Admission Any Indicators Present on Admission: No Review of Systems - Review of Systems All systems: reviewed and no additional remarkable complaints except (as per HPI ) Past Patient History - Past Medical History & Family History Past Medical History?: Yes - Past Social History Smoking Status: Never Smoked - CARDIAC Hx Hypercholesterolemia: Yes Hx Hypertension: Yes - PULMONARY Hx Respiratory Disorders: No - NEUROLOGICAL Hx Neurological Disorder: No - HEENT Hx HEENT Problems: No - RENAL Hx Chronic Kidney Disease: No - ENDOCRINE/METABOLIC Hx Endocrine Disorders: Yes Hx Diabetes Mellitus Type 2: Yes - HEMATOLOGICAL/ONCOLOGICAL Hx Blood Disorders: No - INTEGUMENTARY Hx Dermatological Problems: Yes - MUSCULOSKELETAL/RHEUMATOLOGICAL Hx Arthritis: Yes - GASTROINTESTINAL Hx Gastrointestinal Disorders: No - GENITOURINARY/GYNECOLOGICAL Hx Genitourinary Disorders: No - PSYCHIATRIC Hx Substance Use: No - SURGICAL HISTORY Hx Surgeries: Yes Hx Cardiac Catheterization: Yes - ANESTHESIA Hx Anesthesia: Yes Hx Anesthesia Reactions: No Hx Malignant Hyperthermia: No Physical Exam - Constitutional Appears: Non-toxic, No Acute Distress - Head Exam Head Exam: ATRAUMATIC, NORMAL INSPECTION, NORMOCEPHALIC - Eye Exam Eye Exam: EOMI, Normal appearance Pupil Exam: PERRL - ENT Exam ENT Exam: Mucous Membranes Moist - Neck Exam Neck exam: Positive for: Normal Inspection - Respiratory Exam Respiratory Exam: Clear to Auscultation Bilateral, NORMAL BREATHING PATTERN - Cardiovascular Exam Cardiovascular Exam: REGULAR RHYTHM, +S1, +S2 - GI/Abdominal Exam GI & Abdominal Exam: Normal Bowel Sounds, Soft, Tenderness ((+) epigastric tenderness)) - Extremities Exam Extremities exam: Positive for: pedal pulses present. Negative for: pedal edema , tenderness Additional comments: (+) small bandage to left medial mirza area;/sp abscess I and D excision; no signs of bleeding - Back Exam Back exam: NORMAL INSPECTION - Neurological Exam Neurological exam: Alert, CN II-XII Intact, Oriented x3 Additional comments: (+) 5/5 str in bilateral upper and lower extremities - Psychiatric Exam Psychiatric exam: Normal Affect, Normal Mood - Skin Skin Exam: Dry, Warm Additional comments: (+) somewhat pale relatively to pt's regular color as per family Results - Vital Signs Recent Vital Signs: Last Vital Signs Temp 97.5 F L 11/28/17 12:08 Pulse 94 H 11/28/17 17:23 Resp 24 11/28/17 17:23 BP 115/82 11/28/17 17:23 Pulse Ox 98 11/28/17 17:23 - Labs Result Diagrams: 11/28/17 13:11 11/28/17 13:11 Labs: Laboratory Results - last 24 hr 11/28/17 11/28/17 11/28/17 12:02 13:08 13:11 WBC 12.3 H D RBC 4.78 Hgb 13.9 D Hct 42.3 MCV 88.5 MCH 29.1 MCHC 32.9 L RDW 13.2 Plt Count 386 D MPV 7.8 Neut % (Auto) 55.8 Lymph % (Auto) 36.9 [place] % (Auto) 5.9 Eos % (Auto) 1.0 Baso % (Auto) 0.4 Neut # (Auto) 6.9 Lymph # (Auto) 4.5 H [place] # (Auto) 0.7 Eos # (Auto) 0.1 Baso # (Auto) 0.0 PT INR APTT pO2 32 VBG pH 7.29 L VBG pCO2 47 VBG HCO3 20.4 VBG Total CO2 24.0 VBG O2 Sat (Calc) 61.3 VBG Base Excess -4.2 L VBG Potassium 3.9 Sodium 141.0 Chloride 102.0 Glucose 315 H Lactate 3.7 H Crit Value Called To Crit Value Called By Crit Value Read Back Blood Gas Notified Time Potassium Carbon Dioxide Anion Gap BUN Creatinine Est GFR ( Amer) Est GFR (Non-Af Amer) POC Glucose (mg/dL) 330 H Random Glucose Calcium Phosphorus Magnesium Total Bilirubin AST ALT Alkaline Phosphatase Troponin I Total Protein Albumin Globulin Albumin/Globulin Ratio Venous Blood Potassium 3.9 Urine Color Urine Clarity Urine pH Ur Specific [place] Urine Protein Urine Glucose (UA) Urine Ketones Urine Blood Urine Nitrate Urine Bilirubin Urine Urobilinogen Ur Leukocyte Esterase Urine WBC (Auto) Urine RBC (Auto) Ur Squamous Epith Cells Salicylates Blood Type 11/28/17 11/28/17 11/28/17 13:11 13:11 14:25 WBC RBC Hgb Hct MCV MCH MCHC RDW Plt Count MPV Neut % (Auto) Lymph % (Auto) [place] % (Auto) Eos % (Auto) Baso % (Auto) Neut # (Auto) Lymph # (Auto) [place] # (Auto) Eos # (Auto) Baso # (Auto) PT 10.9 INR 1.0 APTT 28 pO2 VBG pH VBG pCO2 VBG HCO3 VBG Total CO2 VBG O2 Sat (Calc) VBG Base Excess VBG Potassium Sodium 141 Chloride 102 Glucose Lactate Crit Value Called To Crit Value Called By Crit Value Read Back Blood Gas Notified Time Potassium 4.0 Carbon Dioxide 20 L Anion Gap 24 H BUN 8 L Creatinine 0.8 Est GFR ( Amer) > 60 Est GFR (Non-Af Amer) > 60 POC Glucose (mg/dL) Random Glucose 306 H Calcium 9.6 Phosphorus 5.2 H Magnesium 1.9 Total Bilirubin 0.5 AST 30 ALT 35 Alkaline Phosphatase 94 Troponin I 0.0640 Total Protein 8.7 H Albumin 4.5 Globulin 4.2 H Albumin/Globulin Ratio 1.1 Venous Blood Potassium Urine Color Urine Clarity Urine pH Ur Specific [place] Urine Protein Urine Glucose (UA) Urine Ketones Urine Blood Urine Nitrate Urine Bilirubin Urine Urobilinogen Ur Leukocyte Esterase Urine WBC (Auto) Urine RBC (Auto) Ur Squamous Epith Cells Salicylates < 1.0 Blood Type 11/28/17 11/28/17 11/28/17 14:28 16:22 16:40 WBC RBC Hgb Hct MCV MCH MCHC RDW Plt Count MPV Neut % (Auto) Lymph % (Auto) [place] % (Auto) Eos % (Auto) Baso % (Auto) Neut # (Auto) Lymph # (Auto) [place] # (Auto) Eos # (Auto) Baso # (Auto) PT INR APTT pO2 21 L VBG pH 7.18 L* VBG pCO2 54 VBG HCO3 16.2 VBG Total CO2 21.9 L VBG O2 Sat (Calc) 31.8 L VBG Base Excess -8.6 L VBG Potassium 4.5 Sodium 138.0 Chloride 104.0 Glucose 300 H Lactate 5.0 H* Crit Value Called To Dr ryder Crit Value Called By Armando bullock Crit Value Read Back Y Blood Gas Notified Time 1643 Potassium Carbon Dioxide Anion Gap BUN Creatinine Est GFR ( Amer) Est GFR (Non-Af Amer) POC Glucose (mg/dL) Random Glucose Calcium Phosphorus Magnesium Total Bilirubin AST ALT Alkaline Phosphatase Troponin I Total Protein Albumin Globulin Albumin/Globulin Ratio Venous Blood Potassium 4.5 Urine Color Yellow Urine Clarity Hazy Urine pH 5.0 Ur Specific [place] 1.027 Urine Protein 3+ H Urine Glucose (UA) 3+ H Urine Ketones Trace Urine Blood Negative Urine Nitrate Negative Urine Bilirubin Negative Urine Urobilinogen Normal Ur Leukocyte Esterase Neg Urine WBC (Auto) 4 Urine RBC (Auto) 2 Ur Squamous Epith Cells < 1 Salicylates Blood Type A POSITIVE Assessment & Plan - Assessment and Plan (Free Text) Assessment: This is a 57 yo M with a PMHx of DM, HTN, Hypercholesterolemia who presents to ED via ambulance due to worsening sob, fatigue and recent syncopal episode. Pt noted to have a saddle embolus on Chest CTA. Pt will be accepted to the ICU for cardiovascular and neurological monitoring after receiving tPA. Neuro: - monitor for mental status changes - pt is AAOx3 - Head CT (11/28) shows no evidence of intracranial bleed Cardio: - Chest CT (11/28) shows no evidence of aneursym or dissection - maintain MAP>65 mmHg - troponin x 1 negative - Alteplase 100 mg over 2 hours; no venipuncture for at least 6 hours, no arterial puncture for at least 24 hours - stat echocardiogram GI: - NPO except meds - protonix 40 mg PO - maalox Pulm: - cxr (11/28) shows no active disease - Chest CT (11/28) shows large extensive saddle type pulmonary embolism main pulmonary artery at bifurcation with extensive embolus extensions - maintain so2>92% - bpap (03/22 40%) Renal: - vbg shows metabolic acidosis, lactate is 5.0; likely due to PE - pt will be placed on bpap (03/22 40%) - maintain euvolemia - f/u renal us due to cysts noted on chest ct ID: - leukocytosis likely due to PE; no left shift, no bands - pt afebrile - f/u blood culture x2 - f/u urine culture Heme: - no anemia - PT/PTT/INR is wnl - PLT count is normal - f/u protein c activity/Ag, antithrombin III activity, protein s activity/Ag Endo: - maintain euglycemia - ISS medium - accucheck q4h PPX: protonix for pud ppx Dispo: Pt in ICU for monitoring s/p tPA Case was reviewed and discussed with attending physician, Dr. Du Decision To Admit - Pt Status Changed To: Hospital Disposition Of: Inpatient - Admit Certification Admit to Inpatient:: After my assessment, the patient will require hospitalization for at least two midnights. This is because of the severity of symptoms shown, intensity of services needed, and/or the medical risk in this patient being treated as an outpatient. - InPatient: Physician Admission Certification:: Dr. Sybil Du - . Bed Request Type: ICU Admitting Physician: Sybil Du
[2017-11-28] MEDS ORDERED: Dextrose 50% SYRINGE Inj (50 ml) IV PRN (17:59)
[2017-11-28] MEDS ORDERED: Pantoprazole 40 mg EC Tab PO STA (17:59)
[2017-11-28] MEDS ORDERED: Glucagon Recombinant 1 mg Inj IM PRN ×2 (17:59→18:09)
[2017-11-28] MEDS ORDERED: Aluminum Hydroxide/Magnesium Hydroxide Susp (30 mL) PO ONE (18:00)
[2017-11-28] MEDS ORDERED: Dextrose 50% SYRINGE Inj (50 ml) IVP PRN (18:09)
[2017-11-28 20:25] LABS: CK-MB 3.42 ng/mL (0.0-3.38)
[2017-11-28] MEDS: (Novolin R) Insulin Human Regular 100 units/ml vial SC SCH (20:37)
--- NOTE | 2017-11-28 20:40 | CP.PCM.CON ---
History of Present Illness - History of Present Illness History of Present Illness: 57 year old male with a history of HTN, DM, HL, presenting s/p syncopal episode , found to have a saddle embolism s/p tPA. The patient notes to feeling short of breath while climbing stairs. When he got to the top of the stairs, he lost consciousness and his called EMS. In the ER, he was found to have a large saddle pulmonary embolism and treated with tPA. He notes to improvement in his breathing and chest pain post tPA. He does note to a recent left leg surgery of his left LE which he notes has limited his mobility and has required him to walk with a cane sometimes. Past medical history: HTN, DM, HL Past surgical history: left leg surgery Family history: Brother had [place] and CVA in his 50s Social history: Denies tobacco, alcohol, and illicit drug use Allergies: NKA Review of systems: All remaining review of systems including HEENT, cardiovascular, respiratory, gastrointestinal, genitourinary, musculoskeletal, dermatologic, neurologic, and psychiatric are negative unless mentioned in the HPI. Past Patient History - Past Medical History & Family History Past Medical History?: Yes - Past Social History Smoking Status: Never Smoked - CARDIAC Hx Hypercholesterolemia: Yes Hx Hypertension: Yes - PULMONARY Hx Respiratory Disorders: No - NEUROLOGICAL Hx Neurological Disorder: No - HEENT Hx HEENT Problems: No - RENAL Hx Chronic Kidney Disease: No - ENDOCRINE/METABOLIC Hx Endocrine Disorders: Yes Hx Diabetes Mellitus Type 2: Yes - HEMATOLOGICAL/ONCOLOGICAL Hx Blood Disorders: No - INTEGUMENTARY Hx Dermatological Problems: Yes - MUSCULOSKELETAL/RHEUMATOLOGICAL Hx Arthritis: Yes - GASTROINTESTINAL Hx Gastrointestinal Disorders: No - GENITOURINARY/GYNECOLOGICAL Hx Genitourinary Disorders: No - PSYCHIATRIC Hx Substance Use: No - SURGICAL HISTORY Hx Surgeries: Yes Hx Cardiac Catheterization: Yes - ANESTHESIA Hx Anesthesia: Yes Hx Anesthesia Reactions: No Hx Malignant Hyperthermia: No Meds Allergies/Adverse Reactions: Allergies Allergy/AdvReac Type Severity Reaction Status Date / Time No Known Allergies Allergy Verified 07/03/17 09:19 - Medications Medications: Current Medications Dextrose (Dextrose 50% Inj) 0 ml IVP .STAT PRN; Protocol PRN Reason: Hypoglycemia Protocol Dextrose (Glutose 15) 0 gm PO .ONCE PRN; Protocol PRN Reason: Hypoglycemia Protocol Glucagon (Glucagen Diagnostic Kit) 0 mg IM .STAT PRN; Protocol PRN Reason: Hypoglycemia Protocol Dextrose (Dextrose 5% In Water 1000 Ml) 1,000 mls @ 0 mls/hr IV .Q0M PRN; Protocol; Per Protocol PRN Reason: Hypoglycemia Protocol Insulin Human Regular (Novolin R) 0 unit SC Q4 MANDY PRN Reason: Protocol Physical Exam - Head Exam Head Exam: ATRAUMATIC - Eye Exam Eye Exam: Normal appearance - ENT Exam ENT Exam: Mucous Membranes Dry - Respiratory Exam Respiratory Exam: NORMAL BREATHING PATTERN - Cardiovascular Exam Cardiovascular Exam: +S1, +S2 - GI/Abdominal Exam GI & Abdominal Exam: Normal Bowel Sounds - Neurological Exam Neurological exam: Oriented x3 - Psychiatric Exam Psychiatric exam: Normal Affect, Normal Mood - Skin Skin Exam: Warm Results - Vital Signs Recent Vital Signs: Last Vital Signs Temp 98.3 F 11/28/17 17:40 Pulse 93 H 11/28/17 19:49 Resp 25 H 11/28/17 19:15 BP 142/94 H 11/28/17 19:15 Pulse Ox 100 11/28/17 19:15 - Labs Result Diagrams: 11/28/17 13:11 11/28/17 13:11 Labs: Laboratory Results - last 24 hr 11/28/17 11/28/17 11/28/17 12:02 13:08 13:11 WBC 12.3 H D RBC 4.78 Hgb 13.9 D Hct 42.3 MCV 88.5 MCH 29.1 MCHC 32.9 L RDW 13.2 Plt Count 386 D MPV 7.8 Neut % (Auto) 55.8 Lymph % (Auto) 36.9 [place] % (Auto) 5.9 Eos % (Auto) 1.0 Baso % (Auto) 0.4 Neut # (Auto) 6.9 Lymph # (Auto) 4.5 H [place] # (Auto) 0.7 Eos # (Auto) 0.1 Baso # (Auto) 0.0 PT INR APTT pO2 32 VBG pH 7.29 L VBG pCO2 47 VBG HCO3 20.4 VBG Total CO2 24.0 VBG O2 Sat (Calc) 61.3 VBG Base Excess -4.2 L VBG Potassium 3.9 Sodium 141.0 Chloride 102.0 Glucose 315 H Lactate 3.7 H Crit Value Called To Crit Value Called By Crit Value Read Back Blood Gas Notified Time Potassium Carbon Dioxide Anion Gap BUN Creatinine Est GFR ( Amer) Est GFR (Non-Af Amer) POC Glucose (mg/dL) 330 H Random Glucose Calcium Phosphorus Magnesium Total Bilirubin AST ALT Alkaline Phosphatase Total Creatine Kinase CK-MB (Mass) Troponin I Total Protein Albumin Globulin Albumin/Globulin Ratio Venous Blood Potassium 3.9 Urine Color Urine Clarity Urine pH Ur Specific [place] Urine Protein Urine Glucose (UA) Urine Ketones Urine Blood Urine Nitrate Urine Bilirubin Urine Urobilinogen Ur Leukocyte Esterase Urine WBC (Auto) Urine RBC (Auto) Ur Squamous Epith Cells Salicylates Blood Type 11/28/17 11/28/17 11/28/17 13:11 13:11 14:25 WBC RBC Hgb Hct MCV MCH MCHC RDW Plt Count MPV Neut % (Auto) Lymph % (Auto) [place] % (Auto) Eos % (Auto) Baso % (Auto) Neut # (Auto) Lymph # (Auto) [place] # (Auto) Eos # (Auto) Baso # (Auto) PT 10.9 INR 1.0 APTT 28 pO2 VBG pH VBG pCO2 VBG HCO3 VBG Total CO2 VBG O2 Sat (Calc) VBG Base Excess VBG Potassium Sodium 141 Chloride 102 Glucose Lactate Crit Value Called To Crit Value Called By Crit Value Read Back Blood Gas Notified Time Potassium 4.0 Carbon Dioxide 20 L Anion Gap 24 H BUN 8 L Creatinine 0.8 Est GFR ( Amer) > 60 Est GFR (Non-Af Amer) > 60 POC Glucose (mg/dL) Random Glucose 306 H Calcium 9.6 Phosphorus 5.2 H Magnesium 1.9 Total Bilirubin 0.5 AST 30 ALT 35 Alkaline Phosphatase 94 Total Creatine Kinase CK-MB (Mass) Troponin I 0.0640 Total Protein 8.7 H Albumin 4.5 Globulin 4.2 H Albumin/Globulin Ratio 1.1 Venous Blood Potassium Urine Color Urine Clarity Urine pH Ur Specific [place] Urine Protein Urine Glucose (UA) Urine Ketones Urine Blood Urine Nitrate Urine Bilirubin Urine Urobilinogen Ur Leukocyte Esterase Urine WBC (Auto) Urine RBC (Auto) Ur Squamous Epith Cells Salicylates < 1.0 Blood Type 11/28/17 11/28/17 11/28/17 14:28 16:22 16:40 WBC RBC Hgb Hct MCV MCH MCHC RDW Plt Count MPV Neut % (Auto) Lymph % (Auto) [place] % (Auto) Eos % (Auto) Baso % (Auto) Neut # (Auto) Lymph # (Auto) [place] # (Auto) Eos # (Auto) Baso # (Auto) PT INR APTT pO2 21 L VBG pH 7.18 L* VBG pCO2 54 VBG HCO3 16.2 VBG Total CO2 21.9 L VBG O2 Sat (Calc) 31.8 L VBG Base Excess -8.6 L VBG Potassium 4.5 Sodium 138.0 Chloride 104.0 Glucose 300 H Lactate 5.0 H* Crit Value Called To Dr ryder Crit Value Called By Armando bullock Crit Value Read Back Y Blood Gas Notified Time 1643 Potassium Carbon Dioxide Anion Gap BUN Creatinine Est GFR ( Amer) Est GFR (Non-Af Amer) POC Glucose (mg/dL) Random Glucose Calcium Phosphorus Magnesium Total Bilirubin AST ALT Alkaline Phosphatase Total Creatine Kinase CK-MB (Mass) Troponin I Total Protein Albumin Globulin Albumin/Globulin Ratio Venous Blood Potassium 4.5 Urine Color Yellow Urine Clarity Hazy Urine pH 5.0 Ur Specific [place] 1.027 Urine Protein 3+ H Urine Glucose (UA) 3+ H Urine Ketones Trace Urine Blood Negative Urine Nitrate Negative Urine Bilirubin Negative Urine Urobilinogen Normal Ur Leukocyte Esterase Neg Urine WBC (Auto) 4 Urine RBC (Auto) 2 Ur Squamous Epith Cells < 1 Salicylates Blood Type A POSITIVE 11/28/17 19:56 WBC RBC Hgb Hct MCV MCH MCHC RDW Plt Count MPV Neut % (Auto) Lymph % (Auto) [place] % (Auto) Eos % (Auto) Baso % (Auto) Neut # (Auto) Lymph # (Auto) [place] # (Auto) Eos # (Auto) Baso # (Auto) PT INR APTT pO2 VBG pH VBG pCO2 VBG HCO3 VBG Total CO2 VBG O2 Sat (Calc) VBG Base Excess VBG Potassium Sodium Chloride Glucose Lactate Crit Value Called To Crit Value Called By Crit Value Read Back Blood Gas Notified Time Potassium Carbon Dioxide Anion Gap BUN Creatinine Est GFR ( Amer) Est GFR (Non-Af Amer) POC Glucose (mg/dL) Random Glucose Calcium Phosphorus Magnesium Total Bilirubin AST ALT Alkaline Phosphatase Total Creatine Kinase 72 CK-MB (Mass) 3.42 H Troponin I Total Protein Albumin Globulin Albumin/Globulin Ratio Venous Blood Potassium Urine Color Urine Clarity Urine pH Ur Specific [place] Urine Protein Urine Glucose (UA) Urine Ketones Urine Blood Urine Nitrate Urine Bilirubin Urine Urobilinogen Ur Leukocyte Esterase Urine WBC (Auto) Urine RBC (Auto) Ur Squamous Epith Cells Salicylates Blood Type Assessment & Plan (1) Saddle pulmonary embolus Assessment and Plan: ? 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 Status: Acute
[2017-11-28 20:54] LABS: TROPONIN I 0.705 ng/mL (0.00-0.120)
[2017-11-28] MEDS: Heparin25000 units/250ml 1/2NS 25,000 UNITS/250 ML BAG IV PRN (21:00)
[2017-11-29] MEDS: (Novolin R) Insulin Human Regular 100 units/ml vial SC SCH ×6 (00:30→21:38)
[2017-11-29 03:46] LABS: CK-MB 3.79 ng/mL (0.0-3.38)
[2017-11-29 03:49] LABS: TROPONIN I 0.812 ng/mL (0.00-0.120)
[2017-11-29 04:04] LABS: VENOUS BLOOD GAS BASE EXCESS -2.6 mmol/L (0.0-2.0); VENOUS BLOOD GAS PCO2 43 mmHg (40-60); VENOUS BLOOD GAS PO2 49 mm/Hg (30-55); VENOUS BLOOD PH 7.34 (7.32-7.43)
[2017-11-29 06:36] LABS: BASO % 0.3 % (0.0-2.0); EOS % 0.4 % (0.0-4.0); HEMOGLOBIN 11.3 g/dL (12.0-18.0); LYMPH # 3.8 K/uL (1.0-4.3); LYMPH % 42.1 % (20.0-40.0); MEAN CELL VOLUME 88.2 fL (80.0-94.0); MEAN CORPUSCULAR HEMOGLOBIN 30.4 pg (27.0-31.0); MEAN CORPUSCULAR HGB CONC 34.5 g/dL (33.0-37.0); MEAN PLATELET VOLUME 8.3 fL (7.2-11.7); MONO # 0.7 K/uL (0.0-0.8); MONO % 7.4 % (0.0-10.0); NEUT # 4.5 K/uL (1.8-7.0); NEUT % 49.8 % (50.0-75.0); NRBC % 0.1 % (0.0-2.0); RBC 3.73 Mil/uL (4.40-5.90); RED CELL DISTRIBUTION WIDTH 13.4 % (11.5-14.5); WHITE BLOOD COUNT 8.9 K/uL (4.8-10.8)
[2017-11-29 06:53] LABS: BLOOD UREA NITROGEN 8 mg/dL (9-20); GFR AFRICAN-AMERICAN > 60; GFR NON-AFRICAN AMERICAN > 60
[2017-11-29 06:54] LABS: ALB/GLOB RATIO 1.2 (1.0-2.1); ALBUMIN 3.6 g/dL (3.5-5.0); ALT/SGPT 50 U/L (21-72); AST/SGOT 36 U/L (17-59); CALCIUM 8.3 mg/dl (8.6-10.4)
--- NOTE | 2017-11-29 11:05 | CP.CCUPN ---
<Abe Kendall - Last Filed: 11/29/17 17:30> CCU Subjective - Physician Review Subjective (Free Text): bAe Kendall DO PGY-1, ICU Progress note for Dr. Blair Pt was seen and examined at bedside. No acute events overnight. Pt has no complaints at this time. He states that his abdominal pain has resolved. Pt denies headache, dizzineess, lightheadedness, weakness, chest pain, sob, palpitations, abdominal pain, n/v/d, paresthesias. A 12-point ROS was reviewed and is otherwise unremarkable. CCU Objective - Vital Signs / Intake & Output Vital Signs (Last 4 hours): Vital Signs Temp Pulse Resp BP Pulse Ox 11/29/17 10:22 71 20 122/79 99 11/29/17 10:00 72 20 99 11/29/17 09:22 74 20 121/78 99 11/29/17 09:16 74 20 120/74 99 11/29/17 09:00 73 20 100 11/29/17 08:00 97.6 F 75 16 100 11/29/17 07:23 73 11/29/17 07:22 74 18 123/81 99 Intake and Output (Last 8hrs): Intake & Output 11/28/17 11/29/17 11/29/17 22:59 06:59 14:59 Intake Total 135.6 153.9 44.7 Output Total 500 1100 Balance -364.4 -946.1 44.7 Weight 100.289 kg 100.289 kg Intake: IV 50 Intake, IV Amount 135.6 103.9 44.7 Left Hand 35.6 103.9 44.7 Right Antecubital 0 0 Right Wrist 100 0 Output: Urine 500 1100 Urine, Voided 500 1100 - Physical Exam Head: Positive for: Atraumatic, Normocephalic Pupils: Positive for: PERRL Extroacular Muscles: Positive for: EOMI Conjunctiva: Positive for: Normal Mouth: Positive for: Moist Mucous Membranes Neck: Positive for: Normal Range of Motion Respiratory/Chest: Positive for: Clear to Auscultation, Good Air Exchange. Negative for: Respiratory Distress, Accessory Muscle Use Cardiovascular: Positive for: Regular Rate and Rhythm, Normal S1, S2 Abdomen: Positive for: Normal Bowel Sounds. Negative for: Tenderness, Distention Upper Extremity: Positive for: Normal Inspection, NORMAL PULSES. Negative for: Edema Lower Extremity: Positive for: Normal Inspection, NORMAL PULSES, Other ((+) mild amount of old blood on dressing in left mirza). Negative for: Edema, CALF TENDERNESS Neurological: Positive for: GCS=15, CN II-XII Intact, Motor Func Grossly Intact Skin: Positive for: Warm, Dry Psychiatric: Positive for: Alert, Oriented x 3 - Medications Active Medications: Active Medications Generic Name Dose Route Start Last Admin Trade Name Freq PRN Reason Stop Dose Admin Dextrose 0 ml 11/28/17 18:09 Dextrose 50% Inj IVP .STAT PRN Hypoglycemia Protocol Protocol Dextrose 0 gm 11/28/17 18:09 Glutose 15 PO .ONCE PRN Hypoglycemia Protocol Protocol Glucagon 0 mg 11/28/17 18:09 Glucagen Diagnostic Kit IM .STAT PRN Hypoglycemia Protocol Protocol Dextrose 1,000 mls @ 0 mls/hr 11/28/17 18:09 Dextrose 5% In Water 1000 Ml IV .Q0M PRN Hypoglycemia Protocol Protocol Per Protocol Heparin Sodium/Sodium Chloride 25,000 units in 250 mls @ 17.832 mls/hr 20:38 11/29/17 05:30 Heparin 35330 Units/250ml 1/2 Normal Saline IV 15 units/kg/hr .Q14H2M PRN 14.86 mls/hr PROTOCOL Titration Protocol 18 UNITS/KG/HR Insulin Human Regular 0 unit 11/28/17 20:00 11/29/17 07:53 Novolin R SC 3 u Q4 MANDY Administration Protocol - Patient Studies Lab Studies: Lab Studies 11/29/17 11/29/17 11/29/17 Range/Units 07:45 06:16 06:16 WBC 8.9 (4.8-10.8) K/uL RBC 3.73 L (4.40-5.90) Mil/uL Hgb 11.3 L D (12.0-18.0) g/dL Hct 32.9 L (35.0-51.0) % MCV 88.2 (80.0-94.0) fL MCH 30.4 (27.0-31.0) pg MCHC 34.5 (33.0-37.0) g/dL RDW 13.4 (11.5-14.5) % Plt Count 326 (130-400) K/uL MPV 8.3 (7.2-11.7) fL Neut % (Auto) 49.8 L (50.0-75.0) % Lymph % (Auto) 42.1 H (20.0-40.0) % Hawkins % (Auto) 7.4 (0.0-10.0) % Eos % (Auto) 0.4 (0.0-4.0) % Baso % (Auto) 0.3 (0.0-2.0) % Neut # (Auto) 4.5 (1.8-7.0) K/uL Lymph # (Auto) 3.8 (1.0-4.3) K/uL Hawkins # (Auto) 0.7 (0.0-0.8) K/uL Eos # (Auto) 0.0 (0.0-0.7) K/uL Baso # (Auto) 0.0 (0.0-0.2) K/uL PT (9.7-12.2) SECONDS INR APTT (21-34) SECONDS pO2 (30-55) mm/Hg VBG pH (7.32-7.43) VBG pCO2 (40-60) mmHg VBG HCO3 mmol/L VBG Total CO2 (22-28) mmol/L VBG O2 Sat (Calc) (40-65) % VBG Base Excess (0.0-2.0) mmol/L VBG Potassium (3.6-5.2) mmol/L Sodium 141 (132-148) mmol/l Chloride 107 (98-107) mmol/L Glucose (75-110) mg/dl Lactate (0.7-2.1) mmol/L FiO2 % Expiratory BiPAP Crit Value Called To Crit Value Called By Crit Value Read Back Blood Gas Notified Time Potassium 4.3 (3.6-5.2) mmol/L Carbon Dioxide 21 L (22-30) mmol/L Anion Gap 17 (10-20) BUN 8 L (9-20) mg/dL Creatinine 0.7 L (0.8-1.5) mg/dL Est GFR ( Amer) > 60 Est GFR (Non-Af Amer) > 60 POC Glucose (mg/dL) 215 H (65-110) mg/dL Random Glucose 199 H (75-110) mg/dL Calcium 8.3 L (8.6-10.4) mg/dl Phosphorus 4.4 (2.5-4.5) mg/dL Magnesium 1.9 (1.6-2.3) mg/dL Total Bilirubin 0.5 (0.2-1.3) mg/dL AST 36 (17-59) U/L ALT 50 (21-72) U/L Alkaline Phosphatase 65 (38-126) U/L Total Creatine Kinase (55-170) U/L CK-MB (Mass) (0.0-3.38) ng/mL Troponin I (0.00-0.120) ng/mL Total Protein 6.7 (6.3-8.3) g/dL Albumin 3.6 (3.5-5.0) g/dL Globulin 3.0 (2.2-3.9) gm/dL Albumin/Globulin Ratio 1.2 (1.0-2.1) Venous Blood Potassium (3.6-5.2) mmol/L Urine Color (YELLOW) Urine Clarity (Clear) Urine pH (5.0-8.0) Ur Specific Spring (1.003-1.030) Urine Protein (NEGATIVE) mg/dL Urine Glucose (UA) (Normal) mg/dL Urine Ketones (NEGATIVE) mg/dL Urine Blood (NEGATIVE) Urine Nitrate (NEGATIVE) Urine Bilirubin (NEGATIVE) Urine Urobilinogen (0.2-1.0) mg/dL Ur Leukocyte Esterase (Negative) Yu/uL Urine WBC (Auto) (0-5) /hpf Urine RBC (Auto) (0-3) /hpf Ur Squamous Epith Cells (0-5) /hpf Salicylates mg/dL 1 Blood Type 11/29/17 11/29/17 11/29/17 Range/Units 04:54 04:25 04:00 WBC (4.8-10.8) K/uL RBC (4.40-5.90) Mil/uL Hgb (12.0-18.0) g/dL Hct (35.0-51.0) % MCV (80.0-94.0) fL MCH (27.0-31.0) pg MCHC (33.0-37.0) g/dL RDW (11.5-14.5) % Plt Count (130-400) K/uL MPV (7.2-11.7) fL Neut % (Auto) (50.0-75.0) % Lymph % (Auto) (20.0-40.0) % Hawkins % (Auto) (0.0-10.0) % Eos % (Auto) (0.0-4.0) % Baso % (Auto) (0.0-2.0) % Neut # (Auto) (1.8-7.0) K/uL Lymph # (Auto) (1.0-4.3) K/uL Hawkins # (Auto) (0.0-0.8) K/uL Eos # (Auto) (0.0-0.7) K/uL Baso # (Auto) (0.0-0.2) K/uL PT (9.7-12.2) SECONDS INR APTT 108 H* D (21-34) SECONDS pO2 49 (30-55) mm/Hg VBG pH 7.34 (7.32-7.43) VBG pCO2 43 (40-60) mmHg VBG HCO3 22.5 mmol/L VBG Total CO2 24.5 (22-28) mmol/L VBG O2 Sat (Calc) 87.7 H (40-65) % VBG Base Excess -2.6 L (0.0-2.0) mmol/L VBG Potassium 3.9 (3.6-5.2) mmol/L Sodium 141.0 (132-148) mmol/l Chloride 110.0 H (98-107) mmol/L Glucose 209 H (75-110) mg/dl Lactate 1.5 (0.7-2.1) mmol/L FiO2 40.0 % Expiratory BiPAP 6 Crit Value Called To Crit Value Called By Crit Value Read Back Blood Gas Notified Time Potassium (3.6-5.2) mmol/L Carbon Dioxide (22-30) mmol/L Anion Gap (10-20) BUN (9-20) mg/dL Creatinine (0.8-1.5) mg/dL Est GFR ( Amer) Est GFR (Non-Af Amer) POC Glucose (mg/dL) 192 H (65-110) mg/dL Random Glucose (75-110) mg/dL Calcium (8.6-10.4) mg/dl Phosphorus (2.5-4.5) mg/dL Magnesium (1.6-2.3) mg/dL Total Bilirubin (0.2-1.3) mg/dL AST (17-59) U/L ALT (21-72) U/L Alkaline Phosphatase (38-126) U/L Total Creatine Kinase (55-170) U/L CK-MB (Mass) (0.0-3.38) ng/mL Troponin I (0.00-0.120) ng/mL Total Protein (6.3-8.3) g/dL Albumin (3.5-5.0) g/dL Globulin (2.2-3.9) gm/dL Albumin/Globulin Ratio (1.0-2.1) Venous Blood Potassium 3.9 (3.6-5.2) mmol/L Urine Color (YELLOW) Urine Clarity (Clear) Urine pH (5.0-8.0) Ur Specific Spring (1.003-1.030) Urine Protein (NEGATIVE) mg/dL Urine Glucose (UA) (Normal) mg/dL Urine Ketones (NEGATIVE) mg/dL Urine Blood (NEGATIVE) Urine Nitrate (NEGATIVE) Urine Bilirubin (NEGATIVE) Urine Urobilinogen (0.2-1.0) mg/dL Ur Leukocyte Esterase (Negative) Yu/uL Urine WBC (Auto) (0-5) /hpf Urine RBC (Auto) (0-3) /hpf Ur Squamous Epith Cells (0-5) /hpf Salicylates mg/dL 1 Blood Type 11/29/17 11/28/17 11/28/17 Range/Units 00:01 23:42 19:56 WBC (4.8-10.8) K/uL RBC (4.40-5.90) Mil/uL Hgb (12.0-18.0) g/dL Hct (35.0-51.0) % MCV (80.0-94.0) fL MCH (27.0-31.0) pg MCHC (33.0-37.0) g/dL RDW (11.5-14.5) % Plt Count (130-400) K/uL MPV (7.2-11.7) fL Neut % (Auto) (50.0-75.0) % Lymph % (Auto) (20.0-40.0) % Hawkins % (Auto) (0.0-10.0) % Eos % (Auto) (0.0-4.0) % Baso % (Auto) (0.0-2.0) % Neut # (Auto) (1.8-7.0) K/uL Lymph # (Auto) (1.0-4.3) K/uL Hawkins # (Auto) (0.0-0.8) K/uL Eos # (Auto) (0.0-0.7) K/uL Baso # (Auto) (0.0-0.2) K/uL PT (9.7-12.2) SECONDS INR APTT (21-34) SECONDS pO2 (30-55) mm/Hg VBG pH (7.32-7.43) VBG pCO2 (40-60) mmHg VBG HCO3 mmol/L VBG Total CO2 (22-28) mmol/L VBG O2 Sat (Calc) (40-65) % VBG Base Excess (0.0-2.0) mmol/L VBG Potassium (3.6-5.2) mmol/L Sodium (132-148) mmol/l Chloride (98-107) mmol/L Glucose (75-110) mg/dl Lactate (0.7-2.1) mmol/L FiO2 % Expiratory BiPAP Crit Value Called To Crit Value Called By Crit Value Read Back Blood Gas Notified Time Potassium (3.6-5.2) mmol/L Carbon Dioxide (22-30) mmol/L Anion Gap (10-20) BUN (9-20) mg/dL Creatinine (0.8-1.5) mg/dL Est GFR ( Amer) Est GFR (Non-Af Amer) POC Glucose (mg/dL) 231 H 287 H (65-110) mg/dL Random Glucose (75-110) mg/dL Calcium (8.6-10.4) mg/dl Phosphorus (2.5-4.5) mg/dL Magnesium (1.6-2.3) mg/dL Total Bilirubin (0.2-1.3) mg/dL AST (17-59) U/L ALT (21-72) U/L Alkaline Phosphatase (38-126) U/L Total Creatine Kinase 71 (55-170) U/L CK-MB (Mass) 3.79 H (0.0-3.38) ng/mL Troponin I 0.8120 H* (0.00-0.120) ng/mL Total Protein (6.3-8.3) g/dL Albumin (3.5-5.0) g/dL Globulin (2.2-3.9) gm/dL Albumin/Globulin Ratio (1.0-2.1) Venous Blood Potassium (3.6-5.2) mmol/L Urine Color (YELLOW) Urine Clarity (Clear) Urine pH (5.0-8.0) Ur Specific Spring (1.003-1.030) Urine Protein (NEGATIVE) mg/dL Urine Glucose (UA) (Normal) mg/dL Urine Ketones (NEGATIVE) mg/dL Urine Blood (NEGATIVE) Urine Nitrate (NEGATIVE) Urine Bilirubin (NEGATIVE) Urine Urobilinogen (0.2-1.0) mg/dL Ur Leukocyte Esterase (Negative) Yu/uL Urine WBC (Auto) (0-5) /hpf Urine RBC (Auto) (0-3) /hpf Ur Squamous Epith Cells (0-5) /hpf Salicylates mg/dL 1 Blood Type 11/28/17 11/28/17 11/28/17 Range/Units 19:56 16:40 16:22 WBC (4.8-10.8) K/uL RBC (4.40-5.90) Mil/uL Hgb (12.0-18.0) g/dL Hct (35.0-51.0) % MCV (80.0-94.0) fL MCH (27.0-31.0) pg MCHC (33.0-37.0) g/dL RDW (11.5-14.5) % Plt Count (130-400) K/uL MPV (7.2-11.7) fL Neut % (Auto) (50.0-75.0) % Lymph % (Auto) (20.0-40.0) % Hawkins % (Auto) (0.0-10.0) % Eos % (Auto) (0.0-4.0) % Baso % (Auto) (0.0-2.0) % Neut # (Auto) (1.8-7.0) K/uL Lymph # (Auto) (1.0-4.3) K/uL Hawkins # (Auto) (0.0-0.8) K/uL Eos # (Auto) (0.0-0.7) K/uL Baso # (Auto) (0.0-0.2) K/uL PT (9.7-12.2) SECONDS INR APTT (21-34) SECONDS pO2 21 L (30-55) mm/Hg VBG pH 7.18 L* (7.32-7.43) VBG pCO2 54 (40-60) mmHg VBG HCO3 16.2 mmol/L VBG Total CO2 21.9 L (22-28) mmol/L VBG O2 Sat (Calc) 31.8 L (40-65) % VBG Base Excess -8.6 L (0.0-2.0) mmol/L VBG Potassium 4.5 (3.6-5.2) mmol/L Sodium 138.0 (132-148) mmol/l Chloride 104.0 (98-107) mmol/L Glucose 300 H (75-110) mg/dl Lactate 5.0 H* (0.7-2.1) mmol/L FiO2 % Expiratory BiPAP Crit Value Called To Dr ryder Crit Value Called By Armando bullock Crit Value Read Back Y Blood Gas Notified Time 1643 Potassium (3.6-5.2) mmol/L Carbon Dioxide (22-30) mmol/L Anion Gap (10-20) BUN (9-20) mg/dL Creatinine (0.8-1.5) mg/dL Est GFR ( Amer) Est GFR (Non-Af Amer) POC Glucose (mg/dL) (65-110) mg/dL Random Glucose (75-110) mg/dL Calcium (8.6-10.4) mg/dl Phosphorus (2.5-4.5) mg/dL Magnesium (1.6-2.3) mg/dL Total Bilirubin (0.2-1.3) mg/dL AST (17-59) U/L ALT (21-72) U/L Alkaline Phosphatase (38-126) U/L Total Creatine Kinase 72 (55-170) U/L CK-MB (Mass) 3.42 H (0.0-3.38) ng/mL Troponin I 0.7050 H* (0.00-0.120) ng/mL Total Protein (6.3-8.3) g/dL Albumin (3.5-5.0) g/dL Globulin (2.2-3.9) gm/dL Albumin/Globulin Ratio (1.0-2.1) Venous Blood Potassium 4.5 (3.6-5.2) mmol/L Urine Color (YELLOW) Urine Clarity (Clear) Urine pH (5.0-8.0) Ur Specific Spring (1.003-1.030) Urine Protein (NEGATIVE) mg/dL Urine Glucose (UA) (Normal) mg/dL Urine Ketones (NEGATIVE) mg/dL Urine Blood (NEGATIVE) Urine Nitrate (NEGATIVE) Urine Bilirubin (NEGATIVE) Urine Urobilinogen (0.2-1.0) mg/dL Ur Leukocyte Esterase (Negative) Yu/uL Urine WBC (Auto) (0-5) /hpf Urine RBC (Auto) (0-3) /hpf Ur Squamous Epith Cells (0-5) /hpf Salicylates mg/dL 1 Blood Type A POSITIVE 11/28/17 11/28/17 11/28/17 Range/Units 14:28 14:25 13:11 WBC (4.8-10.8) K/uL RBC (4.40-5.90) Mil/uL Hgb (12.0-18.0) g/dL Hct (35.0-51.0) % MCV (80.0-94.0) fL MCH (27.0-31.0) pg MCHC (33.0-37.0) g/dL RDW (11.5-14.5) % Plt Count (130-400) K/uL MPV (7.2-11.7) fL Neut % (Auto) (50.0-75.0) % Lymph % (Auto) (20.0-40.0) % Hawkins % (Auto) (0.0-10.0) % Eos % (Auto) (0.0-4.0) % Baso % (Auto) (0.0-2.0) % Neut # (Auto) (1.8-7.0) K/uL Lymph # (Auto) (1.0-4.3) K/uL Hawkins # (Auto) (0.0-0.8) K/uL Eos # (Auto) (0.0-0.7) K/uL Baso # (Auto) (0.0-0.2) K/uL PT (9.7-12.2) SECONDS INR APTT (21-34) SECONDS pO2 (30-55) mm/Hg VBG pH (7.32-7.43) VBG pCO2 (40-60) mmHg VBG HCO3 mmol/L VBG Total CO2 (22-28) mmol/L VBG O2 Sat (Calc) (40-65) % VBG Base Excess (0.0-2.0) mmol/L VBG Potassium (3.6-5.2) mmol/L Sodium 141 (132-148) mmol/l Chloride 102 (98-107) mmol/L Glucose (75-110) mg/dl Lactate (0.7-2.1) mmol/L FiO2 % Expiratory BiPAP Crit Value Called To Crit Value Called By Crit Value Read Back Blood Gas Notified Time Potassium 4.0 (3.6-5.2) mmol/L Carbon Dioxide 20 L (22-30) mmol/L Anion Gap 24 H (10-20) BUN 8 L (9-20) mg/dL Creatinine 0.8 (0.8-1.5) mg/dL Est GFR ( Amer) > 60 Est GFR (Non-Af Amer) > 60 POC Glucose (mg/dL) (65-110) mg/dL Random Glucose 306 H (75-110) mg/dL Calcium 9.6 (8.6-10.4) mg/dl Phosphorus 5.2 H (2.5-4.5) mg/dL Magnesium 1.9 (1.6-2.3) mg/dL Total Bilirubin 0.5 (0.2-1.3) mg/dL AST 30 (17-59) U/L ALT 35 (21-72) U/L Alkaline Phosphatase 94 (38-126) U/L Total Creatine Kinase (55-170) U/L CK-MB (Mass) (0.0-3.38) ng/mL Troponin I 0.0640 (0.00-0.120) ng/mL Total Protein 8.7 H (6.3-8.3) g/dL Albumin 4.5 (3.5-5.0) g/dL Globulin 4.2 H (2.2-3.9) gm/dL Albumin/Globulin Ratio 1.1 (1.0-2.1) Venous Blood Potassium (3.6-5.2) mmol/L Urine Color Yellow (YELLOW) Urine Clarity Hazy (Clear) Urine pH 5.0 (5.0-8.0) Ur Specific Spring 1.027 (1.003-1.030) Urine Protein 3+ H (NEGATIVE) mg/dL Urine Glucose (UA) 3+ H (Normal) mg/dL Urine Ketones Trace (NEGATIVE) mg/dL Urine Blood Negative (NEGATIVE) Urine Nitrate Negative (NEGATIVE) Urine Bilirubin Negative (NEGATIVE) Urine Urobilinogen Normal (0.2-1.0) mg/dL Ur Leukocyte Esterase Neg (Negative) Yu/uL Urine WBC (Auto) 4 (0-5) /hpf Urine RBC (Auto) 2 (0-3) /hpf Ur Squamous Epith Cells < 1 (0-5) /hpf Salicylates < 1.0 mg/dL 1 Blood Type 11/28/17 11/28/17 11/28/17 Range/Units 13:11 13:11 13:08 WBC 12.3 H D (4.8-10.8) K/uL RBC 4.78 (4.40-5.90) Mil/uL Hgb 13.9 D (12.0-18.0) g/dL Hct 42.3 (35.0-51.0) % MCV 88.5 (80.0-94.0) fL MCH 29.1 (27.0-31.0) pg MCHC 32.9 L (33.0-37.0) g/dL RDW 13.2 (11.5-14.5) % Plt Count 386 D (130-400) K/uL MPV 7.8 (7.2-11.7) fL Neut % (Auto) 55.8 (50.0-75.0) % Lymph % (Auto) 36.9 (20.0-40.0) % Hawkins % (Auto) 5.9 (0.0-10.0) % Eos % (Auto) 1.0 (0.0-4.0) % Baso % (Auto) 0.4 (0.0-2.0) % Neut # (Auto) 6.9 (1.8-7.0) K/uL Lymph # (Auto) 4.5 H (1.0-4.3) K/uL Hawkins # (Auto) 0.7 (0.0-0.8) K/uL Eos # (Auto) 0.1 (0.0-0.7) K/uL Baso # (Auto) 0.0 (0.0-0.2) K/uL PT 10.9 (9.7-12.2) SECONDS INR 1.0 APTT 28 (21-34) SECONDS pO2 32 (30-55) mm/Hg VBG pH 7.29 L (7.32-7.43) VBG pCO2 47 (40-60) mmHg VBG HCO3 20.4 mmol/L VBG Total CO2 24.0 (22-28) mmol/L VBG O2 Sat (Calc) 61.3 (40-65) % VBG Base Excess -4.2 L (0.0-2.0) mmol/L VBG Potassium 3.9 (3.6-5.2) mmol/L Sodium 141.0 (132-148) mmol/l Chloride 102.0 (98-107) mmol/L Glucose 315 H (75-110) mg/dl Lactate 3.7 H (0.7-2.1) mmol/L FiO2 % Expiratory BiPAP Crit Value Called To Crit Value Called By Crit Value Read Back Blood Gas Notified Time Potassium (3.6-5.2) mmol/L Carbon Dioxide (22-30) mmol/L Anion Gap (10-20) BUN (9-20) mg/dL Creatinine (0.8-1.5) mg/dL Est GFR ( Amer) Est GFR (Non-Af Amer) POC Glucose (mg/dL) (65-110) mg/dL Random Glucose (75-110) mg/dL Calcium (8.6-10.4) mg/dl Phosphorus (2.5-4.5) mg/dL Magnesium (1.6-2.3) mg/dL Total Bilirubin (0.2-1.3) mg/dL AST (17-59) U/L ALT (21-72) U/L Alkaline Phosphatase (38-126) U/L Total Creatine Kinase (55-170) U/L CK-MB (Mass) (0.0-3.38) ng/mL Troponin I (0.00-0.120) ng/mL Total Protein (6.3-8.3) g/dL Albumin (3.5-5.0) g/dL Globulin (2.2-3.9) gm/dL Albumin/Globulin Ratio (1.0-2.1) Venous Blood Potassium 3.9 (3.6-5.2) mmol/L Urine Color (YELLOW) Urine Clarity (Clear) Urine pH (5.0-8.0) Ur Specific Spring (1.003-1.030) Urine Protein (NEGATIVE) mg/dL Urine Glucose (UA) (Normal) mg/dL Urine Ketones (NEGATIVE) mg/dL Urine Blood (NEGATIVE) Urine Nitrate (NEGATIVE) Urine Bilirubin (NEGATIVE) Urine Urobilinogen (0.2-1.0) mg/dL Ur Leukocyte Esterase (Negative) Yu/uL Urine WBC (Auto) (0-5) /hpf Urine RBC (Auto) (0-3) /hpf Ur Squamous Epith Cells (0-5) /hpf Salicylates mg/dL 1 Blood Type 11/28/17 Range/Units 12:02 WBC (4.8-10.8) K/uL RBC (4.40-5.90) Mil/uL Hgb (12.0-18.0) g/dL Hct (35.0-51.0) % MCV (80.0-94.0) fL MCH (27.0-31.0) pg MCHC (33.0-37.0) g/dL RDW (11.5-14.5) % Plt Count (130-400) K/uL MPV (7.2-11.7) fL Neut % (Auto) (50.0-75.0) % Lymph % (Auto) (20.0-40.0) % Hawkins % (Auto) (0.0-10.0) % Eos % (Auto) (0.0-4.0) % Baso % (Auto) (0.0-2.0) % Neut # (Auto) (1.8-7.0) K/uL Lymph # (Auto) (1.0-4.3) K/uL Hawkins # (Auto) (0.0-0.8) K/uL Eos # (Auto) (0.0-0.7) K/uL Baso # (Auto) (0.0-0.2) K/uL PT (9.7-12.2) SECONDS INR APTT (21-34) SECONDS pO2 (30-55) mm/Hg VBG pH (7.32-7.43) VBG pCO2 (40-60) mmHg VBG HCO3 mmol/L VBG Total CO2 (22-28) mmol/L VBG O2 Sat (Calc) (40-65) % VBG Base Excess (0.0-2.0) mmol/L VBG Potassium (3.6-5.2) mmol/L Sodium (132-148) mmol/l Chloride (98-107) mmol/L Glucose (75-110) mg/dl Lactate (0.7-2.1) mmol/L FiO2 % Expiratory BiPAP Crit Value Called To Crit Value Called By Crit Value Read Back Blood Gas Notified Time Potassium (3.6-5.2) mmol/L Carbon Dioxide (22-30) mmol/L Anion Gap (10-20) BUN (9-20) mg/dL Creatinine (0.8-1.5) mg/dL Est GFR ( Amer) Est GFR (Non-Af Amer) POC Glucose (mg/dL) 330 H (65-110) mg/dL Random Glucose (75-110) mg/dL Calcium (8.6-10.4) mg/dl Phosphorus (2.5-4.5) mg/dL Magnesium (1.6-2.3) mg/dL Total Bilirubin (0.2-1.3) mg/dL AST (17-59) U/L ALT (21-72) U/L Alkaline Phosphatase (38-126) U/L Total Creatine Kinase (55-170) U/L CK-MB (Mass) (0.0-3.38) ng/mL Troponin I (0.00-0.120) ng/mL Total Protein (6.3-8.3) g/dL Albumin (3.5-5.0) g/dL Globulin (2.2-3.9) gm/dL Albumin/Globulin Ratio (1.0-2.1) Venous Blood Potassium (3.6-5.2) mmol/L Urine Color (YELLOW) Urine Clarity (Clear) Urine pH (5.0-8.0) Ur Specific Spring (1.003-1.030) Urine Protein (NEGATIVE) mg/dL Urine Glucose (UA) (Normal) mg/dL Urine Ketones (NEGATIVE) mg/dL Urine Blood (NEGATIVE) Urine Nitrate (NEGATIVE) Urine Bilirubin (NEGATIVE) Urine Urobilinogen (0.2-1.0) mg/dL Ur Leukocyte Esterase (Negative) Yu/uL Urine WBC (Auto) (0-5) /hpf Urine RBC (Auto) (0-3) /hpf Ur Squamous Epith Cells (0-5) /hpf Salicylates mg/dL 1 Blood Type Laboratory Results - last 24 hr 11/28/17 11/28/17 11/28/17 12:02 13:08 13:11 WBC 12.3 H D RBC 4.78 Hgb 13.9 D Hct 42.3 MCV 88.5 MCH 29.1 MCHC 32.9 L RDW 13.2 Plt Count 386 D MPV 7.8 Neut % (Auto) 55.8 Lymph % (Auto) 36.9 Hawkins % (Auto) 5.9 Eos % (Auto) 1.0 Baso % (Auto) 0.4 Neut # (Auto) 6.9 Lymph # (Auto) 4.5 H Hawkins # (Auto) 0.7 Eos # (Auto) 0.1 Baso # (Auto) 0.0 PT INR APTT pO2 32 VBG pH 7.29 L VBG pCO2 47 VBG HCO3 20.4 VBG Total CO2 24.0 VBG O2 Sat (Calc) 61.3 VBG Base Excess -4.2 L VBG Potassium 3.9 Sodium 141.0 Chloride 102.0 Glucose 315 H Lactate 3.7 H FiO2 Expiratory BiPAP Crit Value Called To Crit Value Called By Crit Value Read Back Blood Gas Notified Time Potassium Carbon Dioxide Anion Gap BUN Creatinine Est GFR ( Amer) Est GFR (Non-Af Amer) POC Glucose (mg/dL) 330 H Random Glucose Calcium Phosphorus Magnesium Total Bilirubin AST ALT Alkaline Phosphatase Total Creatine Kinase CK-MB (Mass) Troponin I Total Protein Albumin Globulin Albumin/Globulin Ratio Venous Blood Potassium 3.9 Urine Color Urine Clarity Urine pH Ur Specific Spring Urine Protein Urine Glucose (UA) Urine Ketones Urine Blood Urine Nitrate Urine Bilirubin Urine Urobilinogen Ur Leukocyte Esterase Urine WBC (Auto) Urine RBC (Auto) Ur Squamous Epith Cells Salicylates Blood Type 11/28/17 11/28/17 11/28/17 13:11 13:11 14:25 WBC RBC Hgb Hct MCV MCH MCHC RDW Plt Count MPV Neut % (Auto) Lymph % (Auto) Hawkins % (Auto) Eos % (Auto) Baso % (Auto) Neut # (Auto) Lymph # (Auto) Hawkins # (Auto) Eos # (Auto) Baso # (Auto) PT 10.9 INR 1.0 APTT 28 pO2 VBG pH VBG pCO2 VBG HCO3 VBG Total CO2 VBG O2 Sat (Calc) VBG Base Excess VBG Potassium Sodium 141 Chloride 102 Glucose Lactate FiO2 Expiratory BiPAP Crit Value Called To Crit Value Called By Crit Value Read Back Blood Gas Notified Time Potassium 4.0 Carbon Dioxide 20 L Anion Gap 24 H BUN 8 L Creatinine 0.8 Est GFR ( Amer) > 60 Est GFR (Non-Af Amer) > 60 POC Glucose (mg/dL) Random Glucose 306 H Calcium 9.6 Phosphorus 5.2 H Magnesium 1.9 Total Bilirubin 0.5 AST 30 ALT 35 Alkaline Phosphatase 94 Total Creatine Kinase CK-MB (Mass) Troponin I 0.0640 Total Protein 8.7 H Albumin 4.5 Globulin 4.2 H Albumin/Globulin Ratio 1.1 Venous Blood Potassium Urine Color Urine Clarity Urine pH Ur Specific Spring Urine Protein Urine Glucose (UA) Urine Ketones Urine Blood Urine Nitrate Urine Bilirubin Urine Urobilinogen Ur Leukocyte Esterase Urine WBC (Auto) Urine RBC (Auto) Ur Squamous Epith Cells Salicylates < 1.0 Blood Type 11/28/17 11/28/17 11/28/17 14:28 16:22 16:40 WBC RBC Hgb Hct MCV MCH MCHC RDW Plt Count MPV Neut % (Auto) Lymph % (Auto) Hawkins % (Auto) Eos % (Auto) Baso % (Auto) Neut # (Auto) Lymph # (Auto) Hawkins # (Auto) Eos # (Auto) Baso # (Auto) PT INR APTT pO2 21 L VBG pH 7.18 L* VBG pCO2 54 VBG HCO3 16.2 VBG Total CO2 21.9 L VBG O2 Sat (Calc) 31.8 L VBG Base Excess -8.6 L VBG Potassium 4.5 Sodium 138.0 Chloride 104.0 Glucose 300 H Lactate 5.0 H* FiO2 Expiratory BiPAP Crit Value Called To Dr ryder Crit Value Called By Armando bullock Crit Value Read Back Y Blood Gas Notified Time 1643 Potassium Carbon Dioxide Anion Gap BUN Creatinine Est GFR ( Amer) Est GFR (Non-Af Amer) POC Glucose (mg/dL) Random Glucose Calcium Phosphorus Magnesium Total Bilirubin AST ALT Alkaline Phosphatase Total Creatine Kinase CK-MB (Mass) Troponin I Total Protein Albumin Globulin Albumin/Globulin Ratio Venous Blood Potassium 4.5 Urine Color Yellow Urine Clarity Hazy Urine pH 5.0 Ur Specific Spring 1.027 Urine Protein 3+ H Urine Glucose (UA) 3+ H Urine Ketones Trace Urine Blood Negative Urine Nitrate Negative Urine Bilirubin Negative Urine Urobilinogen Normal Ur Leukocyte Esterase Neg Urine WBC (Auto) 4 Urine RBC (Auto) 2 Ur Squamous Epith Cells < 1 Salicylates Blood Type A POSITIVE 11/28/17 11/28/17 11/28/17 19:56 19:56 23:42 WBC RBC Hgb Hct MCV MCH MCHC RDW Plt Count MPV Neut % (Auto) Lymph % (Auto) Hawkins % (Auto) Eos % (Auto) Baso % (Auto) Neut # (Auto) Lymph # (Auto) Hawkins # (Auto) Eos # (Auto) Baso # (Auto) PT INR APTT pO2 VBG pH VBG pCO2 VBG HCO3 VBG Total CO2 VBG O2 Sat (Calc) VBG Base Excess VBG Potassium Sodium Chloride Glucose Lactate FiO2 Expiratory BiPAP Crit Value Called To Crit Value Called By Crit Value Read Back Blood Gas Notified Time Potassium Carbon Dioxide Anion Gap BUN Creatinine Est GFR ( Amer) Est GFR (Non-Af Amer) POC Glucose (mg/dL) 287 H 231 H Random Glucose Calcium Phosphorus Magnesium Total Bilirubin AST ALT Alkaline Phosphatase Total Creatine Kinase 72 CK-MB (Mass) 3.42 H Troponin I 0.7050 H* Total Protein Albumin Globulin Albumin/Globulin Ratio Venous Blood Potassium Urine Color Urine Clarity Urine pH Ur Specific Spring Urine Protein Urine Glucose (UA) Urine Ketones Urine Blood Urine Nitrate Urine Bilirubin Urine Urobilinogen Ur Leukocyte Esterase Urine WBC (Auto) Urine RBC (Auto) Ur Squamous Epith Cells Salicylates Blood Type 11/29/17 11/29/17 11/29/17 00:01 04:00 04:25 WBC RBC Hgb Hct MCV MCH MCHC RDW Plt Count MPV Neut % (Auto) Lymph % (Auto) Hawkins % (Auto) Eos % (Auto) Baso % (Auto) Neut # (Auto) Lymph # (Auto) Hawkins # (Auto) Eos # (Auto) Baso # (Auto) PT INR APTT 108 H* D pO2 49 VBG pH 7.34 VBG pCO2 43 VBG HCO3 22.5 VBG Total CO2 24.5 VBG O2 Sat (Calc) 87.7 H VBG Base Excess -2.6 L VBG Potassium 3.9 Sodium 141.0 Chloride 110.0 H Glucose 209 H Lactate 1.5 FiO2 40.0 Expiratory BiPAP 6 Crit Value Called To Crit Value Called By Crit Value Read Back Blood Gas Notified Time Potassium Carbon Dioxide Anion Gap BUN Creatinine Est GFR ( Amer) Est GFR (Non-Af Amer) POC Glucose (mg/dL) Random Glucose Calcium Phosphorus Magnesium Total Bilirubin AST ALT Alkaline Phosphatase Total Creatine Kinase 71 CK-MB (Mass) 3.79 H Troponin I 0.8120 H* Total Protein Albumin Globulin Albumin/Globulin Ratio Venous Blood Potassium 3.9 Urine Color Urine Clarity Urine pH Ur Specific Spring Urine Protein Urine Glucose (UA) Urine Ketones Urine Blood Urine Nitrate Urine Bilirubin Urine Urobilinogen Ur Leukocyte Esterase Urine WBC (Auto) Urine RBC (Auto) Ur Squamous Epith Cells Salicylates Blood Type 11/29/17 11/29/17 11/29/17 04:54 06:16 06:16 WBC 8.9 RBC 3.73 L Hgb 11.3 L D Hct 32.9 L MCV 88.2 MCH 30.4 MCHC 34.5 RDW 13.4 Plt Count 326 MPV 8.3 Neut % (Auto) 49.8 L Lymph % (Auto) 42.1 H Hawkins % (Auto) 7.4 Eos % (Auto) 0.4 Baso % (Auto) 0.3 Neut # (Auto) 4.5 Lymph # (Auto) 3.8 Hawkins # (Auto) 0.7 Eos # (Auto) 0.0 Baso # (Auto) 0.0 PT INR APTT pO2 VBG pH VBG pCO2 VBG HCO3 VBG Total CO2 VBG O2 Sat (Calc) VBG Base Excess VBG Potassium Sodium 141 Chloride 107 Glucose Lactate FiO2 Expiratory BiPAP Crit Value Called To Crit Value Called By Crit Value Read Back Blood Gas Notified Time Potassium 4.3 Carbon Dioxide 21 L Anion Gap 17 BUN 8 L Creatinine 0.7 L Est GFR ( Amer) > 60 Est GFR (Non-Af Amer) > 60 POC Glucose (mg/dL) 192 H Random Glucose 199 H Calcium 8.3 L Phosphorus 4.4 Magnesium 1.9 Total Bilirubin 0.5 AST 36 ALT 50 Alkaline Phosphatase 65 Total Creatine Kinase CK-MB (Mass) Troponin I Total Protein 6.7 Albumin 3.6 Globulin 3.0 Albumin/Globulin Ratio 1.2 Venous Blood Potassium Urine Color Urine Clarity Urine pH Ur Specific Spring Urine Protein Urine Glucose (UA) Urine Ketones Urine Blood Urine Nitrate Urine Bilirubin Urine Urobilinogen Ur Leukocyte Esterase Urine WBC (Auto) Urine RBC (Auto) Ur Squamous Epith Cells Salicylates Blood Type 11/29/17 07:45 WBC RBC Hgb Hct MCV MCH MCHC RDW Plt Count MPV Neut % (Auto) Lymph % (Auto) Hawkins % (Auto) Eos % (Auto) Baso % (Auto) Neut # (Auto) Lymph # (Auto) Hawkins # (Auto) Eos # (Auto) Baso # (Auto) PT INR APTT pO2 VBG pH VBG pCO2 VBG HCO3 VBG Total CO2 VBG O2 Sat (Calc) VBG Base Excess VBG Potassium Sodium Chloride Glucose Lactate FiO2 Expiratory BiPAP Crit Value Called To Crit Value Called By Crit Value Read Back Blood Gas Notified Time Potassium Carbon Dioxide Anion Gap BUN Creatinine Est GFR ( Amer) Est GFR (Non-Af Amer) POC Glucose (mg/dL) 215 H Random Glucose Calcium Phosphorus Magnesium Total Bilirubin AST ALT Alkaline Phosphatase Total Creatine Kinase CK-MB (Mass) Troponin I Total Protein Albumin Globulin Albumin/Globulin Ratio Venous Blood Potassium Urine Color Urine Clarity Urine pH Ur Specific Spring Urine Protein Urine Glucose (UA) Urine Ketones Urine Blood Urine Nitrate Urine Bilirubin Urine Urobilinogen Ur Leukocyte Esterase Urine WBC (Auto) Urine RBC (Auto) Ur Squamous Epith Cells Salicylates Blood Type EKG/Cardiology Studies: Cardiology / EKG Studies 11/28/17 12:01 ELECTROCARDIOGRAM Stat Comment: Mode Of Transportation: Reason For Exam: Sepsis Patient 11/28/17 12:55 ELECTROCARDIOGRAM Stat Comment: Mode Of Transportation: Reason For Exam: Sepsis Patient Fingerstick Blood Sugar Results: 215 Review of Systems - Review of Systems All systems: reviewed and no additional remarkable complaints except (as per HPI ) Critical Care Progress Note - Prophylaxis GI Prophylaxis GI: Pepsid - Prophylaxis DVT Prophylaxis DVT: Not Indicated (pt is on therapeutic heparin gtt) - Nutrition Nutrition: Nutrition Category Date Time Status Heart Healthy Diet [DIET] Diets 11/29/17 Breakfast Active Assessment/Plan - Assessment and Plan (Free Text) Assessment: This is a 57 yo M with a PMHx of DM, HTN, Hypercholesterolemia who presents to ED via ambulance due to worsening sob, fatigue and recent syncopal episode. Pt noted to have a saddle embolus on Chest CTA. Pt treated with tPA and concomitant heparin gtt. Pt continues to be monitored in the ICU, while on heparin gtt. Neuro: - monitor for mental status changes - pt is AAOx3 - Head CT (11/28) shows no evidence of intracranial bleed Cardio: - Chest CT (11/28) shows no evidence of aneursym or dissection - maintain MAP>65 mmHg - troponin is positive at 0.8120, possibly due to pulmonary embolism; no ekg changes - s/p Alteplase treatment of pulmonary embolism on 11/28 - hypotension has improved after alteplase treatment; 130s/80s - lower extremity dopplar (11/29) shows acute deep vein thrombosis of the left popliteal and gastrocnemius veins with severe reduction of the venous return. - continue heparin gtt for pulmonary embolus and dvt treatment - continue rosuvastatin - restart home losartan - f/u echocardiogram GI: - HHD - pepcid for pud ppx Pulm: - cxr (11/28) shows no active disease - maintain so2>92% - vbg is normal, bpap discontinued - start cpap HS; pt likely has MCKAY due to history of snoring as per significant other and large neck circumference Renal: - maintain euvolemia - no fluids at this time because pt is eating ID: - leukocytosis has resolved - pt afebrile - blood culture x2 prelim shows no growth Heme: - no anemia - PT/PTT/INR is wnl - PLT count is normal Endo: - maintain euglycemia - continue home glimeperide - ISS medium - accucheck achs PPX: pepcid for pud ppx Dispo: Pt in ICU for monitoring s/p tPA Case was reviewed and discussed with attending physician, Dr. Blair <Kaleb Blair S - Last Filed: 11/29/17 18:53> CCU Objective - Vital Signs / Intake & Output Vital Signs (Last 4 hours): Vital Signs Temp Pulse Resp BP Pulse Ox 11/29/17 18:00 80 27 H 11/29/17 17:22 80 27 H 138/85 97 11/29/17 17:00 77 22 97 11/29/17 16:22 77 21 128/84 96 11/29/17 16:00 98.4 F 75 24 97 11/29/17 15:22 75 23 132/86 96 11/29/17 15:00 79 28 H 96 Intake and Output (Last 8hrs): Intake & Output 11/29/17 11/29/17 11/29/17 06:59 14:59 22:59 Intake Total 153.9 1084.3 419.6 Output Total 1100 500 Balance -946.1 584.3 419.6 Weight 221 lb 1.6 oz Intake: IV 50 200 Intake, IV Amount 103.9 104.3 59.6 Left Hand 103.9 104.3 59.6 Right Antecubital 0 Right Wrist 0 Oral 780 360 Output: Urine 1100 500 Urine, Voided 1100 500 - Medications Active Medications: Active Medications Generic Name Dose Route Start Last Admin Trade Name Freq PRN Reason Stop Dose Admin Dextrose 0 ml 11/28/17 18:09 Dextrose 50% Inj IVP .STAT PRN Hypoglycemia Protocol Protocol Dextrose 0 gm 11/28/17 18:09 Glutose 15 PO .ONCE PRN Hypoglycemia Protocol Protocol Famotidine 40 mg 11/29/17 16:30 11/29/17 16:51 Pepcid PO 40 mg DAILY MANDY Administration Glimepiride 4 mg 11/29/17 13:30 11/29/17 13:55 Amaryl PO 4 mg DAILY MANDY Administration Glucagon 0 mg 11/28/17 18:09 Glucagen Diagnostic Kit IM .STAT PRN Hypoglycemia Protocol Protocol Dextrose 1,000 mls @ 0 mls/hr 11/28/17 18:09 Dextrose 5% In Water 1000 Ml IV .Q0M PRN Hypoglycemia Protocol Protocol Per Protocol Heparin Sodium/Sodium Chloride 25,000 units in 250 mls @ 17.832 mls/hr 20:38 11/29/17 13:55 Heparin 65933 Units/250ml 1/2 Normal Saline IV 15 units/kg/hr .Q14H2M PRN 14.86 mls/hr PROTOCOL Administration Protocol 18 UNITS/KG/HR Insulin Glargine 16 unit 11/29/17 22:00 Lantus SC HS [facility] Insulin Human Regular 0 unit 11/29/17 11:30 11/29/17 16:40 Novolin R SC 2 u ACHS [facility] Administration Protocol Losartan Potassium 50 mg 11/29/17 13:30 11/29/17 13:55 Cozaar PO 50 mg DAILY [facility] Administration Rosuvastatin Calcium 5 mg 11/29/17 22:00 Crestor PO HS [facility] - Patient Studies Lab Studies: Microbiology Studies 11/28/17 14:16 Urine Culture - Final Urine,Clean Catch No Growth (<1,000 CFU/ML) 11/28/17 19:05 MRSA Culture (Admit) - Final Nose MRSA NOT DETECTED 11/28/17 12:50 Blood Culture - Preliminary Blood NO GROWTH AFTER 24 HOURS 11/28/17 12:20 Blood Culture - Preliminary Blood NO GROWTH AFTER 24 HOURS Lab Studies 11/29/17 11/29/17 11/29/17 Range/Units 17:59 16:12 12:09 WBC (4.8-10.8) K/uL RBC (4.40-5.90) Mil/uL Hgb (12.0-18.0) g/dL Hct (35.0-51.0) % MCV (80.0-94.0) fL MCH (27.0-31.0) pg MCHC (33.0-37.0) g/dL RDW (11.5-14.5) % Plt Count (130-400) K/uL MPV (7.2-11.7) fL Neut % (Auto) (50.0-75.0) % Lymph % (Auto) (20.0-40.0) % Hawkins % (Auto) (0.0-10.0) % Eos % (Auto) (0.0-4.0) % Baso % (Auto) (0.0-2.0) % Neut # (Auto) (1.8-7.0) K/uL Lymph # (Auto) (1.0-4.3) K/uL Hawkins # (Auto) (0.0-0.8) K/uL Eos # (Auto) (0.0-0.7) K/uL Baso # (Auto) (0.0-0.2) K/uL APTT 60 H D (21-34) SECONDS pO2 (30-55) mm/Hg VBG pH (7.32-7.43) VBG pCO2 (40-60) mmHg VBG HCO3 mmol/L VBG Total CO2 (22-28) mmol/L VBG O2 Sat (Calc) (40-65) % VBG Base Excess (0.0-2.0) mmol/L VBG Potassium (3.6-5.2) mmol/L Sodium (132-148) mmol/l Chloride (98-107) mmol/L Glucose (75-110) mg/dl Lactate (0.7-2.1) mmol/L FiO2 % Expiratory BiPAP Potassium (3.6-5.2) mmol/L Carbon Dioxide (22-30) mmol/L Anion Gap (10-20) BUN (9-20) mg/dL Creatinine (0.8-1.5) mg/dL Est GFR ( Amer) Est GFR (Non-Af Amer) POC Glucose (mg/dL) 171 H 232 H (65-110) mg/dL Random Glucose (75-110) mg/dL Calcium (8.6-10.4) mg/dl Phosphorus (2.5-4.5) mg/dL Magnesium (1.6-2.3) mg/dL Total Bilirubin (0.2-1.3) mg/dL AST (17-59) U/L ALT (21-72) U/L Alkaline Phosphatase (38-126) U/L Total Creatine Kinase (55-170) U/L CK-MB (Mass) (0.0-3.38) ng/mL Troponin I (0.00-0.120) ng/mL Total Protein (6.3-8.3) g/dL Albumin (3.5-5.0) g/dL Globulin (2.2-3.9) gm/dL Albumin/Globulin Ratio (1.0-2.1) Venous Blood Potassium (3.6-5.2) mmol/L Antibody Screen 11/29/17 11/29/17 11/29/17 Range/Units 12:08 07:45 06:16 WBC (4.8-10.8) K/uL RBC (4.40-5.90) Mil/uL Hgb (12.0-18.0) g/dL Hct (35.0-51.0) % MCV (80.0-94.0) fL MCH (27.0-31.0) pg MCHC (33.0-37.0) g/dL RDW (11.5-14.5) % Plt Count (130-400) K/uL MPV (7.2-11.7) fL Neut % (Auto) (50.0-75.0) % Lymph % (Auto) (20.0-40.0) % Hawkins % (Auto) (0.0-10.0) % Eos % (Auto) (0.0-4.0) % Baso % (Auto) (0.0-2.0) % Neut # (Auto) (1.8-7.0) K/uL Lymph # (Auto) (1.0-4.3) K/uL Hawkins # (Auto) (0.0-0.8) K/uL Eos # (Auto) (0.0-0.7) K/uL Baso # (Auto) (0.0-0.2) K/uL APTT 69 H D (21-34) SECONDS pO2 (30-55) mm/Hg VBG pH (7.32-7.43) VBG pCO2 (40-60) mmHg VBG HCO3 mmol/L VBG Total CO2 (22-28) mmol/L VBG O2 Sat (Calc) (40-65) % VBG Base Excess (0.0-2.0) mmol/L VBG Potassium (3.6-5.2) mmol/L Sodium 141 (132-148) mmol/l Chloride 107 (98-107) mmol/L Glucose (75-110) mg/dl Lactate (0.7-2.1) mmol/L FiO2 % Expiratory BiPAP Potassium 4.3 (3.6-5.2) mmol/L Carbon Dioxide 21 L (22-30) mmol/L Anion Gap 17 (10-20) BUN 8 L (9-20) mg/dL Creatinine 0.7 L (0.8-1.5) mg/dL Est GFR ( Amer) > 60 Est GFR (Non-Af Amer) > 60 POC Glucose (mg/dL) 215 H (65-110) mg/dL Random Glucose 199 H (75-110) mg/dL Calcium 8.3 L (8.6-10.4) mg/dl Phosphorus 4.4 (2.5-4.5) mg/dL Magnesium 1.9 (1.6-2.3) mg/dL Total Bilirubin 0.5 (0.2-1.3) mg/dL AST 36 (17-59) U/L ALT 50 (21-72) U/L Alkaline Phosphatase 65 (38-126) U/L Total Creatine Kinase (55-170) U/L CK-MB (Mass) (0.0-3.38) ng/mL Troponin I (0.00-0.120) ng/mL Total Protein 6.7 (6.3-8.3) g/dL Albumin 3.6 (3.5-5.0) g/dL Globulin 3.0 (2.2-3.9) gm/dL Albumin/Globulin Ratio 1.2 (1.0-2.1) Venous Blood Potassium (3.6-5.2) mmol/L Antibody Screen 11/29/17 11/29/17 11/29/17 Range/Units 06:16 04:54 04:25 WBC 8.9 (4.8-10.8) K/uL RBC 3.73 L (4.40-5.90) Mil/uL Hgb 11.3 L D (12.0-18.0) g/dL Hct 32.9 L (35.0-51.0) % MCV 88.2 (80.0-94.0) fL MCH 30.4 (27.0-31.0) pg MCHC 34.5 (33.0-37.0) g/dL RDW 13.4 (11.5-14.5) % Plt Count 326 (130-400) K/uL MPV 8.3 (7.2-11.7) fL Neut % (Auto) 49.8 L (50.0-75.0) % Lymph % (Auto) 42.1 H (20.0-40.0) % Hawkins % (Auto) 7.4 (0.0-10.0) % Eos % (Auto) 0.4 (0.0-4.0) % Baso % (Auto) 0.3 (0.0-2.0) % Neut # (Auto) 4.5 (1.8-7.0) K/uL Lymph # (Auto) 3.8 (1.0-4.3) K/uL Hawkins # (Auto) 0.7 (0.0-0.8) K/uL Eos # (Auto) 0.0 (0.0-0.7) K/uL Baso # (Auto) 0.0 (0.0-0.2) K/uL APTT 108 H* D (21-34) SECONDS pO2 (30-55) mm/Hg VBG pH (7.32-7.43) VBG pCO2 (40-60) mmHg VBG HCO3 mmol/L VBG Total CO2 (22-28) mmol/L VBG O2 Sat (Calc) (40-65) % VBG Base Excess (0.0-2.0) mmol/L VBG Potassium (3.6-5.2) mmol/L Sodium (132-148) mmol/l Chloride (98-107) mmol/L Glucose (75-110) mg/dl Lactate (0.7-2.1) mmol/L FiO2 % Expiratory BiPAP Potassium (3.6-5.2) mmol/L Carbon Dioxide (22-30) mmol/L Anion Gap (10-20) BUN (9-20) mg/dL Creatinine (0.8-1.5) mg/dL Est GFR ( Amer) Est GFR (Non-Af Amer) POC Glucose (mg/dL) 192 H (65-110) mg/dL Random Glucose (75-110) mg/dL Calcium (8.6-10.4) mg/dl Phosphorus (2.5-4.5) mg/dL Magnesium (1.6-2.3) mg/dL Total Bilirubin (0.2-1.3) mg/dL AST (17-59) U/L ALT (21-72) U/L Alkaline Phosphatase (38-126) U/L Total Creatine Kinase (55-170) U/L CK-MB (Mass) (0.0-3.38) ng/mL Troponin I (0.00-0.120) ng/mL Total Protein (6.3-8.3) g/dL Albumin (3.5-5.0) g/dL Globulin (2.2-3.9) gm/dL Albumin/Globulin Ratio (1.0-2.1) Venous Blood Potassium (3.6-5.2) mmol/L Antibody Screen 11/29/17 11/29/17 11/28/17 Range/Units 04:00 00:01 23:42 WBC (4.8-10.8) K/uL RBC (4.40-5.90) Mil/uL Hgb (12.0-18.0) g/dL Hct (35.0-51.0) % MCV (80.0-94.0) fL MCH (27.0-31.0) pg MCHC (33.0-37.0) g/dL RDW (11.5-14.5) % Plt Count (130-400) K/uL MPV (7.2-11.7) fL Neut % (Auto) (50.0-75.0) % Lymph % (Auto) (20.0-40.0) % Hawkins % (Auto) (0.0-10.0) % Eos % (Auto) (0.0-4.0) % Baso % (Auto) (0.0-2.0) % Neut # (Auto) (1.8-7.0) K/uL Lymph # (Auto) (1.0-4.3) K/uL Hawkins # (Auto) (0.0-0.8) K/uL Eos # (Auto) (0.0-0.7) K/uL Baso # (Auto) (0.0-0.2) K/uL APTT (21-34) SECONDS pO2 49 (30-55) mm/Hg VBG pH 7.34 (7.32-7.43) VBG pCO2 43 (40-60) mmHg VBG HCO3 22.5 mmol/L VBG Total CO2 24.5 (22-28) mmol/L VBG O2 Sat (Calc) 87.7 H (40-65) % VBG Base Excess -2.6 L (0.0-2.0) mmol/L VBG Potassium 3.9 (3.6-5.2) mmol/L Sodium 141.0 (132-148) mmol/l Chloride 110.0 H (98-107) mmol/L Glucose 209 H (75-110) mg/dl Lactate 1.5 (0.7-2.1) mmol/L FiO2 40.0 % Expiratory BiPAP 6 Potassium (3.6-5.2) mmol/L Carbon Dioxide (22-30) mmol/L Anion Gap (10-20) BUN (9-20) mg/dL Creatinine (0.8-1.5) mg/dL Est GFR ( Amer) Est GFR (Non-Af Amer) POC Glucose (mg/dL) 231 H (65-110) mg/dL Random Glucose (75-110) mg/dL Calcium (8.6-10.4) mg/dl Phosphorus (2.5-4.5) mg/dL Magnesium (1.6-2.3) mg/dL Total Bilirubin (0.2-1.3) mg/dL AST (17-59) U/L ALT (21-72) U/L Alkaline Phosphatase (38-126) U/L Total Creatine Kinase 71 (55-170) U/L CK-MB (Mass) 3.79 H (0.0-3.38) ng/mL Troponin I 0.8120 H* (0.00-0.120) ng/mL Total Protein (6.3-8.3) g/dL Albumin (3.5-5.0) g/dL Globulin (2.2-3.9) gm/dL Albumin/Globulin Ratio (1.0-2.1) Venous Blood Potassium 3.9 (3.6-5.2) mmol/L Antibody Screen 11/28/17 11/28/17 11/28/17 Range/Units 19:56 19:56 16:22 WBC (4.8-10.8) K/uL RBC (4.40-5.90) Mil/uL Hgb (12.0-18.0) g/dL Hct (35.0-51.0) % MCV (80.0-94.0) fL MCH (27.0-31.0) pg MCHC (33.0-37.0) g/dL RDW (11.5-14.5) % Plt Count (130-400) K/uL MPV (7.2-11.7) fL Neut % (Auto) (50.0-75.0) % Lymph % (Auto) (20.0-40.0) % Hawkins % (Auto) (0.0-10.0) % Eos % (Auto) (0.0-4.0) % Baso % (Auto) (0.0-2.0) % Neut # (Auto) (1.8-7.0) K/uL Lymph # (Auto) (1.0-4.3) K/uL Hawkins # (Auto) (0.0-0.8) K/uL Eos # (Auto) (0.0-0.7) K/uL Baso # (Auto) (0.0-0.2) K/uL APTT (21-34) SECONDS pO2 (30-55) mm/Hg VBG pH (7.32-7.43) VBG pCO2 (40-60) mmHg VBG HCO3 mmol/L VBG Total CO2 (22-28) mmol/L VBG O2 Sat (Calc) (40-65) % VBG Base Excess (0.0-2.0) mmol/L VBG Potassium (3.6-5.2) mmol/L Sodium (132-148) mmol/l Chloride (98-107) mmol/L Glucose (75-110) mg/dl Lactate (0.7-2.1) mmol/L FiO2 % Expiratory BiPAP Potassium (3.6-5.2) mmol/L Carbon Dioxide (22-30) mmol/L Anion Gap (10-20) BUN (9-20) mg/dL Creatinine (0.8-1.5) mg/dL Est GFR ( Amer) Est GFR (Non-Af Amer) POC Glucose (mg/dL) 287 H (65-110) mg/dL Random Glucose (75-110) mg/dL Calcium (8.6-10.4) mg/dl Phosphorus (2.5-4.5) mg/dL Magnesium (1.6-2.3) mg/dL Total Bilirubin (0.2-1.3) mg/dL AST (17-59) U/L ALT (21-72) U/L Alkaline Phosphatase (38-126) U/L Total Creatine Kinase 72 (55-170) U/L CK-MB (Mass) 3.42 H (0.0-3.38) ng/mL Troponin I 0.7050 H* (0.00-0.120) ng/mL Total Protein (6.3-8.3) g/dL Albumin (3.5-5.0) g/dL Globulin (2.2-3.9) gm/dL Albumin/Globulin Ratio (1.0-2.1) Venous Blood Potassium (3.6-5.2) mmol/L Antibody Screen Negative Laboratory Results - last 24 hr 11/28/17 11/28/17 11/28/17 16:22 19:56 19:56 WBC RBC Hgb Hct MCV MCH MCHC RDW Plt Count MPV Neut % (Auto) Lymph % (Auto) Hawkins % (Auto) Eos % (Auto) Baso % (Auto) Neut # (Auto) Lymph # (Auto) Hawkins # (Auto) Eos # (Auto) Baso # (Auto) APTT pO2 VBG pH VBG pCO2 VBG HCO3 VBG Total CO2 VBG O2 Sat (Calc) VBG Base Excess VBG Potassium Sodium Chloride Glucose Lactate FiO2 Expiratory BiPAP Potassium Carbon Dioxide Anion Gap BUN Creatinine Est GFR ( Amer) Est GFR (Non-Af Amer) POC Glucose (mg/dL) 287 H Random Glucose Calcium Phosphorus Magnesium Total Bilirubin AST ALT Alkaline Phosphatase Total Creatine Kinase 72 CK-MB (Mass) 3.42 H Troponin I 0.7050 H* Total Protein Albumin Globulin Albumin/Globulin Ratio Venous Blood Potassium Antibody Screen Negative 11/28/17 11/29/17 11/29/17 23:42 00:01 04:00 WBC RBC Hgb Hct MCV MCH MCHC RDW Plt Count MPV Neut % (Auto) Lymph % (Auto) Hawkins % (Auto) Eos % (Auto) Baso % (Auto) Neut # (Auto) Lymph # (Auto) Hawkins # (Auto) Eos # (Auto) Baso # (Auto) APTT pO2 49 VBG pH 7.34 VBG pCO2 43 VBG HCO3 22.5 VBG Total CO2 24.5 VBG O2 Sat (Calc) 87.7 H VBG Base Excess -2.6 L VBG Potassium 3.9 Sodium 141.0 Chloride 110.0 H Glucose 209 H Lactate 1.5 FiO2 40.0 Expiratory BiPAP 6 Potassium Carbon Dioxide Anion Gap BUN Creatinine Est GFR ( Amer) Est GFR (Non-Af Amer) POC Glucose (mg/dL) 231 H Random Glucose Calcium Phosphorus Magnesium Total Bilirubin AST ALT Alkaline Phosphatase Total Creatine Kinase 71 CK-MB (Mass) 3.79 H Troponin I 0.8120 H* Total Protein Albumin Globulin Albumin/Globulin Ratio Venous Blood Potassium 3.9 Antibody Screen 11/29/17 11/29/17 11/29/17 04:25 04:54 06:16 WBC 8.9 RBC 3.73 L Hgb 11.3 L D Hct 32.9 L MCV 88.2 MCH 30.4 MCHC 34.5 RDW 13.4 Plt Count 326 MPV 8.3 Neut % (Auto) 49.8 L Lymph % (Auto) 42.1 H Hawkins % (Auto) 7.4 Eos % (Auto) 0.4 Baso % (Auto) 0.3 Neut # (Auto) 4.5 Lymph # (Auto) 3.8 Hawkins # (Auto) 0.7 Eos # (Auto) 0.0 Baso # (Auto) 0.0 APTT 108 H* D pO2 VBG pH VBG pCO2 VBG HCO3 VBG Total CO2 VBG O2 Sat (Calc) VBG Base Excess VBG Potassium Sodium Chloride Glucose Lactate FiO2 Expiratory BiPAP Potassium Carbon Dioxide Anion Gap BUN Creatinine Est GFR ( Amer) Est GFR (Non-Af Amer) POC Glucose (mg/dL) 192 H Random Glucose Calcium Phosphorus Magnesium Total Bilirubin AST ALT Alkaline Phosphatase Total Creatine Kinase CK-MB (Mass) Troponin I Total Protein Albumin Globulin Albumin/Globulin Ratio Venous Blood Potassium Antibody Screen 11/29/17 11/29/17 11/29/17 06:16 07:45 12:08 WBC RBC Hgb Hct MCV MCH MCHC RDW Plt Count MPV Neut % (Auto) Lymph % (Auto) Hawkins % (Auto) Eos % (Auto) Baso % (Auto) Neut # (Auto) Lymph # (Auto) Hawkins # (Auto) Eos # (Auto) Baso # (Auto) APTT 69 H D pO2 VBG pH VBG pCO2 VBG HCO3 VBG Total CO2 VBG O2 Sat (Calc) VBG Base Excess VBG Potassium Sodium 141 Chloride 107 Glucose Lactate FiO2 Expiratory BiPAP Potassium 4.3 Carbon Dioxide 21 L Anion Gap 17 BUN 8 L Creatinine 0.7 L Est GFR ( Amer) > 60 Est GFR (Non-Af Amer) > 60 POC Glucose (mg/dL) 215 H Random Glucose 199 H Calcium 8.3 L Phosphorus 4.4 Magnesium 1.9 Total Bilirubin 0.5 AST 36 ALT 50 Alkaline Phosphatase 65 Total Creatine Kinase CK-MB (Mass) Troponin I Total Protein 6.7 Albumin 3.6 Globulin 3.0 Albumin/Globulin Ratio 1.2 Venous Blood Potassium Antibody Screen 11/29/17 11/29/17 11/29/17 12:09 16:12 17:59 WBC RBC Hgb Hct MCV MCH MCHC RDW Plt Count MPV Neut % (Auto) Lymph % (Auto) Hawkins % (Auto) Eos % (Auto) Baso % (Auto) Neut # (Auto) Lymph # (Auto) Hawkins # (Auto) Eos # (Auto) Baso # (Auto) APTT 60 H D pO2 VBG pH VBG pCO2 VBG HCO3 VBG Total CO2 VBG O2 Sat (Calc) VBG Base Excess VBG Potassium Sodium Chloride Glucose Lactate FiO2 Expiratory BiPAP Potassium Carbon Dioxide Anion Gap BUN Creatinine Est GFR ( Amer) Est GFR (Non-Af Amer) POC Glucose (mg/dL) 232 H 171 H Random Glucose Calcium Phosphorus Magnesium Total Bilirubin AST ALT Alkaline Phosphatase Total Creatine Kinase CK-MB (Mass) Troponin I Total Protein Albumin Globulin Albumin/Globulin Ratio Venous Blood Potassium Antibody Screen Critical Care Progress Note - Nutrition Nutrition: Nutrition Category Date Time Status Heart Healthy Diet [DIET] Diets 11/29/17 Breakfast Active Attending/Attestation - Attestation I have personally seen and examined this patient.: Yes I have fully participated in the care of the patient.: Yes I have reviewed all pertinent clinical information: Yes Notes (Text): 11/29/17 18:52 patient seen and examined Status post thrombolytic therapy Hemodynamically stable Denies shortness of breath, denies chest pain, denies dizziness No active bleeding noted Continue heparin drip Venous Doppler positive for DVT Echocardiogram noted start eliquis in a.m.
--- NOTE | 2017-11-29 12:50 | CARD ---
APPROVED REPORT Date of service: 11/28/2017 EKG Measurement Heart [id number] <Conclusion> Normal sinus rhythm Normal ECG
--- NOTE | 2017-11-29 12:59 | VASCLAB ---
Date of service: 11/29/2017 PROCEDURE: Lower Extremity Venous Duplex Exam. HISTORY: Pulmonary embolism, Dyspnea, r/o DVT PRIORS: None. TECHNIQUE: Bilateral common femoral, femoral, popliteal and posterior tibial, peroneal and great saphenous veins were evaluated. Flow was assessed with color Doppler, compressibility, assessment of phasic flow and augmentation response. Report prepared by ATIYA Mathew FINDINGS: RIGHT: 1. Common Femoral Vein: 1.1. Compressibility - Fully compressible: Thrombus - None : Flow - Phasic: Augmentation -Normal: Reflux - None. 2. Femoral Vein: 2.1. Compressibility - Fully compressible: Thrombus - None : Flow - Phasic: Augmentation -Normal: Reflux - None. 3. Popliteal Vein: 3.1. Compressibility - Fully compressible: Thrombus - None : Flow - Phasic: Augmentation -Normal: Reflux - None. 4. Posterior Tibial Vein: 4.1. Compressibility - Fully compressible: Thrombus - None: Flow - Phasic: Augmentation -Normal: Reflux - None. 5. Peroneal Vein: 5.1. Compressibility - Fully compressible: Thrombus - None: Flow - Phasic: Augmentation -Normal: Reflux - None. 6. Great Saphenous Vein: 6.1. Compressibility - Fully compressible: Thrombus - None: Flow - Phasic: Augmentation - Normal: Reflux - None. LEFT: 1. Common Femoral Vein: 1.1. Compressibility - Fully compressible: Thrombus - None: Flow - Phasic: Augmentation -Normal: Reflux - None. 2. Femoral Vein: 2.1. Compressibility - Fully compressible: Thrombus - None: Flow - Phasic: Augmentation -Normal: Reflux - None. 3. Popliteal Vein: 3.1. Compressibility - Incompressible: Thrombus - Acute : Flow - Reduced : 4. Posterior Tibial Vein: 4.1. Compressibility - Fully compressible: Thrombus - None: Flow - Phasic: Augmentation -Normal: Reflux - None. 5. Peroneal Vein: 5.1. Compressibility - Fully compressible: Thrombus - None: Flow - Phasic: Augmentation -Normal: Reflux - None. 6. Great Saphenous Vein: 6.1. Compressibility - Fully compressible: Thrombus - None: Flow - Phasic: Augmentation - Normal: Reflux - None. OTHER FINDINGS: Right: None significant. Left: One gastrocnemius vein non compressible, with echolucent thrombus. IMPRESSION: Right: No evidence of deep or superficial vein thrombosis of the right lower extremity. Normal valve function noted of the right side. Left: Acute deep vein thrombosis of the left popliteal and gastrocnemius veins with severe reduction of the venous return. ICU Darvin Maddox aware of the findings at 11:44 a.m.
[2017-11-29] MEDS: Heparin25000 units/250ml 1/2NS 25,000 UNITS/250 ML BAG IV PRN (13:55)
--- NOTE | 2017-11-29 14:32 | CP.PCM.PN ---
Subjective - Date & Time of Evaluation Date of Evaluation: 11/29/17 Time of Evaluation: 14:32 - Subjective Subjective: no cp currently no sob currently no dizziness currently Objective - Vital Signs/Intake and Output Vital Signs (last 24 hours): Temp Pulse Resp BP Pulse Ox 97.9 F 80 14 138/86 98 11/29/17 12:00 11/29/17 13:00 11/29/17 13:00 11/29/17 12:22 11/29/17 13:00 Intake and Output: 11/29/17 11/29/17 06:59 18:59 Intake Total 239.5 289.4 Output Total 1100 Balance -860.5 289.4 - Medications Medications: Current Medications Dextrose (Dextrose 50% Inj) 0 ml IVP .STAT PRN; Protocol PRN Reason: Hypoglycemia Protocol Dextrose (Glutose 15) 0 gm PO .ONCE PRN; Protocol PRN Reason: Hypoglycemia Protocol Glimepiride (Amaryl) 4 mg PO DAILY [facility] Last Admin: 11/29/17 13:55 Dose: 4 mg Glucagon (Glucagen Diagnostic Kit) 0 mg IM .STAT PRN; Protocol PRN Reason: Hypoglycemia Protocol Dextrose (Dextrose 5% In Water 1000 Ml) 1,000 mls @ 0 mls/hr IV .Q0M PRN; Protocol; Per Protocol PRN Reason: Hypoglycemia Protocol Heparin Sodium/Sodium Chloride (Heparin 82162 Units/250ml 1/2 Normal Saline) 25 ,000 units in 250 mls @ 17.832 mls/hr IV .Q14H2M PRN; Protocol; 18 UNITS/KG/HR PRN Reason: PROTOCOL Last Admin: 11/29/17 13:55 Dose: 15 units/kg/hr, 14.86 mls/hr Insulin Human Regular (Novolin R) 0 unit SC ACHS [facility] PRN Reason: Protocol Last Admin: 11/29/17 12:54 Dose: 3 u Losartan Potassium (Cozaar) 50 mg PO DAILY [facility] Last Admin: 11/29/17 13:55 Dose: 50 mg Rosuvastatin Calcium (Crestor) 5 mg PO HS [facility] - Labs Labs: 11/29/17 06:16 11/29/17 06:16 PT 10.9 SECONDS (9.7-12.2) 11/28/17 13:11 INR 1.0 11/28/17 13:11 APTT 69 SECONDS (21-34) H D 11/29/17 12:08 - Constitutional Appears: Well, Non-toxic, No Acute Distress - Head Exam Head Exam: ATRAUMATIC - Eye Exam Eye Exam: Normal appearance Pupil Exam: NORMAL ACCOMODATION - ENT Exam ENT Exam: Mucous Membranes Moist - Respiratory Exam Respiratory Exam: Clear to Ausculation Bilateral, NORMAL BREATHING PATTERN. absent: Accessory Muscle Use, Rales, Rhonchi, Wheezes - Cardiovascular Exam Cardiovascular Exam: Tachycardia, +S1, +S2 - GI/Abdominal Exam GI & Abdominal Exam: Soft, Normal Bowel Sounds. absent: Tenderness, Organomegaly - Extremities Exam Extremities Exam: absent: Normal Inspection Additional comments: left lower ext bandage mid ventral side - Neurological Exam Neurological Exam: Alert, Awake, Oriented x3 Neuro motor strength exam: Left Upper Extremity: 5 Assessment and Plan - Assessment and Plan (Free Text) Assessment: Recent hospitalization reviewed: from records Patient had two incision and drainage for abscess vs cellulites (10/22 & 10/27). Initial I &D produced MRSA + bacteria and placed on contact precautions and was continued on vancomyocin 1g Q12, with vanc troph goal of 15-20. Patient required several dosing changes to achieve goal of van troph. Patient second culture revealed no growth. Patient additionally had an echocardiogram did not reveal any vegetations suggestive of endocarditis. (please see full reports for detailed report). During course, patient had daily dressing changes performed by the surgery team. Patient also had infectious disease following for optimization of medications. Venous duplex & MRI were performed suggesting no DVT and no osteomyelitis. WBC trended down and patient was on insulin inpatient for optimization of patient diabetes. This is a 57 yo M with a PMHx of DM, HTN, Hypercholesterolemia who presents to ED via ambulance due to worsening sob, fatigue and recent syncopal episode. Pt noted to have a saddle embolus on Chest CTA. 1. Acute Saddle Pulmonary embolism on heparin drip 2. Acute DVT 3. Recent hospitalization - left lower ext wound debridement with Dr. Mckeon his risk factor for DVT/PE 4. MRSA - cellulitis with I and D recently was on zyvox 5. DM-2 Insulin dependent restart lantus was on 28units decrease to 16u for now and adjust as needed was on insulin 6 units novolog with meals hold mealtime insulin for now 6. Hypertension cozaar 7. High cholesterol crestor Overall Plan: cont icu care cont heparin drip
--- NOTE | 2017-11-29 17:29 | US ---
Date of service: 11/28/2017 PROCEDURE: Ultrasound of the Kidneys HISTORY: renal masses noted on CT scan COMPARISON: None available. TECHNIQUE: Sonogram of the kidneys. FINDINGS: RIGHT KIDNEY: Measures: 11.9 x 5.6 x 6.2 cm. Normal in size, contour and echogenicity. There is a cyst at the lower pole of the right kidney measures 1.2 x 1.2 x 1.2 centimeter. There is suspicious for nonobstructing stone at the midpole of the right kidney measures 1 x 0.96 centimeter. LEFT KIDNEY: Measures: 12.8 x 6.11 x 6.45 cm. Normal in size, contour and echogenicity. There are multiple cysts seen at the left kidney. At the midpole there is 1 by 0.96 x 0.7 centimeters cyst. At the lower pole there is 3.7 x 2.4 x 3.3 centimeters cyst. There are also 2 cyst at the upper pole. No stone, solid mass lesion or hydronephrosis visualized. OTHER FINDINGS: None. IMPRESSION: No evidence of hydronephrosis. Suspicious for nonobstructing stone at the midpole of the right kidney measures 1 centimeter. Bilateral renal cysts.
[2017-11-29] MEDS: (Lantus) Insulin Glargine, Recombinant SC SCH (21:37)
[2017-11-29 22:49] LABS: BASO # 0.1 K/uL (0.0-0.2); BASO % 1.4 % (0.0-2.0); EOS # 0.2 K/uL (0.0-0.7); EOS % 1.7 % (0.0-4.0); HEMOGLOBIN 11.9 g/dL (12.0-18.0); LYMPH # 5.3 K/uL (1.0-4.3); LYMPH % 49.6 % (20.0-40.0); MEAN CELL VOLUME 87.9 fL (80.0-94.0); MEAN CORPUSCULAR HEMOGLOBIN 30.8 pg (27.0-31.0); MEAN PLATELET VOLUME 7.5 fL (7.2-11.7); MONO # 0.9 K/uL (0.0-0.8); MONO % 8.1 % (0.0-10.0); NEUT # 4.2 K/uL (1.8-7.0); NEUT % 39.2 % (50.0-75.0); NRBC % 0.1 % (0.0-2.0); RBC 3.88 Mil/uL (4.40-5.90); RED CELL DISTRIBUTION WIDTH 13.6 % (11.5-14.5); WHITE BLOOD COUNT 10.7 K/uL (4.8-10.8)
[2017-11-29 22:58] LABS: URINE BACTERIA OCC (<OCC); URINE BILIRUBIN NEGATIVE (NEGATIVE); URINE BLOOD 3+ (NEGATIVE); URINE CLARITY Clear (Clear); URINE COLOR Red (YELLOW); URINE GLUCOSE (UA) NORMAL (Normal); URINE LEUKOCYTE ESTERASE NEG Leu/uL (Negative); URINE PROTEIN 1+ mg/dL (NEGATIVE); URINE UROBILINOGEN NORMAL mg/dL (0.2-1.0)
[2017-11-30] MEDS: Heparin25000 units/250ml 1/2NS 25,000 UNITS/250 ML BAG IV PRN (05:49)
[2017-11-30 06:35] LABS: BASO % 0.5 % (0.0-2.0); EOS # 0.1 K/uL (0.0-0.7); EOS % 1.5 % (0.0-4.0); HEMOGLOBIN 11.6 g/dL (12.0-18.0); LYMPH # 4.7 K/uL (1.0-4.3); LYMPH % 52.1 % (20.0-40.0); MEAN CELL VOLUME 87.4 fL (80.0-94.0); MEAN CORPUSCULAR HEMOGLOBIN 29.9 pg (27.0-31.0); MEAN CORPUSCULAR HGB CONC 34.3 g/dL (33.0-37.0); MEAN PLATELET VOLUME 7.7 fL (7.2-11.7); MONO # 0.7 K/uL (0.0-0.8); MONO % 7.8 % (0.0-10.0); NEUT # 3.4 K/uL (1.8-7.0); NEUT % 38.1 % (50.0-75.0); NRBC % 0.2 % (0.0-2.0); RBC 3.86 Mil/uL (4.40-5.90); RED CELL DISTRIBUTION WIDTH 13.3 % (11.5-14.5)
[2017-11-30 06:39] LABS: INR 1.1
[2017-11-30 06:46] LABS: ALB/GLOB RATIO 1.2 (1.0-2.1); ALBUMIN 3.5 g/dL (3.5-5.0); ALT/SGPT 41 U/L (21-72); AST/SGOT 29 U/L (17-59); BLOOD UREA NITROGEN 9 mg/dL (9-20); CALCIUM 8.5 mg/dl (8.6-10.4); GFR AFRICAN-AMERICAN > 60; GFR NON-AFRICAN AMERICAN > 60
[2017-11-30] MEDS: (Novolin R) Insulin Human Regular 100 units/ml vial SC SCH ×4 (08:21→21:38)
[2017-11-30] MEDS ORDERED: POLYETHYLENE GLYCOL 3350 17 GM/Dose PACKET PO SCH (10:00)
--- NOTE | 2017-11-30 11:22 | CARD ---
APPROVED REPORT Date of service: 11/29/2017 EXAM: Two-dimensional and M-mode echocardiogram with Doppler and color Doppler. Other Information Quality : GoodRhythm : INDICATION Pulmonary Embolism Syncope Hypotension 2D DIMENSIONS IVSd1.2 (0.7-1.1cm)LVDd4.1 (3.9-5.9cm) PWd1.2 (0.7-1.1cm)LVDs2.7 (2.5-4.0cm) FS (%) 32.3 %LVEF (%)61.1 (>50%) M-Mode DIMENSIONS Left Atrium (MM)4.16 (2.5-4.0cm)IVSd1.09 (0.7-1.1cm) Aortic Root3.63 (2.2-3.7cm)LVDd4.76 (4.0-5.6cm) Aortic Cusp Exc.2.61 (1.5-2.0cm)PWd1.05 (0.7-1.1cm) FS (%) 37 %LVDs3.01 (2.0-3.8cm) TAPSE17.40 cmLVEF (%)67 (>50%) Mitral Valve MV E Ephydgka68.9cm/sMV A Nmwxafil60.9cm/sE/A ratio0.7 TDI E/Lateral E'0.0E/Medial E'0.0 Tricuspid Valve TR Peak [id number]/sTR Peak Gr.[id number] LEFT VENTRICLE The left ventricle is normal size. There is mild concentric left ventricular hypertrophy. The Ejection Fraction is 55-60%. There is a flattened septum consistent with right ventricle pressure overload. Transmitral Doppler flow pattern is Grade I-abnormal relaxation pattern. RIGHT VENTRICLE The right ventricle is mildly dilated. Systolic function is mildly reduced. ATRIA The left atrium is mildly dilated. The right atrium size is normal. The interatrial septum is intact with no evidence for an atrial septal defect. AORTIC VALVE The aortic valve is normal in structure. No aortic regurgitation is present. MITRAL VALVE The mitral valve is normal in structure. Mitral regurgitation is mild. TRICUSPID VALVE The tricuspid valve is normal in structure. There is mild to moderate tricuspid regurgitation. Right ventricular systolic pressure is estimated at 55 mmHg. There is moderate pulmonary hypertension. PULMONIC VALVE The pulmonary valve is normal in structure. GREAT VESSELS The aortic root is normal in size. The IVC is normal in size and collapses >50% with inspiration. PERICARDIAL EFFUSION There is no pericardial effusion. <Conclusion> The left ventricle is normal size. There is mild concentric left ventricular hypertrophy. The Ejection Fraction is 55-60%. There is a flattened septum consistent with right ventricle pressure overload. Transmitral Doppler flow pattern is Grade I-abnormal relaxation pattern. The right ventricle is mildly dilated. Systolic function is mildly reduced. The left atrium is mildly dilated. There is mild to moderate tricuspid regurgitation. Right ventricular systolic pressure is estimated at 55 mmHg. There is moderate pulmonary hypertension. There is no pericardial effusion.
--- NOTE | 2017-11-30 11:54 | CP.CCUPN ---
<FaizaAbe - Last Filed: 11/30/17 11:51> CCU Subjective - Physician Review Subjective (Free Text): Abe Kendall DO PGY-1, ICU Progress note for Dr. Fredy Clifton Pt was seen and examined at bedside. Pt is complaining of a pink tinge to his urine. Denies headache, visual changes, lightheadedness, dizziness, chest pain, sob, palpitations, abdominal pain, n/v/d, hematochezia. Heparin gtt was discontinued after the examination. A 12-point ROS was reviewed and is otherwise unremarkable. CCU Objective - Vital Signs / Intake & Output Vital Signs (Last 4 hours): Vital Signs Temp Pulse Resp BP Pulse Ox 11/30/17 10:52 71 12 136/79 93 L 11/30/17 09:52 73 19 146/84 93 L 11/30/17 08:52 80 21 140/85 93 L 11/30/17 08:00 98.5 F 11/30/17 07:52 68 23 145/85 97 Intake and Output (Last 8hrs): Intake & Output 11/29/17 11/30/17 11/30/17 22:59 06:59 14:59 Intake Total 479.2 369.2 269.8 Output Total 350 650 850 Balance 129.2 -280.8 -580.2 Weight 58.06 kg Intake: IV 250 Intake, IV Amount 119.2 119.2 29.8 Left Hand 119.2 119.2 29.8 Oral 360 240 Output: Urine 350 650 850 Urine, Voided 350 650 850 Other: # Voids Urine, Voided 1 1 0 - Physical Exam Head: Positive for: Atraumatic, Normocephalic Pupils: Positive for: PERRL Extroacular Muscles: Positive for: EOMI Conjunctiva: Positive for: Normal Mouth: Positive for: Moist Mucous Membranes Neck: Positive for: Normal Range of Motion Respiratory/Chest: Positive for: Clear to Auscultation, Good Air Exchange. Negative for: Respiratory Distress, Accessory Muscle Use Cardiovascular: Positive for: Regular Rate and Rhythm, Normal S1, S2 Abdomen: Positive for: Normal Bowel Sounds. Negative for: Tenderness, Distention Upper Extremity: Positive for: Normal Inspection, NORMAL PULSES. Negative for: Edema Lower Extremity: Positive for: Normal Inspection, NORMAL PULSES, Other ((+) clean, dry intact dressing to left mid- mirza). Negative for: Edema, CALF TENDERNESS Neurological: Positive for: GCS=15, CN II-XII Intact, Motor Func Grossly Intact Skin: Positive for: Warm, Dry Psychiatric: Positive for: Alert, Oriented x 3 - Medications Active Medications: Active Medications Generic Name Dose Route Start Last Admin Trade Name Freq PRN Reason Stop Dose Admin Apixaban 10 mg 11/30/17 18:00 Eliquis PO 12/07/17 18:01 BID MANDY Dextrose 0 ml 11/28/17 18:09 Dextrose 50% Inj IVP .STAT PRN Hypoglycemia Protocol Protocol Dextrose 0 gm 11/28/17 18:09 Glutose 15 PO .ONCE PRN Hypoglycemia Protocol Protocol Famotidine 40 mg 11/29/17 16:30 11/30/17 09:53 Pepcid PO 40 mg DAILY MANDY Administration Glimepiride 4 mg 11/29/17 13:30 11/30/17 09:53 Amaryl PO 4 mg DAILY MANDY Administration Glucagon 0 mg 11/28/17 18:09 Glucagen Diagnostic Kit IM .STAT PRN Hypoglycemia Protocol Protocol Dextrose 1,000 mls @ 0 mls/hr 11/28/17 18:09 Dextrose 5% In Water 1000 Ml IV .Q0M PRN Hypoglycemia Protocol Protocol Per Protocol Insulin Glargine 16 unit 11/29/17 22:00 11/29/17 21:37 Lantus SC 16 unit HS MANDY Administration Insulin Human Regular 0 unit 11/29/17 11:30 11/30/17 08:21 Novolin R SC 2 u ACHS MANDY Administration Protocol Losartan Potassium 50 mg 11/29/17 13:30 11/30/17 09:53 Cozaar PO 50 mg DAILY MANDY Administration Polyethylene Glycol 17 gm 11/30/17 10:00 11/30/17 09:53 Miralax PO 17 gm DAILY MANDY Administration Rosuvastatin Calcium 5 mg 11/29/17 22:00 11/29/17 21:38 Crestor PO 5 mg HS MANDY Administration - Patient Studies Lab Studies: Microbiology Studies 11/28/17 14:16 Urine Culture - Final Urine,Clean Catch No Growth (<1,000 CFU/ML) 11/28/17 19:05 MRSA Culture (Admit) - Final Nose MRSA NOT DETECTED 11/28/17 12:50 Blood Culture - Preliminary Blood NO GROWTH AFTER 24 HOURS 11/28/17 12:20 Blood Culture - Preliminary Blood NO GROWTH AFTER 24 HOURS Lab Studies 11/30/17 11/30/17 11/30/17 Range/Units 11:14 07:46 06:20 WBC (4.8-10.8) K/uL RBC (4.40-5.90) Mil/uL Hgb (12.0-18.0) g/dL Hct (35.0-51.0) % MCV (80.0-94.0) fL MCH (27.0-31.0) pg MCHC (33.0-37.0) g/dL RDW (11.5-14.5) % Plt Count (130-400) K/uL MPV (7.2-11.7) fL Neut % (Auto) (50.0-75.0) % Lymph % (Auto) (20.0-40.0) % [place] % (Auto) (0.0-10.0) % Eos % (Auto) (0.0-4.0) % Baso % (Auto) (0.0-2.0) % Neut # (Auto) (1.8-7.0) K/uL Lymph # (Auto) (1.0-4.3) K/uL [place] # (Auto) (0.0-0.8) K/uL Eos # (Auto) (0.0-0.7) K/uL Baso # (Auto) (0.0-0.2) K/uL PT 12.0 (9.7-12.2) SECONDS INR 1.1 APTT 60 H (21-34) SECONDS Sodium (132-148) mmol/L Potassium (3.6-5.2) mmol/L Chloride (98-107) mmol/L Carbon Dioxide (22-30) mmol/L Anion Gap (10-20) BUN (9-20) mg/dL Creatinine (0.8-1.5) mg/dL Est GFR ( Amer) Est GFR (Non-Af Amer) POC Glucose (mg/dL) 182 H 188 H (65-110) mg/dL Random Glucose (75-110) mg/dL Calcium (8.6-10.4) mg/dl Phosphorus (2.5-4.5) mg/dL Magnesium (1.6-2.3) mg/dL Total Bilirubin (0.2-1.3) mg/dL AST (17-59) U/L ALT (21-72) U/L Alkaline Phosphatase (38-126) U/L Total Protein (6.3-8.3) g/dL Albumin (3.5-5.0) g/dL Globulin (2.2-3.9) gm/dL Albumin/Globulin Ratio (1.0-2.1) Urine Color (YELLOW) Urine Clarity (Clear) Urine pH (5.0-8.0) Ur Specific [place] (1.003-1.030) Urine Protein (NEGATIVE) mg/dL Urine Glucose (UA) (Normal) mg/dL Urine Ketones (NEGATIVE) mg/dL Urine Blood (NEGATIVE) Urine Nitrate (NEGATIVE) Urine Bilirubin (NEGATIVE) Urine Urobilinogen (0.2-1.0) mg/dL Ur Leukocyte Esterase (Negative) Yu/uL Urine WBC (Auto) (0-5) /hpf Urine RBC (Auto) (0-3) /hpf Urine Bacteria (<OCC) Antibody Screen 11/30/17 11/30/17 11/29/17 Range/Units 06:20 06:20 22:38 WBC 9.0 (4.8-10.8) K/uL RBC 3.86 L (4.40-5.90) Mil/uL Hgb 11.6 L (12.0-18.0) g/dL Hct 33.8 L (35.0-51.0) % MCV 87.4 (80.0-94.0) fL MCH 29.9 (27.0-31.0) pg MCHC 34.3 (33.0-37.0) g/dL RDW 13.3 (11.5-14.5) % Plt Count 332 (130-400) K/uL MPV 7.7 (7.2-11.7) fL Neut % (Auto) 38.1 L (50.0-75.0) % Lymph % (Auto) 52.1 H (20.0-40.0) % [place] % (Auto) 7.8 (0.0-10.0) % Eos % (Auto) 1.5 (0.0-4.0) % Baso % (Auto) 0.5 (0.0-2.0) % Neut # (Auto) 3.4 (1.8-7.0) K/uL Lymph # (Auto) 4.7 H (1.0-4.3) K/uL [place] # (Auto) 0.7 (0.0-0.8) K/uL Eos # (Auto) 0.1 (0.0-0.7) K/uL Baso # (Auto) 0.0 (0.0-0.2) K/uL PT (9.7-12.2) SECONDS INR APTT (21-34) SECONDS Sodium 141 (132-148) mmol/L Potassium 3.8 (3.6-5.2) mmol/L Chloride 106 (98-107) mmol/L Carbon Dioxide 26 (22-30) mmol/L Anion Gap 13 (10-20) BUN 9 (9-20) mg/dL Creatinine 0.8 (0.8-1.5) mg/dL Est GFR ( Amer) > 60 Est GFR (Non-Af Amer) > 60 POC Glucose (mg/dL) (65-110) mg/dL Random Glucose 180 H (75-110) mg/dL Calcium 8.5 L (8.6-10.4) mg/dl Phosphorus 3.6 (2.5-4.5) mg/dL Magnesium 1.9 (1.6-2.3) mg/dL Total Bilirubin 0.4 (0.2-1.3) mg/dL AST 29 (17-59) U/L ALT 41 (21-72) U/L Alkaline Phosphatase 69 (38-126) U/L Total Protein 6.6 (6.3-8.3) g/dL Albumin 3.5 (3.5-5.0) g/dL Globulin 3.0 (2.2-3.9) gm/dL Albumin/Globulin Ratio 1.2 (1.0-2.1) Urine Color Red (YELLOW) Urine Clarity Clear (Clear) Urine pH 6.0 (5.0-8.0) Ur Specific [place] 1.006 (1.003-1.030) Urine Protein 1+ H (NEGATIVE) mg/dL Urine Glucose (UA) Normal (Normal) mg/dL Urine Ketones Negative (NEGATIVE) mg/dL Urine Blood 3+ H (NEGATIVE) Urine Nitrate Negative (NEGATIVE) Urine Bilirubin Negative (NEGATIVE) Urine Urobilinogen Normal (0.2-1.0) mg/dL Ur Leukocyte Esterase Neg (Negative) Yu/uL Urine WBC (Auto) 2 (0-5) /hpf Urine RBC (Auto) 776 H (0-3) /hpf Urine Bacteria Occ H (<OCC) Antibody Screen 11/29/17 11/29/17 11/29/17 Range/Units 22:36 21:19 17:59 WBC 10.7 (4.8-10.8) K/uL RBC 3.88 L (4.40-5.90) Mil/uL Hgb 11.9 L (12.0-18.0) g/dL Hct 34.1 L (35.0-51.0) % MCV 87.9 (80.0-94.0) fL MCH 30.8 (27.0-31.0) pg MCHC 35.0 (33.0-37.0) g/dL RDW 13.6 (11.5-14.5) % Plt Count 361 (130-400) K/uL MPV 7.5 (7.2-11.7) fL Neut % (Auto) 39.2 L (50.0-75.0) % Lymph % (Auto) 49.6 H (20.0-40.0) % [place] % (Auto) 8.1 (0.0-10.0) % Eos % (Auto) 1.7 (0.0-4.0) % Baso % (Auto) 1.4 (0.0-2.0) % Neut # (Auto) 4.2 (1.8-7.0) K/uL Lymph # (Auto) 5.3 H (1.0-4.3) K/uL [place] # (Auto) 0.9 H (0.0-0.8) K/uL Eos # (Auto) 0.2 (0.0-0.7) K/uL Baso # (Auto) 0.1 (0.0-0.2) K/uL PT (9.7-12.2) SECONDS INR APTT 60 H D (21-34) SECONDS Sodium (132-148) mmol/L Potassium (3.6-5.2) mmol/L Chloride (98-107) mmol/L Carbon Dioxide (22-30) mmol/L Anion Gap (10-20) BUN (9-20) mg/dL Creatinine (0.8-1.5) mg/dL Est GFR ( Amer) Est GFR (Non-Af Amer) POC Glucose (mg/dL) 145 H (65-110) mg/dL Random Glucose (75-110) mg/dL Calcium (8.6-10.4) mg/dl Phosphorus (2.5-4.5) mg/dL Magnesium (1.6-2.3) mg/dL Total Bilirubin (0.2-1.3) mg/dL AST (17-59) U/L ALT (21-72) U/L Alkaline Phosphatase (38-126) U/L Total Protein (6.3-8.3) g/dL Albumin (3.5-5.0) g/dL Globulin (2.2-3.9) gm/dL Albumin/Globulin Ratio (1.0-2.1) Urine Color (YELLOW) Urine Clarity (Clear) Urine pH (5.0-8.0) Ur Specific [place] (1.003-1.030) Urine Protein (NEGATIVE) mg/dL Urine Glucose (UA) (Normal) mg/dL Urine Ketones (NEGATIVE) mg/dL Urine Blood (NEGATIVE) Urine Nitrate (NEGATIVE) Urine Bilirubin (NEGATIVE) Urine Urobilinogen (0.2-1.0) mg/dL Ur Leukocyte Esterase (Negative) Yu/uL Urine WBC (Auto) (0-5) /hpf Urine RBC (Auto) (0-3) /hpf Urine Bacteria (<OCC) Antibody Screen 11/29/17 11/29/17 11/29/17 Range/Units 16:12 12:09 12:08 WBC (4.8-10.8) K/uL RBC (4.40-5.90) Mil/uL Hgb (12.0-18.0) g/dL Hct (35.0-51.0) % MCV (80.0-94.0) fL MCH (27.0-31.0) pg MCHC (33.0-37.0) g/dL RDW (11.5-14.5) % Plt Count (130-400) K/uL MPV (7.2-11.7) fL Neut % (Auto) (50.0-75.0) % Lymph % (Auto) (20.0-40.0) % [place] % (Auto) (0.0-10.0) % Eos % (Auto) (0.0-4.0) % Baso % (Auto) (0.0-2.0) % Neut # (Auto) (1.8-7.0) K/uL Lymph # (Auto) (1.0-4.3) K/uL [place] # (Auto) (0.0-0.8) K/uL Eos # (Auto) (0.0-0.7) K/uL Baso # (Auto) (0.0-0.2) K/uL PT (9.7-12.2) SECONDS INR APTT 69 H D (21-34) SECONDS Sodium (132-148) mmol/L Potassium (3.6-5.2) mmol/L Chloride (98-107) mmol/L Carbon Dioxide (22-30) mmol/L Anion Gap (10-20) BUN (9-20) mg/dL Creatinine (0.8-1.5) mg/dL Est GFR ( Amer) Est GFR (Non-Af Amer) POC Glucose (mg/dL) 171 H 232 H (65-110) mg/dL Random Glucose (75-110) mg/dL Calcium (8.6-10.4) mg/dl Phosphorus (2.5-4.5) mg/dL Magnesium (1.6-2.3) mg/dL Total Bilirubin (0.2-1.3) mg/dL AST (17-59) U/L ALT (21-72) U/L Alkaline Phosphatase (38-126) U/L Total Protein (6.3-8.3) g/dL Albumin (3.5-5.0) g/dL Globulin (2.2-3.9) gm/dL Albumin/Globulin Ratio (1.0-2.1) Urine Color (YELLOW) Urine Clarity (Clear) Urine pH (5.0-8.0) Ur Specific [place] (1.003-1.030) Urine Protein (NEGATIVE) mg/dL Urine Glucose (UA) (Normal) mg/dL Urine Ketones (NEGATIVE) mg/dL Urine Blood (NEGATIVE) Urine Nitrate (NEGATIVE) Urine Bilirubin (NEGATIVE) Urine Urobilinogen (0.2-1.0) mg/dL Ur Leukocyte Esterase (Negative) Yu/uL Urine WBC (Auto) (0-5) /hpf Urine RBC (Auto) (0-3) /hpf Urine Bacteria (<OCC) Antibody Screen 11/28/17 Range/Units 16:22 WBC (4.8-10.8) K/uL RBC (4.40-5.90) Mil/uL Hgb (12.0-18.0) g/dL Hct (35.0-51.0) % MCV (80.0-94.0) fL MCH (27.0-31.0) pg MCHC (33.0-37.0) g/dL RDW (11.5-14.5) % Plt Count (130-400) K/uL MPV (7.2-11.7) fL Neut % (Auto) (50.0-75.0) % Lymph % (Auto) (20.0-40.0) % [place] % (Auto) (0.0-10.0) % Eos % (Auto) (0.0-4.0) % Baso % (Auto) (0.0-2.0) % Neut # (Auto) (1.8-7.0) K/uL Lymph # (Auto) (1.0-4.3) K/uL [place] # (Auto) (0.0-0.8) K/uL Eos # (Auto) (0.0-0.7) K/uL Baso # (Auto) (0.0-0.2) K/uL PT (9.7-12.2) SECONDS INR APTT (21-34) SECONDS Sodium (132-148) mmol/L Potassium (3.6-5.2) mmol/L Chloride (98-107) mmol/L Carbon Dioxide (22-30) mmol/L Anion Gap (10-20) BUN (9-20) mg/dL Creatinine (0.8-1.5) mg/dL Est GFR ( Amer) Est GFR (Non-Af Amer) POC Glucose (mg/dL) (65-110) mg/dL Random Glucose (75-110) mg/dL Calcium (8.6-10.4) mg/dl Phosphorus (2.5-4.5) mg/dL Magnesium (1.6-2.3) mg/dL Total Bilirubin (0.2-1.3) mg/dL AST (17-59) U/L ALT (21-72) U/L Alkaline Phosphatase (38-126) U/L Total Protein (6.3-8.3) g/dL Albumin (3.5-5.0) g/dL Globulin (2.2-3.9) gm/dL Albumin/Globulin Ratio (1.0-2.1) Urine Color (YELLOW) Urine Clarity (Clear) Urine pH (5.0-8.0) Ur Specific [place] (1.003-1.030) Urine Protein (NEGATIVE) mg/dL Urine Glucose (UA) (Normal) mg/dL Urine Ketones (NEGATIVE) mg/dL Urine Blood (NEGATIVE) Urine Nitrate (NEGATIVE) Urine Bilirubin (NEGATIVE) Urine Urobilinogen (0.2-1.0) mg/dL Ur Leukocyte Esterase (Negative) Yu/uL Urine WBC (Auto) (0-5) /hpf Urine RBC (Auto) (0-3) /hpf Urine Bacteria (<OCC) Antibody Screen Negative Laboratory Results - last 24 hr 11/28/17 11/29/17 11/29/17 16:22 12:08 12:09 WBC RBC Hgb Hct MCV MCH MCHC RDW Plt Count MPV Neut % (Auto) Lymph % (Auto) [place] % (Auto) Eos % (Auto) Baso % (Auto) Neut # (Auto) Lymph # (Auto) [place] # (Auto) Eos # (Auto) Baso # (Auto) PT INR APTT 69 H D Sodium Potassium Chloride Carbon Dioxide Anion Gap BUN Creatinine Est GFR ( Amer) Est GFR (Non-Af Amer) POC Glucose (mg/dL) 232 H Random Glucose Calcium Phosphorus Magnesium Total Bilirubin AST ALT Alkaline Phosphatase Total Protein Albumin Globulin Albumin/Globulin Ratio Urine Color Urine Clarity Urine pH Ur Specific [place] Urine Protein Urine Glucose (UA) Urine Ketones Urine Blood Urine Nitrate Urine Bilirubin Urine Urobilinogen Ur Leukocyte Esterase Urine WBC (Auto) Urine RBC (Auto) Urine Bacteria Antibody Screen Negative 11/29/17 11/29/17 11/29/17 16:12 17:59 21:19 WBC RBC Hgb Hct MCV MCH MCHC RDW Plt Count MPV Neut % (Auto) Lymph % (Auto) [place] % (Auto) Eos % (Auto) Baso % (Auto) Neut # (Auto) Lymph # (Auto) [place] # (Auto) Eos # (Auto) Baso # (Auto) PT INR APTT 60 H D Sodium Potassium Chloride Carbon Dioxide Anion Gap BUN Creatinine Est GFR ( Amer) Est GFR (Non-Af Amer) POC Glucose (mg/dL) 171 H 145 H Random Glucose Calcium Phosphorus Magnesium Total Bilirubin AST ALT Alkaline Phosphatase Total Protein Albumin Globulin Albumin/Globulin Ratio Urine Color Urine Clarity Urine pH Ur Specific [place] Urine Protein Urine Glucose (UA) Urine Ketones Urine Blood Urine Nitrate Urine Bilirubin Urine Urobilinogen Ur Leukocyte Esterase Urine WBC (Auto) Urine RBC (Auto) Urine Bacteria Antibody Screen 11/29/17 11/29/17 11/30/17 22:36 22:38 06:20 WBC 10.7 9.0 RBC 3.88 L 3.86 L Hgb 11.9 L 11.6 L Hct 34.1 L 33.8 L MCV 87.9 87.4 MCH 30.8 29.9 MCHC 35.0 34.3 RDW 13.6 13.3 Plt Count 361 332 MPV 7.5 7.7 Neut % (Auto) 39.2 L 38.1 L Lymph % (Auto) 49.6 H 52.1 H [place] % (Auto) 8.1 7.8 Eos % (Auto) 1.7 1.5 Baso % (Auto) 1.4 0.5 Neut # (Auto) 4.2 3.4 Lymph # (Auto) 5.3 H 4.7 H [place] # (Auto) 0.9 H 0.7 Eos # (Auto) 0.2 0.1 Baso # (Auto) 0.1 0.0 PT INR APTT Sodium Potassium Chloride Carbon Dioxide Anion Gap BUN Creatinine Est GFR ( Amer) Est GFR (Non-Af Amer) POC Glucose (mg/dL) Random Glucose Calcium Phosphorus Magnesium Total Bilirubin AST ALT Alkaline Phosphatase Total Protein Albumin Globulin Albumin/Globulin Ratio Urine Color Red Urine Clarity Clear Urine pH 6.0 Ur Specific [place] 1.006 Urine Protein 1+ H Urine Glucose (UA) Normal Urine Ketones Negative Urine Blood 3+ H Urine Nitrate Negative Urine Bilirubin Negative Urine Urobilinogen Normal Ur Leukocyte Esterase Neg Urine WBC (Auto) 2 Urine RBC (Auto) 776 H Urine Bacteria Occ H Antibody Screen 11/30/17 11/30/17 11/30/17 06:20 06:20 07:46 WBC RBC Hgb Hct MCV MCH MCHC RDW Plt Count MPV Neut % (Auto) Lymph % (Auto) [place] % (Auto) Eos % (Auto) Baso % (Auto) Neut # (Auto) Lymph # (Auto) [place] # (Auto) Eos # (Auto) Baso # (Auto) PT 12.0 INR 1.1 APTT 60 H Sodium 141 Potassium 3.8 Chloride 106 Carbon Dioxide 26 Anion Gap 13 BUN 9 Creatinine 0.8 Est GFR ( Amer) > 60 Est GFR (Non-Af Amer) > 60 POC Glucose (mg/dL) 188 H Random Glucose 180 H Calcium 8.5 L Phosphorus 3.6 Magnesium 1.9 Total Bilirubin 0.4 AST 29 ALT 41 Alkaline Phosphatase 69 Total Protein 6.6 Albumin 3.5 Globulin 3.0 Albumin/Globulin Ratio 1.2 Urine Color Urine Clarity Urine pH Ur Specific [place] Urine Protein Urine Glucose (UA) Urine Ketones Urine Blood Urine Nitrate Urine Bilirubin Urine Urobilinogen Ur Leukocyte Esterase Urine WBC (Auto) Urine RBC (Auto) Urine Bacteria Antibody Screen 11/30/17 11:14 WBC RBC Hgb Hct MCV MCH MCHC RDW Plt Count MPV Neut % (Auto) Lymph % (Auto) [place] % (Auto) Eos % (Auto) Baso % (Auto) Neut # (Auto) Lymph # (Auto) [place] # (Auto) Eos # (Auto) Baso # (Auto) PT INR APTT Sodium Potassium Chloride Carbon Dioxide Anion Gap BUN Creatinine Est GFR ( Amer) Est GFR (Non-Af Amer) POC Glucose (mg/dL) 182 H Random Glucose Calcium Phosphorus Magnesium Total Bilirubin AST ALT Alkaline Phosphatase Total Protein Albumin Globulin Albumin/Globulin Ratio Urine Color Urine Clarity Urine pH Ur Specific [place] Urine Protein Urine Glucose (UA) Urine Ketones Urine Blood Urine Nitrate Urine Bilirubin Urine Urobilinogen Ur Leukocyte Esterase Urine WBC (Auto) Urine RBC (Auto) Urine Bacteria Antibody Screen Fingerstick Blood Sugar Results: 188 Review of Systems - Review of Systems All systems: reviewed and no additional remarkable complaints except (as per HPI ) Critical Care Progress Note - Prophylaxis GI Prophylaxis GI: Pepsid - Prophylaxis DVT Prophylaxis DVT: Ambulatory, Not Indicated (recently stopped heparin, will start apixaban tonight) - Nutrition Nutrition: Nutrition Category Date Time Status Heart Healthy Diet [DIET] Diets 11/29/17 Breakfast Active Assessment/Plan - Assessment and Plan (Free Text) Assessment: This is a 57 yo M with a PMHx of DM, HTN, Hypercholesterolemia who presents to ED via ambulance due to worsening sob, fatigue and recent syncopal episode. Pt noted to have a saddle embolus on Chest CTA. Pt was treated with tPA and concomitant heparin gtt. Pt Plan: Neuro: - monitor for mental status changes - pt is AAOx3 - Head CT (11/28) shows no evidence of intracranial bleed Cardio: - Chest CT (11/28) shows no evidence of aneursym or dissection - maintain MAP>65 mmHg - troponin was elevated, likely due to pulmonary embolism; no ekg changes - Echocardiogram (11/28) shows LVEF of 55-60%, mild concentric LVH, flattened septum consistent with right ventricle pressure overload, grade I-abnormal relaxation pattern, right ventricle is mildly dilated, left atrium is mildly dilated, mild to moderate TR, RVSP is approximately 55 mHg, moderate pulmonary hypertension, no pericardial effusion. - s/p Alteplase treatment of pulmonary embolism on 11/28 - BP in the 130s/80s - lower extremity dopplar (11/29) shows acute deep vein thrombosis of the left popliteal and gastrocnemius veins with severe reduction of the venous return. - discontinue heparin gtt - start apixaban 10 mg PO tonight - continue rosuvastatin, losartan GI: - HHD - pepcid for pud ppx Pulm: - cxr (11/28) shows no active disease - maintain so2>92% - vbg is normal, bpap discontinued - start cpap HS; pt likely has MCKAY due to history of snoring as per significant other and large neck circumference Renal: - maintain euvolemia - BUN/Cr is stable ID: - no leukocytosis - pt afebrile - blood culture x2 prelim shows no growth after 24 hrs - no growth on urine culture Heme: - H/H is stable Endo: - maintain euglycemia - continue home glimeperide - Insulin Glargine 16 units SC HS as per primary team - accucheck achs PPX: pepcid for pud ppx Dispo: Pt is medically stable and safe for transfer to telemetry; OOB to chair Case was reviewed and discussed with attending physician, Dr. Fredy Clifton <Sriram Clifton - Last Filed: 11/30/17 16:13> CCU Objective - Vital Signs / Intake & Output Vital Signs (Last 4 hours): Vital Signs Pulse Resp Pulse Ox 11/30/17 13:55 74 19 94 L Intake and Output (Last 8hrs): Intake & Output 11/30/17 11/30/17 11/30/17 06:59 14:59 22:59 Intake Total 369.2 269.8 Output Total 650 850 Balance -280.8 -580.2 Weight 128 lb Intake: IV 250 Intake, IV Amount 119.2 29.8 Left Hand 119.2 29.8 Oral 240 Output: Urine 650 850 Urine, Voided 650 850 Other: # Voids Urine, Voided 1 0 - Medications Active Medications: Active Medications Generic Name Dose Route Start Last Admin Trade Name Freq PRN Reason Stop Dose Admin Apixaban 10 mg 11/30/17 18:00 Eliquis PO 12/07/17 18:01 BID MANDY Dextrose 0 ml 11/28/17 18:09 Dextrose 50% Inj IVP .STAT PRN Hypoglycemia Protocol Protocol Dextrose 0 gm 11/28/17 18:09 Glutose 15 PO .ONCE PRN Hypoglycemia Protocol Protocol Famotidine 40 mg 11/29/17 16:30 11/30/17 09:53 Pepcid PO 40 mg DAILY MANDY Administration Glimepiride 4 mg 11/29/17 13:30 11/30/17 09:53 Amaryl PO 4 mg DAILY MANDY Administration Glucagon 0 mg 11/28/17 18:09 Glucagen Diagnostic Kit IM .STAT PRN Hypoglycemia Protocol Protocol Dextrose 1,000 mls @ 0 mls/hr 11/28/17 18:09 Dextrose 5% In Water 1000 Ml IV .Q0M PRN Hypoglycemia Protocol Protocol Per Protocol Insulin Glargine 16 unit 11/29/17 22:00 11/29/17 21:37 Lantus SC 16 unit HS MANDY Administration Insulin Human Regular 0 unit 11/29/17 11:30 11/30/17 12:42 Novolin R SC 2 u ACHS MANYD Administration Protocol Losartan Potassium 50 mg 11/29/17 13:30 11/30/17 09:53 Cozaar PO 50 mg DAILY MANDY Administration Polyethylene Glycol 17 gm 11/30/17 10:00 11/30/17 09:53 Miralax PO 17 gm DAILY MANDY Administration Rosuvastatin Calcium 5 mg 11/29/17 22:00 11/29/17 21:38 Crestor PO 5 mg HS MANDY Administration - Patient Studies Lab Studies: Microbiology Studies 11/28/17 14:16 Urine Culture - Final Urine,Clean Catch No Growth (<1,000 CFU/ML) 11/28/17 19:05 MRSA Culture (Admit) - Final Nose MRSA NOT DETECTED 11/28/17 12:50 Blood Culture - Preliminary Blood NO GROWTH AFTER 24 HOURS 11/28/17 12:20 Blood Culture - Preliminary Blood NO GROWTH AFTER 24 HOURS Lab Studies 11/30/17 11/30/17 11/30/17 Range/Units 11:14 07:46 06:20 WBC (4.8-10.8) K/uL RBC (4.40-5.90) Mil/uL Hgb (12.0-18.0) g/dL Hct (35.0-51.0) % MCV (80.0-94.0) fL MCH (27.0-31.0) pg MCHC (33.0-37.0) g/dL RDW (11.5-14.5) % Plt Count (130-400) K/uL MPV (7.2-11.7) fL Neut % (Auto) (50.0-75.0) % Lymph % (Auto) (20.0-40.0) % [place] % (Auto) (0.0-10.0) % Eos % (Auto) (0.0-4.0) % Baso % (Auto) (0.0-2.0) % Neut # (Auto) (1.8-7.0) K/uL Lymph # (Auto) (1.0-4.3) K/uL [place] # (Auto) (0.0-0.8) K/uL Eos # (Auto) (0.0-0.7) K/uL Baso # (Auto) (0.0-0.2) K/uL PT 12.0 (9.7-12.2) SECONDS INR 1.1 APTT 60 H (21-34) SECONDS Sodium (132-148) mmol/L Potassium (3.6-5.2) mmol/L Chloride (98-107) mmol/L Carbon Dioxide (22-30) mmol/L Anion Gap (10-20) BUN (9-20) mg/dL Creatinine (0.8-1.5) mg/dL Est GFR ( Amer) Est GFR (Non-Af Amer) POC Glucose (mg/dL) 182 H 188 H (65-110) mg/dL Random Glucose (75-110) mg/dL Calcium (8.6-10.4) mg/dl Phosphorus (2.5-4.5) mg/dL Magnesium (1.6-2.3) mg/dL Total Bilirubin (0.2-1.3) mg/dL AST (17-59) U/L ALT (21-72) U/L Alkaline Phosphatase (38-126) U/L Total Protein (6.3-8.3) g/dL Albumin (3.5-5.0) g/dL Globulin (2.2-3.9) gm/dL Albumin/Globulin Ratio (1.0-2.1) Urine Color (YELLOW) Urine Clarity (Clear) Urine pH (5.0-8.0) Ur Specific [place] (1.003-1.030) Urine Protein (NEGATIVE) mg/dL Urine Glucose (UA) (Normal) mg/dL Urine Ketones (NEGATIVE) mg/dL Urine Blood (NEGATIVE) Urine Nitrate (NEGATIVE) Urine Bilirubin (NEGATIVE) Urine Urobilinogen (0.2-1.0) mg/dL Ur Leukocyte Esterase (Negative) Yu/uL Urine WBC (Auto) (0-5) /hpf Urine RBC (Auto) (0-3) /hpf Urine Bacteria (<OCC) 11/30/17 11/30/17 11/29/17 Range/Units 06:20 06:20 22:38 WBC 9.0 (4.8-10.8) K/uL RBC 3.86 L (4.40-5.90) Mil/uL Hgb 11.6 L (12.0-18.0) g/dL Hct 33.8 L (35.0-51.0) % MCV 87.4 (80.0-94.0) fL MCH 29.9 (27.0-31.0) pg MCHC 34.3 (33.0-37.0) g/dL RDW 13.3 (11.5-14.5) % Plt Count 332 (130-400) K/uL MPV 7.7 (7.2-11.7) fL Neut % (Auto) 38.1 L (50.0-75.0) % Lymph % (Auto) 52.1 H (20.0-40.0) % [place] % (Auto) 7.8 (0.0-10.0) % Eos % (Auto) 1.5 (0.0-4.0) % Baso % (Auto) 0.5 (0.0-2.0) % Neut # (Auto) 3.4 (1.8-7.0) K/uL Lymph # (Auto) 4.7 H (1.0-4.3) K/uL [place] # (Auto) 0.7 (0.0-0.8) K/uL Eos # (Auto) 0.1 (0.0-0.7) K/uL Baso # (Auto) 0.0 (0.0-0.2) K/uL PT (9.7-12.2) SECONDS INR APTT (21-34) SECONDS Sodium 141 (132-148) mmol/L Potassium 3.8 (3.6-5.2) mmol/L Chloride 106 (98-107) mmol/L Carbon Dioxide 26 (22-30) mmol/L Anion Gap 13 (10-20) BUN 9 (9-20) mg/dL Creatinine 0.8 (0.8-1.5) mg/dL Est GFR ( Amer) > 60 Est GFR (Non-Af Amer) > 60 POC Glucose (mg/dL) (65-110) mg/dL Random Glucose 180 H (75-110) mg/dL Calcium 8.5 L (8.6-10.4) mg/dl Phosphorus 3.6 (2.5-4.5) mg/dL Magnesium 1.9 (1.6-2.3) mg/dL Total Bilirubin 0.4 (0.2-1.3) mg/dL AST 29 (17-59) U/L ALT 41 (21-72) U/L Alkaline Phosphatase 69 (38-126) U/L Total Protein 6.6 (6.3-8.3) g/dL Albumin 3.5 (3.5-5.0) g/dL Globulin 3.0 (2.2-3.9) gm/dL Albumin/Globulin Ratio 1.2 (1.0-2.1) Urine Color Red (YELLOW) Urine Clarity Clear (Clear) Urine pH 6.0 (5.0-8.0) Ur Specific [place] 1.006 (1.003-1.030) Urine Protein 1+ H (NEGATIVE) mg/dL Urine Glucose (UA) Normal (Normal) mg/dL Urine Ketones Negative (NEGATIVE) mg/dL Urine Blood 3+ H (NEGATIVE) Urine Nitrate Negative (NEGATIVE) Urine Bilirubin Negative (NEGATIVE) Urine Urobilinogen Normal (0.2-1.0) mg/dL Ur Leukocyte Esterase Neg (Negative) Yu/uL Urine WBC (Auto) 2 (0-5) /hpf Urine RBC (Auto) 776 H (0-3) /hpf Urine Bacteria Occ H (<OCC) 11/29/17 11/29/17 11/29/17 Range/Units 22:36 21:19 17:59 WBC 10.7 (4.8-10.8) K/uL RBC 3.88 L (4.40-5.90) Mil/uL Hgb 11.9 L (12.0-18.0) g/dL Hct 34.1 L (35.0-51.0) % MCV 87.9 (80.0-94.0) fL MCH 30.8 (27.0-31.0) pg MCHC 35.0 (33.0-37.0) g/dL RDW 13.6 (11.5-14.5) % Plt Count 361 (130-400) K/uL MPV 7.5 (7.2-11.7) fL Neut % (Auto) 39.2 L (50.0-75.0) % Lymph % (Auto) 49.6 H (20.0-40.0) % [place] % (Auto) 8.1 (0.0-10.0) % Eos % (Auto) 1.7 (0.0-4.0) % Baso % (Auto) 1.4 (0.0-2.0) % Neut # (Auto) 4.2 (1.8-7.0) K/uL Lymph # (Auto) 5.3 H (1.0-4.3) K/uL [place] # (Auto) 0.9 H (0.0-0.8) K/uL Eos # (Auto) 0.2 (0.0-0.7) K/uL Baso # (Auto) 0.1 (0.0-0.2) K/uL PT (9.7-12.2) SECONDS INR APTT 60 H D (21-34) SECONDS Sodium (132-148) mmol/L Potassium (3.6-5.2) mmol/L Chloride (98-107) mmol/L Carbon Dioxide (22-30) mmol/L Anion Gap (10-20) BUN (9-20) mg/dL Creatinine (0.8-1.5) mg/dL Est GFR ( Amer) Est GFR (Non-Af Amer) POC Glucose (mg/dL) 145 H (65-110) mg/dL Random Glucose (75-110) mg/dL Calcium (8.6-10.4) mg/dl Phosphorus (2.5-4.5) mg/dL Magnesium (1.6-2.3) mg/dL Total Bilirubin (0.2-1.3) mg/dL AST (17-59) U/L ALT (21-72) U/L Alkaline Phosphatase (38-126) U/L Total Protein (6.3-8.3) g/dL Albumin (3.5-5.0) g/dL Globulin (2.2-3.9) gm/dL Albumin/Globulin Ratio (1.0-2.1) Urine Color (YELLOW) Urine Clarity (Clear) Urine pH (5.0-8.0) Ur Specific [place] (1.003-1.030) Urine Protein (NEGATIVE) mg/dL Urine Glucose (UA) (Normal) mg/dL Urine Ketones (NEGATIVE) mg/dL Urine Blood (NEGATIVE) Urine Nitrate (NEGATIVE) Urine Bilirubin (NEGATIVE) Urine Urobilinogen (0.2-1.0) mg/dL Ur Leukocyte Esterase (Negative) Yu/uL Urine WBC (Auto) (0-5) /hpf Urine RBC (Auto) (0-3) /hpf Urine Bacteria (<OCC) 11/29/17 Range/Units 16:12 WBC (4.8-10.8) K/uL RBC (4.40-5.90) Mil/uL Hgb (12.0-18.0) g/dL Hct (35.0-51.0) % MCV (80.0-94.0) fL MCH (27.0-31.0) pg MCHC (33.0-37.0) g/dL RDW (11.5-14.5) % Plt Count (130-400) K/uL MPV (7.2-11.7) fL Neut % (Auto) (50.0-75.0) % Lymph % (Auto) (20.0-40.0) % [place] % (Auto) (0.0-10.0) % Eos % (Auto) (0.0-4.0) % Baso % (Auto) (0.0-2.0) % Neut # (Auto) (1.8-7.0) K/uL Lymph # (Auto) (1.0-4.3) K/uL [place] # (Auto) (0.0-0.8) K/uL Eos # (Auto) (0.0-0.7) K/uL Baso # (Auto) (0.0-0.2) K/uL PT (9.7-12.2) SECONDS INR APTT (21-34) SECONDS Sodium (132-148) mmol/L Potassium (3.6-5.2) mmol/L Chloride (98-107) mmol/L Carbon Dioxide (22-30) mmol/L Anion Gap (10-20) BUN (9-20) mg/dL Creatinine (0.8-1.5) mg/dL Est GFR ( Amer) Est GFR (Non-Af Amer) POC Glucose (mg/dL) 171 H (65-110) mg/dL Random Glucose (75-110) mg/dL Calcium (8.6-10.4) mg/dl Phosphorus (2.5-4.5) mg/dL Magnesium (1.6-2.3) mg/dL Total Bilirubin (0.2-1.3) mg/dL AST (17-59) U/L ALT (21-72) U/L Alkaline Phosphatase (38-126) U/L Total Protein (6.3-8.3) g/dL Albumin (3.5-5.0) g/dL Globulin (2.2-3.9) gm/dL Albumin/Globulin Ratio (1.0-2.1) Urine Color (YELLOW) Urine Clarity (Clear) Urine pH (5.0-8.0) Ur Specific [place] (1.003-1.030) Urine Protein (NEGATIVE) mg/dL Urine Glucose (UA) (Normal) mg/dL Urine Ketones (NEGATIVE) mg/dL Urine Blood (NEGATIVE) Urine Nitrate (NEGATIVE) Urine Bilirubin (NEGATIVE) Urine Urobilinogen (0.2-1.0) mg/dL Ur Leukocyte Esterase (Negative) Yu/uL Urine WBC (Auto) (0-5) /hpf Urine RBC (Auto) (0-3) /hpf Urine Bacteria (<OCC) Laboratory Results - last 24 hr 11/29/17 11/29/17 11/29/17 16:12 17:59 21:19 WBC RBC Hgb Hct MCV MCH MCHC RDW Plt Count MPV Neut % (Auto) Lymph % (Auto) [place] % (Auto) Eos % (Auto) Baso % (Auto) Neut # (Auto) Lymph # (Auto) [place] # (Auto) Eos # (Auto) Baso # (Auto) PT INR APTT 60 H D Sodium Potassium Chloride Carbon Dioxide Anion Gap BUN Creatinine Est GFR ( Amer) Est GFR (Non-Af Amer) POC Glucose (mg/dL) 171 H 145 H Random Glucose Calcium Phosphorus Magnesium Total Bilirubin AST ALT Alkaline Phosphatase Total Protein Albumin Globulin Albumin/Globulin Ratio Urine Color Urine Clarity Urine pH Ur Specific [place] Urine Protein Urine Glucose (UA) Urine Ketones Urine Blood Urine Nitrate Urine Bilirubin Urine Urobilinogen Ur Leukocyte Esterase Urine WBC (Auto) Urine RBC (Auto) Urine Bacteria 11/29/17 11/29/17 11/30/17 22:36 22:38 06:20 WBC 10.7 9.0 RBC 3.88 L 3.86 L Hgb 11.9 L 11.6 L Hct 34.1 L 33.8 L MCV 87.9 87.4 MCH 30.8 29.9 MCHC 35.0 34.3 RDW 13.6 13.3 Plt Count 361 332 MPV 7.5 7.7 Neut % (Auto) 39.2 L 38.1 L Lymph % (Auto) 49.6 H 52.1 H [place] % (Auto) 8.1 7.8 Eos % (Auto) 1.7 1.5 Baso % (Auto) 1.4 0.5 Neut # (Auto) 4.2 3.4 Lymph # (Auto) 5.3 H 4.7 H [place] # (Auto) 0.9 H 0.7 Eos # (Auto) 0.2 0.1 Baso # (Auto) 0.1 0.0 PT INR APTT Sodium Potassium Chloride Carbon Dioxide Anion Gap BUN Creatinine Est GFR ( Amer) Est GFR (Non-Af Amer) POC Glucose (mg/dL) Random Glucose Calcium Phosphorus Magnesium Total Bilirubin AST ALT Alkaline Phosphatase Total Protein Albumin Globulin Albumin/Globulin Ratio Urine Color Red Urine Clarity Clear Urine pH 6.0 Ur Specific [place] 1.006 Urine Protein 1+ H Urine Glucose (UA) Normal Urine Ketones Negative Urine Blood 3+ H Urine Nitrate Negative Urine Bilirubin Negative Urine Urobilinogen Normal Ur Leukocyte Esterase Neg Urine WBC (Auto) 2 Urine RBC (Auto) 776 H Urine Bacteria Occ H 11/30/17 11/30/17 11/30/17 06:20 06:20 07:46 WBC RBC Hgb Hct MCV MCH MCHC RDW Plt Count MPV Neut % (Auto) Lymph % (Auto) [place] % (Auto) Eos % (Auto) Baso % (Auto) Neut # (Auto) Lymph # (Auto) [place] # (Auto) Eos # (Auto) Baso # (Auto) PT 12.0 INR 1.1 APTT 60 H Sodium 141 Potassium 3.8 Chloride 106 Carbon Dioxide 26 Anion Gap 13 BUN 9 Creatinine 0.8 Est GFR ( Amer) > 60 Est GFR (Non-Af Amer) > 60 POC Glucose (mg/dL) 188 H Random Glucose 180 H Calcium 8.5 L Phosphorus 3.6 Magnesium 1.9 Total Bilirubin 0.4 AST 29 ALT 41 Alkaline Phosphatase 69 Total Protein 6.6 Albumin 3.5 Globulin 3.0 Albumin/Globulin Ratio 1.2 Urine Color Urine Clarity Urine pH Ur Specific [place] Urine Protein Urine Glucose (UA) Urine Ketones Urine Blood Urine Nitrate Urine Bilirubin Urine Urobilinogen Ur Leukocyte Esterase Urine WBC (Auto) Urine RBC (Auto) Urine Bacteria 11/30/17 11:14 WBC RBC Hgb Hct MCV MCH MCHC RDW Plt Count MPV Neut % (Auto) Lymph % (Auto) [place] % (Auto) Eos % (Auto) Baso % (Auto) Neut # (Auto) Lymph # (Auto) [place] # (Auto) Eos # (Auto) Baso # (Auto) PT INR APTT Sodium Potassium Chloride Carbon Dioxide Anion Gap BUN Creatinine Est GFR ( Amer) Est GFR (Non-Af Amer) POC Glucose (mg/dL) 182 H Random Glucose Calcium Phosphorus Magnesium Total Bilirubin AST ALT Alkaline Phosphatase Total Protein Albumin Globulin Albumin/Globulin Ratio Urine Color Urine Clarity Urine pH Ur Specific [place] Urine Protein Urine Glucose (UA) Urine Ketones Urine Blood Urine Nitrate Urine Bilirubin Urine Urobilinogen Ur Leukocyte Esterase Urine WBC (Auto) Urine RBC (Auto) Urine Bacteria Critical Care Progress Note - Nutrition Nutrition: Nutrition Category Date Time Status Heart Healthy Diet [DIET] Diets 11/29/17 Breakfast Active Assessment/Plan - Assessment and Plan (Free Text) Assessment: PAtient seen and examined at bedside with above resident. Patient dx with saddle embolism s/p IV tPA and IV heparin. Patient saturating 95% on room air. BP stable. No tachycardia. -hematuria: patient c/o pinkish tinged urine -hold IV heparin -start oral eliquis -Risks, [place] and Alternatives explained to patient. -PAtient verbalized understanding of the risks of bleeding from eliqius; and also understands that patient can ahve a cardiopulmonary collapse if AC not takes. - Date & Time Date: 11/30/17 Time: 16:13
--- NOTE | 2017-11-30 13:18 | CP.PCM.PN ---
Subjective - Date & Time of Evaluation Date of Evaluation: 11/30/17 Time of Evaluation: 12:00 - Subjective Subjective: Patient was seen and examined by me earlier in the morning When I saw patient he was not in any acute distress. He is pedning transfer out of ICU. As previously mentioned he was found to have a saddle pulmonary embolism on CTA on admission and then had TPA He was on a heparin ggt and this was discontinued and he is now on oral Eliquis. He denied chest pain, denied shortness of breath, denied abomdinal pain, also denied pain in the lower extremity that was found to have DVT. He says he hasn't tried moving far yet. Only to commode at bedside Objective - Vital Signs/Intake and Output Vital Signs (last 24 hours): Temp Pulse Resp BP Pulse Ox 98.5 F 71 12 136/79 93 L 11/30/17 08:00 11/30/17 10:52 11/30/17 10:52 11/30/17 10:52 11/30/17 10:52 Intake and Output: 11/30/17 11/30/17 06:59 18:59 Intake Total 428.8 269.8 Output Total 1000 850 Balance -571.2 -580.2 - Medications Medications: Current Medications Apixaban (Eliquis) 10 mg PO BID [facility] Stop: 12/07/17 18:01 Dextrose (Dextrose 50% Inj) 0 ml IVP .STAT PRN; Protocol PRN Reason: Hypoglycemia Protocol Dextrose (Glutose 15) 0 gm PO .ONCE PRN; Protocol PRN Reason: Hypoglycemia Protocol Famotidine (Pepcid) 40 mg PO DAILY [facility] Last Admin: 11/30/17 09:53 Dose: 40 mg Glimepiride (Amaryl) 4 mg PO DAILY [facility] Last Admin: 11/30/17 09:53 Dose: 4 mg Glucagon (Glucagen Diagnostic Kit) 0 mg IM .STAT PRN; Protocol PRN Reason: Hypoglycemia Protocol Dextrose (Dextrose 5% In Water 1000 Ml) 1,000 mls @ 0 mls/hr IV .Q0M PRN; Protocol; Per Protocol PRN Reason: Hypoglycemia Protocol Insulin Glargine (Lantus) 16 unit SC HS [facility] Last Admin: 11/29/17 21:37 Dose: 16 unit Insulin Human Regular (Novolin R) 0 unit SC ACHS [facility] PRN Reason: Protocol Last Admin: 11/30/17 12:42 Dose: 2 u Losartan Potassium (Cozaar) 50 mg PO DAILY [facility] Last Admin: 11/30/17 09:53 Dose: 50 mg Polyethylene Glycol (Miralax) 17 gm PO DAILY [facility] Last Admin: 11/30/17 09:53 Dose: 17 gm Rosuvastatin Calcium (Crestor) 5 mg PO HS [facility] Last Admin: 11/29/17 21:38 Dose: 5 mg - Labs Labs: 11/30/17 06:20 11/30/17 06:20 PT 12.0 SECONDS (9.7-12.2) 11/30/17 06:20 INR 1.1 11/30/17 06:20 APTT 60 SECONDS (21-34) H 11/30/17 06:20 - Constitutional Appears: Well, No Acute Distress - Head Exam Head Exam: NORMAL INSPECTION - Eye Exam Eye Exam: EOMI, Normal appearance - ENT Exam ENT Exam: Mucous Membranes Moist - Respiratory Exam Respiratory Exam: Clear to Ausculation Bilateral, NORMAL BREATHING PATTERN - Cardiovascular Exam Cardiovascular Exam: REGULAR RHYTHM - GI/Abdominal Exam GI & Abdominal Exam: Soft, Normal Bowel Sounds. absent: Guarding, Rigid, Tenderness - Neurological Exam Neurological Exam: Alert, Awake, Oriented x3 Neuro motor strength exam: Left Upper Extremity: 5, Right Upper Extremity: 5, Left Lower Extremity: 5, Right Lower Extremity: 5 - Psychiatric Exam Psychiatric exam: Normal Affect, Normal Mood - Skin Skin Exam: Normal Color, Warm Assessment and Plan - Assessment and Plan (Free Text) Assessment: 1 Pulmonary Embolism - saddle embolus on 11/28 11/30: Currently stable, now off of heparin ggt and placed on PO Eliquis BID As mentioned previously he had TPA adminstered after he was found to have a large saddle PE on CTA done on 11/28 He has had an 2d echo 2 DM 11/30: currently accuchecks are in between 140s and 230s. Continue with sliding scale insulin 3 DVT left lower extremity 11/30: DVT in lower extremity, now off of heparin ggt and on PO Eliquis BID 4 Hyperlipidemia 11/30: Continue with crestor/ Attending/Attestation - Attestation I have personally seen and examined this patient.: Yes I have fully participated in the care of the patient.: Yes I have reviewed all pertinent clinical information, including history, physical exam and plan: Yes
[2017-11-30] MEDS: (Lantus) Insulin Glargine, Recombinant SC SCH (21:08)
[2017-11-30 22:14] VITALS: RESP 20
[2017-12-01 00:22] VITALS: O2SAT 95
[2017-12-01 06:18] LABS: BASO % 0.5 % (0.0-2.0); EOS # 0.1 K/uL (0.0-0.7); EOS % 1.1 % (0.0-4.0); LYMPH # 3.5 K/uL (1.0-4.3); LYMPH % 48.3 % (20.0-40.0); MEAN CELL VOLUME 87.2 fL (80.0-94.0); MEAN CORPUSCULAR HEMOGLOBIN 30.6 pg (27.0-31.0); MEAN CORPUSCULAR HGB CONC 35.1 g/dL (33.0-37.0); MEAN PLATELET VOLUME 7.6 fL (7.2-11.7); MONO # 0.6 K/uL (0.0-0.8); MONO % 8.1 % (0.0-10.0); NEUT # 3.1 K/uL (1.8-7.0); NRBC % 0.1 % (0.0-2.0); RBC 3.9 Mil/uL (4.40-5.90); WHITE BLOOD COUNT 7.3 K/uL (4.8-10.8)
[2017-12-01 06:27] LABS: INR 1.1; PROTHROMBIN TIME 12.5 SECONDS (9.7-12.2)
[2017-12-01 08:07] LABS: ALB/GLOB RATIO 1.2 (1.0-2.1); ALBUMIN 3.8 g/dL (3.5-5.0); ALT/SGPT 38 U/L (21-72); AST/SGOT 21 U/L (17-59); BLOOD UREA NITROGEN 7 mg/dL (9-20); GFR AFRICAN-AMERICAN > 60; GFR NON-AFRICAN AMERICAN > 60
--- NOTE | 2017-12-01 15:57 | CP.PCM.DIS ---
<Herber Corbett - Last Filed: 12/01/17 15:53> Provider - Provider Date of Admission: 11/28/17 16:31 Attending physician: Sybil Du DO Time Spent in preparation of Discharge (in minutes): 45 Diagnosis - Discharge Diagnosis (1) HTN (hypertension) Status: Chronic (2) Saddle pulmonary embolus Status: Acute (3) Diabetes mellitus Status: Chronic (4) Lipid disorder Status: Chronic Hospital Course - Lab Results Lab Results: Micro Results 11/28/17 12:50 Blood Blood Culture - Preliminary NO GROWTH AFTER 48 HOURS 11/28/17 12:20 Blood Blood Culture - Preliminary NO GROWTH AFTER 48 HOURS 11/28/17 14:16 Urine,Clean Catch Urine Culture - Final No Growth (<1,000 CFU/ML) 11/28/17 19:05 Nose MRSA Culture (Admit) - Final MRSA NOT DETECTED Most Recent Lab Values WBC 7.3 K/uL (4.8-10.8) 12/01/17 06:08 RBC 3.90 Mil/uL (4.40-5.90) L 12/01/17 06:08 Hgb 12.0 g/dL (12.0-18.0) 12/01/17 06:08 Hct 34.0 % (35.0-51.0) L 12/01/17 06:08 MCV 87.2 fL (80.0-94.0) 12/01/17 06:08 MCH 30.6 pg (27.0-31.0) 12/01/17 06:08 MCHC 35.1 g/dL (33.0-37.0) 12/01/17 06:08 RDW 13.0 % (11.5-14.5) 12/01/17 06:08 Plt Count 355 K/uL (130-400) 12/01/17 06:08 MPV 7.6 fL (7.2-11.7) 12/01/17 06:08 Neut % (Auto) 42.0 % (50.0-75.0) L 12/01/17 06:08 Lymph % (Auto) 48.3 % (20.0-40.0) H 12/01/17 06:08 [place] % (Auto) 8.1 % (0.0-10.0) 12/01/17 06:08 Eos % (Auto) 1.1 % (0.0-4.0) 12/01/17 06:08 Baso % (Auto) 0.5 % (0.0-2.0) 12/01/17 06:08 Neut # (Auto) 3.1 K/uL (1.8-7.0) 12/01/17 06:08 Lymph # (Auto) 3.5 K/uL (1.0-4.3) 12/01/17 06:08 [place] # (Auto) 0.6 K/uL (0.0-0.8) 12/01/17 06:08 Eos # (Auto) 0.1 K/uL (0.0-0.7) 12/01/17 06:08 Baso # (Auto) 0.0 K/uL (0.0-0.2) 12/01/17 06:08 PT 12.5 SECONDS (9.7-12.2) H 12/01/17 06:08 INR 1.1 12/01/17 06:08 APTT 28 SECONDS (21-34) D 12/01/17 06:08 pO2 49 mm/Hg (30-55) 11/29/17 04:00 VBG pH 7.34 (7.32-7.43) 11/29/17 04:00 VBG pCO2 43 mmHg (40-60) 11/29/17 04:00 VBG HCO3 22.5 mmol/L 11/29/17 04:00 VBG Total CO2 24.5 mmol/L (22-28) 11/29/17 04:00 VBG O2 Sat (Calc) 87.7 % (40-65) H 11/29/17 04:00 VBG Base Excess -2.6 mmol/L (0.0-2.0) L 11/29/17 04:00 VBG Potassium 3.9 mmol/L (3.6-5.2) 11/29/17 04:00 Sodium 141.0 mmol/l (132-148) 11/29/17 04:00 Chloride 110.0 mmol/L (98-107) H 11/29/17 04:00 Glucose 209 mg/dl (75-110) H 11/29/17 04:00 Lactate 1.5 mmol/L (0.7-2.1) 11/29/17 04:00 FiO2 40.0 % 11/29/17 04:00 Expiratory BiPAP 6 11/29/17 04:00 Crit Value Called To Dr ryder 11/28/17 16:40 Crit Value Called By Armando bullock 11/28/17 16:40 Crit Value Read Back Y 11/28/17 16:40 Blood Gas Notified Time 1643 11/28/17 16:40 Sodium 141 mmol/L (132-148) 12/01/17 06:08 Potassium 3.9 mmol/L (3.6-5.2) 12/01/17 06:08 Chloride 105 mmol/L (98-107) 12/01/17 06:08 Carbon Dioxide 28 mmol/L (22-30) 12/01/17 06:08 Anion Gap 12 (10-20) 12/01/17 06:08 BUN 7 mg/dL (9-20) L 12/01/17 06:08 Creatinine 0.7 mg/dL (0.8-1.5) L 12/01/17 06:08 Est GFR ( Amer) > 60 12/01/17 06:08 Est GFR (Non-Af Amer) > 60 12/01/17 06:08 POC Glucose (mg/dL) 222 mg/dL (65-110) H 12/01/17 15:41 Random Glucose 178 mg/dL (75-110) H 12/01/17 06:08 Calcium 9.0 mg/dl (8.6-10.4) 12/01/17 06:08 Phosphorus 4.3 mg/dL (2.5-4.5) 12/01/17 06:08 Magnesium 2.0 mg/dL (1.6-2.3) 12/01/17 06:08 Total Bilirubin 0.5 mg/dL (0.2-1.3) 12/01/17 06:08 AST 21 U/L (17-59) 12/01/17 06:08 ALT 38 U/L (21-72) 12/01/17 06:08 Alkaline Phosphatase 70 U/L (38-126) 12/01/17 06:08 Total Creatine Kinase 71 U/L (55-170) 11/29/17 00:01 CK-MB (Mass) 3.79 ng/mL (0.0-3.38) H 11/29/17 00:01 Troponin I 0.8120 ng/mL (0.00-0.120) H* 11/29/17 00:01 Total Protein 7.0 g/dL (6.3-8.3) 12/01/17 06:08 Albumin 3.8 g/dL (3.5-5.0) 12/01/17 06:08 Globulin 3.2 gm/dL (2.2-3.9) 12/01/17 06:08 Albumin/Globulin Ratio 1.2 (1.0-2.1) 12/01/17 06:08 Venous Blood Potassium 3.9 mmol/L (3.6-5.2) 11/29/17 04:00 Urine Color Red (YELLOW) 11/29/17 22:38 Urine Clarity Clear (Clear) 11/29/17 22:38 Urine pH 6.0 (5.0-8.0) 11/29/17 22:38 Ur Specific [place] 1.006 (1.003-1.030) 11/29/17 22:38 Urine Protein 1+ mg/dL (NEGATIVE) H 11/29/17 22:38 Urine Glucose (UA) Normal mg/dL (Normal) 11/29/17 22:38 Urine Ketones Negative mg/dL (NEGATIVE) 11/29/17 22:38 Urine Blood 3+ (NEGATIVE) H 11/29/17 22:38 Urine Nitrate Negative (NEGATIVE) 11/29/17 22:38 Urine Bilirubin Negative (NEGATIVE) 11/29/17 22:38 Urine Urobilinogen Normal mg/dL (0.2-1.0) 11/29/17 22:38 Ur Leukocyte Esterase Neg Yu/uL (Negative) 11/29/17 22:38 Urine WBC (Auto) 2 /hpf (0-5) 11/29/17 22:38 Urine RBC (Auto) 776 /hpf (0-3) H 11/29/17 22:38 Ur Squamous Epith Cells < 1 /hpf (0-5) 11/28/17 14:28 Urine Bacteria Occ (<OCC) H 11/29/17 22:38 Salicylates < 1.0 mg/dL 1 11/28/17 14:25 Blood Type A POSITIVE 11/28/17 16:22 Antibody Screen Negative 11/28/17 16:22 - Hospital Course Hospital Course: HPI: Pt chart and record was reviewed prior to evaluation. This is a 57 yo M with a PMHx of DM, HTN, Hypercholesterolemia who was BIBA to the ED with complaints of worsening fatigue, sob, and recent syncopal episode. Patient seen at bedside with his sister, son, and partner of multiple years. Patient had a witnessed syncopal episode today by his sister while walking up about 50 steps from the ground floor to the second floor. Pt regained consciousness after 1-2 minutes. Per patient's sister, patient appeared very exhausted, lethargic, and he passed out, she caught him, patient did lose consciousness and took few minutes before regain consciousness. Per patient for the past week and half, he has been feeling exhausted and tired. Patient at baseline, walks with cane for the past 2 weeks, normally very ambulatory. Patient does not smoke, there is no recent travel, no recent long airplane rides , no bus rides etc. Since last hospitalization, patient completed Zyvox and his abscess over the left lower extremity has improved significant. Patient has small dressing over it. Pt had a Chest CTA in the ED which showed saddle embolus, without thoracic aortic aneurysm or dissection. Head CT shows no evidence of intracranial hemorrhage. BP on presentation was 90/56. We discussed the risks of bleeding with family with assistance of his bilingual son at bedside, as pt will need thrombolytic treatment for pulmonary embolus. Pt understands there is a significant bleeding risk and allows for thrombolytic therapy. Patient has had prior endoscopy in 07/2017 no ulcers noted no GI complaints. He does not have bleeding problems that he is aware of. Pt has no absolute contraindications to tPA treatment. Patient is awake, alert, no acute distress, somewhat pale, lethargic, but also notes he is FULL CODE and defers to his common law partner to make medical decision. patient is officially from son's mother. Pt denies headache, reports lethargic, denies blurry vision, denies cough, reports shortness of breathe, reports cough, reports abdominal pain in the epigastrium for the past 1 day, denies nausea, denies vomiting, denies urinary, denies change in bowel movements. Patient reports last medications were taken yesterday and he only took aspirin this morning. PMHx: DM, HTN, Hypercholesterolemia PSHx: abscess ID in [id number], Lipoma excision of L mirza and Left shoulder , Endoscopy 08/09/17, diagnostic catheterization ~2002 Allergies: NKDA Family Hx: Father: - HTN, DM. Mother: - HTN, DM. Social Hx: Drinks alcohol socially, denies tobacco, denies illicit drug use. PMD: Dr. Tavarez Pt seen to have saddle PE on CTA. Pt treated in ICU with 25,000U of heparin IV. Pt switched to PO Apixaban 10mg PO BID. Pt was downgraded from ICU on 12/01. Pt medically cleared for discharge home and follow up with PMD Dr Fenton, Hematology Dr Renteria in one week. diagnostics and Imaging CXR- Neg 11/28 EKG- NSR 11/28 CT Head- Neg 11/28 CT dissection- SADDLE PE 11/28 V Doppler: L popliteal DVT 11/28 Echo: normal, EF50% 11/[address] follow [address] Renteria Hematology and Dr Singh PMd within one week of d/c Pt is to be d/c with Elequis 100mg PO BID one month supply Discharge Exam - Head Exam Head Exam: NORMAL INSPECTION - Eye Exam Eye Exam: EOMI, Normal appearance Pupil Exam: NORMAL ACCOMODATION - ENT Exam ENT Exam: Mucous Membranes Moist - Respiratory Exam Respiratory Exam: NORMAL BREATHING PATTERN, UNREMARKABLE - Cardiovascular Exam Cardiovascular Exam: RRR, +S1, +S2 - GI/Abdominal Exam GI & Abdominal Exam: Normal Bowel Sounds, Unremarkable - Extremities Exam Extremities exam: pedal pulses present - Back Exam Back exam: NORMAL INSPECTION - Neurological Exam Neurological exam: Alert, CN II-XII Intact, Normal Gait, Oriented x3, Reflexes Normal - Psychiatric Exam Psychiatric exam: Normal Affect, Normal Mood - Skin Skin Exam: Dry, Normal Color, Warm Discharge Plan - Discharge Medications Prescriptions: Apixaban [Eliquis] 10 mg PO BID #60 tab Glimepiride [amaRYL] 4 mg PO DAILY #30 tab Losartan [Cozaar] 50 mg PO DAILY #30 tab Pravastatin Sodium [Pravachol] 1 tab PO HS #30 tab Saxagliptin HCl/Metformin HCl [Kombiglyze Xr 5-500 mg Tablet] 1 tab PO ACD #30 tbmp.24hr - Follow Up Plan Condition: SERIOUS Disposition: HOME/ ROUTINE Referrals: Price Tavarez MD [Staff Provider] - Gerard Renteria MD [Staff Provider] - <Eleazar Corcoran - Last Filed: 12/01/17 16:32> Provider - Provider Date of Admission: 11/28/17 16:31 Attending physician: Sybil Du DO Hospital Course - Lab Results Lab Results: Micro Results 11/28/17 12:50 Blood Blood Culture - Preliminary NO GROWTH AFTER 48 HOURS 11/28/17 12:20 Blood Blood Culture - Preliminary NO GROWTH AFTER 48 HOURS 11/28/17 14:16 Urine,Clean Catch Urine Culture - Final No Growth (<1,000 CFU/ML) 11/28/17 19:05 Nose MRSA Culture (Admit) - Final MRSA NOT DETECTED Most Recent Lab Values WBC 7.3 K/uL (4.8-10.8) 12/01/17 06:08 RBC 3.90 Mil/uL (4.40-5.90) L 12/01/17 06:08 Hgb 12.0 g/dL (12.0-18.0) 12/01/17 06:08 Hct 34.0 % (35.0-51.0) L 12/01/17 06:08 MCV 87.2 fL (80.0-94.0) 12/01/17 06:08 MCH 30.6 pg (27.0-31.0) 12/01/17 06:08 MCHC 35.1 g/dL (33.0-37.0) 12/01/17 06:08 RDW 13.0 % (11.5-14.5) 12/01/17 06:08 Plt Count 355 K/uL (130-400) 12/01/17 06:08 MPV 7.6 fL (7.2-11.7) 12/01/17 06:08 Neut % (Auto) 42.0 % (50.0-75.0) L 12/01/17 06:08 Lymph % (Auto) 48.3 % (20.0-40.0) H 12/01/17 06:08 [place] % (Auto) 8.1 % (0.0-10.0) 12/01/17 06:08 Eos % (Auto) 1.1 % (0.0-4.0) 12/01/17 06:08 Baso % (Auto) 0.5 % (0.0-2.0) 12/01/17 06:08 Neut # (Auto) 3.1 K/uL (1.8-7.0) 12/01/17 06:08 Lymph # (Auto) 3.5 K/uL (1.0-4.3) 12/01/17 06:08 [place] # (Auto) 0.6 K/uL (0.0-0.8) 12/01/17 06:08 Eos # (Auto) 0.1 K/uL (0.0-0.7) 12/01/17 06:08 Baso # (Auto) 0.0 K/uL (0.0-0.2) 12/01/17 06:08 PT 12.5 SECONDS (9.7-12.2) H 12/01/17 06:08 INR 1.1 12/01/17 06:08 APTT 28 SECONDS (21-34) D 12/01/17 06:08 pO2 49 mm/Hg (30-55) 11/29/17 04:00 VBG pH 7.34 (7.32-7.43) 11/29/17 04:00 VBG pCO2 43 mmHg (40-60) 11/29/17 04:00 VBG HCO3 22.5 mmol/L 11/29/17 04:00 VBG Total CO2 24.5 mmol/L (22-28) 11/29/17 04:00 VBG O2 Sat (Calc) 87.7 % (40-65) H 11/29/17 04:00 VBG Base Excess -2.6 mmol/L (0.0-2.0) L 11/29/17 04:00 VBG Potassium 3.9 mmol/L (3.6-5.2) 11/29/17 04:00 Sodium 141.0 mmol/l (132-148) 11/29/17 04:00 Chloride 110.0 mmol/L (98-107) H 11/29/17 04:00 Glucose 209 mg/dl (75-110) H 11/29/17 04:00 Lactate 1.5 mmol/L (0.7-2.1) 11/29/17 04:00 FiO2 40.0 % 11/29/17 04:00 Expiratory BiPAP 6 11/29/17 04:00 Crit Value Called To Dr ryder 11/28/17 16:40 Crit Value Called By Armando bullock 11/28/17 16:40 Crit Value Read Back Y 11/28/17 16:40 Blood Gas Notified Time 1643 11/28/17 16:40 Sodium 141 mmol/L (132-148) 12/01/17 06:08 Potassium 3.9 mmol/L (3.6-5.2) 12/01/17 06:08 Chloride 105 mmol/L (98-107) 12/01/17 06:08 Carbon Dioxide 28 mmol/L (22-30) 12/01/17 06:08 Anion Gap 12 (10-20) 12/01/17 06:08 BUN 7 mg/dL (9-20) L 12/01/17 06:08 Creatinine 0.7 mg/dL (0.8-1.5) L 12/01/17 06:08 Est GFR ( Amer) > 60 12/01/17 06:08 Est GFR (Non-Af Amer) > 60 12/01/17 06:08 POC Glucose (mg/dL) 222 mg/dL (65-110) H 12/01/17 15:41 Random Glucose 178 mg/dL (75-110) H 12/01/17 06:08 Calcium 9.0 mg/dl (8.6-10.4) 12/01/17 06:08 Phosphorus 4.3 mg/dL (2.5-4.5) 12/01/17 06:08 Magnesium 2.0 mg/dL (1.6-2.3) 12/01/17 06:08 Total Bilirubin 0.5 mg/dL (0.2-1.3) 12/01/17 06:08 AST 21 U/L (17-59) 12/01/17 06:08 ALT 38 U/L (21-72) 12/01/17 06:08 Alkaline Phosphatase 70 U/L (38-126) 12/01/17 06:08 Total Creatine Kinase 71 U/L (55-170) 11/29/17 00:01 CK-MB (Mass) 3.79 ng/mL (0.0-3.38) H 11/29/17 00:01 Troponin I 0.8120 ng/mL (0.00-0.120) H* 11/29/17 00:01 Total Protein 7.0 g/dL (6.3-8.3) 12/01/17 06:08 Albumin 3.8 g/dL (3.5-5.0) 12/01/17 06:08 Globulin 3.2 gm/dL (2.2-3.9) 12/01/17 06:08 Albumin/Globulin Ratio 1.2 (1.0-2.1) 12/01/17 06:08 Venous Blood Potassium 3.9 mmol/L (3.6-5.2) 11/29/17 04:00 Urine Color Red (YELLOW) 11/29/17 22:38 Urine Clarity Clear (Clear) 11/29/17 22:38 Urine pH 6.0 (5.0-8.0) 11/29/17 22:38 Ur Specific [place] 1.006 (1.003-1.030) 11/29/17 22:38 Urine Protein 1+ mg/dL (NEGATIVE) H 11/29/17 22:38 Urine Glucose (UA) Normal mg/dL (Normal) 11/29/17 22:38 Urine Ketones Negative mg/dL (NEGATIVE) 11/29/17 22:38 Urine Blood 3+ (NEGATIVE) H 11/29/17 22:38 Urine Nitrate Negative (NEGATIVE) 11/29/17 22:38 Urine Bilirubin Negative (NEGATIVE) 11/29/17 22:38 Urine Urobilinogen Normal mg/dL (0.2-1.0) 11/29/17 22:38 Ur Leukocyte Esterase Neg Yu/uL (Negative) 11/29/17 22:38 Urine WBC (Auto) 2 /hpf (0-5) 11/29/17 22:38 Urine RBC (Auto) 776 /hpf (0-3) H 11/29/17 22:38 Ur Squamous Epith Cells < 1 /hpf (0-5) 11/28/17 14:28 Urine Bacteria Occ (<OCC) H 11/29/17 22:38 Salicylates < 1.0 mg/dL 1 11/28/17 14:25 Blood Type A POSITIVE 11/28/17 16:22 Antibody Screen Negative 11/28/17 16:22 Attending/Attestation - Attestation I have personally seen and examined this patient.: Yes I have fully participated in the care of the patient.: Yes I have reviewed all pertinent clinical information, including history, physical exam and plan: Yes Notes (Text): 12/01/17 16:28 Medical attending: Patient was seen and examined by me. Agree with the above note by the resident The patient was able to walk around without assistance in the hallway when we saw him. We also reviewed the telemetry when he walked around and it was NSR in the 90s. He was not in any chest pain, denied palpitation, denied shortness of breath. He feels well enough to go home He understands he needs to follow up with his PMD as well as with hematology oncology. He understands the importance of taking the Eliquis BID as well Eleazar Corcoran
[2017-12-01 16:07] VITALS: BP 134/81; PULSE 79; TEMP 98.2
[2017-12-01] MEDS: (Novolin R) Insulin Human Regular 100 units/ml vial SC SCH (17:11)
[2017-12-02 20:51] LABS: B2 GLYCOPROTEIN I AB(IGA) 12 SAU (<=20); B2 GLYCOPROTEIN I AB(IGG) <9 SGU (<=20); B2 GLYCOPROTEIN I AB(IGM) <9 SMU (<=20)
[2017-12-02 22:12] LABS: CARDIOLIPIN AB (IGA) <11 APL (<=11); CARDIOLIPIN AB (IGG) <14 GPL (<=14); CARDIOLIPIN AB (IGM) <12 MPL (<=12)
== END 2017-12-01 18:01 | disposition home or self-care (01) | DRG 176 ==
LOC: C.ER 11:51 → C.9E 16:31 → C.9I 16:54 → C.6T 11-30 21:44
PROVIDERS: ADMIT Hospitalist; ATTEND Hospitalist
DX: I26.92 Saddle embolus of pulmonary artery without acute cor pulmonale (principal); E87.2 Acidosis; I82.432 Acute embolism and thrombosis of left popliteal vein; L03.116 Cellulitis of left lower limb; I10 Essential (primary) hypertension; G47.33 Obstructive sleep apnea (adult) (pediatric); E78.5 Hyperlipidemia, unspecified; E11.9 Type 2 diabetes mellitus without complications; Z79.01 Long term (current) use of anticoagulants; Z79.4 Long term (current) use of insulin